=== PATIENT | female | born 1935 | race Caucasian/White ===

== ENCOUNTER 2021-06-14 18:16 | Inpatient (IN) ==
[2021-06-14 19:24] LABS: Basophils # (auto) 0.05 K/uL (0-0.2); Basophils % (auto) 0.4 %; Eosinophils # (auto) 0.25 K/uL (0-0.5); Eosinophils % (auto) 2.1 %; Hematocrit (blood only) 48.5 % (37-47); Hemoglobin 16.5 g/dL (12.0-16.0); Immature Granulocytes # (auto) 0.02 K/uL (0.00-0.02); Immature Granulocytes % (auto) 0.2 %; Lymphocytes # (auto) 2.38 K/uL (1.2-3.4); Mean Corpuscular Hemoglobin 33.4 pg (25-34); Mean Corpuscular Volume 98.2 fL (80-100); Mean Platelet Volume 9.7 fL (7.4-10.4); Monocytes # (auto) 1.45 K/uL (0.11-0.59); Monocytes % (auto) 12.2 %; Neutrophils # (auto) 7.73 K/uL (1.4-6.5); Neutrophils % (auto) 65.1 %; Platelet Count 367 K/uL (130-400); RDW Coefficient of Variation 12.5 % (11.5-14.5); RDW Standard Deviation 44.9 fL (36.4-46.3); Red Blood Count 4.94 M/uL (4.2-5.4); White Blood Count 11.88 K/uL (4.8-10.8)
[2021-06-14 19:39] LABS: Partial Thromboplastin Ratio 1.1; Prothrombin Time 10.3 Seconds (9.0-12.0)
[2021-06-14 19:56] LABS: Alanine Aminotransferase 26 U/L (7-52); Albumin Globulin Ratio 1.3 (0.9-2); Albumin Level 4.4 gm/dl (3.4-5.0); Alkaline Phosphatase 51 U/L (34-104); Anion Gap 8 (3-11); Aspartate Aminotransferase 25 U/L (13-39); BUN Creatinine Ratio 18.8 (10-20); Bilirubin,Total 0.4 mg/dl (0.2-1.0); Blood Urea Nitrogen 21 mg/dl (6-23); Calcium 10.4 mg/dl (8.5-10.1); Carbon Dioxide 30 mmol/L (21-32); Chloride 98 mmol/L (98-107); Est GFR (African American) 51.5 ml/min; Est GFR (Non-African American) 44.4 ml/min; Globulin 3.4 gm/dl (2.5-4.0); Glucose 151 mg/dl (70-99(Fasting)); Magnesium 1.7 mg/dl (1.7-2.4); Potassium 3.9 mmol/L (3.5-5.1); Sodium 136 mmol/L (136-145); Total Protein 7.8 gm/dl (6.0-8.3)
[2021-06-14 20:13] LABS: Troponin I 0.04 ng/ml (0-0.04)
[2021-06-14] MEDS ORDERED: cefTRIAXone SODIUM 2,000 MG/70 ML BAG IV STA (20:36)
[2021-06-14] MEDS ORDERED: ALBUT/IPRATROP 3MG/0.5MG NEB 3 ML VIAL NEB STA (20:36)
[2021-06-14] MEDS ORDERED: dexAMETHasone**PF** 10 MG/ML VIAL IV ONE (20:36)
--- NOTE | 2021-06-14 20:36 | XRay Report ---
XR chest 1V portable CLINICAL HISTORY: SOB TECHNIQUE: Single frontal radiograph of the chest was obtained. Comparison: Comparison is made to chest one view 05/29/2014 FINDINGS: No lines and tubes are seen. Cardiomegaly is noted. Bilateral lower lung predominant airspace opaciti es are seen. No evidence of pleural effusion or pneumothorax. IMPRESSION: Bilateral lower lung predominant airspace opacities which may represent atelectasis, pneumonia, and/o r aspiration. Stable cardiomegaly. ACT 112: Negative or not required by law. Electronically signed by: Leonard Ferreira M.D. 06/14/2021 8:34 PM
--- NOTE | 2021-06-14 20:44 | Emergency Department Note ---
Impression & Plan Hypoxia, Pneumonia, SOB (shortness of breath), Wheezing ED Provider Note NAME: ARABELLA MIKE AGE: 86 SEX: F : 1935 ARRIVES VIA: Walk-In INFORMANT: [Patient] ED PROVIDER(S): [Kobi Marlow MD] CHIEF COMPLAINT: Short of breath HISTORY OF PRESENT ILLNESS: The patient is an 86-year-old female presents to the ER with 3 days of shortness of breath and cough. There has been a slight sore throat as well. No fever, no chills, no vomiting or diarrhea. The patient saw her doctor today and her oxygen level was low, she was referred to the hospital. The patient is vaccinated x3 for COVID-19, she has had her influenza vaccination. Patient has had pneumonia before, she is concerned that she might have pneumonia again. She is a smoker. REVIEW OF SYSTEMS: See HPI for pertinent positives and negatives. A total of ten systems were reviewed and were otherwise negative. PMHx/PSHx: See Below SOCIAL HISTORY: See Below. PHYSICAL EXAM: GENERAL: Patient is in no acute distress. HEENT: No acute trauma, normocephalic atraumatic, mucous membranes moist, no nasal congestion, no scleral icterus. NECK: No stridor, no adenopathy, no meningismus, trachea is midline. LUNGS: Wheezes heard bilaterally, no respiratory distress, no crackles. Breath sounds are equal. HEART: Without murmurs gallops or rubs, regular rate and rhythm. ABDOMEN: Soft, nontender, bowel sounds positive, no hernias, no peritonitis. EXTREMITIES: No cyanosis or edema, full range of motion of all the joints without pain or difficulty, no signs for acute trauma. NEUROLOGIC: Oriented x 3, no acute motor or sensory deficits, no focal weakness. SKIN: No rash, no jaundice, no diaphoresis. DIFFERENTIAL DIAGNOSIS: Reactive airway disease, pneumonia, COVID-19, influenza, pneumothorax, COPD, CHF, infection, cardiac ischemia, pulmonary embolism, bronchitis, musculoskeletal, gastrointestinal, as well as other pathologies. EMERGENCY DEPARTMENT COURSE/PROCEDURES: ECG: Indication was shortness of breath. The ECG shows a sinus rhythm with PACs. The rate is 100. There is no ST elevation, no PVCs. The QTc is 451. Continuous Cardiac Monitoring: An order was placed for continuous cardiac duran toring. The monitor shows a rate of 95 with normal sinus rhythm. Critical Care Note: I have personally spent 45 minutes of critical care time in the direct management of this patient. This includes bedside care, interpretation of diagnostic studies, and testing, discussion with consultants, patient, and family members, and other required patient management activities. This 45 minutes is in excess of all separately billable procedures. MEDICAL DECISION MAKING: There is a mild leukocytosis, this could be consistent with infection. No anemia. There was a normal platelet count. No coagulopathy. No significant electrolyte abnormality or kidney failure. No concerning liver enzyme elevation. ECG shows a sinus rhythm with some PACs, no obvious ischemia. Cardiac enzyme testing x1 is not consistent with acute cardiac injury. Influenza and Covid testing is pending. Chest x-ray shows some consolidation to both lower lungs consistent with potential pneumonia versus atelectasis. On exam, the patient was wheezing. She was noted to be hypoxic and required 2 L of nasal cannula O2 supplementation. The patient was given a DuoNeb, IV Decadron and IV ceftriaxone. The patient is in need of a hospital stay. She has pneumonia. Certainly, COVID-19 or influenza are possibilities--we await these results. I spoke to the patient, I talked to case management. A hospital stay is clearly warranted. Patient is currently resting comfortably. She understands the need for a hospital stay. The on-call hospitalist was consulted. Past Med/Surg History Medical History Pneumonia Social History Smoking Status: Current every day smoker Feels Safe at Home: Yes Allergies Allergies Allergy/AdvReac Type Severity Reaction Status Date / Time Penicillins Allergy Unknown HIVES Verified 06/14/21 21:40 Home Meds Home Medications Medication Instructions Recorded Confirmed clopidogrel 75 mg tablet 75 mg PO DAILY 06/14/21 06/14/21 levothyroxine 150 mcg tablet 150 mcg PO DAILY 06/14/21 06/14/21 lisinopril 40 mg tablet 40 mg PO DAILY 06/14/21 06/14/21 metoprolol tartrate 25 mg tablet 25 mg PO DAILY 06/14/21 06/14/21 multivitamin 1 tab PO DAILY 06/14/21 06/14/21 rosuvastatin 10 mg tablet 10 mg PO DAILY 06/14/21 06/14/21 Results & Data (ED) Vital Signs Vital Signs - 24 hr 06/14/21 18:26 06/14/21 20:18 06/14/21 20:20 Temperature 37.0 C Temperature Source Temporal Artery Scan Pulse Rate 97 H Pulse Rate [Left Apical] 95 H Respiratory Rate 25 H 18 Respiratory Effort / Characteristics Non-Labored Spontaneous Respiratory Depth Normal Respiratory Pattern Regular Blood Pressure 159/68 H Blood Pressure [Right Arm] 123/64 Blood Pressure Mean 98 Blood Pressure Mean [Right Arm] 83 Blood Pressure Position [Right Arm] Lying Pulse Oximetry 92 96 83 L Oxygen Delivery Method Room Air Nasal Cannula Room Air Oxygen Flow Rate 2 Sepsis Recent Fever Within 48 Hours No Sepsis New/Unexplained Change in Mental Status N/A Sepsis Action Taken by Nursing No Action Required Oxygen Flow Rate - Titration 2 Pulse Oximetry Post Tiitration 95 06/14/21 20:21 Temperature Temperature Source Pulse Rate Pulse Rate [Left Apical] Respiratory Rate 22 Respiratory Effort / Characteristics Non-Labored Respiratory Depth Respiratory Pattern Blood Pressure Blood Pressure [Right Arm] Blood Pressure Mean Blood Pressure Mean [Right Arm] Blood Pressure Position [Right Arm] Pulse Oximetry 95 Oxygen Delivery Method Nasal Cannula Oxygen Flow Rate 2 Sepsis Recent Fever Within 48 Hours Sepsis New/Unexplained Change in Mental Status Sepsis Action Taken by Nursing Oxygen Flow Rate - Titration Pulse Oximetry Post Tiitration Home Medications Current Medication List: was personally reviewed by me Laboratory Data Attestation: I reviewed the patient's lab results. Result diagrams: 06/14/21 19:07 06/14/21 19:07 Lab Results 06/14/21 06/14/21 06/14/21 Range/Units 19:07 19:07 19:07 WBC 11.88 H (4.8-10.8) K/uL RBC 4.94 (4.2-5.4) M/uL Hgb 16.5 H (12.0-16.0) g/dL Hct 48.5 H (37-47) % MCV 98.2 (80-100) fL MCH 33.4 (25-34) pg MCHC 34.0 (32-36) g/dL RDW Std Deviation 44.9 (36.4-46.3) fL RDW Coeff of Terri 12.5 (11.5-14.5) % Plt Count 367 (130-400) K/uL MPV 9.7 (7.4-10.4) fL Immature Gran % (Auto) 0.2 % Neut % (Auto) 65.1 % Lymph % (Auto) 20.0 % Wells % (Auto) 12.2 % Eos % (Auto) 2.1 % Baso % (Auto) 0.4 % Neut # (Auto) 7.73 H (1.4-6.5) K/uL Lymph # (Auto) 2.38 (1.2-3.4) K/uL Wells # (Auto) 1.45 H (0.11-0.59) K/uL Eos # (Auto) 0.25 (0-0.5) K/uL Baso # (Auto) 0.05 (0-0.2) K/uL Immature Gran # (Auto) 0.02 (0.00-0.02) K/uL PT 10.3 (9.0-12.0) Seconds INR 1.0 (0.9-1.1) APTT 29.0 (21.0-31.0) Seconds PTT Ratio 1.1 Sodium 136 (136-145) mmol/L Potassium 3.9 (3.5-5.1) mmol/L Chloride 98 (98-107) mmol/L Carbon Dioxide 30 (21-32) mmol/L Anion Gap 8 (3-11) BUN 21 (6-23) mg/dl Creatinine 1.12 (0.6-1.2) mg/dl Est Cr Clr Drug Dosing Not Reportable Est GFR ( Amer) 51.5 ml/min Est GFR (Non-Af Amer) 44.4 ml/min BUN/Creatinine Ratio 18.8 (10-20) Glucose 151 H (70-99(Fasting)) mg/dl Calcium 10.4 H (8.5-10.1) mg/dl Magnesium 1.7 (1.7-2.4) mg/dl Total Bilirubin 0.4 (0.2-1.0) mg/dl AST 25 (13-39) U/L ALT 26 (7-52) U/L Alkaline Phosphatase 51 (34-104) U/L Troponin I 0.04 (0-0.04) ng/ml Total Protein 7.8 (6.0-8.3) gm/dl Albumin 4.4 (3.4-5.0) gm/dl Globulin 3.4 (2.5-4.0) gm/dl Albumin/Globulin Ratio 1.3 (0.9-2) Administered Medications Discontinued Medications Albuterol (Albut/Ipratrop 3mg/0.5mg Neb 3 Ml Vial) 3 ml NEB NOW STA; Protocol Stop: 06/14/21 20:37 Last Admin: 06/14/21 20:45 Dose: 3 ml Documented by: [id number] Dexamethasone Sodium Phosphate (DexamethasonePf 10 Mg/Ml Vial) 6 mg IV NOW ONE Stop: 06/14/21 20:37 Last Admin: 06/14/21 20:47 Dose: 6 mg Documented by: [id number] Ceftriaxone Sodium (Rocephin) 2,000 mg in 70 mls @ 140 mls/hr IV NOW STA Stop: 06/14/21 21:05 Last Infusion: 06/14/21 22:25 Dose: 0 mls/hr Documented by: [id number] Admin: 06/14/21 21:54 Dose: 140 mls/hr Documented by: [id number] Imaging Data Radiologist's Impression: Chest X-Ray 06/14/21 19:05 XR chest 1V portable CLINICAL HISTORY: SOB TECHNIQUE: Single frontal radiograph of the chest was obtained. Comparison: Comparison is made to chest one view 05/29/2014 FINDINGS: No lines and tubes are seen. Cardiomegaly is noted. Bilateral lower lung predominant airspace opacities are seen. No evidence of pleural effusion or pneumothorax. IMPRESSION: Bilateral lower lung predominant airspace opacities which may represent atelectasis, pneumonia, and/or aspiration. Stable cardiomegaly. ACT 112: Negative or not required by law. Electronically signed by: Leonard Ferreira M.D. 06/14/2021 8:34 PM Discharge Plan Visit Data Chief Complaint: Shortness of Breath/Dyspnea Stated Complaint: SORE THROAT, SOB, COUGH, SENT FROM [facility] ED Provider: Kobi Marlow Discharge Problem: Hypoxia, Pneumonia, SOB (shortness of breath), Wheezing Patient Disposition: Admitted As Inpatient Condition: Fair Forms Stand Alone Forms: [facility] Prescriptions Prescriptions: No Action multivitamin Tablet 1 tab PO DAILY RF: 0 clopidogrel 75 mg tablet 75 mg PO DAILY RF: 0 levothyroxine 150 mcg tablet 150 mcg PO DAILY RF: 0 lisinopril 40 mg tablet 40 mg PO DAILY RF: 0 rosuvastatin 10 mg tablet 10 mg PO DAILY RF: 0 metoprolol tartrate 25 mg tablet 25 mg PO DAILY RF: 0 Referrals Referrals: Hodan Ventura MD [Physician] -
[2021-06-14 23:04] LABS: Influenza A virus by PCR Negative (Negative); Influenza B virus by PCR Negative (Negative)
[2021-06-14] MEDS ORDERED: LEVALBUTEROL 1.25MG/0.5ML NEB INH SCH (23:56)
[2021-06-14] MEDS ORDERED: MoRPHine SULFATE 2 MG/ML CARP IV STA (23:56)
[2021-06-14] MEDS ORDERED: XOPENEX/ATROVENT 1.25mg/0.5MG NEB COMBO NEB PRN (23:56)
[2021-06-14] MEDS ORDERED: IPRATROPIUM BROMIDE NEB SOLN 0.02% 2.5 ML VIAL INH SCH (23:56)
[2021-06-15] MEDS ORDERED: dilTIAZem HCl 5 MG/ML 5 ML VIAL IV STA (00:07)
[2021-06-15] MEDS ORDERED: OPTIRAY 320 125ml IV ONE (01:17)
[2021-06-15] MEDS ORDERED: MoRPHine SULFATE 2 MG/ML CARP IV PRN (01:38)
[2021-06-15] MEDS ORDERED: ONDANSETRON INJ 2 MG/ML 2 ML VIAL IV PRN (02:49)
[2021-06-15] MEDS ORDERED: ACETAMINOPHEN 325 MG TAB PO PRN (02:49)
[2021-06-15] MEDS ORDERED: NITROGLYCERIN SL 0.4 MG/TAB TAB SL PRN (02:49)
[2021-06-15] MEDS ORDERED: XOPENEX/ATROVENT 1.25mg/0.5MG NEB COMBO NEB SCH (02:49)
[2021-06-15] MEDS ORDERED: SODIUM CHLORIDE 0.9% 1000ML 1,000 ML IV SCH (02:49)
[2021-06-15] MEDS ORDERED: POLYETHYLENE (MIRALAX) 17 GM PACK PO PRN (02:49)
[2021-06-15] MEDS ORDERED: IPRATROPIUM BROMIDE NEB SOLN 0.02% 2.5 ML VIAL INH PRN (03:04)
[2021-06-15] MEDS ORDERED: LEVALBUTEROL 1.25MG/0.5ML NEB INH PRN (03:05)
[2021-06-15] MEDS: DOXYCYCLINE HYCLATE 100 MG in DEXTROSE 5% 100 ML IV SCH ×2 (04:05→16:40)
[2021-06-15] MEDS: LEVOTHYROXINE SODIUM 150 MCG TABLET PO SCH (05:59)
[2021-06-15 06:13] LABS: Basophils # (auto) 0.03 K/uL (0-0.2); Basophils % (auto) 0.2 %; Hematocrit (blood only) 47.1 % (37-47); Hemoglobin 15.7 g/dL (12.0-16.0); Immature Granulocytes # (auto) 0.04 K/uL (0.00-0.02); Immature Granulocytes % (auto) 0.2 %; Lymphocytes # (auto) 0.72 K/uL (1.2-3.4); Lymphocytes % (auto) 3.6 %; Mean Corpuscular Hemoglobin 33.3 pg (25-34); Mean Corpuscular Hgb Conc 33.3 g/dL (32-36); Mean Platelet Volume 10.2 fL (7.4-10.4); Monocytes # (auto) 0.49 K/uL (0.11-0.59); Monocytes % (auto) 2.5 %; Neutrophils # (auto) 18.64 K/uL (1.4-6.5); Neutrophils % (auto) 93.5 %; Platelet Count 388 K/uL (130-400); RDW Coefficient of Variation 12.6 % (11.5-14.5); RDW Standard Deviation 46.4 fL (36.4-46.3); Red Blood Count 4.71 M/uL (4.2-5.4); White Blood Count 19.92 K/uL (4.8-10.8)
[2021-06-15 06:23] LABS: BUN Creatinine Ratio 19.7 (10-20); Calcium 8.9 mg/dl (8.5-10.1); Creatinine Clr Calc Pharmacy 31.5 ml/min; Est GFR (African American) 46.5 ml/min; Est GFR (Non-African American) 40.1 ml/min; Magnesium 1.6 mg/dl (1.7-2.4); Potassium 5.1 mmol/L (3.5-5.1); Troponin I 0.05 ng/ml (0-0.04)
[2021-06-15] MEDS ORDERED: FUROSEMIDE INJ 20 MG/2 ML VIAL IV ONE ×2 (06:45→09:52)
[2021-06-15] MEDS: LEVALBUTEROL 1.25MG/0.5ML NEB INH SCH ×3 (06:52→19:26)
[2021-06-15] MEDS: IPRATROPIUM BROMIDE NEB SOLN 0.02% 2.5 ML VIAL INH SCH ×3 (06:52→19:26)
--- NOTE | 2021-06-15 06:59 | History and Physical Report ---
DATE OF ADMISSION: 06/14/2021. CHIEF COMPLAINT: Shortness of breath. HISTORY OF PRESENT ILLNESS: This is an 86-year-old female with past medical history significant for type 2 diabetes, currently on metformin; hypothyroidism; hyperlipidemia; history of hypoxemia; hypertension; QUISPE; polymyalgia rheumatica; compression fracture; senile osteoporosis; osteoarthritis, low back pain; sensorineural hearing loss; ongoing tobacco abuse. Lives alone, ambulates with a cane. Comes because of shortness of breath and cough, it is going on for last one week, got worse today. Denies any fevers or chills. The patient in the ER initially was was doing okay. Chest x-ray, possible questionable pneumonia. Mild leukocytosis. Later, the patient vomited and got more tachypneic. Complains of shortness of breath. Daughter is in the room. Currently is requiring 8 liters OxyMask, tachycardic. Denies any chest pain, no abdominal pain. No recent fever or chills. No diarrhea or constipation. All the history got from the daughter, the patient is very hard of hearing. Currently somewhat in mild respiratory distress. ALLERGIES: PENICILLINS. PAST MEDICAL HISTORY: As mentioned above. PAST SURGICAL HISTORY: Colonoscopy, EGDs, lumbosacral injection, laparoscopic cholecystectomy, stent in right femoral artery, bilateral stents in iliac arteries. MEDICATIONS: The patient is on Plavix 75 mg p.o. daily, levothyroxine 150 mcg p.o. daily, lisinopril 40 mg p.o. daily, metoprolol tartrate 25 mg p.o. b.i.d., multivitamin p.o. daily, lovastatin 10 mg p.o. daily. FAMILY HISTORY: Significant for father had cancer; mother has endocrine disorder, hypertension; brother has esophageal stricture. SOCIAL HISTORY: , lives alone. Currently smoking a few cigarettes every day. Prior to that smoked half pack a day for 40 years. No alcohol, no drug use. REVIEW OF SYSTEMS: Could not get complete review of systems as the patient is very hard of hearing. PHYSICAL EXAMINATION: GENERAL: The patient has some mild respiratory distress. VITAL SIGNS: Temperature 37, pulse 131, respiratory rate 34, blood pressure 220/90, oxygen 98% on 8 L OxyMask. HEENT: Pupils equal, round and reactive to light. Oral mucosa moist. Head is atraumatic. NECK: No JVD, no neck masses. CARDIOVASCULAR: S1 and S2 heard. Tachycardia. No murmurs. RESPIRATORY SYSTEM: Normal AP diameter. Tachypnea present. Mild bilateral wheezing. No crackles. ABDOMEN: Soft, bowel sounds present, nontender, nondistended. CENTRAL NERVOUS SYSTEM: Alert, awake and somewhat mild respiratory distress. Obeys simple commands. Moves extremities. EXTREMITIES: No edema, no erythema. LABORATORY DATA: WBC 11.8, hemoglobin 16.5, hematocrit 48.5, platelets 367. PT 10.3, INR 1, APTT 29. Sodium 136, potassium 3.9, chloride 98, bicarbonate 30, BUN 21, creatinine 1.1, serum glucose 151, calcium 10.4, magnesium 1.7, total bilirubin 0.4, AST 25, ALT 26, alkaline phosphatase 51. Troponin I of 0.04. Influenza A and B negative. SARS-CoV-2 RNA negative. IMAGING DATA: Chest x-ray, bilateral lower lung predominant airspace opacity which may represent atelectasis, pneumonia and/or aspiration. Stable cardiomegaly. EKG: Normal sinus rhythm at a rate of 100, left axis deviation. ASSESSMENT AND PLAN: This is an 86-year-old female who presents with shortness of breath, found to be from chronic obstructive pulmonary disease exacerbation and possible pneumonia. 1. Shortness of breath, mild respiratory distress, chronic obstructive disease exacerbation, possible pneumonia: Will get a CTA chest to rule out pulmonary embolism and look for any infiltrates. Will place on BiPAP for now. Will start IV steroids, nebs around the clock and p.r.n. Rocephin and doxycycline and closely monitor in the tele floor. The patient is COVID vaccinated and also received a booster as per daughter. 2. Tobacco abuse: Needs counseling. 3. History of peripheral vascular disease: Status post femoral stent. Continue Plavix and statin. 4. Hypertension: Continue lisinopril and metoprolol. Will monitor the blood pressure. 5. Hypothyroidism On Synthroid. 6. Diabetes: Not on any medications. Placed on insulin sliding scale. Follow HbA1c levels. 7. Deep venous thrombosis prophylaxis: On Lovenox. DISPOSITION: Closely monitor in the tele floor. Level 1 full code. Expect to discharge home and follow up with family doctor. Job ID: [id number] [facility]
--- NOTE | 2021-06-15 07:01 | CT Scan Report ---
CT ANGIOGRAPHY OF THE CHEST, PULMONARY EMBOLUS PROTOCOL CLINICAL HISTORY: Shortness of breath. Chest pain. COMPARISON STUDY: Chest radiograph June 14, 2021. TECHNIQUE: Following IV administration of 114 mL of Optiray, helical axial images of the chest were o btained utilizing the pulmonary embolus protocol. Maximal intensity projections and sagittal and cor onal reformats were viewed on an independent 3D workstation. IV contrast was administered without co mplication. Automated exposure control was utilized for the study. A dose lowering technique was ut ilized adhering to the principles of ALARA. CT DOSE: 1408.58 mGy.cm FINDINGS: No pulmonary emboli are identified although the segmental and subsegmental pulmonary arter ies are suboptimally assessed due to respiratory motion. There is no pericardial effusion. A few mild ly enlarged right hilar lymph nodes measure up to 1.1 cm short axis diameter. Prominent prevascular l ymph node is present. No pneumothorax or pleural effusion is noted. There is lung hyperexpansion with emphysema. Right lower lobe airspace opacity is present. Lingular opacity favors atelectasis. Lungs are suboptimally assessed due to respiratory motion. There is a probable 6 mm left upper lobe nodule on image 176 of 301. 4 mm subpleural right lower lobe nodule on image 98 is present. Interlobular sep cachorro thickening is noted. There is no pneumothorax. Trace right pleural effusion. Abdomen and pelvis C T will be reported separately. No acute fracture or suspicious lesion is identified within visualized portions of the bony thorax. There is no thoracic aortic dissection. Mild cardiomegaly is noted. IMPRESSION: 1. No pulmonary emboli identified although segmental and subsegmental pulmonary arteries suboptimally assessed due to respiratory motion. 2. Right lower lobe airspace opacity which favors an infectious process. 3. Emphysema. 4. Interlobular septal thickening suggestive of interstitial pulmonary edema. 5. A few pulmonary nodules which measure up to [address] in 6 months is recommended to ensure stability. 6. Mildly enlarged right hilar lymph nodes which are likely reactive. ACT 112: Negative or not required by law. Electronically signed by: Dwight Dubose M.D. 06/15/2021 7:00 AM
--- NOTE | 2021-06-15 07:36 | CT Scan Report ---
CT OF THE ABDOMEN AND PELVIS WITH CONTRAST CLINICAL HISTORY: Nausea and vomiting. COMPARISON STUDY: None. TECHNIQUE: Following IV administration of 114 mL of Optiray, axial images of the abdomen and pelvis w ere obtained from the lung bases to the proximal femurs. Images were reviewed in the axial, sagittal, and coronal planes. IV contrast was administered without complication. Automated exposure control w as utilized for the study. A dose lowering technique was utilized adhering to the principles of EFREM Reddy. FINDINGS: Please note that the chest CT will be reported separately. No pneumatosis, free air or port al venous gas is present. Biliary ductal dilatation is noted status post cholecystectomy. Common bile duct measures 9 mm in caliber. This exam is mildly compromised by motion artifact. No hepatic lesion s are present. There may be early cirrhosis. Unenhanced images of the spleen spleen, adrenal glands, kidneys and pancreas are unremarkable with exception of several subcentimeter renal lesions which are too small to characterize. There is no hydronephrosis. The appendix is normal. There is no evidence for a bowel obstruction. There is no ascites. No lymphadenopathy is present. Caliber and wall thickne ss of small and large bowel are normal. The bilateral superficial femoral artery stents are noted. Th nori are suboptimally assessed on this non-CTA exam. There is extensive plaque of the abdominal aorta. IMPRESSION: 1. No acute process within the abdomen or pelvis. 2. Biliary ductal dilatation. This is likely related to cholecystectomy however correlation with live r function tests is recommended. 3. No bowel obstruction. No bowel wall thickening. Normal appendix. 4. Right lower lobe airspace opacity which favors an infectious process. ACT 112: Negative or not required by law. Electronically signed by: Dwight Dubose M.D. 06/15/2021 7:35 AM
[2021-06-15] MEDS ORDERED: ENOXAPARIN INJ 40 MG/0.4 ML SYR SQ SCH (09:00)
[2021-06-15] MEDS: INSULIN ASPART PER UNIT SC SCH ×4 (09:00→20:46)
[2021-06-15] MEDS: CLOPIDOGREL BISULFATE 75 MG TAB PO SCH (09:54)
[2021-06-15] MEDS: MAGNESIUM SULFATE / D5W 1 GM/100 ML BAG IV SCH ×2 (09:54→12:40)
[2021-06-15] MEDS: METOPROLOL TARTRATE 25 MG TAB PO SCH ×2 (09:55→20:46)
[2021-06-15] MEDS: lisinopril 40 MG TAB PO SCH (09:55)
[2021-06-15] MEDS: MULTIVITAMIN TAB PO SCH (09:55)
[2021-06-15] MEDS: ROSUVASTATIN CALCIUM 10 MG TAB PO SCH (09:55)
[2021-06-15] MEDS: methylPREDNISolone 40 MG in SYRINGE 0 ML IV SCH ×3 (09:55→21:50)
--- NOTE | 2021-06-15 11:26 | Hospitalist Progress Note ---
Date of Service June 15, 2021 Assessment & Plan (1) Pneumonia: (2) Hypoxia: (3) SOB (shortness of breath): (4) Wheezing: Plan: Leukocytosismonitor daily labs Hyperglycemiainsulin sliding scale Patient is Covid negative, currently on BiPAP, she has been placed on Rocephin and doxycycline, DVT prophylaxis with Lovenox nebulizers, continue lisinopril for hypertension and levothyroxine for hypothyroidism she is on IV methylprednisolone, continue metoprolol at 25 mg twice daily continue Crestor for hyperlipidemia, monitor daily labs. Nurse and I discussed smoking cessation with her, but she is 86. She has been intubated in the past. ROS-No Headache, No Visual Changes, No Nausea, No Vomiting, No Fever, No Chills, No Neck Pain or Stiffness, No Chest Pain, No Palpitations, positive SOB, positive VEGA, positive cough, positive sputum, positive wheezing, No Abdominal Pain, No Diarrhea, No Hematemesis, No Hemoptysis, No Unexpected Weight Loss, No Flank pain, No Melena, No Hematochezia, No Frequency, No Urgency, No Burning, No Hematuria, No Rashes, No Diaphoresis. Appetite is Normal Physical Exam Gen-AAO x 3, no respiratory distress, Afebrile, on nasal cannula, hard of hearing, very pleasant and laughing Head-NCAT, EOMI, PERRLA, Anicteric Sclera, No Posterior Pharyngeal Erythema Neck-Supple, No JVD, No Thyromegaly, No Masses, No LAD, No Bruits Lungs-bilateral wheezing, No Crepitus Chest-No S4, +S1, +S2, No S3, No Murmurs, No Rubs, No Gallops, No Ectopy Abdomen-Soft, Bowel Sounds Present, Non Tender, Non Distended, No Hepatomegaly, No Splenomegaly, No Palpable Masses, No Rebound, No Rigidity, No Guarding Musculoskeletal-Full Range of Motion Bilaterally, No CVAT Extremities-No Cyanosis, No Clubbing, No Edema Nuero-Cranial Nerves II-XII grossly intact, Motor WNL, DTRs WNL, Strength WNL, Non Focal Psych-anxious Admission and Anticipated Discharge Date Admission Date: June 14, 2021 Subjective Patient seen, feels great and wants to go home but she is on 6 L. Results & Data Results & Data ([facility]) Vital Signs (Past 12 Hours) Vital Signs Temp Pulse Pulse Pulse Resp BP BP 06/15/21 11:00 36.5 C 80 20 125/73 06/15/21 08:00 36.6 C 89 16 111/75 06/15/21 06:55 80 24 06/15/21 06:54 80 24 06/15/21 04:00 94 H 20 133/61 06/15/21 03:46 95 H 41 H 06/15/21 03:00 98 H 24 127/42 L 06/15/21 02:01 115 H 22 144/88 H 06/15/21 01:33 101 H 24 129/72 06/15/21 00:31 105 H 34 H 151/86 H 06/15/21 00:16 122 H 24 158/84 H 06/14/21 23:51 131 H 38 H 06/14/21 23:34 128 H 30 H 220/90 H Pulse Ox 06/15/21 11:00 93 06/15/21 08:00 97 06/15/21 06:55 95 06/15/21 06:54 95 06/15/21 04:00 94 06/15/21 03:46 94 06/15/21 03:00 93 06/15/21 02:01 93 06/15/21 01:33 94 06/15/21 00:31 92 06/15/21 00:16 93 06/14/21 23:51 98 06/14/21 23:34 92 Laboratory Results Reviewed (1) Pneumonia Laterality: bilateral Lung location: lower lobe of lung Pneumonia type: due to unspecified organism Qualified Code(s): J18.9 - Pneumonia, unspecified organism
--- NOTE | 2021-06-15 12:12 | Electrocardiogram Report ---
Test Reason : Blood Pressure : / mmHG Vent. Rate : 100 BPM Atrial Rate : 100 BPM P-R Int : 166 ms QRS Dur : 082 ms QT Int : 350 ms P-R-T Axes : 076 -32 071 degrees QTc Int : 451 ms Normal sinus rhythm with PACs Left axis deviation Abnormal ECG Confirmed by Israel Flores ([id number]) on 06/15/2021 12:11:57 PM Referred By: REFERRED SELF Confirmed By:Lake Flores
[2021-06-15] MEDS ORDERED: MAGNESIUM SULFATE 1GM / D5W BAG IV ONE (12:34)
[2021-06-15 21:17] LABS: Adenovirus PCR Not Detected (NotDetected); Bordetella parapertussis PCR Not Detected (NotDetected); Bordetella pertussis PCR Not Detected (NotDetected); Chlamydia pneumoniae PCR Not Detected (NotDetected); Coronavirus 229E PCR Not Detected (NotDetected); Coronavirus CoV-2 (COVID19)PCR Not Detected (NotDetected); Coronavirus HKU1 PCR Not Detected (NotDetected); Coronavirus NL63 PCR Not Detected (NotDetected); Coronavirus OC43PCR Not Detected (NotDetected); Human Metapneumovirus PCR Not Detected (NotDetected); Influenza A PCR Not Detected (NotDetected); Influenza B PCR Not Detected (NotDetected); Mycoplasma pneumoniae PCR Not Detected (NotDetected); Parainfluenza Virus 1 PCR Not Detected (NotDetected); Parainfluenza Virus 2 PCR Not Detected (NotDetected); Parainfluenza Virus 4 PCR Not Detected (NotDetected); Respiratory Syncytial VirusPCR Not Detected (NotDetected); Rhinovirus/Enterovirus PCR Not Detected (NotDetected)
[2021-06-15 21:24] LABS: Parainfluenza Virus 3 PCR DETECTED (NotDetected)
[2021-06-15] MEDS: cefTRIAXone SODIUM 2,000 MG in DEXTROSE 5% 50 ML IV SCH (23:14)
[2021-06-16] MEDS: IPRATROPIUM BROMIDE NEB SOLN 0.02% 2.5 ML VIAL INH SCH ×4 (00:26→22:39)
[2021-06-16] MEDS: LEVALBUTEROL 1.25MG/0.5ML NEB INH SCH ×4 (00:26→22:39)
[2021-06-16] MEDS: DOXYCYCLINE HYCLATE 100 MG in DEXTROSE 5% 100 ML IV SCH ×2 (03:55→16:57)
[2021-06-16] MEDS: LEVOTHYROXINE SODIUM 150 MCG TABLET PO SCH (05:29)
[2021-06-16 06:57] LABS: Hematocrit (blood only) 41.4 % (37-47); Hemoglobin 14.4 g/dL (12.0-16.0); Mean Corpuscular Hemoglobin 34.3 pg (25-34); Mean Corpuscular Hgb Conc 34.8 g/dL (32-36); Mean Corpuscular Volume 98.6 fL (80-100); Platelet Count 363 K/uL (130-400); RDW Coefficient of Variation 12.5 % (11.5-14.5); RDW Standard Deviation 45.4 fL (36.4-46.3); White Blood Count 22.97 K/uL (4.8-10.8)
[2021-06-16 07:24] LABS: Albumin Globulin Ratio 1.3 (0.9-2); Albumin Level 3.7 gm/dl (3.4-5.0); BUN Creatinine Ratio 25.7 (10-20); Bilirubin,Total 0.2 mg/dl (0.2-1.0); Calcium 8.5 mg/dl (8.5-10.1); Creatinine Clr Calc Pharmacy 19.7 ml/min; Est GFR (Non-African American) 23.3 ml/min; Globulin 2.8 gm/dl (2.5-4.0); Potassium 4.3 mmol/L (3.5-5.1); Total Protein 6.5 gm/dl (6.0-8.3)
[2021-06-16] MEDS: methylPREDNISolone 40 MG in SYRINGE 0 ML IV SCH ×3 (09:39→21:33)
[2021-06-16] MEDS: MULTIVITAMIN TAB PO SCH (09:39)
[2021-06-16] MEDS: lisinopril 40 MG TAB PO SCH (09:39)
[2021-06-16] MEDS: CLOPIDOGREL BISULFATE 75 MG TAB PO SCH (09:39)
[2021-06-16] MEDS: METOPROLOL TARTRATE 25 MG TAB PO SCH ×2 (09:40→21:33)
[2021-06-16] MEDS: ROSUVASTATIN CALCIUM 10 MG TAB PO SCH (09:40)
[2021-06-16] MEDS: SODIUM CHLORIDE 0.9% 1000ML 1,000 ML IV SCH (09:48)
[2021-06-16] MEDS: INSULIN ASPART PER UNIT SC SCH ×3 (09:50→16:42)
[2021-06-16] MEDS: HEPARIN SOD 5,000 UNIT/0.5 ML VIAL SQ SCH ×2 (10:53→21:34)
--- NOTE | 2021-06-16 12:07 | Ultrasound Report ---
US renal/blad retro comp CLINICAL HISTORY: ashley ckd TECHNIQUE: Multiple sonographic real-time images of the kidneys and bladder were obtained. COMPARISON: None available at the time of this dictation. FINDINGS: The right kidney measures 11.2 cm in length, and the left kidney measures 10.5 cm in length. The right kidney is normal in size, contour, cortical thickness, and echogenicity. No hydronephrosis is identified. A cyst is seen in the right kidney measuring 1.0 x 0.8 x 1.0 cm. No perinephric flui d collection is seen. The left kidney is normal in size, contour, cortical thickness and echogenicity. No hydronephrosis i s identified. No renal lesion is identified. No perinephric fluid collection is seen. The bladder is almost collapsed limiting visualization. No large intraluminal mass is seen. IMPRESSION: Unremarkable renal ultrasound in particular no evidence of hydronephrosis. ACT 112: Negative or not required by law. Electronically signed by: Leonard Ferreira M.D. 06/16/2021 12:06 PM
[2021-06-16 14:13] LABS: Appearance Urine Clear (Clear); Bilirubin Urine Negative (Negative); Blood Urine Negative (Negative); Color Urine Yellow; Glucose Urine UA Negative (Negative); Ketones Urine Negative (Negative); Leukocyte Esterase Urine Negative (Negative); Nitrite Urine Negative (Negative); Protein Urine Negative (Negative); Urobilinogen Urine Negative (Negative)
--- NOTE | 2021-06-16 19:05 | Hospitalist Progress Note ---
Date of Service June 16, 2021 Assessment & Plan (1) Pneumonia: (2) Hypoxia: Plan: #. Acute hypoxic respiratory failure 2/2 Pneumonia #. Pneumonia No home oxygen use, Covid negative. Parainfluenza positive at admission. She has been intubated in the past. Admitting CXR positive for bilateral lower lung opacities. Admitting CTA chest negative for PE and positive for RLL airspace opacity likely infectious process. Also revealed few pulmonary nodules up to [address] scan in 6-month is recommended. Continue with Rocephin and doxycycline 06/15 Patient clinically doing better, afebrile and on 4 L nasal cannula oxygen. Elevation in WBC is likely secondary to Solu-Medrol. Continue with nebulizers, recommended smoking cessation. #. RU over CKD Baseline creatinine around 1.1 Creatinine elevated to 1.91 06/16 Renal ultrasound: Unremarkable with no evidence of hydronephrosis. Patient started on IV fluid, continue with IV fluid, monitor BMP daily 2. Tobacco abuse:Counseled 3. History of peripheral vascular disease: Status post femoral stent. Continue Plavix and statin. 4. Hypertension: Continue lisinopril and metoprolol. Will monitor the blood pressure. 5. Hypothyroidism On Synthroid. 6. Diabetes: Not on any medications. Placed on insulin sliding scale. Follow HbA1c levels. 7. Deep venous thrombosis prophylaxis: On Lovenox. Full code Disposition: Expect discharge in the next few days. Two-step needed prior to discharge. Admission and Anticipated Discharge Date Admission Date: June 14, 2021 Subjective Patient seen and examined at bedside for pneumonia and acute hypoxic respiratory failure. Patient was lying in bed, on 4 L oxygen, NAD, no new acute events overnight. Patient reports coughing with likely yellow mucus, did not have cough all the time but gets continuous cough occasionally, reports eating and moving bowels okay. Patient denies any fever/chills/chest pain/palpitations/belly pain/other review of symptoms. Physical Exam Physical Exam: GENERAL: Alert and oriented x3. NAD, on 4L NC O2 HEENT: No pallor, no icterus. Pupils equal, round and reactive to light. Oral mucosa moist. NECK: No JVD, no neck masses. HEART: S1 and S2 heard. Regular rate and rhythm. No murmur, no gallop. RESPIRATORY SYSTEM: Normal AP diameter. No accessory muscle use. Occasional wheeze over right lungs, decreased breath sounds. ABDOMEN: Soft, bowel sounds present, nontender, no distention. CENTRAL NERVOUS SYSTEM: No facial droop. Speech is clear. Obeys simple commands. Moves extremities. EXTREMITIES: No edema, no erythema seen. Results & Data Results & Data ([facility]) Vital Signs (Past 12 Hours) Vital Signs Temp Pulse Resp BP BP Pulse Ox 06/16/21 16:04 36.5 C 73 19 131/72 93 06/16/21 15:01 96 06/16/21 11:24 36.9 C 74 20 131/60 92 06/16/21 07:41 36.9 C 91 H 20 138/47 L 92 06/16/21 07:12 78 20 97 (1) Pneumonia Laterality: bilateral Lung location: lower lobe of lung Pneumonia type: due to unspecified organism Qualified Code(s): J18.9 - Pneumonia, unspecified organism
[2021-06-16] MEDS: cefTRIAXone SODIUM 2,000 MG in DEXTROSE 5% 50 ML IV SCH (22:24)
[2021-06-17] MEDS: LEVALBUTEROL 1.25MG/0.5ML NEB INH SCH ×5 (00:11→23:52)
[2021-06-17] MEDS: INSULIN ASPART PER UNIT SC SCH ×5 (00:12→21:21)
[2021-06-17] MEDS: SODIUM CHLORIDE 0.9% 1000ML 1,000 ML IV SCH ×2 (00:13→15:35)
[2021-06-17] MEDS: DOXYCYCLINE HYCLATE 100 MG in DEXTROSE 5% 100 ML IV SCH ×2 (03:35→16:07)
[2021-06-17] MEDS: LEVOTHYROXINE SODIUM 150 MCG TABLET PO SCH (06:17)
[2021-06-17] MEDS: IPRATROPIUM BROMIDE NEB SOLN 0.02% 2.5 ML VIAL INH SCH ×5 (06:17→23:51)
[2021-06-17 07:49] LABS: Hematocrit (blood only) 44.4 % (37-47); Hemoglobin 14.7 g/dL (12.0-16.0); Mean Corpuscular Hgb Conc 33.1 g/dL (32-36); Mean Corpuscular Volume 99.8 fL (80-100); Mean Platelet Volume 9.8 fL (7.4-10.4); Platelet Count 374 K/uL (130-400); RDW Coefficient of Variation 12.6 % (11.5-14.5); Red Blood Count 4.45 M/uL (4.2-5.4)
[2021-06-17] MEDS: CLOPIDOGREL BISULFATE 75 MG TAB PO SCH (08:03)
[2021-06-17] MEDS: HEPARIN SOD 5,000 UNIT/0.5 ML VIAL SQ SCH ×2 (08:04→21:24)
[2021-06-17] MEDS: ROSUVASTATIN CALCIUM 10 MG TAB PO SCH (08:06)
[2021-06-17] MEDS: lisinopril 40 MG TAB PO SCH (08:06)
[2021-06-17] MEDS: METOPROLOL TARTRATE 25 MG TAB PO SCH ×2 (08:06→21:10)
[2021-06-17] MEDS: MULTIVITAMIN TAB PO SCH (08:07)
[2021-06-17 08:29] LABS: BUN Creatinine Ratio 33.1 (10-20); Calcium 8.1 mg/dl (8.5-10.1); Creatinine Clr Calc Pharmacy 23.6 ml/min; Est GFR (African American) 33.5 ml/min; Est GFR (Non-African American) 28.9 ml/min; Magnesium 2.2 mg/dl (1.7-2.4); Phosphorus 3.3 mg/dl (2.5-4.9); Potassium 4.8 mmol/L (3.5-5.1)
[2021-06-17] MEDS: methylPREDNISolone 40 MG in SYRINGE 0 ML IV SCH (10:06)
[2021-06-17] MEDS ORDERED: PHARMACY GLYCEMIC MGMT CONSULT PRN (11:31)
[2021-06-17] MEDS ORDERED: INSULIN HUMAN REGULAR PER UNIT 8 UNITS in SYRINGE 7.92 ML IV ONE (12:00)
[2021-06-17] MEDS ORDERED: INSULIN GLARGINE SOLOSTAR 100 UNITS/ML 3 ML PEN SC ONE (12:00)
[2021-06-17] MEDS ORDERED: LABETALOL HCL IV 5 MG/ML 20ML IV STA (14:06)
[2021-06-17] MEDS ORDERED: LABETALOL HCL IV 5 MG/ML 20ML IV PRN (14:06)
[2021-06-17] MEDS ORDERED: INSULIN ASPART PER UNIT SC ONE (14:30)
--- NOTE | 2021-06-17 15:04 | Pharmacy Report ---
Pharmacy Glycemic Short Note 2 - Date of Service June 17, 2021 - Glycemic Short BSG Results (Last 24 hours): 06/16/21 06/16/21 06/16/21 16:27 16:30 20:38 Glucose POC Glucose 310 H* 289 H 430 H* 06/16/21 06/17/21 06/17/21 20:40 07:17 07:27 Glucose 293 H POC Glucose 371 H* 303 H* 06/17/21 06/17/21 11:29 11:30 Glucose POC Glucose 519 H* 454 H* OUTPATIENT ANTIDIABETIC REGIMEN: * None ASSESSMENT: * Patient admitted 06/14 with pneumonia and parainfluenza. Receiving doxycycline and rocephin. Reported to be clinically improving. * Ordered Solu-medrol 40mg q8h on 06/15, changed to q12h late 06/16 (received 3 doses on 06/16) and now down to daily ongoing. * On admission, ordered SSI with a CF of 30 and no carb coverage. Blood glucose has trended up steadily over the last few days with the addition of steroids. * After receiving 30 units of lantus, 8 units IV bolus insulin, and 16 units SC novolog, patient has come down to 290 2 hrs after a BG reading of 519. PLAN FOR INPATIENT GLYCEMIC CONTROL: * Basal insulin * Received Lantus 30 units at 1233 * Bolus insulin * NovoLog per scale ACHS * Goal Range: Low 110 mg/dL - High 140 mg/dL * Correction Factor: 20 mg/dL/unit * Nutritional / Prandial insulin per carb ratio of 1 unit per 7 grams CHO consumed * May need tighter carb ratio tomorrow, will trend BG throughout the evening and overnight checks * Will evaluate BG this evening and possibly add more lantus, will add ongoing lantus in AM. PLAN FOR DISCHARGE: * TBD
--- NOTE | 2021-06-17 15:32 | Hospitalist Progress Note ---
Date of Service June 17, 2021 Assessment & Plan (1) Pneumonia: (2) Hypoxia: Plan: #. Acute hypoxic respiratory failure 2/2 Pneumonia #. Pneumonia No home oxygen use, Covid negative. Parainfluenza positive at admission. She has been intubated in the past. Admitting CXR positive for bilateral lower lung opacities. Admitting CTA chest negative for PE and positive for RLL airspace opacity likely infectious process. Also revealed few pulmonary nodules up to [address] scan in 6-month is recommended. Continue with Rocephin and doxycycline 06/15 Patient clinically doing better, afebrile and on 4 L nasal cannula oxygen. Elevation in WBC is likely secondary to Solu-Medrol --> already improving with decreasing dose of Solu-Medrol Continue to wean down Solu-Medrol Continue with nebulizers, recommended smoking cessation. #. RU over CKD Baseline creatinine around 1.1 Creatinine elevated to 1.91 --> trending down 06/16 Renal ultrasound: Unremarkable with no evidence of hydronephrosis. Continue with IV fluid, monitor BMP daily Hold nephrotoxics #. Hypertension Likely secondary to steroid use and IV fluid for RU component on the background of hospital setting. Continue home meds, hold lisinopril until RU resolves Continue to monitor blood pressure, added as needed medication 2. Tobacco abuse:Counseled 3. History of peripheral vascular disease: Status post femoral stent. Continue Plavix and statin. 5. Hypothyroidism On Synthroid. 6. Diabetes: Not on any medications. Placed on insulin sliding scale. Follow HbA1c levels. Glycemic pharamacy on board. 7. Deep venous thrombosis prophylaxis: On Lovenox. Full code DVT Px: Hep SQ Disposition: Expect discharge in the next few days if Cr continues to trend down. Two-step needed prior to discharge. Improving O2. PT recommending discharge to home. Admission and Anticipated Discharge Date Admission Date: June 14, 2021 Subjective Patient seen and examined at bedside for pneumonia and acute hypoxic respiratory failure. Patient was sitting up in chair, on 4 L oxygen, NAD, no new acute events overnight. Patient reports improvement in cough with no mucus,, reports eating and moving bowels okay. Patient denies any fever/chills/chest pain/pal pitations/belly pain/other review of symptoms. Physical Exam Physical Exam: GENERAL: Alert and oriented x3. NAD, on 4L NC O2 HEENT: No pallor, no icterus. Pupils equal, round and reactive to light. Oral mucosa moist. NECK: No JVD, no neck masses. HEART: S1 and S2 heard. Regular rate and rhythm. No murmur, no gallop. RESPIRATORY SYSTEM: Normal AP diameter. No accessory muscle use. Wheeze over right lungs has improved, crackles bibasal, decreased breath sounds. ABDOMEN: Soft, bowel sounds present, nontender, no distention. CENTRAL NERVOUS SYSTEM: No facial droop. Speech is clear. Obeys simple commands. Moves extremities. EXTREMITIES: No edema, no erythema seen. Results & Data Results & Data ([facility]) Vital Signs (Past 12 Hours) Vital Signs Temp Pulse Resp BP BP Pulse Ox 06/17/21 14:40 91 H 177/58 H 06/17/21 12:13 37.1 C 87 22 193/75 H 95 06/17/21 12:05 82 18 96 06/17/21 07:46 36.9 C 99 H 20 182/64 H 94 06/17/21 07:00 89 19 94 06/17/21 04:15 37 C 96 H 19 148/65 H 90 (1) Pneumonia Laterality: bilateral Lung location: lower lobe of lung Pneumonia type: due to unspecified organism Qualified Code(s): J18.9 - Pneumonia, unspecified organism
[2021-06-17] MEDS: cefTRIAXone SODIUM 2,000 MG in DEXTROSE 5% 50 ML IV SCH (22:07)
[2021-06-18] MEDS: INSULIN ASPART PER UNIT SC SCH ×6 (00:09→21:48)
[2021-06-18] MEDS: DOXYCYCLINE HYCLATE 100 MG in DEXTROSE 5% 100 ML IV SCH ×2 (04:07→16:15)
[2021-06-18] MEDS: SODIUM CHLORIDE 0.9% 1000ML 1,000 ML IV SCH (04:08)
[2021-06-18] MEDS: hydrALAZINE HCL 20 MG/ML VIAL IV PRN (04:24)
[2021-06-18] MEDS: LEVOTHYROXINE SODIUM 150 MCG TABLET PO SCH (06:15)
[2021-06-18] MEDS: IPRATROPIUM BROMIDE NEB SOLN 0.02% 2.5 ML VIAL INH SCH ×3 (07:07→19:38)
[2021-06-18] MEDS: LEVALBUTEROL 1.25MG/0.5ML NEB INH SCH ×3 (07:07→19:38)
[2021-06-18 07:33] LABS: Hematocrit (blood only) 42.3 % (37-47); Hemoglobin 14.1 g/dL (12.0-16.0); Mean Corpuscular Hemoglobin 33.2 pg (25-34); Mean Corpuscular Hgb Conc 33.3 g/dL (32-36); Mean Corpuscular Volume 99.5 fL (80-100); Mean Platelet Volume 9.7 fL (7.4-10.4); Platelet Count 366 K/uL (130-400); RDW Standard Deviation 47.2 fL (36.4-46.3); Red Blood Count 4.25 M/uL (4.2-5.4); White Blood Count 13.85 K/uL (4.8-10.8)
[2021-06-18 07:54] LABS: BUN Creatinine Ratio 30.7 (10-20); Calcium 7.9 mg/dl (8.5-10.1); Creatinine Clr Calc Pharmacy 34.4 ml/min; Est GFR (African American) 50.4 ml/min; Est GFR (Non-African American) 43.5 ml/min; Potassium 4.3 mmol/L (3.5-5.1)
[2021-06-18] MEDS: methylPREDNISolone 40 MG in SYRINGE 0 ML IV SCH (07:54)
[2021-06-18] MEDS: HEPARIN SOD 5,000 UNIT/0.5 ML VIAL SQ SCH ×2 (07:56→21:03)
[2021-06-18] MEDS: METOPROLOL TARTRATE 25 MG TAB PO SCH ×2 (07:57→20:56)
[2021-06-18] MEDS: CLOPIDOGREL BISULFATE 75 MG TAB PO SCH (07:57)
[2021-06-18] MEDS: ROSUVASTATIN CALCIUM 10 MG TAB PO SCH (07:57)
[2021-06-18] MEDS: MULTIVITAMIN TAB PO SCH (07:57)
[2021-06-18 08:47] LABS: Estimated Average Glucose 183 mg/dl
[2021-06-18] MEDS ORDERED: INSULIN GLARGINE SOLOSTAR 100 UNITS/ML 3 ML PEN SC SCH ×2 (09:00→21:00)
[2021-06-18] MEDS ORDERED: SODIUM CHLORIDE 0.65% NA SOLN 45 ML (OCEAN) PRN (11:17)
--- NOTE | 2021-06-18 14:36 | Hospitalist Progress Note ---
Date of Service June 18, 2021 Assessment & Plan (1) Pneumonia: (2) Hypoxia: Plan: #. Acute hypoxic respiratory failure 2/2 Pneumonia #. Pneumonia No home oxygen use, Covid negative. Parainfluenza positive at admission. She has been intubated in the past. Admitting CXR positive for bilateral lower lung opacities. Admitting CTA chest negative for PE and positive for RLL airspace opacity likely infectious process. Also revealed few pulmonary nodules up to [address] scan in 6-month is recommended. Continue with Rocephin and doxycycline 06/15 Patient clinically doing better, afebrile and on 2 L nasal cannula oxygen at bedside. Elevation in WBC is likely secondary to Solu-Medrol --> already improving with decreasing dose of Solu-Medrol Continue to wean down Solu-Medrol, will give an extra dose of Solu-Medrol in the evening as wheezing has reappeared today morning. We will try to wean down tomorrow after assessment. Continue with nebulizers, recommended smoking cessation. #. RU over CKD Baseline creatinine around 1.1 Creatinine elevated to 1.91 --> trending down, resolved. 06/16 Renal ultrasound: Unremarkable with no evidence of hydronephrosis. Continue with IV fluid, monitor BMP daily We will resume lisinopril. #. Hypertension Likely secondary to steroid use and IV fluid for RU component on the background of hospital setting. Continue home meds, resume lisinopril. Continue to monitor blood pressure, added as needed medication 2. Tobacco abuse:Counseled 3. History of peripheral vascular disease: Status post femoral stent. Continue Plavix and statin. 5. Hypothyroidism On Synthroid. 6. Diabetes: Not on any medications. Placed on insulin sliding scale. Follow HbA1c levels. Glycemic pharamacy on board. 7. Deep venous thrombosis prophylaxis: On Lovenox. Full code DVT Px: Hep SQ Disposition: Expect discharge likely tomorrow. Two-step might be needed prior to discharge. Improving O2. PT recommending discharge to home. Admission and Anticipated Discharge Date Admission Date: June 14, 2021 Subjective Patient seen and examined at bedside for pneumonia and acute hypoxic respiratory failure. Patient was sitting up in bed, eating her breakfast, on 2 L oxygen, NAD, no new acute events overnight. Patient reports improvement in cough with no mucus, but had an episode of coughing in the morning, reports eating and moving bowels okay. Patient denies any fever/chills/chest pain/palpitations/belly pain/other review of symptoms. Per RN, patient is doing better, is being able to tolerate weaning of oxygen. Patient had an episode of coughing in the morning. Physical Exam Physical Exam: GENERAL: Alert and oriented x3. NAD, on 2L NC O2 HEENT: No pallor, no icterus. Pupils equal, round and reactive to light. Oral mucosa moist. NECK: No JVD, no neck masses. HEART: S1 and S2 heard. Regular rate and rhythm. No murmur, no gallop. RESPIRATORY SYSTEM: Normal AP diameter. No accessory muscle use. Occasional wheeze over right lungs has re-appeared today, crackles bibasal, decreased breath sounds. ABDOMEN: Soft, bowel sounds present, nontender, no distention. CENTRAL NERVOUS SYSTEM: No facial droop. Speech is clear. Obeys simple commands. Moves extremities. EXTREMITIES: No edema, no erythema seen. Results & Data Results & Data ([facility]) Vital Signs (Past 12 Hours) Vital Signs Temp Pulse Pulse Resp BP Pulse Ox 06/18/21 12:40 111 H 20 91 06/18/21 11:00 36.8 C 88 20 160/67 H 92 06/18/21 07:42 92 H 06/18/21 07:09 82 18 95 06/18/21 07:00 36.9 C 82 18 147/71 H 96 06/18/21 04:53 80 22 95 06/18/21 03:15 36.8 C 82 20 176/80 H 93 (1) Pneumonia Laterality: bilateral Lung location: lower lobe of lung Pneumonia type: due to unspecified organism Qualified Code(s): J18.9 - Pneumonia, unspecified organism
--- NOTE | 2021-06-18 15:03 | Pharmacy Report ---
Pharmacy Glycemic Short Note 2 - Date of Service June 18, 2021 - Glycemic Short BSG Results (Last 24 hours): 06/17/21 06/17/21 06/17/21 16:15 17:21 20:12 Glucose POC Glucose 253 H 217 H 112 H 06/18/21 06/18/21 06/18/21 00:00 04:03 07:01 Glucose 98 POC Glucose 244 H 181 H 06/18/21 06/18/21 07:32 11:20 Glucose POC Glucose 100 H 165 H OUTPATIENT ANTIDIABETIC REGIMEN: * None ASSESSMENT: * Patient's BSGs yesterday were 303- 519/454 (pharmacy consulted)- 290/253-112 and overnight were 244-181 mg/dL. * Fasting today is 100 mg/dL. * Patient received a total of 78 units of insulin yesterday (30 units of basal and 40 units of bolus); patient received 11 units overnight. * Patient received only one dose of Solu-Medrol 40 mg IV yesterday but is scheduled for 2 doses today. * Will split Lantus into 15 units BID to allow for easier titration. * Tighten Novolog as BSGs trended upwards at lunch. Background * Patient admitted 06/14 with pneumonia and parainfluenza. Receiving doxycycline and rocephin. Reported to be clinically improving. * Ordered Solu-medrol 40mg q8h on 06/15, changed to q12h late 06/16 (received 3 d oses on 06/16) and now down to daily ongoing. * On admission, ordered SSI with a CF of 30 and no carb coverage. Blood glucose has trended up steadily over the last few days with the addition of steroids. * After receiving 30 units of lantus, 8 units IV bolus insulin, and 16 units SC novolog, patient has come down to 290 2 hrs after a BG reading of 519. PLAN FOR INPATIENT GLYCEMIC CONTROL: * Basal insulin * Lantus 15 units BID * Bolus insulin * NovoLog per scale ACHS * Goal Range: Low 110 mg/dL - High 140 mg/dL * Correction Factor: 20 mg/dL/unit * Nutritional / Prandial insulin per carb ratio of 1 unit per 6 grams CHO consumed PLAN FOR DISCHARGE: * Patient's HbA1C is at goal for her age and comorbidities. This is without any diabetic medication. * Patient does not qualify for metformin as eGFR is < 45 mL/min and at that point initiation of metformin is not recommended. * Could consider once daily Lantus if BSGs continue to rise. Recommend patient follow-up with outpatient provider to monitor diabetes.
[2021-06-18] MEDS ORDERED: methylPREDNISolone 40 MG in SYRINGE 0 ML IV ONE (21:00)
[2021-06-18] MEDS: guaiFENesin 600 MG TABCR PO SCH (21:04)
[2021-06-18] MEDS: INSULIN GLARGINE SOLOSTAR 100 UNITS/ML 3 ML PEN SC SCH (21:50)
[2021-06-18] MEDS: cefTRIAXone SODIUM 2,000 MG in DEXTROSE 5% 50 ML IV SCH (21:55)
[2021-06-19] MEDS: hydrALAZINE HCL 20 MG/ML VIAL IV PRN ×2 (00:05→06:25)
[2021-06-19] MEDS: guaiFENesin SUGAR FREE 200 MG/10 ML UDC PO PRN ×2 (00:07→09:01)
[2021-06-19] MEDS: IPRATROPIUM BROMIDE NEB SOLN 0.02% 2.5 ML VIAL INH SCH ×4 (00:55→20:36)
[2021-06-19] MEDS: LEVALBUTEROL 1.25MG/0.5ML NEB INH SCH ×4 (00:56→20:36)
[2021-06-19] MEDS: DOXYCYCLINE HYCLATE 100 MG in DEXTROSE 5% 100 ML IV SCH ×2 (04:31→17:26)
[2021-06-19] MEDS: LEVOTHYROXINE SODIUM 150 MCG TABLET PO SCH (06:22)
[2021-06-19] MEDS ORDERED: COUGH DROP (SUGAR FREE) LOZ 24 LOZ/1 BOX BUCCAL STA (07:06)
[2021-06-19 07:27] LABS: Hematocrit (blood only) 47.2 % (37-47); Hemoglobin 15.4 g/dL (12.0-16.0); Mean Corpuscular Hemoglobin 32.6 pg (25-34); Mean Corpuscular Hgb Conc 32.6 g/dL (32-36); Mean Corpuscular Volume 99.8 fL (80-100); Mean Platelet Volume 9.5 fL (7.4-10.4); Platelet Count 399 K/uL (130-400); RDW Standard Deviation 47.5 fL (36.4-46.3); Red Blood Count 4.73 M/uL (4.2-5.4); White Blood Count 13.86 K/uL (4.8-10.8)
[2021-06-19 07:55] LABS: BUN Creatinine Ratio 27.4 (10-20); Calcium 8.2 mg/dl (8.5-10.1); Creatinine Clr Calc Pharmacy 46.7 ml/min; Est GFR (African American) 72.9 ml/min; Est GFR (Non-African American) 62.9 ml/min; Potassium 4.9 mmol/L (3.5-5.1)
[2021-06-19] MEDS: INSULIN ASPART PER UNIT SC SCH ×4 (09:05→21:16)
[2021-06-19] MEDS: INSULIN GLARGINE SOLOSTAR 100 UNITS/ML 3 ML PEN SC SCH (09:06)
[2021-06-19] MEDS: METOPROLOL TARTRATE 25 MG TAB PO SCH ×2 (09:06→21:17)
[2021-06-19] MEDS: HEPARIN SOD 5,000 UNIT/0.5 ML VIAL SQ SCH ×2 (09:07→21:15)
[2021-06-19] MEDS: guaiFENesin 600 MG TABCR PO SCH (09:07)
[2021-06-19] MEDS: methylPREDNISolone 40 MG in SYRINGE 0 ML IV SCH ×2 (09:07→21:15)
[2021-06-19] MEDS: lisinopril 40 MG TAB PO SCH (09:07)
[2021-06-19] MEDS: CLOPIDOGREL BISULFATE 75 MG TAB PO SCH (09:08)
[2021-06-19] MEDS: ROSUVASTATIN CALCIUM 10 MG TAB PO SCH (09:08)
[2021-06-19] MEDS: MULTIVITAMIN TAB PO SCH (09:09)
--- NOTE | 2021-06-19 10:35 | XRay Report ---
XR chest 1V portable HISTORY: 86 years-old Female increasing o2 req, inc cough acute hypoxia with cough COMPARISON: Chest radiograph 06/14/2021 CTA chest 06/15/2021 TECHNIQUE: Portable AP view of the chest FINDINGS: Cardiac silhouette is enlarged. No pneumothorax or large pleural effusion. There is unchanged bluntin g of the costophrenic angles. Emphysema with chronic interstitial coarsening. Mild right greater than left bibasilar opacities again noted. Degenerative changes of the shoulders and spine. IMPRESSION: 1. Cardiomegaly without overt pulmonary edema. 2. Emphysema with chronic interstitial coarsening. 3. Mild right lung base predominant airspace opacities are again noted suggestive of pneumonia versus aspiration pneumonitis. ACT 112: Negative or not required by law. The above report was generated using voice recognition software. It may contain grammatical, syntax o r spelling errors. Electronically signed by: Chavez Muñiz M.D. 06/19/2021 10:34 AM
[2021-06-19] MEDS: guaiFENesin/DEXTROM SYRUP 200MG/20MG 10ML UDC PO SCH ×3 (11:43→21:20)
[2021-06-19] MEDS: amLODIPine BESYLATE 5 MG TAB PO SCH (13:50)
--- NOTE | 2021-06-19 15:18 | Hospitalist Progress Note ---
Date of Service June 19, 2021 Assessment & Plan (1) Pneumonia: (2) Hypoxia: Plan: #. Acute hypoxic respiratory failure 2/2 Pneumonia #. Pneumonia #. Cough No home oxygen use, Covid negative. Parainfluenza positive at admission. She has been intubated in the past. Admitting CXR positive for bilateral lower lung opacities. Admitting CTA chest negative for PE and positive for RLL airspace opacity likely infectious process. Also revealed few pulmonary nodules up to [address] scan in 6-month is recommended. Continue with Rocephin and doxycycline 06/15 Patient has been having repeated bouts of dry cough again, not relieved with ongoing antibacterial treatment and Tessalon Perles/Mucinex. Her improvement in cough and oxygen requirement coincided with holding of lisinopril for RU over CKD, will again hold her lisinopril 06/19 [she already got today's dose] and start her on amlodipine 06/19, patient made aware. Today: Lisinopril held, amlodipine added, Robitussin added, steroid frequency increased, chest x-ray ordered and reviewed which is fairly stable compared to prior, patient made aware about her changes in BP meds. Because of occasional wheezing on and off during examination, will continue with Solu-Medrol twice daily, wean down as appropriate with daily clinical assessment. Continue with nebulizers, recommended smoking cessation. Because of concerns of wheezing, will benefit from outpatient pulmonary function test. #. RU over CKD -- resolved Baseline creatinine around 1.1 06/16 Renal ultrasound: Unremarkable with no evidence of hydronephrosis. Creatinine elevated to 1.91 --> trending down, resolved. #. Hypertension Elevated, requiring as needed meds Continue home meds, lisinopril was stopped 06/19 and amlodipine started, patient made aware. Continue to monitor blood pressure, added as needed medication Continue to titrate her blood pressure medication. Patient will benefit from maintaining her blood pressure log as an outpatient as she will need ongoing BP meds adjustment. 2. Tobacco abuse:Counseled 3. History of peripheral vascular disease: Status post femoral stent. Continue Plavix and statin. 5. Hypothyroidism On Synthroid. 6. Diabetes: Not on any medications. Placed on insulin sliding scale. Follow HbA1c levels. Glycemic pharamacy on board. 7. Deep venous thrombosis prophylaxis: On Lovenox. Full code DVT Px: Hep SQ Disposition: Patient did not improve today, will continue to monitor over next 1 to 2 days. Two-step might be needed prior to discharge. Improving O2. PT recommending discharge to home. Admission and Anticipated Discharge Date Admission Date: June 14, 2021 Subjective Patient seen and examined at bedside for pneumonia/cough and acute hypoxic respiratory failure. Patient was sitting up in bed, on 6 L oxygen, NAD, has bouts of repeated dry cough overnight and in the morning. Reports eating and moving bowels okay. Patient denies any fever/chills/chest pain/palpitations/belly pain/other review of symptoms. Physical Exam Physical Exam: GENERAL: Alert and oriented x3. NAD, on 6L NC O2 HEENT: No pallor, no icterus. Pupils equal, round and reactive to light. Oral mucosa moist. NECK: No JVD, no neck masses. HEART: S1 and S2 heard. Regular rate and rhythm. No murmur, no gallop. RESPIRATORY SYSTEM: Normal AP diameter. No accessory muscle use. Occasional wheeze over right lungs --> not appreciated today, crackles bibasal, decreased breath sounds. ABDOMEN: Soft, bowel sounds present, nontender, no distention. CENTRAL NERVOUS SYSTEM: No facial droop. Speech is clear. Obeys simple commands. Moves extremities. EXTREMITIES: No edema, no erythema seen. Results & Data Results & Data ([facility]) Vital Signs (Past 12 Hours) Vital Signs Temp Pulse Pulse Resp BP BP Pulse Ox 06/19/21 13:23 87 18 98 06/19/21 10:59 36.8 C 90 18 168/68 H 95 06/19/21 08:00 36.8 C 91 H 92 H 20 177/67 H 96 06/19/21 07:59 90 20 96 06/19/21 06:25 90 185/76 H 06/19/21 04:32 174/70 H 06/19/21 03:42 36.6 C 89 20 176/79 H 96 (1) Pneumonia Laterality: bilateral Lung location: lower lobe of lung Pneumonia type: due to unspecified organism Qualified Code(s): J18.9 - Pneumonia, unspecified organism
[2021-06-19] MEDS ORDERED: INSULIN GLARGINE SOLOSTAR 100 UNITS/ML 3 ML PEN SC SCH (21:00)
[2021-06-19] MEDS: cefTRIAXone SODIUM 2,000 MG in DEXTROSE 5% 50 ML IV SCH (21:23)
[2021-06-20] MEDS: LEVALBUTEROL 1.25MG/0.5ML NEB INH SCH ×5 (00:05→23:59)
[2021-06-20] MEDS: IPRATROPIUM BROMIDE NEB SOLN 0.02% 2.5 ML VIAL INH SCH ×5 (00:05→23:59)
[2021-06-20] MEDS: INSULIN ASPART PER UNIT SC SCH ×6 (03:55→21:22)
[2021-06-20] MEDS: guaiFENesin/DEXTROM SYRUP 200MG/20MG 10ML UDC PO SCH ×4 (03:56→21:28)
[2021-06-20] MEDS: DOXYCYCLINE HYCLATE 100 MG in DEXTROSE 5% 100 ML IV SCH (03:56)
[2021-06-20] MEDS: LEVOTHYROXINE SODIUM 150 MCG TABLET PO SCH (06:00)
[2021-06-20 06:25] LABS: Hematocrit (blood only) 43.8 % (37-47); Hemoglobin 14.6 g/dL (12.0-16.0); Mean Corpuscular Hemoglobin 33.2 pg (25-34); Mean Corpuscular Hgb Conc 33.3 g/dL (32-36); Mean Corpuscular Volume 99.5 fL (80-100); Mean Platelet Volume 9.6 fL (7.4-10.4); Platelet Count 376 K/uL (130-400); RDW Standard Deviation 47.6 fL (36.4-46.3); White Blood Count 12.92 K/uL (4.8-10.8)
[2021-06-20 06:49] LABS: BUN Creatinine Ratio 33.3 (10-20); Calcium 8.2 mg/dl (8.5-10.1); Creatinine Clr Calc Pharmacy 50.2 ml/min; Est GFR (African American) 79.8 ml/min; Est GFR (Non-African American) 68.8 ml/min; Potassium 5.1 mmol/L (3.5-5.1)
[2021-06-20] MEDS: ROSUVASTATIN CALCIUM 10 MG TAB PO SCH (08:07)
[2021-06-20] MEDS: HEPARIN SOD 5,000 UNIT/0.5 ML VIAL SQ SCH ×2 (08:07→21:28)
[2021-06-20] MEDS: CLOPIDOGREL BISULFATE 75 MG TAB PO SCH (08:07)
[2021-06-20] MEDS: METOPROLOL TARTRATE 25 MG TAB PO SCH ×2 (08:07→21:27)
[2021-06-20] MEDS: MULTIVITAMIN TAB PO SCH (08:07)
[2021-06-20] MEDS: amLODIPine BESYLATE 5 MG TAB PO SCH (08:07)
[2021-06-20] MEDS: methylPREDNISolone 40 MG in SYRINGE 0 ML IV SCH ×2 (08:13→21:27)
[2021-06-20] MEDS: INSULIN GLARGINE SOLOSTAR 100 UNITS/ML 3 ML PEN SC SCH ×2 (10:08→21:23)
[2021-06-20] MEDS: FUROSEMIDE INJ 20 MG/2 ML VIAL IV ONE ×2 (10:09→10:22)
[2021-06-20] MEDS ORDERED: FUROSEMIDE 40 MG TAB PO ONE (10:30)
--- NOTE | 2021-06-20 14:55 | Hospitalist Progress Note ---
Date of Service June 20, 2021 Assessment & Plan (1) Pneumonia: (2) Hypoxia: Plan: #. Acute hypoxic respiratory failure 2/2 Pneumonia #. Pneumonia #. Cough #. ? Bacillus Bacteremia No home oxygen use, Covid negative. Parainfluenza positive at admission. She has been intubated in the past. Admitting CXR positive for bilateral lower lung opacities. Admitting CTA chest negative for PE and positive for RLL airspace opacity likely infectious process. Also revealed few pulmonary nodules up to [address] scan in 6-month is recommended. Continue with Rocephin and doxycycline 06/15. 06/14 blood culture preliminary positive for backslash species not), ID consulted, await recommendation. 06/19--> Patient has been having repeated bouts of dry cough again, not relieved with ongoing antibacterial treatment and Tessalon Perles/Mucinex. Her improvement in cough and oxygen requirement coincided with holding of lisinopril for RU over CKD, will again hold her lisinopril 06/19 [she already got 06/19's dose] and start her on amlodipine 06/19, patient made aware. Patient reports improvement in her cough, continue to hold lisinopril. Because of occasional wheezing on and off during examination, will continue with Solu-Medrol twice daily--> wean down tomorrow. Continue with nebulizers, recommended smoking cessation. Because of concerns of wheezing, will benefit from outpatient pulmonary function test. #. RU over CKD -- resolved Baseline creatinine around 1.1 06/16 Renal ultrasound: Unremarkable with no evidence of hydronephrosis. Creatinine elevated to 1.91 --> trending down, resolved. #. Hypertension Elevated, requiring as needed meds Continue home meds, lisinopril was stopped 06/19 and amlodipine started, patient made aware. Continue to monitor blood pressure, added as needed medication Continue to titrate her blood pressure medication. Patient will benefit from maintaining her blood pressure log as an outpatient as she will need ongoing BP meds adjustment. 2. Tobacco abuse:Counseled 3. History of peripheral vascular disease: Status post femoral stent. Continue Plavix and statin. 5. Hypothyroidism On Synthroid. 6. Diabetes: Not on any medications. Placed on insulin sliding scale. Follow HbA1c levels. Glycemic pharamacy on board. 7. Deep venous thrombosis prophylaxis: On Lovenox. Full code DVT Px: Hep SQ Disposition: Patient improving slowly, will continue to monitor over next 1 to 2 days. Two-step might be needed prior to discharge. Improving O2. PT recommending discharge to home. Admission and Anticipated Discharge Date Admission Date: June 14, 2021 Subjective Patient seen and examined at bedside for pneumonia/cough and acute hypoxic respiratory failure. Patient was sitting up in bed, on 5 L oxygen, NAD, reports improving cough and was able to sleep overnight.. Reports eating and moving bowels okay. Patient denies any fever/chills/chest pain/palpitations/belly pain/other review of symptoms. Per RN, patient is doing better with regard to cough and no new complaints or acute events overnight. Physical Exam Physical Exam: GENERAL: Alert and oriented x3. NAD, on 5L NC O2 HEENT: No pallor, no icterus. Pupils equal, round and reactive to light. Oral mucosa moist. NECK: No JVD, no neck masses. HEART: S1 and S2 heard. Regular rate and rhythm. No murmur, no gallop. RESPIRATORY SYSTEM: Normal AP diameter. No accessory muscle use. Occasional wheeze over right lungs --> not appreciated today, lung sounds improving. ABDOMEN: Soft, bowel sounds present, nontender, no distention. CENTRAL NERVOUS SYSTEM: No facial droop. Speech is clear. Obeys simple commands. Moves extremities. EXTREMITIES: No edema, no erythema seen. Results & Data Results & Data ([facility]) Vital Signs (Past 12 Hours) Vital Signs Temp Pulse Pulse Resp BP BP Pulse Ox 06/20/21 14:45 98 H 06/20/21 12:35 93 H 20 95 06/20/21 11:21 37.1 C 75 18 152/73 H 93 06/20/21 08:02 82 16 95 06/20/21 08:00 36.9 C 88 18 161/84 H 92 06/20/21 07:00 78 06/20/21 04:00 36.9 C 76 20 176/79 H 93 (1) Pneumonia Laterality: bilateral Lung location: lower lobe of lung Pneumonia type: due to unspecified organism Qualified Code(s): J18.9 - Pneumonia, unspecified organism
[2021-06-20] MEDS: DOXYCYCLINE HYCLATE 100 MG CAP PO SCH (21:22)
[2021-06-20] MEDS: cefTRIAXone SODIUM 2,000 MG in DEXTROSE 5% 50 ML IV SCH (21:25)
[2021-06-20] MEDS: BENZONATATE 100 MG CAPSULE PO PRN (21:31)
[2021-06-21] MEDS: guaiFENesin/DEXTROM SYRUP 200MG/20MG 10ML UDC PO SCH ×4 (03:35→21:01)
[2021-06-21] MEDS: hydrALAZINE HCL 20 MG/ML VIAL IV PRN ×2 (04:10→04:13)
[2021-06-21] MEDS: BENZONATATE 100 MG CAPSULE PO PRN (04:14)
[2021-06-21] MEDS: LEVOTHYROXINE SODIUM 150 MCG TABLET PO SCH (06:11)
[2021-06-21 07:24] LABS: Hematocrit (blood only) 45.4 % (37-47); Mean Corpuscular Hemoglobin 32.9 pg (25-34); Mean Corpuscular Volume 99.6 fL (80-100); Mean Platelet Volume 9.6 fL (7.4-10.4); Platelet Count 444 K/uL (130-400); RDW Standard Deviation 47.4 fL (36.4-46.3); Red Blood Count 4.56 M/uL (4.2-5.4); White Blood Count 15.84 K/uL (4.8-10.8)
[2021-06-21] MEDS: IPRATROPIUM BROMIDE NEB SOLN 0.02% 2.5 ML VIAL INH SCH ×2 (07:33→12:47)
[2021-06-21] MEDS: LEVALBUTEROL 1.25MG/0.5ML NEB INH SCH ×2 (07:33→12:47)
[2021-06-21 07:57] LABS: BUN Creatinine Ratio 30.2 (10-20); Calcium 8.1 mg/dl (8.5-10.1); Est GFR (African American) 70.9 ml/min; Est GFR (Non-African American) 61.2 ml/min; Magnesium 1.9 mg/dl (1.7-2.4); Potassium 4.6 mmol/L (3.5-5.1)
[2021-06-21] MEDS ORDERED: GLUCAGON FOR INJ 1 MG VIAL IM PRN (08:00)
[2021-06-21] MEDS ORDERED: GLUCOSE 40% GEL 15 GM TUBE PO PRN (08:00)
[2021-06-21] MEDS ORDERED: DEXTROSE 50% 50 ML SYRINGE IV PRN (08:00)
[2021-06-21] MEDS ORDERED: GLUCOSE 10 TABS/TUBE PO PRN (08:00)
[2021-06-21] MEDS ORDERED: CARBOHYDRATES FOR HYPOGLYCEMIA PO PRN (08:00)
--- NOTE | 2021-06-21 08:16 | XRay Report ---
SINGLE VIEW CHEST CLINICAL HISTORY: Hypoxia. Cough FINDINGS: An AP, portable, upright chest radiograph is compared to study dated 06/19/2021. Correlation is made with chest CT dated 06/15/2021. The heart is top normal for projection noting atherosclerotic calcification of the thoracic aorta. Emphysema and chronic interstitial thickening is similar to pre vious. Bibasilar opacities are unchanged. No large pleural effusion or pneumothorax is identified. Th e skeletal structures are osteopenic. The bony thorax is grossly intact. IMPRESSION: 1. Emphysema. 2. Bibasilar opacities are unchanged and could represent an infectious/inflammatory pneumonitis. Clin ical correlation will be required and radiographic follow-up to resolution is recommended. ACT 112: Negative or not required by law. Electronically signed by: Kobi Dior M.D. 06/21/2021 8:15 AM
[2021-06-21] MEDS: METOPROLOL TARTRATE 25 MG TAB PO SCH ×2 (08:43→20:54)
[2021-06-21] MEDS: CLOPIDOGREL BISULFATE 75 MG TAB PO SCH (08:44)
[2021-06-21] MEDS: ROSUVASTATIN CALCIUM 10 MG TAB PO SCH (08:44)
[2021-06-21] MEDS: amLODIPine BESYLATE 5 MG TAB PO SCH (08:44)
[2021-06-21] MEDS: DOXYCYCLINE HYCLATE 100 MG CAP PO SCH ×2 (08:44→20:54)
[2021-06-21] MEDS: HEPARIN SOD 5,000 UNIT/0.5 ML VIAL SQ SCH ×2 (08:44→20:55)
[2021-06-21] MEDS: MULTIVITAMIN TAB PO SCH (08:44)
[2021-06-21] MEDS: INSULIN ASPART PER UNIT SC SCH ×4 (08:48→21:00)
[2021-06-21] MEDS ORDERED: INSULIN GLARGINE SOLOSTAR 100 UNITS/ML 3 ML PEN SC SCH ×2 (09:00)
[2021-06-21] MEDS ORDERED: methylPREDNISolone 40 MG in SYRINGE 0 ML IV SCH (09:00)
--- NOTE | 2021-06-21 12:28 | Hospitalist Progress Note ---
Date of Service June 21, 2021 Assessment & Plan (1) Pneumonia: (2) Hypoxia: Plan: #. Acute hypoxic respiratory failure 2/2 Pneumonia #. Pneumonia #. Cough #. ? Bacillus Bacteremia No home oxygen use, Covid negative. Parainfluenza positive at admission. She has been intubated in the past. Admitting CXR positive for bilateral lower lung opacities. Admitting CTA chest negative for PE and positive for RLL airspace opacity likely infectious process. Also revealed few pulmonary nodules up to [address] scan in 6-month is recommended. Continue with Rocephin and doxycycline 06/15. 06/14 blood culture preliminary positive for bacillus species not anthracis), ID consulted, await recommendation. 06/19--> Patient has been having repeated bouts of dry cough again, not relieved with ongoing antibacterial treatment and Tessalon Perles/Mucinex. Her improvement in cough and oxygen requirement coincided with holding of lisinopril for RU over CKD, will again hold her lisinopril 06/19 [she already go t 06/19's dose] and start her on amlodipine 06/19, patient made aware. Patient reports improvement in her cough since last 2 nights, continue to hold lisinopril. Because of occasional wheezing on and off during examination this admission--->c/w steroid PO from tomorrow. Continue with nebulizers, recommended smoking cessation. Because of concerns of wheezing, will benefit from outpatient pulmonary function test. #. RU over CKD -- resolved Baseline creatinine around 1.1 06/16 Renal ultrasound: Unremarkable with no evidence of hydronephrosis. Creatinine elevated to 1.91 --> trending down, resolved. #. Hypertension Elevated, requiring as needed meds Continue home meds, lisinopril was stopped 06/19 and amlodipine started, patient made aware. Continue to monitor blood pressure, added as needed medication Continue to titrate her blood pressure medication. Patient will benefit from maintaining her blood pressure log as an outpatient as she will need ongoing BP meds adjustment. 2. Tobacco abuse:Counseled 3. History of peripheral vascular disease: Status post femoral stent. Continue Plavix and statin. 5. Hypothyroidism On Synthroid. 6. Diabetes: Not on any medications. Placed on insulin sliding scale. Follow HbA1c levels. Glycemic pharamacy on board. 7. Deep venous thrombosis prophylaxis: On Lovenox. Full code DVT Px: Hep SQ Disposition: Patient improving slowly, will continue to monitor over next day.. Two-step might be needed prior to discharge. Improving O2. PT recommending discharge to home. Admission and Anticipated Discharge Date Admission Date: June 14, 2021 Subjective Patient seen and examined at bedside for pneumonia/cough and acute hypoxic respiratory failure. Patient was sitting up in bed, on 4L oxygen, NAD, reports improving cough since last 2 days and is sleeping okay. Reports eating and moving bowels okay. Patient denies any fever/chills/chest pain/palpitations/belly pain/other review of symptoms. Physical Exam Physical Exam: GENERAL: Alert and oriented x3. NAD, on 4L NC O2 HEENT: No pallor, no icterus. Pupils equal, round and reactive to light. Oral mucosa moist. NECK: No JVD, no neck masses. HEART: S1 and S2 heard. Regular rate and rhythm. No murmur, no gallop. RESPIRATORY SYSTEM: Normal AP diameter. No accessory muscle use. no wheezes, lung sounds improving. ABDOMEN: Soft, bowel sounds present, nontender, no distention. CENTRAL NERVOUS SYSTEM: No facial droop. Speech is clear. Obeys simple commands. Moves extremities. EXTREMITIES: No edema, no erythema seen. Results & Data Results & Data ([facility]) Vital Signs (Past 12 Hours) Vital Signs Temp Pulse Pulse Resp BP BP Pulse Ox 06/21/21 07:42 74 06/21/21 07:34 80 20 94 06/21/21 06:24 36.9 C 75 20 146/60 H 96 06/21/21 05:29 79 20 148/71 H 93 06/21/21 03:28 85 20 186/79 H 97 (1) Pneumonia Laterality: bilateral Lung location: lower lobe of lung Pneumonia type: due to unspecified organism Qualified Code(s): J18.9 - Pneumonia, unspecified organism
[2021-06-21] MEDS ORDERED: FUROSEMIDE 40 MG TAB PO ONE (12:45)
--- NOTE | 2021-06-21 13:38 | Pharmacy Report ---
Pharmacy Glycemic Short Note 2 - Date of Service June 21, 2021 - Glycemic Short BSG Results (Last 24 hours): 06/20/21 06/20/21 06/21/21 16:51 20:05 06:46 Glucose 193 H POC Glucose 217 H 254 H 06/21/21 06/21/21 07:29 11:34 Glucose POC Glucose 190 H 210 H OUTPATIENT ANTIDIABETIC REGIMEN: * None * HbA1c = 8% (06/18/21) ASSESSMENT: 06/21: * Received 85 units of insulin yesterday (40 units Lantus + 45 units Novolog). BSGs were elevated: [phone] mg/dL. * Fasting BSG continued to increase to 190 mg/dL this AM. Originally was going to increase Lantus by ~20% but then IV Methylprednisolone was decreased from 40 mg BID to once daily. Will reduce PM Lantus dose so increase isn't as large given steroid reduction. * Novolog was also tightened this AM given persistent trend upwards in postprandial hyperglycemia throughout the day. 06/18: * Patient's BSGs yesterday were 303- 519/454 (pharmacy consulted)- 290/253-112 and overnight were 244-181 mg/dL. * Fasting today is 100 mg/dL. * Patient received a total of 78 units of insulin yesterday (30 units of basal and 40 units of bolus); patient received 11 units overnight. * Patient received only one dose of Solu-Medrol 40 mg IV yesterday but is scheduled for 2 doses today. * Will split Lantus into 15 units BID to allow for easier titration. * Tighten Novolog as BSGs trended upwards at lunch. Background * Patient admitted 06/14 with pneumonia and parainfluenza. Receiving doxycycline and rocephin. Reported to be clinically improving. * Ordered Solu-medrol 40mg q8h on 06/15, changed to q12h late 06/16 (received 3 doses on 06/16) and now down to daily ongoing. * On admission, ordered SSI with a CF of 30 and no carb coverage. Blood glucose has trended up steadily over the last few days with the addition of steroids. * After receiving 30 units of lantus, 8 units IV bolus insulin, and 16 units SC novolog, patient has come down to 290 2 hrs after a BG reading of 519. PLAN FOR INPATIENT GLYCEMIC CONTROL: * Basal insulin - increased 12.5% * Lantus 25 units SC AM * Lantus 20 units SC PM * Bolus insulin - tightened * NovoLog per scale ACHS * Goal Range: Low 110 mg/dL - High 140 mg/dL * Correction Factor: 10 mg/dL/unit * Nutritional / Prandial insulin per carb ratio of 1 unit per 3 grams CHO consumed PLAN FOR DISCHARGE: * Patient's HbA1C is at goal for her age and comorbidities. This is without any diabetic medication. * Patient does not qualify for metformin as eGFR is < 45 mL/min and at that point initiation of metformin is not recommended. * Could consider once daily Lantus if BSGs continue to rise. Recommend patient follow-up with outpatient provider to monitor diabetes.
[2021-06-21] MEDS: INSULIN GLARGINE SOLOSTAR 100 UNITS/ML 3 ML PEN SC SCH (20:56)
[2021-06-21] MEDS: cefTRIAXone SODIUM 2,000 MG in DEXTROSE 5% 50 ML IV SCH (21:05)
[2021-06-22] MEDS: LEVOTHYROXINE SODIUM 150 MCG TABLET PO SCH (05:36)
[2021-06-22] MEDS: guaiFENesin/DEXTROM SYRUP 200MG/20MG 10ML UDC PO SCH ×4 (05:36→21:38)
[2021-06-22 07:41] LABS: BUN Creatinine Ratio 35.4 (10-20); Calcium 7.9 mg/dl (8.5-10.1); Creatinine Clr Calc Pharmacy 38.7 ml/min; Est GFR (African American) 59.8 ml/min; Est GFR (Non-African American) 51.6 ml/min; Potassium 4.1 mmol/L (3.5-5.1)
[2021-06-22] MEDS: DOXYCYCLINE HYCLATE 100 MG CAP PO SCH ×2 (08:40→20:45)
[2021-06-22] MEDS: MULTIVITAMIN TAB PO SCH (08:41)
[2021-06-22] MEDS: amLODIPine BESYLATE 5 MG TAB PO SCH (08:41)
[2021-06-22] MEDS: ROSUVASTATIN CALCIUM 10 MG TAB PO SCH (08:41)
[2021-06-22] MEDS: INSULIN GLARGINE SOLOSTAR 100 UNITS/ML 3 ML PEN SC SCH ×2 (08:41→20:28)
[2021-06-22] MEDS: HEPARIN SOD 5,000 UNIT/0.5 ML VIAL SQ SCH ×2 (08:41→20:45)
[2021-06-22] MEDS: CLOPIDOGREL BISULFATE 75 MG TAB PO SCH (08:41)
[2021-06-22] MEDS: METOPROLOL TARTRATE 25 MG TAB PO SCH ×2 (08:41→20:45)
[2021-06-22] MEDS: INSULIN ASPART PER UNIT SC SCH ×4 (08:42→20:44)
[2021-06-22] MEDS: predniSONE 50 MG TAB PO SCH (10:05)
--- NOTE | 2021-06-22 11:35 | Pulmonary Consultation ---
Date of Consultation June 22, 2021 Assessment & Plan (1) Parainfluenza: (2) Hypoxia: (3) SOB (shortness of breath): (4) COPD exacerbation: (5) Respiratory failure, acute: CT chest 06/15/2021 personally reviewed: Centrilobular emphysema appreciated bilaterally Right lower lobe infiltrate likely representing pneumonia versus mucous plugging No significant mediastinal lymphadenopathy --Acute hypoxic respiratory failure Multifactorial Likely secondary to COPD exacerbation from right lower lobe pneumonia as well as parainfluenza COVID-19 PCR negative Parainfluenza positive Procalcitonin 0.05 Patient is currently on steroids Continue with nebulizers On antibiotics --COPD with emphysema Not on any inhalers currently Start Anoro on a daily basis along with nebulized treatment --Current smoker Advised to quit --Plan: Continue with guaifenesin DM [id number] Add flutter valve as well as CoughAssist to help bring up the phlegm Anoro on a daily basis DuoNebs every 6 hours Please note the above document was generated using voice recognition software. It may contain grammatical, syntax or spelling errors.Any formal questions or concerns about the content, text or information contained within the body of this dictation should be directly addressed to the provider for clarification. History of Present Illness Attending Physician: Cheri Mancera MD History of Present Illness 86-year-old female presents to the hospital with complaints of shortness of breath progressively getting worse Past medical history: Polymyalgia rheumatica complex osteoarthritis, hypothyroidism, dyslipidemia, diabetes Pulmonary consulted as patient was not improving even though she was on antibiotics At the time of examination patient was sitting at the edge of the bed. She stated that she did not have any significant issues with her breathing when she came to the hospital Her main issue was cough which she is not able to bring up She does complain of chest congestion. She was trying to cough even in front of me with hoarse cough. She is bringing up phlegm which is yellow in color. Denies any hemoptysis. Patient is not on any oxygen at home. Fair appetite. No dysuria, no diarrhea. Social history: Greater than [id number] active smoker, currently smoking 4 to 5 cigarettes a day. Denies any history of asthma Allergies Allergy/AdvReac Type Severity Reaction Status Date / Time Penicillins Allergy Unknown HIVES Verified 06/14/21 21:40 Home Medications Medication Instructions Recorded Confirmed Type clopidogrel 75 mg tablet 75 mg PO DAILY 06/14/21 06/14/21 History levothyroxine 150 mcg tablet 150 mcg PO DAILY 06/14/21 06/14/21 History lisinopril 40 mg tablet 40 mg PO DAILY 06/14/21 06/14/21 History metoprolol tartrate 25 mg tablet 25 mg PO BID 06/14/21 06/15/21 History multivitamin 1 tab PO DAILY 06/14/21 06/14/21 History rosuvastatin 10 mg tablet 10 mg PO DAILY 06/14/21 06/14/21 History Patient History Medical History Pneumonia Social History Smoking Status: Current every day smoker Cigarettes Per Day: 2-3; Tobacco Cessation Education Requested by Patient: No Hx Alcohol Use: Yes Alcohol type: wine Hx Substance Use: No Preferred Language: [place] Communication Ability: Effective Swimming Pool Installer Required: No Beliefs That Will Affect Care: None marital status: Unknown Current Living Situation: Alone Feels Safe at Home: Yes Safety Concerns: Feels Safe At This Time Assistive Devices: Oxygen - Continuous Assistive Devices Comment: uses a walking stick Review of Systems Review of Systems: All systems reviewed & are unremarkable except as noted in HPI & below Physical Exam Physical Exam: Constitutional: No acute distress HEENT: EOMI, PERRLA Respiratory system: Decreased air entry bilaterally, positive rhonchi, positive wheeze, mild crackles bilaterally CVS: S1-S2 positive, no murmurs or gallops Abdomen: Soft, nontender, nondistended, positive bowel sounds x4 Extremities: +2 pulses bilaterally radialis/ dorsalis pedis, no cyanosis, no edema Neuro: Awake alert oriented x3 Psych: Normal mood and affect G/U: No [place] Skin: no rashes, warm and dry Lymphatic: no cervical or axillary lymphadenopathy Results & Data Results & Data ([facility]) Vital Signs (Past 12 Hours) Vital Signs Temp Pulse Pulse Pulse Pulse Pulse Pulse 06/22/21 10:10 98 H 102 H 120 H 107 H 06/22/21 08:06 36.8 C 81 06/22/21 08:04 36.5 C 65 06/22/21 05:43 06/22/21 02:46 36.5 C 79 06/22/21 01:21 74 06/21/21 23:43 76 Resp Resp Resp Resp Resp BP BP 06/22/21 10:10 18 24 22 18 06/22/21 08:06 22 166/67 H 06/22/21 08:04 20 138/84 06/22/21 05:43 06/22/21 02:46 18 147/68 H 06/22/21 01:21 06/21/21 23:43 153/78 H Pulse Ox Pulse Ox Pulse Ox Pulse Ox Pulse Ox 06/22/21 10:10 91 92 93 87 L 06/22/21 08:06 90 06/22/21 08:04 97 06/22/21 05:43 92 06/22/21 02:46 94 06/22/21 01:21 06/21/21 23:43 Laboratory Results 06/21/21 06:46 06/22/21 06:38 PG Care Time/CCT Total # of Minutes Spent Total Time Spent with Patient: Total time spent is greater than 50% in coordination of care (as documented) at patient's floor/unit and/or counseling patient: Coding Level of Care Code 92042 Initial Inpt Care Lvl 3 Diagnoses Parainfluenza B34.8 Hypoxia R09.02 SOB (shortness of breath) R06.02 COPD exacerbation J44.1 Respiratory failure, acute J96.00
--- NOTE | 2021-06-22 11:47 | Hospitalist Progress Note ---
Date of Service June 22, 2021 Assessment & Plan (1) Pneumonia: (2) Hypoxia: Plan: #. Acute hypoxic respiratory failure 2/2 Pneumonia Vs Parainfluenza LRTI #. Pneumonia #. Cough/VEGA No home oxygen use, Covid negative. Parainfluenza positive at admission. She has been intubated in the past. Admitting CXR positive for bilateral lower lung opacities. Admitting CTA chest negative for PE and positive for RLL airspace opacity likely infectious process. Also revealed few pulmonary nodules up to [address] scan in 6-month is recommended. Continue with Rocephin and doxycycline 06/15 ----> should be able to stop after today's dose to complete the courser. 06/14 Bl Cx -- 1 of 4 bottle Bacillus sp not anthracis positive ---> contaminant (ID evaluated) on 06/19--> Patient had repeated bouts of dry cough again, not relieved with ongoing antibacterial treatment and Tessalon Perles/Mucinex. Her improvement in cough and oxygen requirement coincided with holding of lisinopril for RU over CKD, will again hold her lisinopril 06/19 [she already got 06/19's dose] and start her on amlodipine 06/19, patient made aware. Patient reports improvement in her cough since last 3 nights, continue to hold lisinopril. Because of occasional wheezing on and off during examination this admission--->c/w steroid PO from tomorrow. Given emphysematous changes in the lungs and not improving with steroids/ATB treatment and infact worsening inbetween, Pulmonology reached out today. Appreciate recs. Pt showing very slow improvement, still very Dyspneic on exertion, ECHO reviewed, Imaging +ve for emphysematous changes, tachy cardic and dyspneic during 2 step test today. Continue with nebulizers, recommended smoking cessation. Because of concerns of wheezing, will benefit from outpatient pulmonary function test. #. RU over CKD -- resolved Baseline creatinine around 1.1 06/16 Renal ultrasound: Unremarkable with no evidence of hydronephrosis. Creatinine elevated to 1.91 --> trending down, resolved. #. Hypertension Elevated, requiring as needed meds Continue home meds, lisinopril was stopped 06/19 and amlodipine started, patient made aware. Continue to monitor blood pressure, added as needed medication Continue to titrate her blood pressure medication. Patient will benefit from maintaining her blood pressure log as an outpatient as she will need ongoing BP meds adjustment. 2. Tobacco abuse:Counseled 3. History of peripheral vascular disease: Status post femoral stent. Continue Plavix and statin. 5. Hypothyroidism On Synthroid. 6. Diabetes: Not on any medications. Placed on insulin sliding scale. Follow HbA1c levels. Glycemic pharamacy on board. 7. Deep venous thrombosis prophylaxis: On Lovenox. Full code DVT Px: Hep SQ Disposition: Patient improving slowly, will continue to monitor over next day.. Two-step might be needed prior to discharge. Improving O2. PT recommending discharge to home. 06/22: Patient's daughter Suzanne was given a phone call and updated about patient's current status and answered all her questions. She voiced understanding and was agreeable to the plan of care. Admission and Anticipated Discharge Date Admission Date: June 14, 2021 Subjective Patient seen and examined at bedside for pneumonia/cough and acute hypoxic respiratory failure. Patient was sitting up in bed eating her breakfast, on 3L oxygen, NAD, reports improving cough since last 3 days during rest but has cough/SOB with minimal exertion and is sleeping okay. Reports eating and moving bowels okay. Patient denies any fever/chills/chest pain/palpitations/belly pain/other review of symptoms. Physical Exam Physical Exam: GENERAL: Alert and oriented x3. NAD, on 3L NC O2 HEENT: No pallor, no icterus. Pupils equal, round and reactive to light. Oral mucosa moist. NECK: No JVD, no neck masses. HEART: S1 and S2 heard. Regular rate and rhythm. No murmur, no gallop. RESPIRATORY SYSTEM: Normal AP diameter. No accessory muscle use. no wheezes, decreased breath sounds. ABDOMEN: Soft, bowel sounds present, nontender, no distention. CENTRAL NERVOUS SYSTEM: No facial droop. Speech is clear. Obeys simple commands. Moves extremities. EXTREMITIES: No edema, no erythema seen. Results & Data Results & Data ([facility]) Vital Signs (Past 12 Hours) Vital Signs Temp Pulse Pulse Pulse Pulse Pulse Pulse 06/22/21 10:10 98 H 102 H 120 H 107 H 06/22/21 08:06 36.8 C 81 06/22/21 08:04 36.5 C 65 06/22/21 05:43 06/22/21 02:46 36.5 C 79 06/22/21 01:21 74 06/21/21 23:43 76 Resp Resp Resp Resp Resp BP BP 06/22/21 10:10 18 24 22 18 06/22/21 08:06 22 166/67 H 06/22/21 08:04 20 138/84 06/22/21 05:43 06/22/21 02:46 18 147/68 H 06/22/21 01:21 06/21/21 23:43 153/78 H Pulse Ox Pulse Ox Pulse Ox Pulse Ox Pulse Ox 06/22/21 10:10 91 92 93 87 L 06/22/21 08:06 90 06/22/21 08:04 97 06/22/21 05:43 92 06/22/21 02:46 94 06/22/21 01:21 06/21/21 23:43 (1) Pneumonia Laterality: bilateral Lung location: lower lobe of lung Pneumonia type: due to unspecified organism Qualified Code(s): J18.9 - Pneumonia, unspecified organism
[2021-06-22] MEDS: UMECLIDINIUM/VILANTEROL 62.5/25MCG 7 PUFFS/INHALER INH SCH (14:04)
[2021-06-22] MEDS: ALBUT/IPRATROP 3MG/0.5MG NEB 3 ML VIAL NEB SCH ×2 (19:25→23:50)
[2021-06-23] MEDS: guaiFENesin/DEXTROM SYRUP 200MG/20MG 10ML UDC PO SCH ×4 (04:11→19:46)
[2021-06-23] MEDS: LEVOTHYROXINE SODIUM 150 MCG TABLET PO SCH (05:47)
[2021-06-23 07:17] LABS: Calcium 8.1 mg/dl (8.5-10.1); Creatinine Clr Calc Pharmacy 51.8 ml/min; Est GFR (African American) 83.7 ml/min; Est GFR (Non-African American) 72.2 ml/min; Magnesium 1.9 mg/dl (1.7-2.4); Potassium 4.4 mmol/L (3.5-5.1)
[2021-06-23] MEDS: ALBUT/IPRATROP 3MG/0.5MG NEB 3 ML VIAL NEB SCH ×3 (07:24→19:22)
[2021-06-23] MEDS: DOXYCYCLINE HYCLATE 100 MG CAP PO SCH ×2 (09:02→19:47)
[2021-06-23] MEDS: predniSONE 50 MG TAB PO SCH (09:02)
[2021-06-23] MEDS: METOPROLOL TARTRATE 25 MG TAB PO SCH ×2 (09:02→19:46)
[2021-06-23] MEDS: amLODIPine BESYLATE 5 MG TAB PO SCH (09:03)
[2021-06-23] MEDS: CLOPIDOGREL BISULFATE 75 MG TAB PO SCH (09:03)
[2021-06-23] MEDS: ROSUVASTATIN CALCIUM 10 MG TAB PO SCH (09:03)
[2021-06-23] MEDS: MULTIVITAMIN TAB PO SCH (09:03)
[2021-06-23] MEDS: UMECLIDINIUM/VILANTEROL 62.5/25MCG 7 PUFFS/INHALER INH SCH (09:04)
[2021-06-23] MEDS: HEPARIN SOD 5,000 UNIT/0.5 ML VIAL SQ SCH ×2 (09:05→19:48)
[2021-06-23] MEDS: INSULIN GLARGINE SOLOSTAR 100 UNITS/ML 3 ML PEN SC SCH ×2 (09:05→20:48)
[2021-06-23] MEDS: INSULIN ASPART PER UNIT SC SCH ×4 (09:12→20:48)
--- NOTE | 2021-06-23 10:10 | Pulmonology Progress Note ---
Date of Service June 23, 2021 Assessment & Plan (1) Parainfluenza: (2) Hypoxia: (3) SOB (shortness of breath): (4) COPD exacerbation: (5) Respiratory failure, acute: Plan: CT chest 06/15/2021 personally reviewed: Centrilobular emphysema appreciated bilaterally Right lower lobe infiltrate likely representing pneumonia versus mucous plugging No significant mediastinal lymphadenopathy --Acute hypoxic respiratory failure Multifactorial Likely secondary to COPD exacerbation from right lower lobe pneumonia as well as parainfluenza COVID-19 PCR negative Parainfluenza positive Procalcitonin 0.05 Patient is currently on steroids Continue with nebulizers On antibiotics --COPD with emphysema Not on any inhalers currently Start Anoro on a daily basis along with nebulized treatment --Current smoker Advised to quit Plan: Patient's wheezing as well as rhonchi which are appreciated yesterday have resolved Would recommend continuing with flutter valve as well as chest vest therapy while in the hospital Flutter valve and Mucinex-DM prolonged at 4:00 for at least 4-5 days even after discharge. Can start titrating of prednisone. Complete total 7 days of doxycycline. Patient might need oxygen prior to discharge. Outpatient follow-up with pulmonary No further recommendation from pulmonary perspective. Will sign off. Please call directly with any questions Please note the above document was generated using voice recognition software. It may contain grammatical, syntax or spelling errors.Any formal questions or concerns about the content, text or information contained within the body of this dictation should be directly addressed to the provider for clarification. Admission and Anticipated Discharge Date Admission Date: June 14, 2021 Subjective Patient seen and examined at bedside. No acute distress, no adverse events overnight Patient said that she is feeling better compared to yesterday. She is using the flutter valve as well as the chest vest therapy She is getting the nebulizers along with Anoro. Denies any chest pain, no chest tightness Breathing is overall improved. Has been afebrile. Review of Systems Review of Systems: All systems reviewed & are unremarkable except as noted in Subjective Physical Exam Physical Exam: Constitutional: No acute distress HEENT: EOMI, PERRLA Respiratory system: Decreased air entry bilaterally, no rhonchi, mild crackles, minimal wheeze, significantly improved CVS: S1-S2 positive, no murmurs or gallops Abdomen: Soft, nontender, nondistended, positive bowel sounds x4 Extremities: +2 pulses bilaterally radialis/ dorsalis pedis, no cyanosis, no edema Neuro: Awake alert oriented x3 Psych: Normal mood and affect G/U: No Preston Skin: no rashes, warm and dry Lymphatic: no cervical or axillary lymphadenopathy Results & Data Results & Data ([facility]) Vital Signs (Past 12 Hours) Vital Signs Temp Pulse Pulse Resp BP Pulse Ox 06/23/21 09:34 66 06/23/21 07:24 86 20 96 06/23/21 07:00 36.7 C 76 20 132/55 L 92 06/23/21 04:20 36.8 C 88 18 147/68 H 90 06/22/21 23:50 89 20 96 06/22/21 22:18 92 H Laboratory Results 06/21/21 06:46 06/23/21 05:45 PG Care Time/CCT Total # of Minutes Spent Total Time Spent with Patient: Total time spent is greater than 50% in coordination of care (as documented) at patient's floor/unit and/or counseling patient: C[place] [address] Subseq Hosp Care Lvl 2 Patient Type Established Diagnoses Parainfluenza B34.8 Hypoxia R09.02 SOB (shortness of breath) R06.02 COPD exacerbation J44.1 Respiratory failure, acute J96.00
--- NOTE | 2021-06-23 10:15 | Hospitalist Progress Note ---
Date of Service June 23, 2021 Assessment & Plan (1) Pneumonia: (2) Hypoxia: Plan: #. Acute hypoxic respiratory failure 2/2 Pneumonia Vs Parainfluenza LRTI #. COPD exacerbation #. Pneumonia #. Smoker No home oxygen use prior to admission Covid negative. Parainfluenza positive at admission. She has been intubated in the past. Admitting CXR positive for bilateral lower lung opacities. Admitting CTA chest negative for PE and positive for RLL airspace opacity likely infectious process. Also revealed few pulmonary nodules up to 6 mm [address] a repeat CT scan in 6-month is recommended. 06/14 Bl Cx -- 1 of 4 bottle Bacillus sp not anthracis positive ---> contaminant (ID evaluated) Per previous Provider, Cough improved with holding lisinopril initially on admission due to RU and seem to also increase with resumption. Hence, will plan to discontinue lisinopril on DC. Echo reviewed showed normal EF. Hence can hold ACEI/ARB for now. Patient does have emphysematous changes in CT scan Undiagnosed COPD Pulm evaluation noted Patient has had 7 days of steroid therapy. Will taper down Continue with nebulizers q6h for now Will need inhalers on dc Counselled extensively on smoking cessation. Will need outpatient PFT May need oxygen on dischage #. RU Baseline creatinine around 1.1 06/16 Renal ultrasound: Unremarkable with no evidence of hydronephrosis. Creatinine elevated to 1.91 --> trended down RU now resolved #. Hypertension Has not required prn hydralazine in the over 24h. Will discontinue Hold lisinopril on dc as above Continue amlodipine started this admission Monitor BP # History of peripheral vascular disease: Status post femoral stent. Continue Plavix and statin. # Hypothyroidism On Synthroid. # Diabetes: Not on any medications. Placed on insulin sliding scale while inpatient A1c is 8 Counselled on lifestyle modification Plan to dc on metformin # Deep venous thrombosis prophylaxis: On Lovenox. Full code DVT Px: Hep SQ Disposition: Plan to dc home once stable. May need nasal oxygen on dc Admission and Anticipated Discharge Date Admission Date: June 14, 2021 Subjective Patient seen and examined. Patient has hearing impairment. Reports that some problem with the gotten hearing aids. Some of the communication done by writing as well as talking Reports occasional cough. Still reports some dyspnea with exertion Denies any chest pain, palpitations Denies any nausea, vomiting, abdominal pain, diarrhea Denies any leg swelling Denies dysuria, frequency, urgency Patient reports history of smoking, still smokes occasionally Reports she had not been diagnosed of COPD in the past Physical Exam Constitutional: + well hydrated and + obese; no acute distress Eyes: PERRL, conjunctivae normal, anicteric sclerae ENMT: Ears: + hearing impairment Respiratory: normal respiratory effort; no respiratory distress Diminished breath sounds Expiratory rhonchi On 2l/min nasal cannula Cardiovascular: Rate/Rhythm: regular rate and regular rhythm S1 S2 Gastrointestinal (Abdomen): normal bowel sounds, soft, nontender, no hepatosplenomegaly Musculoskeletal: no cyanosis or clubbing, extremities motor strength 5/5 Neurologic: PERRL, EOMI, accommodation nl, no face palsy, no dysarthria Psychiatric: A+Ox3, euthymic affect Results & Data Results & Data ([facility]) Vital Signs (Past 12 Hours) Vital Signs Temp Pulse Pulse Resp BP Pulse Ox 06/23/21 09:34 66 06/23/21 07:24 86 20 96 06/23/21 07:00 36.7 C 76 20 132/55 L 92 06/23/21 04:20 36.8 C 88 18 147/68 H 90 06/22/21 23:50 89 20 96 06/22/21 22:18 92 H 06/22/21 22:00 36.8 C 84 18 136/52 L 96 Laboratory Results Abnormal lab results 06/22/21 06/22/21 06/22/21 Range/Units 17:17 20:17 20:20 BUN (6-23) mg/dl BUN/Creatinine Ratio (10-20) Glucose (70-99(Fasting)) mg/dl POC Glucose 230 H 275 H 268 H (70-99) mg/dl Calcium (8.5-10.1) mg/dl 06/23/21 06/23/21 Range/Units 05:45 07:26 BUN 30 H (6-23) mg/dl BUN/Creatinine Ratio 40.0 H (10-20) Glucose 133 H (70-99(Fasting)) mg/dl POC Glucose 136 H (70-99) mg/dl Calcium 8.1 L (8.5-10.1) mg/dl (1) Pneumonia Laterality: bilateral Lung location: lower lobe of lung Pneumonia type: due to unspecified organism Qualified Code(s): J18.9 - Pneumonia, unspecified organism
--- NOTE | 2021-06-23 14:37 | Pharmacy Report ---
Pharmacy Glycemic Short Note 2 - Date of Service June 23, 2021 - Glycemic Short BSG Results (Last 24 hours): 06/22/21 06/22/21 06/22/21 17:17 20:17 20:20 Glucose POC Glucose 230 H 275 H 268 H 06/23/21 06/23/21 06/23/21 05:45 07:26 11:32 Glucose 133 H POC Glucose 136 H 111 H OUTPATIENT ANTIDIABETIC REGIMEN: * None * HbA1c = 8% (06/18/21) ASSESSMENT: 06/23: * Received 113 units of insulin yesterday (40 units Lantus + 73 units Novolog). BSGs were labile: [phone] mg/dL. * Prednisone 50 mg given today. Will start Prednisone 30 mg daily x 3 days tomorrow morning. Novolog may need loosened tomorrow. * Fasting BSG was 136 mg/dL this AM - at goal. No change in basal. 06/21: * Received 85 units of insulin yesterday (40 units Lantus + 45 units Novolog). BSGs were elevated: [phone] mg/dL. * Fasting BSG continued to increase to 190 mg/dL this AM. Originally was going to increase Lantus by ~20% but then IV Methylprednisolone was decreased from 40 mg BID to once daily. Will reduce PM Lantus dose so increase isn't as large given steroid reduction. * Novolog was also tightened this AM given persistent trend upwards in postprandial hyperglycemia throughout the day. PLAN FOR INPATIENT GLYCEMIC CONTROL: * Basal insulin - no change * Lantus 20 units SC BID * Bolus insulin - no change * NovoLog per scale ACHS * Goal Range: Low 110 mg/dL - High 140 mg/dL * Correction Factor: 10 mg/dL/unit * Nutritional / Prandial insulin per carb ratio of 1 unit per 3 grams CHO consumed PLAN FOR DISCHARGE: * Patient's HbA1C is at goal for her age and comorbidities. This is without any diabetic medication. * Recommend patient follow-up with outpatient provider to monitor diabetes.
[2021-06-24] MEDS: ALBUT/IPRATROP 3MG/0.5MG NEB 3 ML VIAL NEB SCH ×3 (00:47→12:34)
[2021-06-24] MEDS: guaiFENesin/DEXTROM SYRUP 200MG/20MG 10ML UDC PO SCH ×3 (05:03→17:51)
[2021-06-24] MEDS: LEVOTHYROXINE SODIUM 150 MCG TABLET PO SCH (05:03)
[2021-06-24 07:28] LABS: BUN Creatinine Ratio 35.2 (10-20); Calcium 8.2 mg/dl (8.5-10.1); Creatinine Clr Calc Pharmacy 44.7 ml/min; Est GFR (Non-African American) 59.5 ml/min; Potassium 4.4 mmol/L (3.5-5.1)
[2021-06-24] MEDS ORDERED: amLODIPine BESYLATE 5 MG TAB PO SCH (09:00)
[2021-06-24] MEDS ORDERED: predniSONE 10 MG TABLET PO SCH (09:00)
[2021-06-24] MEDS: HEPARIN SOD 5,000 UNIT/0.5 ML VIAL SQ SCH (09:21)
[2021-06-24] MEDS: DOXYCYCLINE HYCLATE 100 MG CAP PO SCH (09:21)
[2021-06-24] MEDS: METOPROLOL TARTRATE 25 MG TAB PO SCH (09:21)
[2021-06-24] MEDS: UMECLIDINIUM/VILANTEROL 62.5/25MCG 7 PUFFS/INHALER INH SCH (09:22)
[2021-06-24] MEDS: INSULIN GLARGINE SOLOSTAR 100 UNITS/ML 3 ML PEN SC SCH (09:23)
[2021-06-24] MEDS: MULTIVITAMIN TAB PO SCH (09:23)
[2021-06-24] MEDS: CLOPIDOGREL BISULFATE 75 MG TAB PO SCH (09:27)
[2021-06-24] MEDS: INSULIN ASPART PER UNIT SC SCH ×3 (09:27→17:51)
[2021-06-24] MEDS: ROSUVASTATIN CALCIUM 10 MG TAB PO SCH (09:27)
--- NOTE | 2021-06-24 11:43 | Discharge Summary ---
Date of Service June 24, 2021 Admission HPI Per Admitting Provider This is an 86-year-old female with past medical history significant for type 2 diabetes, currently on metformin; hypothyroidism; hyperlipidemia; history of hypoxemia; hypertension; QUISPE; polymyalgia rheumatica; compression fracture; senile osteoporosis; osteoarthritis, low back pain; sensorineural hearing loss; ongoing tobacco abuse. Lives alone, ambulates with a cane. Comes because of shortness of breath and cough, it is going on for last one week, got worse today. Denies any fevers or chills. The patient in the ER initially was was doing okay. Chest x-ray, possible questionable pneumonia. Mild leukocytosis. Later, the patient vomited and got more tachypneic. Complains of shortness of breath. Daughter is in the room. Currently is requiring 8 liters OxyMask, tachycardic. Denies any chest pain, no abdominal pain. No recent fever or chills. No diarrhea or constipation. All the history got from the daughter, the patient is very hard of hearing. Currently somewhat in mild respiratory distress. Admission Exam Per Admitting Provider GENERAL: The patient has some mild respiratory distress. VITAL SIGNS: Temperature 37, pulse 131, respiratory rate 34, blood pressure 220/90, oxygen 98% on 8 L OxyMask. HEENT: Pupils equal, round and reactive to light. Oral mucosa moist. Head is atraumatic. NECK: No JVD, no neck masses. CARDIOVASCULAR: S1 and S2 heard. Tachycardia. No murmurs. RESPIRATORY SYSTEM: Normal AP diameter. Tachypnea present. Mild bilateral wheezing. No crackles. ABDOMEN: Soft, bowel sounds present, nontender, nondistended. CENTRAL NERVOUS SYSTEM: Alert, awake and somewhat mild respiratory distress. Obeys simple commands. Moves extremities. EXTREMITIES: No edema, no erythema. Principal Diagnosis Parainfluenza infection COPD exacerbation Right lung pneumonia Acute respiratory failure with hypoxia Acute kidney injury - resolved Diabetes mellitus Discharge Exam Constitutional + well hydrated and + obese; no acute distress Eyes PERRL, conjunctivae normal, anicteric sclerae ENMT Ears: + hearing impairment Respiratory normal respiratory effort; no respiratory distress Diminished breath sounds On nasal cannula at 2l/min Cardiovascular Rate/Rhythm: regular rate and regular rhythm S1 S2 Gastrointestinal (Abdomen) normal bowel sounds, soft, nontender, no hepatosplenomegaly Musculoskeletal no cyanosis or clubbing, extremities motor strength 5/5 Neurologic PERRL, EOMI, accommodation nl, no face palsy, no dysarthria Psychiatric A+Ox3, euthymic affect Discharge Data Allergies Allergy/AdvReac Type Severity Reaction Status Date / Time Penicillins Allergy Unknown HIVES Verified 06/14/21 21:40 Consultations 06/14/21 20:53 ED Decision to Admit Stat 06/20/21 08:57 Consult Infectious Diseases Routine 06/22/21 11:29 Consult Pulmonology Routine Ordered Studies 06/14/21 23:57 CT abd pelvis IV con only Urgent Please note that the chest CT will be reported separately. No pneumatosis, free air or portal venous gas is present. Biliary ductal dilatation is noted status post cholecystectomy. Common bile duct measures 9 mm in caliber. This exam is mildly compromised by motion artifact. No hepatic lesions are present. There may be early cirrhosis. Unenhanced images of the spleen spleen, adrenal glands, kidneys and pancreas are unremarkable with exception of several subcentimeter renal lesions which are too small to characterize. There is no hydronephrosis. The appendix is normal. There is no evidence for a bowel obstruction. There is no ascites. No lymphadenopathy is present. Caliber and wall thickness of small and large bowel are normal. The bilateral superficial femoral artery stents are noted. These are suboptimally assessed on this non-CTA exam. There is extensive plaque of the abdominal aorta. IMPRESSION: 1. No acute process within the abdomen or pelvis. 2. Biliary ductal dilatation. This is likely related to cholecystectomy however correlation with liver function tests is recommended. 3. No bowel obstruction. No bowel wall thickening. Normal appendix. 4. Right lower lobe airspace opacity which favors an infectious process. CT angio chest PE protocol Urgent No pulmonary emboli are identified although the segmental and subsegmental pulmonary arteries are suboptimally assessed due to respiratory motion. There is no pericardial effusion. A few mildly enlarged right hilar lymph nodes measure up to 1.1 cm short axis diameter. Prominent prevascular lymph node is present. No pneumothorax or pleural effusion is noted. There is lung hyperexpansion with emphysema. Right lower lobe airspace opacity is present. Lingular opacity favors atelectasis. Lungs are suboptimally assessed due to respiratory motion. There is a probable 6 mm left upper lobe nodule on image 176 of 301. 4 mm subpleural right lower lobe nodule on image 98 is present. Interlobular septal thickening is noted. There is no pneumothorax. Trace right pleural effusion. Abdomen and pelvis CT will be reported separately. No acute fracture or suspicious lesion is identified within visualized portions of the bony thorax. There is no thoracic aortic dissection. Mild cardiomegaly is noted. IMPRESSION: 1. No pulmonary emboli identified although segmental and subsegmental pulmonary arteries suboptimally assessed due to respiratory motion. 2. Right lower lobe airspace opacity which favors an infectious process. 3. Emphysema. 4. Interlobular septal thickening suggestive of interstitial pulmonary edema. 5. A few pulmonary nodules which measure up to [address] in 6 months is recommended to ensure stability. 6. Mildly enlarged right hilar lymph nodes which are likely reactive. 06/16/21 08:55 US renal/blad retro comp Routine The right kidney measures 11.2 cm in length, and the left kidney measures 10.5 cm in length. The right kidney is normal in size, contour, cortical thickness, and echoge nicity. No hydronephrosis is identified. A cyst is seen in the right kidney measuring 1.0 x 0.8 x 1.0 cm. No perinephric fluid collection is seen. The left kidney is normal in size, contour, cortical thickness and echogenicity. No hydronephrosis is identified. No renal lesion is identified. No perinephric fluid collection is seen. The bladder is almost collapsed limiting visualization. No large intraluminal mass is seen. IMPRESSION: Unremarkable renal ultrasound in particular no evidence of hydronephrosis. Hospital Course (1) Pneumonia: (2) Hypoxia: #. Acute hypoxic respiratory failure 2/2 Pneumonia Vs Parainfluenza LRTI #. COPD exacerbation #. Pneumonia #. Smoker No home oxygen use prior to admission Covid negative. Parainfluenza positive at admission. She has been intubated in the past. Admitting CXR positive for bilateral lower lung opacities. Admitting CTA chest negative for PE and positive for RLL airspace opacity likely infectious process. Also revealed few pulmonary nodules up to [address] scan in 6-month is recommended. 06/14 Bl Cx -- 1 of 4 bottle Bacillus sp not anthracis positive deemed to be contaminant Per previous Provider, Cough improved with holding lisinopril initially on admission due to RU and seem to also increase with resumption. Hence, lisinopril was discontinued on discharge. Echo reviewed showed normal EF. Hence can hold ACEI/ARB for now. Patient does have emphysematous changes in CT scan Undiagnosed COPD Was evaluated by associate marketing manager Patient has had 7 days of steroid therapy. Discharged on 3 more days of prednisone 20mg Discharged on 3 more days of doxycycline to complete treatment Discharged on anoro ellipta inhaler daily and albuterol inh prn 2 step showed oxygen requirement at 2l/min at rest and with activity Counselled extensively on smoking cessation. Will need outpatient PFT Needs pulm follow up #. RU Baseline creatinine around 1.1 06/16 Renal ultrasound: Unremarkable with no evidence of hydronephrosis. Creatinine elevated to 1.91 --> trended down RU now resolved #. Hypertension Lisinopril discontinued as above Started on amlodipine PCP to follow up and continue management # Diabetes mellitus: Not on any medications. Placed on insulin sliding scale while inpatient A1c is 8 Counselled on lifestyle modification Discharged on metformin ER 500mg daily # History of peripheral vascular disease: Status post femoral stent. Continue Plavix and statin. # Hypothyroidism On Synthroid. Total Time Total Time Spent Total Time Spent (In Minutes): 50 Total Time Includes: Examination of the Patient, Discharge Planning and Medication Reconciliation Discharge Plan Discharge Items Patient Disposition: Home - Home Health Services Reason For Visit: Shortness of breath Discharge Diagnosis: Parainfluenza infection COPD exacerbation Right lung pneumonia Acute respiratory failure with hypoxia Acute kidney injury - resolved Diabetes mellitus Condition on Discharge: Fair Activity: Resume your previous activity Non-emergency contact: Primary Care Provider and [employer] Call non-emergency contact if: you have any medication questions and your symptoms worsen Follow-up/Referrals: Tim Salcido MD [Physician] - 07/29/21 3:15 pm ([facility] [place] [address] ) Jeovany Wan MD [Primary Care Provider] - (Date & Time 06/28/2021 1:00 PM Provider Jeovany Wan MD Department Family Medicine [facility] ) Diet: Carb Consistent or DM2 and Heart Healthy Addtl Attending Provider Instructions: Mrs Huertas. You came to the hospital with cough and shortness of breath. You were evaluated and found to have pneumonia, parainfluenza virus infection. You were also diagnosed and treated for COPD exacerbation. You are being discharged on inhalers. Please ensure you use them as prescribed. Please use the anoro inhaler daily. Please use the albuterol inhaler as needed for shortness of breath or wheezing. You are also discharged on 3 more days of doxycycline and prednisone. It is extremely important that you stop smoking. You are being discharged on nasal oxygen. Please ensure follow up with Pulmonology. You will need a pulmonary function test in the future. Your diabetes is poorly controlled. Please monitor your blood glucose at home. Please start taking the metformin. Your blood pressure medication lisinopril was changed to amlodipine for now. Please ensure follow up with your Primary Doctor who will monitor and continue management. You will likely need medication adjustment in the future. It was a pleasure taking care of you. Pending Studies at Discharge: No Stand-Alone Forms: My [facility], Smoking Cessation Medications and DC Order Prescriptions: New doxycycline hyclate 100 mg Capsule 100 mg PO BID@0800,1999 3 Days Qty: 6 RF: 0 Anoro Ellipta 62.5-25 mcg/actuation Blister With Device 1 ea inhalation DAILY Qty: 14 RF: 0 albuterol sulfate 90 mcg/actuation HFA aerosol inhaler 1 inh inhalation Q6H PRN (Reason: shortness of breath or wheezing) Qty: 8.5 RF: 0 prednisone 10 mg Tablet 20 mg PO QAM 3 Days Qty: 6 RF: 0 Robitussin Cough-Chest Ramesh DM 5-100 mg/5 mL Liquid 10 ml PO Q6H 4 Days Qty: 355 RF: 0 benzonatate 100 mg Capsule 100 mg PO TID PRN (Reason: cough) Qty: 14 RF: 0 metformin 500 mg tablet extended release 24 hr 500 mg PO DAILY Qty: 30 RF: 0 amlodipine 10 mg tablet 10 mg PO DAILY Qty: 30 RF: 0 (DME) lancets-blood glucose strips 30 gauge combo pack See Rx Instructions .Route Qty: 200 RF: 0 Continued multivitamin Tablet 1 tab PO DAILY RF: 0 clopidogrel 75 mg tablet 75 mg PO DAILY RF: 0 levothyroxine 150 mcg tablet 150 mcg PO DAILY RF: 0 rosuvastatin 10 mg tablet 10 mg PO DAILY RF: 0 metoprolol tartrate 25 mg tablet 25 mg PO BID RF: 0 Discontinued lisinopril 40 mg tablet 40 mg PO DAILY RF: 0 Discharge Orders: Discharge Order (Routine); Ordered 06/24/21 Ordered By: Sharyn Stuart Admission Data Admit Date/Time: 06/14/21 23:55 Attending Provider: Sharyn Stuart I. Admit Provider: Cani Ramos Primary Care Provider: Jeovany Wan Other Providers: Cain Ramos ; Vinny Casas ; Antoinette Farrell ; Jordi Garcia I. ; Yrn Fang II ; Saundra Beal ; Bismark Ronquillo ; Esvin Ricks ; Tim Salcido ; Cheri Mancera ; [facility] ; [facility] Other Interventions: Discharge Summary Assessment (RN) Last Done: 06/24/21 19:13
[2021-06-24] MEDS ORDERED: INSULIN GLARGINE SOLOSTAR 100 UNITS/ML 3 ML PEN SC SCH (21:00)
== END 2021-06-24 19:15 | disposition home health service (06) | DRG 193 ==
LOC: ED 18:16 → EDINP 23:55 → SUATTDRO 23:55 → EDINP 06-15 02:48 → 2S 06-15 22:05 → 2N 06-17 23:46

== ENCOUNTER 2022-12-18 22:53 | Inpatient (IN) ==
--- NOTE | 2022-12-18 23:12 | Emergency Department Note ---
Impression & Plan Acute hypercapnic respiratory failure, Acute UTI Admit to the ICU ED Provider Note NAME: ARABELLA MIKE AGE: 87 SEX: F ARRIVES VIA: Ambulance INFORMANT: Patient EMS ED PROVIDER(S): Fernanda Bueno DO CHIEF COMPLAINT: Weakness PLAN: Disposition: Admit to the ICU Condition: Critical MEDICAL DECISION MAKING: This is an 87-year-old female patient who presents to the emergency department by EMS after becoming extremely weak and sitting at her kitchen table for more than 2 days unable to move. The patient seems to have an altered mental status. Originally the patient went to her PCP on Monday with complaints of a sore throat. They started her on Zithromax. She complained of diffuse joint pain but mostly bilateral knee pain which is a common complaint for her. She arrived home after that appointment and sat down at her kitchen table and has been unable to get up since that time. Upon initial presentation to the emergency department, the patient was awake and alert and easily able to communicate but slightly confused. On physical exam, she appeared moderately dehydrated and was in no acute respiratory distress. Chest x-ray showed mild evidence of fluid overload and questionable early opacity in the right lower lobe. Urinalysis revealed evidence of a UTI and the patient was treated with IV Rocephin. Patient had a mildly elevated total CPK but no significant evidence of RU. I had discussed the case with the [facility] Hospitalist and they have agreed to admit the patient to the hospital for additional inpatient care and social service evaluation. While the patient was waiting for admission, she developed sudden increasing episode of shortness of breath and desaturation with O2 saturations in the mid to low 70s. She was switched from a nasal cannula to an oxy mask and could only maintain oxygen saturations in the high 70s on 10 L of oxygen. She had a portable chest x-ray repeated and was placed on BiPAP. Chest x-ray showed evidence of significant pulmonary edema. Patient was given 40 mg of IV Lasix. The patient's daughter was updated of the situation. I discussed the case with the admitting doctor. An ABG was performed which showed significant evidence of respiratory acidosis with pH of 6.9 and PCO2 of 122. At this point the decision was made to intubate the patient. Once the patient was intubated, she remained moderately hypoxic. There was some improvement with suctioning and pulling the tube back but O2 saturations remained in the mid 80s. I discussed the case with staff from critical care medicine and the patient will be transferred over to the ICU. We discussed the possibility of a pulmonary embolism as a cause of her hypoxia, tachycardia and hypotension as the patient had sat in 1 position for 48 hours. He will order CTA of the chest. A repeat ABG was performed which showed some improvement in the pH to 7.1 and PCO2 came down into the 70s. Patient's daughter had arrived here in the emergency department and I briefly discussed the case with her. Triage Nursing notes reviewed and agree with them. Additional history obtained from EMS External medical records reviewed: I reviewed the patient's previous admission to the hospital from 2021 and I reviewed outpatient [facility] records from her visit to the primary care physician on Monday for her sore throat Vital Signs: reviewed and remarkable for no significant abnormalities Differential diagnosis: CVA, electrolyte abnormality, COVID, dehydration, UTI ER treatment provided: Cardiac monitoring Supplemental oxygen BiPAP EKG IV normal saline bolus IV Rocephin IV Lasix IV etomidate IV Versed IV fentanyl Diagnostics interpreted by me: ECG: Sinus tachycardia at a rate of 104. There is an anterior infarct now p resent in comparison to previous EKGs. Cardiac Monitoring: Sinus tachycardia at 112 Laboratory studies: See below Imaging studies: As per stat rad CT scan of the brain: See report Plain films all independently interpreted by myself. Portable chest x-ray: Mild pulmonary edema with an early opacity in the right lower lobe Repeat portable chest x-ray: Significant worsening of pulmonary edema Postintubation chest x-ray: Some improvement to the pulm edema. Endotracheal tube in place but advancing towards the right mainstem and requires being pulled back HPI: 87/F arrives for evaluation of weakness. Patient went to her PCP on Monday with complaints of a sore throat. She was treated with Zithromax. Upon arriving home after that appointment, she sat down at her kitchen table and has been unable to move since that time. Family and friends found her sitting at that table tonight incontinent of urine and confused and called EMS. PAST MEDICAL HISTORY:COPD, diabetes, renal insufficiency, hypertension, Rizzo, hyperlipidemia, hypothyroidism PAST SURGICAL HISTORY:Vascular surgery in 2015-stent placement-femoral artery FAMILY HISTORY:Cancer-father; hypertension and diabetes-mother SOCIAL HISTORY:The patient lives alone, she is a smoker HOME MEDICATIONS:See list ALLERGIES:Penicillin VITALS:See Below PHYSICAL EXAMINATION: HEENT: Head - normocephalic and atraumatic. Pupils are equal, round, and reactive to light. Extraocular eye muscles are intact and sclera are anicteric. Nose - moist nasal mucosa without discharge. Mouth - moist buccal mucosa. Oropharynx is nonerythematous and there is no tonsillar exudate or edema noted. Neck: Supple; no JVD Heart: Tachycardic rate and regular rhythm. There is a normal S1 and S2 with no murmurs, clicks, or gallops appreciated. Lungs: Clear to auscultation bilaterally with no wheezes, rales, or rhonchi. Abdomen: Soft, completely nontender, nondistended, with good bowel sounds. There are no palpable pulsatile masses or hepatosplenomegaly. There is no guarding, rigidity, or rebound noted. Extremities: 2+ edema both lower extremities with some mild erythema noted about the legs. Neuro:The patient is awake and alert; oriented to place but slightly confused about the date. She thought that it was December already. Patient is confused about the events of the past 24-48 hours. ED COURSE: Times/Reassessments: 2255: Patient was evaluated in room C11. A complete history and physical was performed. An order was placed for continuous cardiac monitoring. Patient was in a sinus tachycardia at a rate of 112. Laboratory studies were drawn as above. A portable chest x-ray was performed. Patient was receiving an IV bolus of normal saline solution at a fairly slow rate. Patient was catheterized for a urine specimen. She was given a dose of IV Rocephin. I discussed the case with the [facility] Hospitalist. Nursing staff alerted me that the patient had a change in her condition and was having respiratory difficulty. She was switched from nasal cannula to BiPAP. A repeat portable chest x-ray was performed. An ABG was performed. Dr. Zarco discussed the case with the patient's daughter to see what her wishes might be with regards to CODE STATUS and resuscitation wishes. Patient was given 40 mg of IV Lasix. She was moved to room A1. The decision was made to perform endotracheal intubation. Patient was given 100 mg of IV Solu-Medrol to complement the 20 mg of IV Solu- Medrol she had already received. Postintubation x-ray was obtained and the tube was pulled back by approximately 2 cm. Patient's O2 saturations remained in the mid 80s. We made some adjustments to her ventilator to allow for a more prolonged expiratory time. And her O2 saturations had increased to 86-87%. I discussed the case with the critical care nurse practitioner at the bedside. They will transfer her over to the ICU. Endotracheal Intubation Indication respiratory failure. The patient was on BiPAP prior to the procedure. Suction, airway equipment, RSI drugs, respiratory equipment, and appropriate personnel were prepared prior to the initiation of the procedure. A time out was taken. Induction was performed with 30 mg of etomidate. After observing the clinical benefit of the medications, the airway was easily visualized utilizing a glide scope. A 7.5 size ETT tube was placed atraumatically to 25 cm using standard technique. The cuff inflated without signs of malfunction. There were bilateral breath sounds, positive colormetric change, no gastric sounds noted and post procedure pulse oximetry was 81%. Post intubation sedation was administered using Versed and fentanyl. There were no complications. I have personally spent greater than 95 minutes of critical care time in the direct management of this patient. This includes bedside care, interpretation of diagnostic studies, and testing, discussion with consultants, patient, and family members, and other required patient management activities. This 95 minutes is in excess of all separately billable procedures. Fernanda Bueno, Past Med/Surg History Medical History Pneumonia Social History Smoking Status: Current every day smoker Tobacco Type: Cigarettes Cigarettes Per Day: 2-3; Second Hand Exposure: No; Do You Dip or Chew Tobacco: No; Tobacco Cessation Education Requested by Patient: No Hx Alcohol Use: Yes Alcohol type: wine Hx Substance Use: No Preferred Language: Turkmen Communication Ability: Effective Sidehand Required: No Beliefs That Will Affect Care: None marital status: Unknown Current Living Situation: Alone Current Living Situation Comment: patient lives in an apartment Other Information That Helps Us Care for You: No Feels Safe at Home: Yes Safety Concerns: Feels Safe At This Time Assistive Devices: Hearing Aid - Bilateral and Scooter/Electric Scooter Allergies Allergies Allergy/AdvReac Type Severity Reaction Status Date / Time Penicillins Allergy Intermediate HIVES Verified 12/19/22 00:08 Home Meds Home Medications Medication Instructions Recorded Confirmed clopidogrel 75 mg tablet 75 mg PO DAILY 06/14/21 12/19/22 levothyroxine 150 mcg tablet 150 mcg PO DAILY 06/14/21 12/19/22 metoprolol tartrate 25 mg tablet 25 mg PO BID 06/14/21 12/19/22 multivitamin 1 tab PO DAILY 06/14/21 12/19/22 rosuvastatin 10 mg tablet 10 mg PO DAILY 06/14/21 12/19/22 hydrochlorothiazide 12.5 mg tablet 12.5 mg PO DAILY 07/21/21 12/19/22 azithromycin 250 mg tablet 250 mg PO DAILY 12/19/22 12/19/22 calcium carbonate 200 mg-magnesium 1 tab PO BID 12/19/22 12/19/22 oxide,carbonate 100 mg chew tablet (Jez-Mag) diclofenac sodium 1 % topical gel 4 g topical TID PRN Pain 12/19/22 12/19/22 duloxetine 30 mg capsule,delayed 30 mg PO QAM 12/19/22 12/19/22 release gabapentin 300 mg capsule 300 mg PO BID 12/19/22 12/19/22 losartan 50 mg tablet 50 mg PO QAM 12/19/22 12/19/22 metformin 500 mg tablet,extended 2,000 mg PO DAILY 12/19/22 12/19/22 release 24 hr Previous Rx's Medication Instructions Recorded lancets 30 gauge and blood glucose #200 serena 06/24/21 strips combo pack Portable Oxygen #1 serena 07/21/21 Flutter Valve #1 serena 08/24/22 albuterol sulfate 90 mcg/actuation 2 inh inhalation Q6H PRN shortness 08/24/22 aerosol inhaler of breath or wheezing #8.5 grams umeclidinium 62.5 mcg-vilanterol 1 ea inhalation DAILY #60 ea 08/24/22 25 mcg/actuation powdr for inhalation (Anoro Ellipta) Results & Data (ED) Vital Signs Vital Signs - 24 hr 12/18/22 23:02 12/18/22 23:09 12/18/22 23:18 Temperature 37.2 C Temperature Source Oral Pulse Rate 101 H 103 H Pulse Rate from SpO2 Sensor Respiratory Rate 20 Respiratory Effort / Characteristics Non-Labored Respiratory Depth Normal Respiratory Pattern Regular Blood Pressure 143/62 H Blood Pressure Mean 89 Pulse Oximetry 89 L 89 L 100 Oxygen Delivery Method Room Air Room Air Nasal Cannula Oxygen Flow Rate 2 Fraction of Inspired Oxygen Sepsis New/Unexplained Change in Mental Status Yes Sepsis Action Taken by Nursing MD Previously Notified Oxygen Flow Rate - Titration 3 Pulse Oximetry Post Tiitration 91 12/18/22 23:29 12/18/22 23:30 12/18/22 23:57 Temperature Temperature Source Pulse Rate 100 H 102 H 101 H Pulse Rate from SpO2 Sensor Respiratory Rate 24 27 H Respiratory Effort / Characteristics Respiratory Depth Respiratory Pattern Blood Pressure 162/66 H Blood Pressure Mean 98 Pulse Oximetry 100 100 Oxygen Delivery Method Nasal Cannula Nasal Cannula Oxygen Flow Rate 2 2 Fraction of Inspired Oxygen Sepsis New/Unexplained Change in Mental Status Sepsis Action Taken by Nursing Oxygen Flow Rate - Titration Pulse Oximetry Post Tiitration 12/19/22 00:00 12/19/22 00:30 12/19/22 01:01 Temperature Temperature Source Pulse Rate 101 H 111 H 103 H Pulse Rate from SpO2 Sensor Respiratory Rate 20 17 20 Respiratory Effort / Characteristics Respiratory Depth Respiratory Pattern Blood Pressure 92/63 L 172/91 H 181/58 H Blood Pressure Mean 72 118 99 Pulse Oximetry 93 93 96 Oxygen Delivery Method Nasal Cannula Nasal Cannula Nasal Cannula Oxygen Flow Rate 2 2 2 Fraction of Inspired Oxygen Sepsis New/Unexplained Change in Mental Status Sepsis Action Taken by Nursing Oxygen Flow Rate - Titration Pulse Oximetry Post Tiitration 12/19/22 01:30 12/19/22 01:31 12/19/22 02:00 Temperature Temperature Source Pulse Rate 103 H 104 H 101 H Pulse Rate from SpO2 Sensor Respiratory Rate 26 H 24 17 Respiratory Effort / Characteristics Respiratory Depth Respiratory Pattern Blood Pressure 149/77 H Blood Pressure Mean 101 Pulse Oximetry 96 95 94 Oxygen Delivery Method Nasal Cannula Nasal Cannula Nasal Cannula Oxygen Flow Rate 2 2 2 Fraction of Inspired Oxygen Sepsis New/Unexplained Change in Mental Status Sepsis Action Taken by Nursing Oxygen Flow Rate - Titration Pulse Oximetry Post Tiitration 12/19/22 02:03 12/19/22 03:19 12/19/22 02:15 Temperature Temperature Source Pulse Rate 106 H 139 H 102 H Pulse Rate from SpO2 Sensor Respiratory Rate 24 25 H Respiratory Effort / Characteristics Respiratory Depth Respiratory Pattern Blood Pressure 165/65 H Blood Pressure Mean 98 Pulse Oximetry 94 95 Oxygen Delivery Method Nasal Cannula Nasal Cannula Oxygen Flow Rate 2 2 Fraction of Inspired Oxygen Sepsis New/Unexplained Change in Mental Status Sepsis Action Taken by Nursing Oxygen Flow Rate - Titration Pulse Oximetry Post Tiitration 12/19/22 02:25 12/19/22 02:30 12/19/22 02:45 Temperature Temperature Source Pulse Rate 126 H 119 H 112 H Pulse Rate from SpO2 Sensor Respiratory Rate 31 H 37 H 34 H Respiratory Effort / Characteristics Respiratory Depth Respiratory Pattern Blood Pressure 162/63 H Blood Pressure Mean 96 Pulse Oximetry 88 L 92 82 L Oxygen Delivery Method Nasal Cannula Nasal Cannula Oxygen Flow Rate 2 2 Fraction of Inspired Oxygen Sepsis New/Unexplained Change in Mental Status Sepsis Action Taken by Nursing Oxygen Flow Rate - Titration Pulse Oximetry Post Tiitration 12/19/22 02:50 12/19/22 02:55 12/19/22 02:57 Temperature Temperature Source Pulse Rate 120 H 120 H 118 H Pulse Rate from SpO2 Sensor Respiratory Rate 23 31 H 36 H Respiratory Effort / Characteristics Respiratory Depth Respiratory Pattern Blood Pressure Blood Pressure Mean Pulse Oximetry 80 L 78 L Oxygen Delivery Method Non-rebreather BiPAP Oxygen Flow Rate 15 Fraction of Inspired Oxygen Sepsis New/Unexplained Change in Mental Status Sepsis Action Taken by Nursing Oxygen Flow Rate - Titration Pulse Oximetry Post Tiitration 12/19/22 03:00 12/19/22 03:20 12/19/22 03:25 Temperature Temperature Source Pulse Rate 122 H 139 H 131 H Pulse Rate from SpO2 Sensor 140 H 132 H Respiratory Rate 33 H 30 H 20 Respiratory Effort / Characteristics Respiratory Depth Respiratory Pattern Blood Pressure 235/133 H Blood Pressure Mean 167 Pulse Oximetry 81 L 87 L 84 L Oxygen Delivery Method BiPAP Ambu-Bag Ambu-Bag Oxygen Flow Rate Fraction of Inspired Oxygen Sepsis New/Unexplained Change in Mental Status Sepsis Action Taken by Nursing Oxygen Flow Rate - Titration Pulse Oximetry Post Tiitration 12/19/22 03:26 12/19/22 03:30 12/19/22 03:35 Temperature Temperature Source Pulse Rate 149 H 141 H 124 H Pulse Rate from SpO2 Sensor 149 H 126 H 124 H Respiratory Rate 20 24 25 H Respiratory Effort / Characteristics Respiratory Depth Respiratory Pattern Blood Pressure 73/59 L 163/96 H 79/53 L Blood Pressure Mean 63 118 61 Pulse Oximetry 78 L 79 L 85 L Oxygen Delivery Method Ambu-Bag Mechanical Vent Mechanical Vent Oxygen Flow Rate Fraction of Inspired Oxygen Sepsis New/Unexplained Change in Mental Status Sepsis Action Taken by Nursing Oxygen Flow Rate - Titration Pulse Oximetry Post Tiitration 12/19/22 03:26 Temperature Temperature Source Pulse Rate Pulse Rate from SpO2 Sensor Respiratory Rate 25 H Respiratory Effort / Characteristics Respiratory Depth Respiratory Pattern Blood Pressure Blood Pressure Mean Pulse Oximetry Oxygen Delivery Method Oxygen Flow Rate Fraction of Inspired Oxygen 100 Sepsis New/Unexplained Change in Mental Status Sepsis Action Taken by Nursing Oxygen Flow Rate - Titration Pulse Oximetry Post Tiitration Laboratory Data 12/18/22 23:10 12/18/22 23:10 Lab Results 12/18/22 12/18/22 12/18/22 Range/Units 23:10 23:10 23:10 WBC 15.56 H (4.8-10.8) K/ul RBC 4.36 (4.20-5.40) M/uL Hgb 14.4 (12.0-16.0) g/dl POC Hgb (12.0-16.0) g/dl Hct 42.3 (37.0-47.0) % POC Hct (37-47) % MCV 97.0 (80.0-100.0) fL MCH 33.0 (25.0-34.0) pg MCHC 34.0 (32.0-36.0) g/dL RDW Std Deviation 43.8 (36.4-46.3) fL RDW Coeff of Terri 12.3 (11.5-14.5) % Plt Count 455 H (130-400) K/uL MPV 9.1 L (9.4-12.4) fL Immature Gran % (Auto) 0.4 % Neut % (Auto) 68.4 % Lymph % (Auto) 16.8 % [place] % (Auto) 13.7 % Eos % (Auto) 0.3 % Baso % (Auto) 0.4 % Neut # (Auto) 10.66 H (1.40-6.50) K/uL Lymph # (Auto) 2.61 (1.2-3.4) K/uL [place] # (Auto) 2.13 H (0.11-0.59) K/uL Eos # (Auto) 0.04 (0-0.50) K/uL Baso # (Auto) 0.06 (0-0.2) K/uL Immature Gran # (Auto) 0.06 (0.01-0.20) K/uL POC pH (7.35-7.45) POC pCO2 (35-46) mmHg POC pO2 (80-95) mmHg POC HCO3 (19-24) gunnar/L POC Total CO2 (24-31) mmol/L POC Base Excess (-9-1.8) gunnar/L POC ABG O2 Sat (90-95) % POC Sodium (135-144) mmol/L Sodium 133 L (136-145) mmol/L POC Potassium (3.3-5.0) mmol/L Potassium 4.7 (3.5-5.1) mmol/L Chloride 95 L (98-107) mmol/L Carbon Dioxide 27 (21-32) mmol/L Anion Gap 11 (3-11) BUN 29 H (6-23) mg/dl Creatinine 1.09 (0.6-1.2) mg/dl Est Cr Clr Drug Dosing 35.6 ml/min Est GFR ( Amer) 52.9 ml/min Est GFR (Non-Af Amer) 45.6 ml/min BUN/Creatinine Ratio 26.6 H (10-20) Glucose 155 H (70-99(Fasting)) mg/dl Lactate (0.4-2.0) mmol/L Calcium 9.4 (8.6-10.3) mg/dl Magnesium 2.1 (1.7-2.4) mg/dl Total Bilirubin 0.7 (0.2-1.0) mg/dl AST 22 (13-39) U/L ALT 16 (7-52) U/L Alkaline Phosphatase 52 (34-104) U/L Total Creatine Kinase 254 H (26-192) U/L Troponin I High Sens (0-14) pg/ml Total Protein 7.4 (6.0-8.3) gm/dl Albumin 3.9 (3.4-5.0) gm/dl Globulin 3.5 (2.5-4.0) gm/dl Albumin/Globulin Ratio 1.1 (0.9-2) Procalcitonin (0-0.5) ng/ml TSH 1.845 (0.300-4.500) uIu/ml Urine Color Urine Appearance (Clear) Urine pH (4.5-7.5) Ur Specific Anderson (1.000-1.030) Urine Protein (Negative) Urine Glucose (UA) (Negative) Urine Ketones (Negative) Urine Blood (Negative) Urine Nitrite (Negative) Urine Bilirubin (Negative) Urine Urobilinogen (Negative) Ur Leukocyte Esterase (Negative) Urine WBC (Auto) (0-5) /hpf Urine RBC (Auto) (0-4) /hpf U Hyaline Cast (Auto) (0-5) /lpf U Epithel Cells (Auto) (0-5) /lpf Urine Bacteria (Auto) (Negative) SARS-CoV-2, RNA, NAAT (NEGATIVE) 12/18/22 12/18/22 12/18/22 Range/Units 23:10 23:17 23:54 WBC (4.8-10.8) K/ul RBC (4.20-5.40) M/uL Hgb (12.0-16.0) g/dl POC Hgb (12.0-16.0) g/dl Hct (37.0-47.0) % POC Hct (37-47) % MCV (80.0-100.0) fL MCH (25.0-34.0) pg MCHC (32.0-36.0) g/dL RDW Std Deviation (36.4-46.3) fL RDW Coeff of Terri (11.5-14.5) % Plt Count (130-400) K/uL MPV (9.4-12.4) fL Immature Gran % (Auto) % Neut % (Auto) % Lymph % (Auto) % [place] % (Auto) % Eos % (Auto) % Baso % (Auto) % Neut # (Auto) (1.40-6.50) K/uL Lymph # (Auto) (1.2-3.4) K/uL [place] # (Auto) (0.11-0.59) K/uL Eos # (Auto) (0-0.50) K/uL Baso # (Auto) (0-0.2) K/uL Immature Gran # (Auto) (0.01-0.20) K/uL POC pH (7.35-7.45) POC pCO2 (35-46) mmHg POC pO2 (80-95) mmHg POC HCO3 (19-24) gunnar/L POC Total CO2 (24-31) mmol/L POC Base Excess (-9-1.8) gunnar/L POC ABG O2 Sat (90-95) % POC Sodium (135-144) mmol/L Sodium (136-145) mmol/L POC Potassium (3.3-5.0) mmol/L Potassium (3.5-5.1) mmol/L Chloride (98-107) mmol/L Carbon Dioxide (21-32) mmol/L Anion Gap (3-11) BUN (6-23) mg/dl Creatinine (0.6-1.2) mg/dl Est Cr Clr Drug Dosing ml/min Est GFR ( Amer) ml/min Est GFR (Non-Af Amer) ml/min BUN/Creatinine Ratio (10-20) Glucose (70-99(Fasting)) mg/dl Lactate (0.4-2.0) mmol/L Calcium (8.6-10.3) mg/dl Magnesium (1.7-2.4) mg/dl Total Bilirubin (0.2-1.0) mg/dl AST (13-39) U/L ALT (7-52) U/L Alkaline Phosphatase (34-104) U/L Total Creatine Kinase (26-192) U/L Troponin I High Sens (0-14) pg/ml Total Protein (6.0-8.3) gm/dl Albumin (3.4-5.0) gm/dl Globulin (2.5-4.0) gm/dl Albumin/Globulin Ratio (0.9-2) Procalcitonin 0.09 (0-0.5) ng/ml TSH (0.300-4.500) uIu/ml Urine Color Dark Yellow Urine Appearance Cloudy A (Clear) Urine pH 5.5 (4.5-7.5) Ur Specific Anderson 1.021 (1.000-1.030) Urine Protein Trace H (Negative) Urine Glucose (UA) Negative (Negative) Urine Ketones Trace H (Negative) Urine Blood Negative (Negative) Urine Nitrite Positive A (Negative) Urine Bilirubin Negative (Negative) Urine Urobilinogen Negative (Negative) Ur Leukocyte Esterase 2+ H (Negative) Urine WBC (Auto) 5-10 H (0-5) /hpf Urine RBC (Auto) 0-4 (0-4) /hpf U Hyaline Cast (Auto) 1-5 (0-5) /lpf U Epithel Cells (Auto) 20-30 H (0-5) /lpf Urine Bacteria (Auto) 4+ H (Negative) SARS-CoV-2, RNA, NAAT NEGATIVE (NEGATIVE) 12/19/22 12/19/22 12/19/22 Range/Units 00:48 03:11 03:11 WBC (4.8-10.8) K/ul RBC (4.20-5.40) M/uL Hgb (12.0-16.0) g/dl POC Hgb 19.0 H (12.0-16.0) g/dl Hct (37.0-47.0) % POC Hct 56 H (37-47) % MCV (80.0-100.0) fL MCH (25.0-34.0) pg MCHC (32.0-36.0) g/dL RDW Std Deviation (36.4-46.3) fL RDW Coeff of Terri (11.5-14.5) % Plt Count (130-400) K/uL MPV (9.4-12.4) fL Immature Gran % (Auto) % Neut % (Auto) % Lymph % (Auto) % [place] % (Auto) % Eos % (Auto) % Baso % (Auto) % Neut # (Auto) (1.40-6.50) K/uL Lymph # (Auto) (1.2-3.4) K/uL [place] # (Auto) (0.11-0.59) K/uL Eos # (Auto) (0-0.50) K/uL Baso # (Auto) (0-0.2) K/uL Immature Gran # (Auto) (0.01-0.20) K/uL POC pH 6.97 L* (7.35-7.45) POC pCO2 > 115 H (35-46) mmHg POC pO2 73 L (80-95) mmHg POC HCO3 28 H (19-24) gunnar/L POC Total CO2 32 H (24-31) mmol/L POC Base Excess -4.0 (-9-1.8) gunnar/L POC ABG O2 Sat 81.0 L (90-95) % POC Sodium 133 L (135-144) mmol/L Sodium (136-145) mmol/L POC Potassium 4.5 (3.3-5.0) mmol/L Potassium (3.5-5.1) mmol/L Chloride (98-107) mmol/L Carbon Dioxide (21-32) mmol/L Anion Gap (3-11) BUN (6-23) mg/dl Creatinine (0.6-1.2) mg/dl Est Cr Clr Drug Dosing ml/min Est GFR ( Amer) ml/min Est GFR (Non-Af Amer) ml/min BUN/Creatinine Ratio (10-20) Glucose (70-99(Fasting)) mg/dl Lactate 1.1 (0.4-2.0) mmol/L Calcium (8.6-10.3) mg/dl Magnesium (1.7-2.4) mg/dl Total Bilirubin (0.2-1.0) mg/dl AST (13-39) U/L ALT (7-52) U/L Alkaline Phosphatase (34-104) U/L Total Creatine Kinase (26-192) U/L Troponin I High Sens 17.4 H (0-14) pg/ml Total Protein (6.0-8.3) gm/dl Albumin (3.4-5.0) gm/dl Globulin (2.5-4.0) gm/dl Albumin/Globulin Ratio (0.9-2) Procalcitonin (0-0.5) ng/ml TSH (0.300-4.500) uIu/ml Urine Color Urine Appearance (Clear) Urine pH (4.5-7.5) Ur Specific [place] (1.000-1.030) Urine Protein (Negative) Urine Glucose (UA) (Negative) Urine Ketones (Negative) Urine Blood (Negative) Urine Nitrite (Negative) Urine Bilirubin (Negative) Urine Urobilinogen (Negative) Ur Leukocyte Esterase (Negative) Urine WBC (Auto) (0-5) /hpf Urine RBC (Auto) (0-4) /hpf U Hyaline Cast (Auto) (0-5) /lpf U Epithel Cells (Auto) (0-5) /lpf Urine Bacteria (Auto) (Negative) SARS-CoV-2, RNA, NAAT (NEGATIVE) Administered Medications Midazolam HCl (Versed) 125 mg in 250 mls @ 2 mls/hr IV .Q96H [facility]; Protocol Stop: 01/18/23 04:44 Last Admin: 07/31/23 04:45 Dose: 1 mg/hr, 2 mls/hr Documented By: EVERETT Co-signed By: ARTHUR Fentanyl Citrate (Fentanyl Citrate) 2,500 mcg in 250 mls @ 2.5 mls/hr IV .Q96H [facility]; Protocol Stop: 01/02/23 04:44 Last Admin: 12/19/22 04:45 Dose: 25 mcg/hr, 2.5 mls/hr Documented By: EVERETT Co-signed By: ARTHUR Norepinephrine Bitartrate (Levophed/D5w) 4 mg in 250 mls @ 16.294 mls/hr IV .[id number] [facility]; Protocol Stop: 01/18/23 05:14 Last Admin: 12/19/22 05:00 Dose: 0.05 mcg/kg/min, 16.3 mls/hr Documented By: EVERETT Co-signed By: ARTHUR Doxycycline Hyclate 100 mg/ (Dextrose) 110 mls @ 50 mls/hr IV Q12H [facility] Stop: 12/26/22 05:59 Last Admin: 12/19/22 06:04 Dose: 50 mls/hr Documented By: EVERETT Acetaminophen (Ofirmev) 1,000 mg in 100 mls @ 400 mls/hr IV Q8H PRN PRN Reason: Fever Stop: 12/22/22 05:20 Last Admin: 12/19/22 05:56 Dose: 400 mls/hr Documented By: EVERETT Vancomycin HCl 1,750 mg/ (Sodium Chloride) 535 mls @ 200 mls/hr IV ONE STA Stop: 12/19/22 08:15 Last Admin: 12/19/22 05:57 Dose: 200 mls/hr Documented By: EVERETT Insulin Aspart (Insulin Aspart Per Unit Charge) 0 units SC Q6 [facility] Stop: 01/18/23 05:59 Last Admin: 12/19/22 05:53 Dose: 4 units Documented By: EVERETT Co-signed By: ARTHUR Insulin Glargine (Lantus Per Unit Charge) 10 units SQ DAILY [facility] Stop: 01/18/23 05:00 Last Admin: 12/19/22 05:53 Dose: 10 units Documented By: EVERETT Co-signed By: ARTHUR Levothyroxine Sodium (Levothyroxine Sodium 150 Mcg Tablet) [facility] Stop[facility] 01/18/23 06:29 Last Admin: 12/19/22 06:05 Dose: 150 mcg Documented By: EVERETT Discontinued Medications Albuterol (Albut/Ipratrop 3mg/0.5mg Neb 3 Ml Vial) Confirm Administered Dose 3 ml .ROUTE .STK-MED ONE Stop: 12/19/22 02:53 Last Admin: 12/19/22 02:52 Dose: 3 ml Documented By: DAGOBERTO Albuterol (Albut/Ipratrop 3mg/0.5mg Neb 3 Ml Vial) Confirm Administered Dose 3 ml .ROUTE .STK-MED ONE Stop: 12/19/22 03:51 Last Admin: 12/19/22 05:05 Dose: 3 ml Documented By: DAGOBERTO Fentanyl Citrate (Fentanyl Citrate Pf 100 Mcg/2 Ml Vial) Confirm Administered Dose 100 mcg .ROUTE .STK-MED ONE Stop: 12/19/22 04:40 Last Admin: 12/19/22 05:16 Dose: Not Given Documented By: EVERETT Fentanyl Citrate (Fentanyl Citrate Pf 100 Mcg/2 Ml Vial) 100 mcg IV NOW STA Stop: 12/19/22 04:44 Last Admin: 12/19/22 05:15 Dose: 100 mcg Documented By: EVERETT Fentanyl Citrate (Fentanyl Citrate 2,500 Mcg/250 Ml Bag) Confirm Administered Dose 2,500 mcg IV .STK-MED ONE Stop: 12/19/22 04:46 Last Admin: 12/19/22 05:16 Dose: Not Given Documented By: EVERETT Furosemide (Furosemide Inj 20 Mg/2 Ml Vial) 20 mg IV ONE STA Stop: 12/19/22 02:42 Last Admin: 12/19/22 03:37 Dose: Not Given Documented By: AQUILINO Furosemide (Furosemide 40 Mg/4 Ml Vial) Confirm Administered Dose 40 mg IV .STK- MED ONE Stop: 12/19/22 02:56 Last Admin: 12/19/22 03:39 Dose: Not Given Documented By: AQUILINO Furosemide (Furosemide 40 Mg/4 Ml Vial) 40 mg IV ONE ONE Stop: 12/19/22 03:39 Last Admin: 12/19/22 03:39 Dose: 40 mg Documented By: AQUILINO Sodium Chloride (Nss) 500 mls @ 999 mls/hr IV .Q31M ONE Stop: 12/19/22 00:39 Last Infusion: 12/19/22 01:42 Dose: 0 mls/hr Documented By: Admin: 12/19/22 00:32 Dose: 999 mls/hr Documented By: AQUILINO Ceftriaxone Sodium (Rocephin) 2,000 mg in 70 mls @ 140 mls/hr IV NOW STA Stop: 12/19/22 02:02 Last Infusion: 12/19/22 02:30 Dose: 0 mls/hr Documented By: Admin: 12/19/22 02:00 Dose: 140 mls/hr Documented By: AQUILINO Cefepime HCl (Maxipime) 2,000 mg in 20 mls @ 5 mls/min IV NOW STA; Protocol Stop: 12/19/22 02:09 Last Admin: 12/19/22 02:37 Dose: 5 mls/min Documented By: AQUILINO Ioversol (Ioversol 350 Mg 125ml Prefilled Syringe) 125 ml IV ONCE ONE Stop: 12/19/22 05:42 Last Admin: 12/19/22 05:42 Dose: 108 ml Documented By: FRANCISCO Ipratropium [place] (Ipratropium [place] Neb Soln 0.02% 2.5 Ml Vial) 0.5 mg INH NOW STA Stop: 12/19/22 02:42 Last Admin: 12/19/22 05:06 Dose: Not Given Documented By: DAGOBERTO Levalbuterol HCl (Levalbuterol 1.25 Mg/3 Ml Neb) 1.25 mg NEB NOW STA Stop: 12/19/22 02:42 Last Admin: 12/19/22 05:06 Dose: Not Given Documented By: DAGOBERTO Methylprednisolone (Methylprednisolone 40 Mg/Ml Vial) 20 mg IV ONE STA Stop: 12/19/22 03:06 Last Admin: 12/19/22 03:37 Dose: 20 mg Documented By: AQUILINO Methylprednisolone (Methylprednisolone 125 Mg/2 Ml Vial) Confirm Administered Dose 125 mg .ROUTE .STK-MED ONE Stop: 12/19/22 03:51 Last Admin: 12/19/22 05:16 Dose: Not Given Documented By: EVERETT Methylprednisolone (Methylprednisolone 125 Mg/2 Ml Vial) 100 mg IV NOW STA Stop: 12/19/22 03:52 Last Admin: 12/19/22 03:52 Dose: 100 mg Documented By: LUCILLE Metoprolol Tartrate (Metoprolol Tartrate 1 Mg/Ml Vial) 2.5 mg IV NOW STA Stop: 12/19/22 02:04 Last Admin: 12/19/22 02:37 Dose: 2.5 mg Documented By: AQUILINO Midazolam HCl (Midazolam Hcl 125mg/250ml D5w) Confirm Administered Dose 125 mg IV .STK-MED ONE Stop: 12/19/22 04:45 Last Admin: 12/19/22 05:16 Dose: Not Given Documented By: EVERETT Miscellaneous (Rapid Sequence Induction Bag) Confirm Administered Dose 1 each N/A .STK-MED ONE Stop: 12/19/22 03:15 Last Admin: 12/19/22 05:16 Dose: Not Given Documented By: EVERETT Propofol (Propofol Iv Emulsion 10 Mg/Ml 100 Ml Vial) Confirm Administered Dose 1,000 mg IV .STK-MED ONE Stop: 12/19/22 03:27 Last Admin: 12/19/22 05:16 Dose: Not Given Documented By: EVERETT Vecuronium [place] (Vecuronium [place] 10 Mg Vial) Confirm Administered Dose 10 mg IV .STK-MED ONE Stop: 12/19/22 04:41 Last Admin: 12/19/22 05:16 Dose: Not Given Documented By: EVERETT Vecuronium [place] (Vecuronium [place] 10 Mg Vial) 10 mg IV NOW STA Stop: 12/19/22 04:44 Last Admin: 12/19/22 05:15 Dose: 10 mg Documented By: EVERETT Co-signed By: ARTHUR Imaging Data Radiologist's Impression: Head CT 12/18/22 23:18 Exam(s): CT HEAD Without Contrast EXAM: CT Head Without Intravenous Contrast CLINICAL HISTORY: Reason for exam: altered ms. TECHNIQUE: Axial computed tomography images of the head/brain without intravenous contrast. CTDI is 37.32 mGy and DLP is 624.41 mGy-cm. Automated exposure control was utilized for the study. A dose lowering technique was utilized adhering to the principles of ALARA. COMPARISON: No relevant prior studies available. FINDINGS: No acute intracranial hemorrhage. No midline shift or mass effect. The territorial simpson-white matter differentiation is maintained throughout. Age-related cerebral volume loss. Periventricular and subcortical white matter hypoattenuation, consistent with chronic microangiopathy. The visualized orbits appear grossly unremarkable. The calvarium is intact. The visualized paranasal sinuses and mastoid air cells are grossly clear. IMPRESSION: No acute intracranial hemorrhage, midline shift, or mass effect. Electronically signed by: Joshua Lea MD 12/19/22 00:10 AM Discharge Plan Visit Data Chief Complaint: Weakness Stated Complaint: Weakness, Unable to stand, Dehydrated ED Provider: Fernanda Bueno Discharge Problem: Acute hypercapnic respiratory failure, Acute UTI Patient Disposition: Admitted As Inpatient Discharge Instructions Interventions: ED Discharge Assessment Last Done: 12/19/22 04:35
[2022-12-18 23:32] LABS: Basophils # (auto) 0.06 K/uL (0-0.2); Basophils % (auto) 0.4 %; Eosinophils # (auto) 0.04 K/uL (0-0.50); Eosinophils % (auto) 0.3 %; Hematocrit (blood only) 42.3 % (37.0-47.0); Hemoglobin 14.4 g/dl (12.0-16.0); Immature Granulocytes # (auto) 0.06 K/uL (0.01-0.20); Immature Granulocytes % (auto) 0.4 %; Lymphocytes # (auto) 2.61 K/uL (1.2-3.4); Lymphocytes % (auto) 16.8 %; Mean Platelet Volume 9.1 fL (9.4-12.4); Monocytes # (auto) 2.13 K/uL (0.11-0.59); Monocytes % (auto) 13.7 %; Neutrophils # (auto) 10.66 K/uL (1.40-6.50); Neutrophils % (auto) 68.4 %; Platelet Count 455 K/uL (130-400); RDW Coefficient of Variation 12.3 % (11.5-14.5); RDW Standard Deviation 43.8 fL (36.4-46.3); Red Blood Count 4.36 M/uL (4.20-5.40); White Blood Count 15.56 K/ul (4.8-10.8)
[2022-12-18 23:40] LABS: Appearance Urine Cloudy (Clear); Bacteria Urine Automated 4+ (Negative); Bilirubin Urine Negative (Negative); Blood Urine Negative (Negative); Color Urine Dark Yellow; Epithelial Cell Urine Auto 20-30 /lpf (0-5); Glucose Urine UA Negative (Negative); Ketones Urine Trace (Negative); Leukocyte Esterase Urine 2+ (Negative); Nitrite Urine Positive (Negative); Protein Urine Trace (Negative); RBC Urine Automated 0-4 /hpf (0-4); Specific Gravity Urine 1.021 (1.000-1.030); Urobilinogen Urine Negative (Negative); pH Urine 5.5 (4.5-7.5)
[2022-12-18 23:48] LABS: Albumin Globulin Ratio 1.1 (0.9-2); Albumin Level 3.9 gm/dl (3.4-5.0); BUN Creatinine Ratio 26.6 (10-20); Bilirubin,Total 0.7 mg/dl (0.2-1.0); Calcium 9.4 mg/dl (8.6-10.3); Creatinine Clr Calc Pharmacy 35.6 ml/min; Est GFR (African American) 52.9 ml/min; Est GFR (Non-African American) 45.6 ml/min; Globulin 3.5 gm/dl (2.5-4.0); Potassium 4.7 mmol/L (3.5-5.1); Total Protein 7.4 gm/dl (6.0-8.3)
[2022-12-19] MEDS ORDERED: SODIUM CHLORIDE 0.9% 500 ML IV ONE (00:09)
--- NOTE | 2022-12-19 00:11 | CT Scan Report ---
Exam(s): CT HEAD Without Contrast EXAM: CT Head Without Intravenous Contrast CLINICAL HISTORY: Reason for exam: altered ms. TECHNIQUE: Axial computed tomography images of the head/brain without intravenous contrast. CTDI is 37.32 mGy and DLP is 624.41 mGy-cm. Automated exposure control was utilized for the study. A dose lowering technique was utilized adhering to the principles of ALARA. COMPARISON: No relevant prior studies available. FINDINGS: No acute intracranial hemorrhage. No midline shift or mass effect. The territorial simpson-white matter differentiation is maintained throughout. Age-related cerebral volume loss. Periventricular and subcortical white matter hypoattenuation, consistent with chronic microangiopathy. The visualized orbits appear grossly unremarkable. The calvarium is intact. The visualized paranasal sinuses and mastoid air cells are grossly clear. IMPRESSION: No acute intracranial hemorrhage, midline shift, or mass effect. Electronically signed by: Joshua Lea MD 12/19/22 00:10 AM
[2022-12-19] MEDS ORDERED: cefTRIAXone SODIUM 2,000 MG/70 ML BAG IV STA (01:33)
[2022-12-19] MEDS ORDERED: METOPROLOL TARTRATE 1 MG/ML VIAL IV STA ×2 (02:03→03:44)
[2022-12-19] MEDS ORDERED: CEFEPIME 2,000 MG/20 ML VIAL IV STA (02:06)
[2022-12-19 02:25] LABS: Magnesium 2.1 mg/dl (1.7-2.4)
[2022-12-19] MEDS ORDERED: IPRATROPIUM BROMIDE NEB SOLN 0.02% 2.5 ML VIAL INH STA (02:41)
[2022-12-19] MEDS ORDERED: FUROSEMIDE INJ 20 MG/2 ML VIAL IV STA (02:41)
[2022-12-19] MEDS ORDERED: LEVALBUTEROL 1.25 MG/3 ML NEB NEB STA (02:41)
[2022-12-19] MEDS ORDERED: XOPENEX/ATROVENT 1.25mg/0.5MG NEB COMBO NEB STA (02:41)
[2022-12-19] MEDS ORDERED: ALBUT/IPRATROP 3MG/0.5MG NEB 3 ML VIAL ONE ×2 (02:52→03:50)
[2022-12-19] MEDS ORDERED: FUROSEMIDE 40 MG/4 ML VIAL IV ONE ×2 (02:55→03:38)
[2022-12-19] MEDS ORDERED: methylPREDNISolone 20 MG in SYRINGE 0 ML IV STA (03:04)
[2022-12-19] MEDS ORDERED: RAPID SEQUENCE INDUCTION BAG ONE (03:14)
[2022-12-19] MEDS ORDERED: PROPOFOL IV EMULSION 10 MG/ML 100 ML VIAL IV ONE (03:26)
[2022-12-19] MEDS ORDERED: PROPOFOL BOLUS FROM BAG IV PRN (03:33)
[2022-12-19] MEDS ORDERED: STAT IV Infusion **Titration per Protocol STA ×3 (03:33→05:01)
--- NOTE | 2022-12-19 03:37 | History & Physical Report ---
Date of Service December 19, 2022 Assessment & Plan (1) Acute on chronic respiratory failure with hypoxia and hypercapnia: Plan: hx chronic respiratory failure secondary to COPD supposedly, home O2 noncompliance as per records status post intubation at the ER Multifactorial COPD exacerbation secondary to atypical pneumonia, recent outpatient Z-Santana course for pharyngitis ? possible CHF (EF 70%, TTE 2021) Complicated UTI, possible sepsis Hypertensive urgency secondary to illness hyperlipidemia on statin Rx DM2 on oral medications, suboptimal control as of recent hemoglobin A1c of 8.20 Sep 2022 hypothyroidism, euthyroid as of today's TSH Possible functional disability, concerns about patient ability to reside alone with multiple comorbidities. ongoing tobacco abuse ICU Vent management Doxycycline for atypical coverage, steroids, nebs RTC for COPD exacerbation Follow response to IV Lasix administered at the ER for possible CHF Follow urine CS, Cefepime for complicated UTI Basal bolus insulin adjusted for n.p.o. status, ISS BG goal 1 40-1 80 appropriat e goal for ICU Nicotine patch as needed PT OT eval once medically stable DVT prophylaxis per Lovenox subcu Full code as per discussion with patient daughter, Ms. Jenni Link. She requests updates from providers through [phone]. Total critical care time was 50 minutes. Text document was generated using [employer] voice recognition software. It may contain grammatical or spelling errors. Kindly contact undersigned for clarification of any documentation item in question. History of Present Illness Chief Complaint: Weakness as per patient Primary Care Provider: Jeovany Wan MD History obtained from patient, family, and records. Limited history from patient secondary to respiratory distress and subsequent intubation. Medical history significant for chronic respiratory failure secondary to COPD supposedly, home O2 noncompliance as per records on home O2, hypertension, hyperlipidemia, DM2 on oral medications, hypothyroidism, PMR, NAFLD, ongoing tobacco abuse. Last confinement June 2021 for COPD exacerbation. Patient with sore throat symptoms since last week, no chest pain, no SOB. Outpatient strep test negative. PCP prescribed Z-Santana course for sore throat. Worsening weakness over the last few days. Cough productive of clear sputum. Patient not sure about weight gain. Patient denies abdominal/flank pain. Patient denies headache. Patient unable to move as much at home where she resides by herself. Patient found by family to be covered in excrement and urine. O2 sats upon EMS arrival 80s on room air. NSS and ceftriaxone administered at the ER for possible sepsis. Patient later noted SOB symptoms. Denies aspiration. Denies chest pain. Progressive respiratory distress despite BiPAP initiation. Patient subsequently intubated at the ER. 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 Allergies Allergy/AdvReac Type Severity Reaction Status Date / Time Penicillins Allergy Intermediate HIVES Verified 12/19/22 00:08 Home Medications Medication Instructions Recorded Confirmed Type clopidogrel 75 mg tablet 75 mg PO DAILY 06/14/21 12/19/22 History levothyroxine 150 mcg tablet 150 mcg PO DAILY 06/14/21 12/19/22 History metoprolol tartrate 25 mg tablet 25 mg PO BID 06/14/21 12/19/22 History multivitamin 1 tab PO DAILY 06/14/21 12/19/22 History rosuvastatin 10 mg tablet 10 mg PO DAILY 06/14/21 12/19/22 History lancets 30 gauge and blood glucose #200 ea 06/24/21 08/17/22 Rx strips combo pack Portable Oxygen #1 ea 07/21/21 08/17/22 Rx hydrochlorothiazide 12.5 mg tablet 12.5 mg PO DAILY 07/21/21 12/19/22 History Flutter Valve #1 ea 08/24/22 08/24/22 Rx albuterol sulfate 90 mcg/actuation 2 inh inhalation Q6H PRN shortness 08/24/22 12/19/22 Rx aerosol inhaler of breath or wheezing #8.5 grams umeclidinium 62.5 mcg-vilanterol 1 ea inhalation DAILY #60 ea 08/24/22 12/19/22 Rx 25 mcg/actuation powdr for inhalation (Anoro Ellipta) azithromycin 250 mg tablet 250 mg PO DAILY 12/19/22 12/19/22 History calcium carbonate 200 mg-magnesium 1 tab PO BID 12/19/22 12/19/22 History oxide,carbonate 100 mg chew tablet (Jez-Mag) diclofenac sodium 1 % topical gel 4 g topical TID PRN Pain 12/19/22 12/19/22 History duloxetine 30 mg capsule,delayed 30 mg PO QAM 12/19/22 12/19/22 History release gabapentin 300 mg capsule 300 mg PO BID 12/19/22 12/19/22 History losartan 50 mg tablet 50 mg PO QAM 12/19/22 12/19/22 History metformin 500 mg tablet,extended 2,000 mg PO DAILY 12/19/22 12/19/22 History release 24 hr Past Med/Surg History Medical History Pneumonia Social History Smoking Status: Current every day smoker Tobacco Type: Cigarettes Cigarettes Per Day: 2-3; Second Hand Exposure: No; Do You Dip or Chew Tobacco: No; Tobacco Cessation Education Requested by Patient: No Hx Alcohol Use: Yes Alcohol type: wine Hx Substance Use: No Preferred Language: Palauan Communication Ability: Unable Portable Track Line Marker Required: No Beliefs That Will Affect Care: None marital status: Unknown Current Living Situation: Alone Current Living Situation Comment: patient lives in an apartment Other Information That Helps Us Care for You: No Feels Safe at Home: Yes Safety Concerns: Feels Safe At This Time Assistive Devices: Scooter/Electric Scooter Review of Systems Review of Systems: Could not be reliably obtained secondary to respiratory distress Physical Exam Physical Exam: GENERAL: comfortable, obese, sedated SKIN: Normal color, warm HEENT: [place] palpebral conjunctivae, no ptosis, dry buccal mucosa, ET in place NECK : Supple, short neck, no tenderness CHEST : Decreased breath sounds, diffuse expiratory wheezes, no tenderness HEART : Tachycardic, no obvious murmurs ABDOMEN: Some distention, nontender EXTREMITIES : No LE swelling, no LE tenderness, no other conspicuous deformities noted NEUROLOGIC : Sedated, no facial asymmetry, gait and stance not assessed Results & Data Results & Data Vital Signs (Past 12 Hours) Vital Signs Temp Pulse Resp BP Pulse Ox O2 Del Method O2 Flow Rate 12/19/22 03:19 139 H 12/19/22 02:03 106 H 24 165/65 H 94 Nasal Cannula 2 12/19/22 02:00 101 H 17 94 Nasal Cannula 2 12/19/22 01:31 104 H 24 149/77 H 95 Nasal Cannula 2 12/19/22 01:30 103 H 26 H 96 Nasal Cannula 2 12/19/22 01:01 103 H 20 181/58 H 96 Nasal Cannula 2 12/19/22 00:30 111 H 17 172/91 H 93 Nasal Cannula 2 12/19/22 00:00 101 H 20 92/63 L 93 Nasal Cannula 2 12/18/22 23:57 101 H 12/18/22 23:30 102 H 27 H 100 Nasal Cannula 2 12/18/22 23:29 100 H 24 162/66 H 100 Nasal Cannula 2 12/18/22 23:18 103 H 100 Nasal Cannula 2 12/18/22 23:09 89 L Room Air 12/18/22 23:02 37.2 C 101 H 20 143/62 H 89 L Room Air Laboratory Results Laboratory Results WBC 15.56 K/ul (4.8-10.8) H 12/18/22 23:10 RBC 4.36 M/uL (4.20-5.40) 12/18/22 23:10 Hgb 14.4 g/dl (12.0-16.0) 12/18/22 23:10 Hct 42.3 % (37.0-47.0) 12/18/22 23:10 MCV 97.0 fL (80.0-100.0) 12/18/22 23:10 MCH 33.0 pg (25.0-34.0) 12/18/22 23:10 MCHC 34.0 g/dL (32.0-36.0) 12/18/22 23:10 RDW Std Deviation 43.8 fL (36.4-46.3) 12/18/22 23:10 RDW Coeff of Terri 12.3 % (11.5-14.5) 12/18/22 23:10 Plt Count 455 K/uL (130-400) H 12/18/22 23:10 MPV 9.1 fL (9.4-12.4) L 12/18/22 23:10 Immature Gran % (Auto) 0.4 % 12/18/22 23:10 Neut % (Auto) 68.4 % 12/18/22 23:10 Lymph % (Auto) 16.8 % 12/18/22 23:10 [place] % (Auto) 13.7 % 12/18/22 23:10 Eos % (Auto) 0.3 % 12/18/22 23:10 Baso % (Auto) 0.4 % 12/18/22 23:10 Neut # (Auto) 10.66 K/uL (1.40-6.50) H 12/18/22 23:10 Lymph # (Auto) 2.61 K/uL (1.2-3.4) 12/18/22 23:10 [place] # (Auto) 2.13 K/uL (0.11-0.59) H 12/18/22 23:10 Eos # (Auto) 0.04 K/uL (0-0.50) 12/18/22 23:10 Baso # (Auto) 0.06 K/uL (0-0.2) 12/18/22 23:10 Immature Gran # (Auto) 0.06 K/uL (0.01-0.20) 12/18/22 23:10 Sodium 133 mmol/L (136-145) L 12/18/22 23:10 Potassium 4.7 mmol/L (3.5-5.1) 12/18/22 23:10 Chloride 95 mmol/L (98-107) L 12/18/22 23:10 Carbon Dioxide 27 mmol/L (21-32) 12/18/22 23:10 Anion Gap 11 (3-11) 12/18/22 23:10 BUN 29 mg/dl (6-23) H 12/18/22 23:10 Creatinine 1.09 mg/dl (0.6-1.2) 12/18/22 23:10 Est Cr Clr Drug Dosing 35.6 ml/min 12/18/22 23:10 Est GFR ( Amer) 52.9 ml/min 12/18/22 23:10 Est GFR (Non-Af Amer) 45.6 ml/min 12/18/22 23:10 BUN/Creatinine Ratio 26.6 (10-20) H 12/18/22 23:10 Glucose 155 mg/dl (70-99(Fasting)) H 12/18/22 23:10 Lactate 1.1 mmol/L (0.4-2.0) 12/19/22 00:48 Calcium 9.4 mg/dl (8.6-10.3) 12/18/22 23:10 Magnesium 2.1 mg/dl (1.7-2.4) 12/18/22 23:10 Total Bilirubin 0.7 mg/dl (0.2-1.0) 12/18/22 23:10 AST 22 U/L (13-39) 12/18/22 23:10 ALT 16 U/L (7-52) 12/18/22 23:10 Alkaline Phosphatase 52 U/L (34-104) 12/18/22 23:10 Total Creatine Kinase 254 U/L (26-192) H 12/18/22 23:10 Total Protein 7.4 gm/dl (6.0-8.3) 12/18/22 23:10 Albumin 3.9 gm/dl (3.4-5.0) 12/18/22 23:10 Globulin 3.5 gm/dl (2.5-4.0) 12/18/22 23:10 Albumin/Globulin Ratio 1.1 (0.9-2) 12/18/22 23:10 Procalcitonin 0.09 ng/ml (0-0.5) 12/18/22 23:10 TSH 1.845 uIu/ml (0.300-4.500) 12/18/22 23:10 Urine Color Dark Yellow 12/18/22 23:17 Urine Appearance Cloudy (Clear) A 12/18/22 23:17 Urine pH 5.5 (4.5-7.5) 12/18/22 23:17 Ur Specific [place] 1.021 (1.000-1.030) 12/18/22 23:17 Urine Protein Trace (Negative) H 12/18/22 23:17 Urine Glucose (UA) Negative (Negative) 12/18/22 23:17 Urine Ketones Trace (Negative) H 12/18/22 23:17 Urine Blood Negative (Negative) 12/18/22 23:17 Urine Nitrite Positive (Negative) A 12/18/22 23:17 Urine Bilirubin Negative (Negative) 12/18/22 23:17 Urine Urobilinogen Negative (Negative) 12/18/22 23:17 Ur Leukocyte Esterase 2+ (Negative) H 12/18/22 23:17 Urine WBC (Auto) 5-10 /hpf (0-5) H 12/18/22 23:17 Urine RBC (Auto) 0-4 /hpf (0-4) 12/18/22 23:17 U Hyaline Cast (Auto) 1-5 /lpf (0-5) 12/18/22 23:17 U Epithel Cells (Auto) 20-30 /lpf (0-5) H 12/18/22 23:17 Urine Bacteria (Auto) 4+ (Negative) H 12/18/22 23:17 SARS-CoV-2, RNA, NAAT NEGATIVE (NEGATIVE) 12/18/22 23:[address] 12/18/22 23:18 Exam(s): CT HEAD Without Contrast EXAM: CT Head Without Intravenous Contrast CLINICAL HISTORY: Reason for exam: altered ms. TECHNIQUE: Axial computed tomography images of the head/brain without intravenous contrast. CTDI is 37.32 mGy and DLP is 624.41 mGy-cm. Automated exposure control was utilized for the study. A dose lowering technique was utilized adhering to the principles of ALARA. COMPARISON: No relevant prior studies available. FINDINGS: No acute intracranial hemorrhage. No midline shift or mass effect. The territorial simpson-white matter differentiation is maintained throughout. Age-related cerebral volume loss. Periventricular and subcortical white matter hypoattenuation, consistent with chronic microangiopathy. The visualized orbits appear grossly unremarkable. The calvarium is intact. The visualized paranasal sinuses and mastoid air cells are grossly clear. IMPRESSION: No acute intracranial hemorrhage, midline shift, or mass effect. Electronically signed by: Joshua Lea MD 12/19/22 00:10 AM Diagnostic Findings Chest x-ray as per my interpretation cardiomegaly, congestion, atelectasis EKG as per my interpretation : Rate 105, sinus tachycardia, LAD, LAFB, inferior infarct, anterior infarct, new abnormalities lateral leads
[2022-12-19] MEDS ORDERED: propofoL 1,000 MG/100 ML VIAL IV SCH (03:45)
[2022-12-19] MEDS ORDERED: methylPREDNISolone 125 MG/2 ML VIAL ONE (03:50)
[2022-12-19] MEDS ORDERED: methylPREDNISolone 125 MG/2 ML VIAL IV STA (03:51)
[2022-12-19] MEDS ORDERED: ALBUMIN 25% 12.5 GM/50 ML VIAL IV STA (04:26)
[2022-12-19 04:33] LABS: iSTAT Arterial Blood Gas HCO3 28 meg/L (19-24); iSTAT Arterial Blood Gas pCO2 > 115 mmHg (35-46); iSTAT Arterial Blood Gas pH 6.97 (7.35-7.45); iSTAT Arterial Blood Gas pO2 73 mmHg (80-95); iSTAT Carbon Dioxide 32 mmol/L (24-31); iSTAT Hematocrit 56 % (37-47); iSTAT Potassium 4.5 mmol/L (3.3-5.0); iSTAT Sodium 133 mmol/L (135-144)
[2022-12-19 04:33] LABS: iSTAT Arterial Blood Gas HCO3 24 meg/L (19-24); iSTAT Arterial Blood Gas pCO2 71 mmHg (35-46); iSTAT Arterial Blood Gas pH 7.14 (7.35-7.45); iSTAT Arterial Blood Gas pO2 64 mmHg (80-95); iSTAT Carbon Dioxide 26 mmol/L (24-31); iSTAT Hematocrit 55 % (37-47); iSTAT Hemoglobin 18.7 g/dl (12.0-16.0); iSTAT Potassium 4.7 mmol/L (3.3-5.0); iSTAT Sodium 131 mmol/L (135-144)
[2022-12-19] MEDS ORDERED: fentaNYL citrate PF 100 MCG/2 ML VIAL ONE (04:39)
[2022-12-19] MEDS ORDERED: VECURONIUM BROMIDE 10 MG VIAL IV ONE (04:40)
[2022-12-19] MEDS ORDERED: VECURONIUM BROMIDE 10 MG VIAL IV STA (04:43)
[2022-12-19] MEDS ORDERED: fentaNYL citrate PF 100 MCG/2 ML VIAL IV STA (04:43)
[2022-12-19] MEDS ORDERED: MIDAZOLAM HCL 125MG/250ML D5W IV ONE (04:44)
[2022-12-19] MEDS ORDERED: fentaNYL citrate 2,500 MCG/250 ML BAG IV ONE (04:45)
[2022-12-19] MEDS ORDERED: MIDAZOLAM HCL 125 MG/250 ML BAG IV SCH (04:45)
[2022-12-19] MEDS: fentaNYL citrate 2,500 MCG/250 ML BAG IV SCH (04:45)
[2022-12-19] MEDS: NOREPINEPHRINE/D5W 4 MG/250 ML PLCT IV SCH ×3 (05:00→21:41)
[2022-12-19] MEDS ORDERED: GLUCAGON FOR INJ 1 MG VIAL SQ PRN (05:01)
[2022-12-19] MEDS ORDERED: GLUCOSE 10 TAB/TUBE PO PRN (05:01)
[2022-12-19] MEDS ORDERED: DEXTROSE 50% 50 ML SYRINGE IV PRN (05:01)
[2022-12-19] MEDS ORDERED: LANTUS PER UNIT CHARGE SQ SCH (05:01)
[2022-12-19] MEDS ORDERED: CARBOHYDRATES FOR HYPOGLYCEMIA PO PRN (05:01)
[2022-12-19] MEDS ORDERED: GLUCOSE 40% GEL 15 GM TUBE PO PRN (05:01)
[2022-12-19] MEDS ORDERED: ACETAMINOPHEN 1,000 MG/100 ML VIAL IV PRN (05:21)
[2022-12-19] MEDS ORDERED: VANCOMYCIN CONSULT ACTIVE PRN (05:22)
--- NOTE | 2022-12-19 05:26 | Critical Care Consultation ---
Patient seen and examined. Agree with above assessment and plan. 87 year old female with advanced COPD, non compliant with home oxygen and active smoking and DM presenting with acute on chronic hypoxemic / hypercapnic respiratory failure requiring mechanical ventilation. CTA with dense basilar infiltates R>L with fibrotic changes, concerns for chornic / silent aspiration. Diagnosed with UTI as well. Currently in severe ARDS, acute renal failure, and in severe combined respiratory / metabolic acidosis, and distribute shock consistent with multiple organ failure. Family updated at bedside and wishes to maintain full code status despite her critical illness. Art Line inserted this am. On exam: Gen: intubated / seated, RASS -3 CV: RRR Resp: Diminished b/l Abd: Distended, soft, no massess palpated Ext: Cold, dry Skin: no rashes Plan: NEURO 1. -- Intubated, sedated -- RASS goal -3 -- Plan to prone today CV 1. Distributive shock in setting of severe sepsis -- levophed for MAP goal > 65 -- bicarb gtt at 100 /hr RESP 1. Severe ARDS 2. COPD with exacerbation -- TV < 6cc/kg, Driving prssure < 14, serial ABG, start prone 16 hrs per day, avoid fluid overload -- Solumedrol, scheduled nebs q4 hrs RENAL 1. Acute renal failure / RU. Likely septic ATN 2. Hyperkalemia 3. Hyperphospahtemia -- Bicarb gtt at 100/hr -- Serial BMP, ABG ID 1. B/l basilar PNA, concern for chronic / silent aspiration 2. UTI -- Vanco / Cefepime / docxy / flagyl. Will de-escalalte GI -- GI ppx ENDO 1. DM -- Blood glucose goal 140-180 GI ppx: pepcid DVT ppx: heparin subQ Critical Care Time: 60 min Date of Consultation December 19, 2022 Assessment & Plan (1) Acute on chronic respiratory failure with hypoxia and hypercapnia: Reason Critically Ill: 87-year-old female with past medical history of COPD presents to the ICU following development of acute hypoxic and hypercapnic respiratory failure requiring mechanical ventilation. Neuro - Sedation: Fentanyl and Versed drips Cardiac - Tachycardiaunsure if this is compensatory given significant hypoxia and CTA chest for PE protocol is currently pending. Patient has also received albuterol and is currently febrile which may be contributing. Patient did become temporarily hypotensive following administration of beta-jeana and propofol, and required low-dose Levophed. Troponin mildly elevated at 17.4, trend for now. We will hold on further beta-blockers/antihypertensives. We will continue to monitor on telemetry for now. Hypotensionpatient's blood pressure is labile with sedation. Unsure if this is due to underlying sepsis and currently awaiting results for CTA. Was started on low-dose Levophed drip which did improve hemodynamics. We will continue to administer peripherally for now, Consider central line if requirements increase HTNhold antihypertensives for now Respiratory - Acute on chronic hypercapnic respiratory failure with hypoxia Patient with worsening hypercapnia and respiratory distress requiring mechanical ventilation. Postintubation patient exhibited worsening hypoxia with repeat ABG showing PO2 of 64 on 100% FiO2. CO2 improving. - History of COPD, continues to smoke. Underwent pulmonary rehab last year and follows with pulmonology here at [facility]. - Cannot rule out underlying pneumonia. See ID below - CTA pending read to rule out PE - Received 40 Lasix in the ED. BNP within normal limits. No prior history CHF, And previous TTE with EF greater than 70% - IV Solu-Medrol, scheduled DuoNeb - Continuous pulse ox and end-tidal CO2 monitoring. Repeat ABG and wean vent as tolerated GI - N.p.o. IV famotidine RENAL/LYTES - Creatinine within normal limits monitor routine BMPs and replete electrolytes as indicated. Careful with fluid resuscitation given hypoxia and pulmonary congestion on chest x-ray. - Foleystrict I's and O's ENDO - DM type IIhold metformin in favor of sliding scale. ICU hyperglycemic protocol Hypothyroidismcontinue Synthroid when appropriate HEME - H&H stable, monitor routine CBC ID - Pneumonia?Patient with recent upper respiratory infection Undergoing treatment with azithromycin. Leukocytosis with WBC 15, now febrile 38.8 Celsius on arrival to the ICU. - Chest x-ray with diffuse bilateral opacifications, cannot rule out un derlying pneumonia at this time. - Procalcitonin unremarkable. Lactate negative - Bio fire pending. Nasal MRSA pending - Sputum culture and blood cultures pending - Continue cefepime, doxycycline, vancomycin for now UTIurinalysis concerning for UTI with bacteria +4. Continue cefepime for now. Urine culture pending LINES/IV ACCESS - Peripheral IVs DVT PROPHYLAXIS - SCDs I have personally spent 70 minutes of critical care time in the direct management of this patient. This is a life/limb threatening event. This includes time spent evaluating patient, direct bedside care, chart review, placing orders, interpretation of diagnostic studies, discussion with consultants, patient, and family members, as well as other required patient management activities. This time is exclusive of all separately billable procedures, and teaching time and separate from and in addition to any other critical care service time. Thank you for allowing us to participate in the care of this patient. Please refer to my attending physician's documentation for any further recommendations. (2) UTI (urinary tract infection): (3) COPD with emphysema: (4) Diabetes mellitus: (5) Current smoker: (6) Pneumonia: (7) Hypothyroidism: History of Present Illness Attending Physician: Radha Pratt MD History of Present Illness Patient is a 87-year-old female with past medical history significant for COPD (active smoker), HTN, hypothyroidism, diabetes, CHF, who presented to the emergency department earlier this evening. Patient arrived to the ED via EMS after being immobile at her kitchen table for the past 2 days. Patient reported going to her primary care physician earlier this week with upper respiratory infection symptoms and was prescribed azithromycin. On arriving home Monday evening, she sat down at her kitchen table and was unable to move for 2 days before she was found. Per conversation with ED physician, patient was alert this in the emergency department but developed respiratory distress. ABG showed severe hypercapnia and respiratory acidosis, and she was subsequently intubated. Patient became increasingly hypoxic following intubation and is now transferred to the ICU for further management. On arrival to the ICU the patient is intubated and sedated. She was observed to be asynchronous with the vent and was paralyzed with vecuronium. She remains significantly hypoxic and tachycardic. CTA chest is currently pending. Patient was started on broad-spectrum antibiotics and cultures are pending. I did speak with the patient's daughter, and as of now she remains full code. Patient's prognosis remains guarded. Allergies Allergy/AdvReac Type Severity Reaction Status Date / Time Penicillins Allergy Intermediate HIVES Verified 12/19/22 00:08 Home Medications Medication Instructions Recorded Confirmed Type clopidogrel 75 mg tablet 75 mg PO DAILY 06/14/21 12/19/22 History levothyroxine 150 mcg tablet 150 mcg PO DAILY 06/14/21 12/19/22 History metoprolol tartrate 25 mg tablet 25 mg PO BID 06/14/21 12/19/22 History multivitamin 1 tab PO DAILY 06/14/21 12/19/22 History rosuvastatin 10 mg tablet 10 mg PO DAILY 06/14/21 12/19/22 History lancets 30 gauge and blood glucose #200 ea 06/24/21 08/17/22 Rx strips combo pack Portable Oxygen #1 ea 07/21/21 08/17/22 Rx hydrochlorothiazide 12.5 mg tablet 12.5 mg PO DAILY 07/21/21 12/19/22 History Flutter Valve #1 ea 08/24/22 08/24/22 Rx albuterol sulfate 90 mcg/actuation 2 inh inhalation Q6H PRN shortness 08/24/22 12/19/22 Rx aerosol inhaler of breath or wheezing #8.5 grams umeclidinium 62.5 mcg-vilanterol 1 ea inhalation DAILY #60 ea 08/24/22 12/19/22 Rx 25 mcg/actuation powdr for inhalation (Anoro Ellipta) azithromycin 250 mg tablet 250 mg PO DAILY 12/19/22 12/19/22 History calcium carbonate 200 mg-magnesium 1 tab PO BID 12/19/22 12/19/22 History oxide,carbonate 100 mg chew tablet (Jez-Mag) diclofenac sodium 1 % topical gel 4 g topical TID PRN Pain 12/19/22 12/19/22 History duloxetine 30 mg capsule,delayed 30 mg PO QAM 12/19/22 12/19/22 History release gabapentin 300 mg capsule 300 mg PO BID 12/19/22 12/19/22 History losartan 50 mg tablet 50 mg PO QAM 12/19/22 12/19/22 History metformin 500 mg tablet,extended 2,000 mg PO DAILY 12/19/22 12/19/22 History release 24 hr Patient History Medical History Pneumonia Social History Smoking Status: Current every day smoker Tobacco Type: Cigarettes Cigarettes Per Day: 2-3; Second Hand Exposure: No; Do You Dip or Chew Tobacco: No; Tobacco Cessation Education Requested by Patient: No Hx Alcohol Use: Yes Alcohol type: wine Hx Substance Use: No Preferred Language: Estonian Communication Ability: Effective Transport Operations Inspector Required: No Beliefs That Will Affect Care: None marital status: Unknown Current Living Situation: Alone Current Living Situation Comment: patient lives in an apartment Other Information That Helps Us Care for You: No Feels Safe at Home: Yes Safety Concerns: Feels Safe At This Time Assistive Devices: Hearing Aid - Bilateral and Scooter/Electric Scooter Review of Systems Review of Systems: All systems reviewed & are unremarkable except as noted in HPI & below Physical Exam Constitutional: + mechanically ventilated and + overweight Eyes: PERRL, conjunctivae normal, anicteric sclerae ENMT: external ear and nose normal, oropharynx normal Neck: trachea midline, no thyromegaly Respiratory: Mechanically ventilated, symmetrical chest wall movement. Lungs with coarse crackles auscultated bilaterally, diminished In bases bilaterally. Cardiovascular: Rate/Rhythm: regular rate and + tachycardic Heart Sounds: normal S1 and normal S2 Vessels: no JVD Extremities: no edema Gastrointestinal (Abdomen): Abdomen round, obese, distended. Bowel sounds auscultated all 4 quadrants Musculoskeletal: No observed muscular deformities or traumas. Unable to assess range of motion due to paralytics/sedation Skin: No rashes, warm and dry. Neurologic: PERRLA. Exam limited due to sedation/paralytics Psychiatric: Unable to assess due to sedation/paralytics Genitourinary: Indwelling Preston catheter present. Urine yellow, concentrated Results & Data Results & Data Vital Signs (Past 12 Hours) Vital Signs Temp Pulse Resp BP Pulse Ox O2 Del Method O2 Flow Rate 12/19/22 04:40 135 H 18 88 L 12/19/22 04:15 132 H 26 H 95/64 L 86 L Mechanical Vent 12/19/22 04:14 131 H 24 99/74 L 86 L Mechanical Vent 12/19/22 04:10 130 H 23 86 L Mechanical Vent 12/19/22 04:05 129 H 21 110/61 86 L Mechanical Vent 12/19/22 04:00 128 H 21 99/55 L 86 L Mechanical Vent 12/19/22 03:55 126 H 19 103/64 85 L Mechanical Vent 12/19/22 03:50 124 H 26 H 91/60 L 82 L Mechanical Vent 12/19/22 03:45 124 H 25 H 102/50 L 81 L Mechanical Vent 12/19/22 03:44 124 H 20 96/51 L 80 L Mechanical Vent 12/19/22 03:40 122 H 25 H 82/52 L 81 L Mechanical Vent 12/19/22 03:39 121 H 25 H 85/54 L 81 L Mechanical Vent 12/19/22 03:35 124 H 25 H 79/53 L 85 L Mechanical Vent 12/19/22 03:30 141 H 24 163/96 H 79 L Mechanical Vent 12/19/22 03:26 149 H 20 73/59 L 78 L Ambu-Bag 12/19/22 03:25 131 H 20 84 L Ambu-Bag 12/19/22 03:20 139 H 30 H 87 L Ambu-Bag 12/19/22 03:00 122 H 33 H 235/133 H 81 L BiPAP 12/19/22 02:57 118 H 36 H 78 L BiPAP 12/19/22 02:55 120 H 31 H 80 L Non-rebreather 15 12/19/22 02:50 120 H 23 12/19/22 02:45 112 H 34 H 82 L Nasal Cannula 2 12/19/22 02:30 119 H 37 H 162/63 H 92 Nasal Cannula 2 12/19/22 02:25 126 H 31 H 88 L 12/19/22 02:15 102 H 25 H 95 Nasal Cannula 2 12/19/22 03:19 139 H 12/19/22 02:03 106 H 24 165/65 H 94 Nasal Cannula 2 12/19/22 02:00 101 H 17 94 Nasal Cannula 2 12/19/22 01:31 104 H 24 149/77 H 95 Nasal Cannula 2 12/19/22 01:30 103 H 26 H 96 Nasal Cannula 2 12/19/22 01:01 103 H 20 181/58 H 96 Nasal Cannula 2 12/19/22 00:30 111 H 17 172/91 H 93 Nasal Cannula 2 12/19/22 00:00 101 H 20 92/63 L 93 Nasal Cannula 2 12/18/22 23:57 101 H 12/18/22 23:30 102 H 27 H 100 Nasal Cannula 2 12/18/22 23:29 100 H 24 162/66 H 100 Nasal Cannula 2 12/18/22 23:18 103 H 100 Nasal Cannula 2 12/18/22 23:09 89 L Room Air 12/18/22 23:02 37.2 C 101 H 20 143/62 H 89 L Room Air FiO2 12/19/22 04:40 100 12/19/22 04:15 12/19/22 04:14 12/19/22 04:10 12/19/22 04:05 12/19/22 04:00 12/19/22 03:55 12/19/22 03:50 12/19/22 03:45 12/19/22 03:44 12/19/22 03:40 12/19/22 03:39 12/19/22 03:35 12/19/22 03:30 12/19/22 03:26 12/19/22 03:25 12/19/22 03:20 12/19/22 03:00 12/19/22 02:57 12/19/22 02:55 12/19/22 02:50 12/19/22 02:45 12/19/22 02:30 12/19/22 02:25 12/19/22 02:15 12/19/22 03:19 12/19/22 02:03 12/19/22 02:00 12/19/22 01:31 12/19/22 01:30 12/19/22 01:01 12/19/22 00:30 12/19/22 00:00 12/18/22 23:57 12/18/22 23:30 12/18/22 23:29 12/18/22 23:18 12/18/22 23:09 12/18/22 23:02 Coding Level of Care Code 97290 CRITICAL CARE 1ST 30-74M Diagnoses Acute on chronic respiratory failure with hypoxia and hypercapnia J96.21; J96.22 UTI (urinary tract infection) N39.0 COPD with emphysema J43.9 Diabetes mellitus E11.9 Current smoker F17.200 Pneumonia J18.9 Laterality: bilateral Lung location: lower lobe of lung Pneumonia type: due to unspecified organism Hypothyroidism E03.9 Time Spent (min) 60 (6) Pneumonia Laterality: bilateral Lung location: lower lobe of lung Pneumonia type: due to unspecified organism Qualified Code(s): J18.9 - Pneumonia, unspecified organism
[2022-12-19 05:35] LABS: Blood Urea Nitrogen 30 mg/dl (6-23); Calcium 9.2 mg/dl (8.6-10.3); Carbon Dioxide 24 mmol/L (21-32); Chloride 96 mmol/L (98-107); Creatinine Clr Calc Pharmacy 24.6 ml/min; Est GFR (African American) 33.7 ml/min; Est GFR (Non-African American) 29.1 ml/min; Glucose 274 mg/dl (70-99(Fasting)); Phosphorus 9.2 mg/dl (2.5-4.9)
[2022-12-19] MEDS ORDERED: VANCOMYCIN HCL 1,750 MG in SODIUM CHLORIDE 0.9% 500 ML IV STA (05:35)
[2022-12-19] MEDS ORDERED: IOVERSOL 350 MG 125mL Prefilled Syringe IV ONE (05:41)
[2022-12-19 05:42] LABS: INR 1.2 (0.9-1.1); Partial Thromboplastin Ratio 1.2; Partial Thromboplastin Time 32.5 Seconds (21.0-31.0)
[2022-12-19] MEDS ORDERED: DOXYCYCLINE HYCLATE 100 MG in DEXTROSE 5% 100 ML IV SCH (06:00)
[2022-12-19] MEDS ORDERED: INSULIN ASPART PER UNIT CHARGE SC SCH ×2 (06:00→12:00)
[2022-12-19] MEDS: LEVOTHYROXINE SODIUM 150 MCG TABLET PO SCH (06:05)
[2022-12-19 06:30] LABS: Adenovirus PCR Not Detected (NotDetected); Bordetella parapertussis PCR Not Detected (NotDetected); Bordetella pertussis PCR Not Detected (NotDetected); Chlamydia pneumoniae PCR Not Detected (NotDetected); Coronavirus 229E PCR Not Detected (NotDetected); Coronavirus CoV-2 (COVID19)PCR Not Detected (NotDetected); Coronavirus HKU1 PCR Not Detected (NotDetected); Coronavirus NL63 PCR Not Detected (NotDetected); Coronavirus OC43PCR Not Detected (NotDetected); Human Metapneumovirus PCR Not Detected (NotDetected); Influenza A PCR Not Detected (NotDetected); Influenza B PCR Not Detected (NotDetected); Mycoplasma pneumoniae PCR Not Detected (NotDetected); Parainfluenza Virus 1 PCR Not Detected (NotDetected); Parainfluenza Virus 2 PCR Not Detected (NotDetected); Parainfluenza Virus 3 PCR Not Detected (NotDetected); Parainfluenza Virus 4 PCR Not Detected (NotDetected); Respiratory Syncytial VirusPCR Not Detected (NotDetected); Rhinovirus/Enterovirus PCR Not Detected (NotDetected)
[2022-12-19 06:46] LABS: iSTAT Allen Test Pass; iSTAT Art Bld Gas pCO2 Correct 91 mmHg (35-46); iSTAT Art Bld Gas pH Corrected 7.056 (7.35-7.45); iSTAT Arterial Blood Gas HCO3 25 meg/L (19-24); iSTAT Arterial Blood Gas pCO2 83 mmHg (35-46); iSTAT Arterial Blood Gas pH 7.08 (7.35-7.45); iSTAT Arterial Blood Gas pO2 75 mmHg (80-95); iSTAT Arterial Blood Gas pO2 C 85; iSTAT Carbon Dioxide 27 mmol/L (24-31); iSTAT FiO2 100 %; iSTAT Hematocrit 55 % (37-47); iSTAT Hemoglobin 18.7 g/dl (12.0-16.0); iSTAT Potassium 5.3 mmol/L (3.3-5.0); iSTAT Site L Radial; iSTAT Sodium 129 mmol/L (135-144)
[2022-12-19] MEDS: MULTIVITAMIN TAB PO SCH (07:19)
--- NOTE | 2022-12-19 07:25 | XRay Report ---
XR chest 1V portable CLINICAL HISTORY: Hypoxia. COMPARISON STUDY: Chest CT June 12 and chest radiograph December 19, 2022 at 3:31 AM. FINDINGS: Tip of endotracheal tube is 4 cm above the eileen. Tip of nasogastric tube is below the low er aspect of this image but at least within the body of the stomach. There is no pneumothorax. No ple ural effusion is identified. Asymmetric interstitial thickening and airspace opacities, greater withi n the right lung, persist. The airspace opacities have slightly increased. IMPRESSION: 1. Satisfactory positioning of the endotracheal tube. 2. Persistent interstitial thickening consistent with pulmonary edema. Slight increase in asymmetric right lung airspace opacities which likely reflect alveolar edema however superimposed infectious pr ocess could appear similar. ACT 112: Negative or not required by law. Electronically signed by: Dwight Dubose M.D. 12/19/2022 7:23 AM
--- NOTE | 2022-12-19 07:26 | XRay Report ---
XR chest 1V portable CLINICAL HISTORY: hypoxia and cough COMPARISON STUDY: Chest CT June 15, 2021. Chest radiograph June 21, 2021. FINDINGS: There is no pneumothorax or pleural effusion. Hazy opacity along the left heart border favo rs epicardial fat pad. There is stable mild cardiomegaly. Mild interstitial thickening persists. Ther e is minimal right basilar opacity. IMPRESSION: Subtle interstitial thickening. This may reflect developing pulmonary edema. ACT 112: Negative or not required by law. Electronically signed by: Dwight Dubose M.D. 12/19/2022 7:25 AM
--- NOTE | 2022-12-19 07:33 | CT Scan Report ---
Exam(s): CTA CHEST IV Amt: 108 ML OPTIRAY 350 EXAM: CT Angiography Chest With Intravenous Contrast CLINICAL HISTORY: Reason for exam: PE. TECHNIQUE: Axial computed tomographic angiography images of the chest with intravenous contrast. CTDI is 68.41 mGy and DLP is 1241.21 mGy-cm. Automated exposure control was utilized for the study. A dose lowering technique was utilized adhering to the principles of ALARA. MIP reconstructed images were created and reviewed. COMPARISON: No relevant prior studies available. FINDINGS: Pulmonary arteries: No pulmonary embolism detected. Aorta: Atherosclerotic disease. No evidence of aortic aneurysm or dissection. Lungs: Dependent consolidation within the right greater than left lungs, most prominently the right lower lobe. Findings may be due to infection/aspiration changes. Intralobular septal thickening which can be seen with sequela of interstitial pulmonary edema. Pleural space: Small right and tiny left pleural effusions. Findings can be seen with reactive changes. Volume overload also possible given findings suspicious for pulmonary edema. No pneumothorax. Heart: Unremarkable. No cardiomegaly. No significant pericardial effusion. No evidence of RV dysfunction. Mediastinum: Prominent enlarged mediastinal and hilar lymph nodes, the largest a 1.2 cm right hilar lymph node. Findings are likely reactive in nature. Bones/joints: Degenerative changes in the spine. No acute fracture. No dislocation. Soft tissues: Unremarkable. Lymph nodes: Unremarkable. No enlarged lymph nodes. Tubes, lines and devices: The endotracheal tube (ETT) is in satisfactory position with tip 3.5 cm above the eileen. IMPRESSION: 1. No pulmonary embolism detected. 2. Dependent consolidation within the right greater than left lungs, most prominently the right lower lobe. Findings may be due to infection/aspiration changes. 3. Intralobular septal thickening which can be seen with sequela of interstitial pulmonary edema. 4. Prominent enlarged mediastinal and hilar lymph nodes, the largest a 1. 2 cm right hilar lymph node. Findings are likely reactive in nature. 5. No other acute findings. 6. Incidental findings as described. Electronically signed by: Dat Fernandez MD 12/19/22 07:32 AM
--- NOTE | 2022-12-19 07:34 | XRay Report ---
XR chest 1V portable CLINICAL HISTORY: Intubation. COMPARISON STUDY: Chest radiograph December 19, 2022 at 2:53 AM. FINDINGS: Tip of endotracheal tube is 1.4 cm above the eileen. Tip of nasogastric tube is at least wi thin the proximal stomach. The tip is below the lower aspect of this image. There is no pneumothorax. Interstitial thickening persists. Asymmetric right lung airspace opacities have progressed. Cardiome diastinal silhouette is stable. IMPRESSION: 1. Tip of endotracheal tube 1.4 cm above the eileen. 2. Persistent interstitial thickening consistent with pulmonary edema. 3. Increase in asymmetric right lung airspace opacities. This could reflect alveolar edema. However, pneumonia or aspiration pneumonitis could appear similar. ACT 112: Negative or not required by law. Electronically signed by: Dwight Dubose M.D. 12/19/2022 7:32 AM
--- NOTE | 2022-12-19 07:42 | XRay Report ---
XR chest 1V portable CLINICAL HISTORY: HYPOXIA COMPARISON STUDY: Chest radiograph December 18, 2022 at 11:59 PM. FINDINGS: Interstitial thickening has significantly progressed. Cardiomediastinal silhouette is stabl e. No pneumothorax. No definite pleural effusion. Asymmetric right lung airspace opacities are noted. IMPRESSION: 1. Significant progression of interstitial thickening consistent with pulmonary edema. 2. Asymmetric right lung airspace opacities which could reflect alveolar pulmonary edema or pneumonia /aspiration pneumonitis. ACT 112: Negative or not required by law. Electronically signed by: Dwight Dubose M.D. 12/19/2022 7:40 AM
[2022-12-19] MEDS: ALBUT/IPRATROP 3MG/0.5MG NEB 3 ML VIAL NEB SCH ×3 (07:52→20:05)
[2022-12-19] MEDS: methylPREDNISolone 80 MG in SYRINGE 0 ML IV SCH ×2 (08:10→17:15)
[2022-12-19 08:21] LABS: iSTAT Art Bld Gas pCO2 Correct 73 mmHg (35-46); iSTAT Art Bld Gas pH Corrected 7.053 (7.35-7.45); iSTAT Arterial Blood Gas HCO3 20 meg/L (19-24); iSTAT Arterial Blood Gas pCO2 66 mmHg (35-46); iSTAT Arterial Blood Gas pH 7.08 (7.35-7.45); iSTAT Arterial Blood Gas pO2 76 mmHg (80-95); iSTAT Arterial Blood Gas pO2 C 88; iSTAT Carbon Dioxide 22 mmol/L (24-31); iSTAT FiO2 100 %; iSTAT Hematocrit 56 % (37-47); iSTAT Potassium 6.5 mmol/L (3.3-5.0); iSTAT Site Art Line; iSTAT Sodium 128 mmol/L (135-144)
--- NOTE | 2022-12-19 08:21 | Procedure Note ---
Procedure Note Date of Service December 19, 2022 Note Procedure: Arterial Line Placement Attending: Dr. Whatley APC: Nelson Foss PA-C Indication: Hemodynamic monitoring Anesthesia: Lidocaine 1% Consent was signed and placed on the chart prior to procedure. Indication, risks, and benefits were explained at length to the daughter who is at bedside. A time-out was completed verifying correct patient, procedure, site, positioning, and implant(s) or special equipment if applicable. Allens test was performed to ensure adequate perfusion. Patients RIGHT wrist was prepped and draped in the usual sterile fashion. Ultrasound guidance was used to aid needle placement. A 20g Arrow arterial line was introduced into the RIGHT Radial artery. Catheter was threaded, and the needle was removed with appropriate blood return. Good waveform was observed. The patient tolerated the procedure well. Confirmation of placement with ultrasound. Blood Loss: Minimal Complications: None Procedural Ultrasound Guidance: Procedure Date: 12/19/2022 Indication: Hemodynamic Monitoring, Frequent ABGs/Lab draws. Attending: Dr. Whatley APC: Nelson Foss PA-C Artery Identified: YES Line confirmed in Artery with ultrasound: YES Complications: NONE Patient tolerated procedure: WELL Coding CPT Codes Tubes, Drains, and Vasc Access - Tubes, Drains, and Vasc Access: [id number] Arterial Cath/Cannulation Sampling/Monitoring/Transfusion ([id number]) [facility] [place] Procedure Codes (Charges) Tubes, Drains, and Vasc Access Procedure 1: Tubes, Drains, and Vasc Access: [id number] Arterial Cath/Cannulation Sampling/Monitoring/Transfusion
[2022-12-19] MEDS ORDERED: SODIUM BICARB 8.4% INJ 50 MEQ/50 ML SYR IV STA (08:31)
[2022-12-19 08:45] LABS: Magnesium 2.4 mg/dl (1.7-2.4); Potassium 6.4 mmol/L (3.5-5.1)
[2022-12-19] MEDS: metroNIDAZOLE 500 MG/100 ML BAG IV SCH ×2 (08:52→17:07)
[2022-12-19 08:56] LABS: Hematocrit (blood only) 55.4 % (37.0-47.0); Hemoglobin 18.2 g/dl (12.0-16.0); Mean Corpuscular Hemoglobin 33.2 pg (25.0-34.0); Mean Corpuscular Hgb Conc 32.9 g/dL (32.0-36.0); Mean Corpuscular Volume 101.1 fL (80.0-100.0); Mean Platelet Volume 9.4 fL (9.4-12.4); Platelet Count 578 K/uL (130-400); RDW Coefficient of Variation 12.4 % (11.5-14.5); RDW Standard Deviation 46.9 fL (36.4-46.3); Red Blood Count 5.48 M/uL (4.20-5.40); White Blood Count 26.47 K/ul (4.8-10.8)
[2022-12-19] MEDS ORDERED: STAT IV STA ×3 (08:59→13:35)
[2022-12-19] MEDS ORDERED: LOSARTAN POTASSIUM 50 MG TAB PO SCH (09:00)
[2022-12-19] MEDS ORDERED: FAMOTIDINE 20 MG in SYRINGE 3 ML IV SCH (09:00)
[2022-12-19] MEDS ORDERED: DULoxetine HCL 30 MG CAP PO SCH (09:00)
[2022-12-19] MEDS ORDERED: ENOXAPARIN INJ 40 MG/0.4 ML SYR SQ SCH (09:00)
[2022-12-19] MEDS ORDERED: ROSUVASTATIN CALCIUM 10 MG TAB PO SCH (09:00)
[2022-12-19] MEDS ORDERED: INSULIN HUMAN REGULAR PER UNIT 10 UNITS in SYRINGE 9.9 ML IV ONE (09:15)
[2022-12-19 09:18] LABS: Basophils # (auto) 0.16 K/uL (0-0.2); Basophils % (auto) 0.6 %; Eosinophils # (auto) 0.01 K/uL (0-0.50); Immature Granulocytes # (auto) 0.36 K/uL (0.01-0.20); Immature Granulocytes % (auto) 1.4 %; Lymphocytes % (auto) 3.8 %; Monocytes # (auto) 0.83 K/uL (0.11-0.59); Monocytes % (auto) 3.1 %; Neutrophils # (auto) 24.11 K/uL (1.40-6.50); Neutrophils % (auto) 91.1 %
[2022-12-19] MEDS ORDERED: DEXTROSE 50% 50 ML SYRINGE IV STA (09:28)
[2022-12-19] MEDS: SODIUM BICARBONATE 8.4% 150 MEQ in DEXTROSE 5% 1,000 ML IV SCH ×2 (09:28→19:32)
[2022-12-19] MEDS ORDERED: CEFEPIME 2,000 MG in SYRINGE 0 ML IV SCH ×2 (10:00→14:00)
--- NOTE | 2022-12-19 10:47 | Pharmacy Report ---
Pharmacy PK ABX Note - Date of Service December 19, 2022 - Assessment and Plan Assessment 87 year old F receiving vancomycin, azithromycin, cefepime and metronidazole empirically in the setting of septic shock. MRSA nasal (-), blood cultures and urine culture pending. RU (SCr 1.09-->1.58mg/dL). Day # 1 of antimicrobial therapy. Plan Vancomycin * Loading dose: 1750 mg IV x 1 * Maintenance dose: Due to RU/worsening renal function, plan to dose by levels for now. * Given loading dose given early this AM, will obtain a random level this evening (~12h level) to assess clearance. If random level is less than 20mcg/mL, will re-dose. Repeat random level Monday AM. Pharmacy will continue to follow and will adjust dose/frequency as necessary. Thank you.
[2022-12-19] MEDS ORDERED: SODIUM CHLORIDE 0.9% 1000ML 500 ML IV ONE (11:41)
[2022-12-19] MEDS ORDERED: METOPROLOL TARTRATE 1 MG/ML VIAL IV SCH (12:00)
[2022-12-19 12:30] LABS: Hematocrit (blood only) 49.7 % (37.0-47.0); Hemoglobin 16.9 g/dl (12.0-16.0); Mean Corpuscular Hemoglobin 33.9 pg (25.0-34.0); Mean Corpuscular Volume 99.8 fL (80.0-100.0); Mean Platelet Volume 9.6 fL (9.4-12.4); Nucleated RBC # (auto) 0.02 K/uL (0-0.12); Nucleated RBC % (auto) 0.1 %; Platelet Count 478 K/uL (130-400); RDW Coefficient of Variation 12.5 % (11.5-14.5); RDW Standard Deviation 46.7 fL (36.4-46.3); Red Blood Count 4.98 M/uL (4.20-5.40); White Blood Count 30.76 K/ul (4.8-10.8)
[2022-12-19] MEDS: AZITHROMYCIN 500 MG in DEXTROSE 5% 250 ML IV SCH (12:30)
[2022-12-19 12:32] LABS: BUN Creatinine Ratio 17.1 (10-20); Calcium 7.3 mg/dl (8.6-10.3); Creatinine Clr Calc Pharmacy 20.2 ml/min; Est GFR (African American) 26.5 ml/min; Est GFR (Non-African American) 22.9 ml/min; Potassium 4.9 mmol/L (3.5-5.1)
[2022-12-19] MEDS: CLOPIDOGREL BISULFATE 75 MG TAB PO SCH (12:34)
[2022-12-19] MEDS ORDERED: SEVERE STRESS LEVEL ONE (12:44)
[2022-12-19] MEDS ORDERED: INSULIN PROTOCOL GOAL RANGE ONE (12:44)
[2022-12-19] MEDS ORDERED: PHARMACY GLYCEMIC MGMT CONSULT PRN (12:48)
[2022-12-19] MEDS ORDERED: INSULIN ASPART PER UNIT CHARGE ONE (12:49)
--- NOTE | 2022-12-19 13:04 | Pharmacy Report ---
Pharmacy Glycemic Short Note 2 - Date of Service December 19, 2022 - Glycemic Short BSG Results (Last 24 hours): 12/18/22 12/19/22 12/19/22 23:10 05:03 11:49 Glucose 155 H 274 H 336 H* OUTPATIENT ANTIDIABETIC REGIMEN: * metformin 2gm PO daily HbA1C: ___ ASSESSMENT: * Patient is a critically ill 87 year old female- presented with acute on chronic respiratory failure and septic shock requiring intubation, sedation, and vasopressor support. Pharmacy consulted to assist with glycemic management in this setting. * Currently intubated and requiring low dose norepinephrine, NPO, methylprednisolone 80mg IV q8h, and receiving IV antibiotics as well as a bicarb drip (in D5W) at 100mL/hr. * BSGs 155-->274 -->336mg/dL today. Given numerous stressors and current clinical status, will transition from SQ to IV insulin infusion per hyperglycemia protocol (severe stress). Goal BSG 110-180mg/dL. PLAN FOR INPATIENT GLYCEMIC CONTROL: * Hold outpatient oral diabetes medications * Basal insulin * Regular insulin infusion per hyperglycemia protocol (goal BSG 110-180mg/dL) * Bolus insulin * NovoLog per scale ACHS per calculator if PO resumes for now
[2022-12-19] MEDS: INSULIN REGULAR 250 UNITS in SODIUM CHLORIDE 0.9% 247.5 ML IV SCH (13:26)
[2022-12-19 13:34] LABS: iSTAT Art Bld Gas pCO2 Correct 60 mmHg (35-46); iSTAT Arterial Blood Gas HCO3 22 meg/L (19-24); iSTAT Arterial Blood Gas pCO2 58 mmHg (35-46); iSTAT Arterial Blood Gas pH 7.18 (7.35-7.45); iSTAT Arterial Blood Gas pO2 77 mmHg (80-95); iSTAT Arterial Blood Gas pO2 C 83; iSTAT Carbon Dioxide 23 mmol/L (24-31); iSTAT FiO2 100 %; iSTAT Hematocrit 51 % (37-47); iSTAT Hemoglobin 17.3 g/dl (12.0-16.0); iSTAT Potassium 5.4 mmol/L (3.3-5.0); iSTAT Site Art Line; iSTAT Sodium 130 mmol/L (135-144)
[2022-12-19] MEDS ORDERED: CALCIUM GLUCONATE 10% 1,000 MG in DEXTROSE 5% 50 ML IV ONE (14:00)
[2022-12-19] MEDS: CEFEPIME 1,000 MG in SYRINGE 0 ML IV SCH (14:13)
[2022-12-19] MEDS ORDERED: ETOMIDATE 2 MG/ML 20 ML VIAL IV ONE (14:33)
[2022-12-19] MEDS ORDERED: MIDAZOLAM HCL 5 MG/ML 2ML VIAL IV ONE (14:33)
[2022-12-19] MEDS ORDERED: fentaNYL citrate 100 MCG/2 ML CARP IV ONE (14:33)
[2022-12-19 14:40] LABS: Fibrinogen 587 mg/dl (184-400); INR 1.3 (0.9-1.1); Prothrombin Time 14.5 Seconds (9.0-12.0)
[2022-12-19] MEDS ORDERED: SODIUM CHLORIDE 0.9% 1000ML 1,000 ML IV SCH (14:42)
--- NOTE | 2022-12-19 14:50 | Communication Note ---
Date of Service: December 19, 2022 Discussed with Ms. Huertas's daughter (at bedside) and son (by phone). I updated them on severity of her illness and her code status. We agreed that CPR would be too much of a stress for her and that progression to dialysis would add to her morbidity without improving the quality of her life. With permission from her family. Her code status was changed to no CPR. We will plan to maximize her existing therapies but family does not want to progress to dialysis. All questions and concerns addressed. Coding Level of Care Code None
--- NOTE | 2022-12-19 17:00 | Communication Note ---
Date of Service: December 19, 2022 Patient admitted early this morning for acute metabolic encephalopathy, acute on chronic hypoxic and hypercapnic respiratory failure, aspiration pneumonia and now with progression to ARDS. She remains intubated, sedated in ICU and as I was entering to examine her, she was in the process of being placed in prone position. Will defer management to physician support coordinator.
[2022-12-19] MEDS: INSULIN ASPART PER UNIT CHARGE SC SCH ×2 (17:07→19:33)
[2022-12-19 17:57] LABS: iSTAT Art Bld Gas pCO2 Correct 56 mmHg (35-46); iSTAT Art Bld Gas pH Corrected 7.238 (7.35-7.45); iSTAT Arterial Blood Gas HCO3 24 meg/L (19-24); iSTAT Arterial Blood Gas pCO2 57 mmHg (35-46); iSTAT Arterial Blood Gas pH 7.23 (7.35-7.45); iSTAT Arterial Blood Gas pO2 225 mmHg (80-95); iSTAT Arterial Blood Gas pO2 C 224; iSTAT Carbon Dioxide 26 mmol/L (24-31); iSTAT FiO2 85 %; iSTAT Hematocrit 51 % (37-47); iSTAT Hemoglobin 17.3 g/dl (12.0-16.0); iSTAT Potassium 5.2 mmol/L (3.3-5.0); iSTAT Site Art Line; iSTAT Sodium 128 mmol/L (135-144)
[2022-12-19 18:41] LABS: Calcium 7.8 mg/dl (8.6-10.3); Potassium 5.2 mmol/L (3.5-5.1)
[2022-12-19 18:51] LABS: BUN Creatinine Ratio 18.2 (10-20); Creatinine Clr Calc Pharmacy 18.6 ml/min; Est GFR (African American) 24.1 ml/min; Est GFR (Non-African American) 20.8 ml/min
[2022-12-19] MEDS ORDERED: VANCOMYCIN HCL 750 MG in SODIUM CHLORIDE 0.9% 250 ML IV ONE (19:00)
[2022-12-19] MEDS: HEPARIN SOD 5,000 UNIT/0.5 ML VIAL SQ SCH (19:33)
[2022-12-19] MEDS: fentaNYL BOLUS from BAG IV PRN (20:00)
[2022-12-19] MEDS ORDERED: SODIUM BICARBONATE 8.4% 150 MEQ in WATER, STERILE 1,000 ML IV SCH (20:45)
[2022-12-20] MEDS: fentaNYL BOLUS from BAG IV PRN
[2022-12-20] MEDS: MIDAZOLAM BOLUS FROM BAG IV PRN
[2022-12-20] MEDS: ALBUT/IPRATROP 3MG/0.5MG NEB 3 ML VIAL NEB SCH ×4 (00:20→20:18)
[2022-12-20 00:25] LABS: iSTAT Art Bld Gas pCO2 Correct 49 mmHg (35-46); iSTAT Art Bld Gas pH Corrected 7.326 (7.35-7.45); iSTAT Arterial Blood Gas HCO3 26 meg/L (19-24); iSTAT Arterial Blood Gas pCO2 49 mmHg (35-46); iSTAT Arterial Blood Gas pH 7.33 (7.35-7.45); iSTAT Arterial Blood Gas pO2 63 mmHg (80-95); iSTAT Arterial Blood Gas pO2 C 63; iSTAT Carbon Dioxide 27 mmol/L (24-31); iSTAT FiO2 40 %; iSTAT Hematocrit 48 % (37-47); iSTAT Hemoglobin 16.3 g/dl (12.0-16.0); iSTAT Potassium 4.5 mmol/L (3.3-5.0); iSTAT Site Art Line; iSTAT Sodium 131 mmol/L (135-144)
[2022-12-20] MEDS: metroNIDAZOLE 500 MG/100 ML BAG IV SCH ×3 (00:47→15:13)
[2022-12-20] MEDS: methylPREDNISolone 80 MG in SYRINGE 0 ML IV SCH ×4 (00:47→23:27)
[2022-12-20 01:07] LABS: Anion Gap 11 (3-11); BUN Creatinine Ratio 18.8 (10-20); Blood Urea Nitrogen 41 mg/dl (6-23); Calcium 7.1 mg/dl (8.6-10.3); Carbon Dioxide 24 mmol/L (21-32); Chloride 95 mmol/L (98-107); Creatinine Clr Calc Pharmacy 17.9 ml/min; Est GFR (African American) 22.9 ml/min; Est GFR (Non-African American) 19.7 ml/min; Glucose 275 mg/dl (70-99(Fasting)); Sodium 130 mmol/L (136-145)
[2022-12-20] MEDS: CEFEPIME 1,000 MG in SYRINGE 0 ML IV SCH ×2 (02:36→13:07)
[2022-12-20 05:33] LABS: Basophils # (auto) 0.11 K/uL (0-0.2); Basophils % (auto) 0.4 %; Eosinophils % (auto) 0.7 %; Hematocrit (blood only) 45.9 % (37.0-47.0); Hemoglobin 16.4 g/dl (12.0-16.0); Immature Granulocytes # (auto) 0.24 K/uL (0.01-0.20); Immature Granulocytes % (auto) 0.9 %; Lymphocytes # (auto) 0.68 K/uL (1.2-3.4); Lymphocytes % (auto) 2.4 %; Mean Corpuscular Hemoglobin 33.5 pg (25.0-34.0); Mean Corpuscular Hgb Conc 35.7 g/dL (32.0-36.0); Mean Corpuscular Volume 93.7 fL (80.0-100.0); Mean Platelet Volume 9.8 fL (9.4-12.4); Monocytes # (auto) 0.67 K/uL (0.11-0.59); Monocytes % (auto) 2.4 %; Neutrophils # (auto) 26.09 K/uL (1.40-6.50); Neutrophils % (auto) 93.2 %; Platelet Count 422 K/uL (130-400); RDW Coefficient of Variation 12.2 % (11.5-14.5); RDW Standard Deviation 42.4 fL (36.4-46.3); White Blood Count 27.99 K/ul (4.8-10.8)
[2022-12-20 05:34] LABS: BUN Creatinine Ratio 19.6 (10-20); Calcium 7.2 mg/dl (8.6-10.3); Creatinine Clr Calc Pharmacy 17.4 ml/min; Est GFR (African American) 22.1 ml/min; Est GFR (Non-African American) 19.1 ml/min
[2022-12-20] MEDS: NOREPINEPHRINE/D5W 4 MG/250 ML PLCT IV SCH ×7 (05:47→21:59)
[2022-12-20 05:58] LABS: Phosphorus 4.8 mg/dl (2.5-4.9)
[2022-12-20 06:02] LABS: iSTAT Art Bld Gas pCO2 Correct 48 mmHg (35-46); iSTAT Art Bld Gas pH Corrected 7.353 (7.35-7.45); iSTAT Arterial Blood Gas HCO3 27 meg/L (19-24); iSTAT Arterial Blood Gas pCO2 48 mmHg (35-46); iSTAT Arterial Blood Gas pH 7.35 (7.35-7.45); iSTAT Arterial Blood Gas pO2 64 mmHg (80-95); iSTAT Arterial Blood Gas pO2 C 64; iSTAT Carbon Dioxide 28 mmol/L (24-31); iSTAT FiO2 60 %; iSTAT Hematocrit 48 % (37-47); iSTAT Hemoglobin 16.3 g/dl (12.0-16.0); iSTAT Potassium 4.1 mmol/L (3.3-5.0); iSTAT Site Art Line; iSTAT Sodium 132 mmol/L (135-144)
[2022-12-20] MEDS: LEVOTHYROXINE SODIUM 150 MCG TABLET PO SCH (06:17)
[2022-12-20 07:33] LABS: Estimated Average Glucose 194 mg/dl; Hemoglobin A1C 8.4 % (4.5-5.6)
--- NOTE | 2022-12-20 07:53 | Critical Care Progress Note ---
Date of Service December 20, 2022 Assessment & Plan (1) Acute on chronic respiratory failure with hypoxia and hypercapnia: Plan: Pt is a 87 yo female with PMH of diabetes, COPD, and noncompliance with medications/supplemental oxygen presenting to the hospital due to weakness and inability to move (pt reportedly found sitting at a kitchen table for ~24 hrs). Pt became progressively SOB despite noninvasive ventilation techniques and was subsequently intubated. Neuro - Intubated, sedated - RASS goal -3 CV Distributive shock in setting of severe sepsis - continue levophed for MAP goal > 65 Respiratory Severe ARDS, COPD with exacerbation - continue pronation per standard protocol (16 hrs per day for at least 3 days)- avoid fluid overload - continue solumedrol 80 mg q8hr (plan for 3 day course) and scheduled nebs q6hr - continue serial ABGs - plan for repeat CXR once no longer proned Renal Acute renal failure/RU with subsequent hyperkalemia and hyperphosphatemia - d/c bicarb gtt and NS; acidosis improved - improvement noted in electrolytes - given IV lasix 40 mg x1- will plan for additional doses if tolerated well - continue serial BMP, ABG Infectious disease Bilateral basilar PNA in the setting of ?chronic aspiration, ?UTI - continue cefepime, metronidazole, and azithromycin - d/c vanco (received 1 dose) and doxy (received 1 dose) GI No acute concerns - GI ppx with famotidine 20 mg daily Endocrine DM - A1c this hospitalization 8.4% - per pt's family, non compliant with home metformin - blood glucose goal while hospitalized 140-180 IVF: none GI ppx: famotidine 20 mg daily DVT ppx: heparin subQ d/t ARF Code: conditional- no CPR/defibrillation (2) Acute UTI: (3) COPD with emphysema: (4) Diabetes mellitus: (5) Pneumonia: (6) Hypothyroidism: Admission and Anticipated Discharge Date Admission Date: December 19, 2022 Supervising Physician Co-Signing Physician Notes Patient seen and examined. Agree with below assessment and plan. 87 year old female with advanced COPD, non compliant with home oxygen and active smoking and DM presenting with acute on chronic hypoxemic / hypercapnic respiratory failure requiring mechanical ventilation on 12/19/2022. CTA with dense basilar infiltates R>L with fibrotic changes, concerns for chornic / silent aspiration. Diagnosed with UTI as well. Currently in severe ARDS, acute oliguric renal failure requiring proning starting on 12/19/2022. On exam: Gen: intubated / seated, RASS -3 CV: RRR Resp: Diminished b/l Abd: Distended, soft, no massess palpated Ext: Cold, dry Skin: no rashes Plan: NEURO 1. -- Intubated, sedated -- RASS goal -3 -- Proning started 12/19/2022 at 4 pm CV 1. Distributive shock in setting of severe sepsis -- levophed for MAP goal > 65 RESP 1. Severe ARDS 2. COPD with exacerbation -- TV < 6cc/kg, Driving prssure < 14, serial ABG, start prone 16 hrs per day, avoid fluid overload -- Solumedrol, scheduled nebs q4 hrs RENAL 1. Acute renal failure / RU. Likely septic ATN, also received IV contrast on admission 2. Hyperkalemia 3. Hyperphospahtemia 4. Metabolic acidosis 2/2 RTA from ATN -- D/C bicarb gtt, start forced diuresis with lasix 40 iv once, plan to augment. -- Serial BMP, ABG ID 1. B/l basilar PNA, concern for chronic / silent aspiration 2. UTI, urine culture with gram negative bacilli -- D/C Vanco, continue Cefepime / azithro / flagyl for now. Follow fever curve, wbc daily GI -- GI ppx ENDO 1. DM -- Blood glucose goal 140-180 GI ppx: pepcid DVT ppx: heparin subQ After discussion with family yesterday, patient's code status is changed to No CPR. After our discussion, family does not wish to progress to dialysis. Subjective Pt appears comfortable in bed this AM. Still intubated, sedated, and proned. Review of Systems Review of Systems: Unobtainable due to endotracheal tube Physical Exam Physical Exam: Constitutional: intubated, sedated, proned HEENT: normocephalic CV: regular rhythm, tachycardic, no murmur Respiratory: Clear to auscultation bilaterally. Course breath sounds throughout. No increased work of breathing MSK: no gross deformities noted Skin: ~0.5cm blister noted of right eyelid Neuro: sedated Results & Data Results & Data Vital Signs (Past 12 Hours) Vital Signs Temp Pulse Resp BP Pulse Ox O2 Del Method FiO2 12/20/22 06:00 37.2 C 106 H 26 H 12/20/22 05:55 37.2 C 107 H 23 91 12/20/22 05:50 37.1 C 108 H 23 91 12/20/22 05:45 37.1 C 107 H 28 H 91 12/20/22 05:40 37.1 C 108 H 26 H 91 12/20/22 05:35 37.1 C 109 H 26 H 91 12/20/22 05:30 37.1 C 109 H 26 H 91 12/20/22 05:25 37.1 C 110 H 26 H 92 12/20/22 05:20 37.1 C 110 H 26 H 92 12/20/22 05:15 37.0 C 112 H 26 H 92 12/20/22 05:10 37.0 C 113 H 26 H 92 12/20/22 05:05 37.0 C 114 H 26 H 92 12/20/22 05:00 37.0 C 114 H 26 H 92 12/20/22 05:00 129/77 12/20/22 04:55 37.0 C 115 H 26 H 92 12/20/22 04:50 37.0 C 113 H 26 H 93 12/20/22 04:45 37.0 C 111 H 26 H 92 12/20/22 04:40 37.0 C 113 H 26 H 92 12/20/22 04:35 36.9 C 112 H 26 H 92 12/20/22 04:30 36.9 C 112 H 26 H 92 12/20/22 04:25 36.9 C 113 H 26 H 92 12/20/22 04:20 36.9 C 113 H 26 H 92 12/20/22 04:15 36.9 C 113 H 26 H 92 12/20/22 04:10 36.9 C 113 H 26 H 91 12/20/22 04:05 36.9 C 113 H 26 H 91 12/20/22 04:00 36.8 C 113 H 26 H 12/20/22 03:55 36.8 C 115 H 26 H 92 12/20/22 03:50 36.8 C 116 H 26 H 94 12/20/22 03:45 36.7 C 111 H 24 87 L 12/20/22 03:40 36.7 C 117 H 26 H 96 12/20/22 03:35 36.7 C 116 H 26 H 96 12/20/22 03:30 36.7 C 116 H 21 96 12/20/22 03:25 36.7 C 116 H 26 H 96 12/20/22 03:20 36.7 C 116 H 26 H 96 12/20/22 03:15 36.7 C 117 H 23 96 12/20/22 03:10 36.7 C 116 H 26 H 96 12/20/22 03:05 36.7 C 119 H 26 H 97 12/20/22 03:00 36.7 C 117 H 23 96 12/20/22 03:00 136/80 12/20/22 02:55 36.7 C 117 H 26 H 97 12/20/22 02:50 36.7 C 118 H 26 H 97 12/20/22 02:45 36.6 C 118 H 23 97 12/20/22 02:40 36.6 C 117 H 26 H 97 12/20/22 02:35 36.6 C 118 H 26 H 97 12/20/22 02:30 36.6 C 117 H 23 97 12/20/22 02:25 36.6 C 117 H 26 H 97 12/20/22 02:20 36.6 C 118 H 26 H 97 12/20/22 02:15 36.6 C 118 H 23 97 12/20/22 02:10 36.6 C 118 H 26 H 97 12/20/22 02:05 36.7 C 118 H 26 H 96 12/20/22 04:00 115 H 26 H 94 50 12/20/22 00:00 104 H 12/20/22 03:52 60 12/20/22 01:15 36.8 C 109 H 23 96 12/20/22 01:10 36.8 C 112 H 26 H 98 12/20/22 01:05 36.8 C 115 H 26 H 97 12/20/22 01:00 36.8 C 113 H 23 12/20/22 00:55 36.9 C 114 H 26 H 89 L 12/20/22 00:50 36.9 C 112 H 26 H 89 L 12/20/22 00:45 36.9 C 111 H 23 88 L 12/20/22 00:40 36.9 C 110 H 26 H 88 L 12/20/22 00:35 36.9 C 106 H 26 H 89 L 12/20/22 00:30 36.9 C 106 H 28 H 93 12/20/22 00:25 36.9 C 104 H 26 H 90 12/20/22 00:20 36.9 C 104 H 26 H 81 L 12/20/22 00:15 36.9 C 101 H 28 H 12/20/22 00:10 36.9 C 100 H 27 H 12/20/22 00:05 36.9 C 110 H 26 H 100 12/20/22 00:00 36.9 C 104 H 26 H 92 12/19/22 23:55 36.9 C 103 H 26 H 92 12/19/22 23:50 36.9 C 103 H 26 H 92 12/19/22 23:45 36.9 C 103 H 26 H 92 12/19/22 23:40 36.9 C 103 H 26 H 93 12/19/22 23:35 36.9 C 104 H 26 H 92 12/19/22 23:30 36.8 C 104 H 26 H 92 12/19/22 23:25 36.8 C 104 H 26 H 91 12/19/22 23:20 36.8 C 104 H 26 H 92 12/19/22 23:15 36.8 C 105 H 26 H 92 12/19/22 23:10 36.8 C 105 H 26 H 92 12/19/22 23:05 36.8 C 104 H 26 H 92 12/19/22 23:00 36.8 C 105 H 26 H 92 12/19/22 23:00 108/65 12/19/22 22:55 36.8 C 105 H 26 H 91 12/19/22 22:50 36.8 C 105 H 26 H 91 12/19/22 22:45 36.8 C 105 H 26 H 91 12/19/22 22:40 36.8 C 106 H 26 H 92 12/19/22 22:35 105 H 26 H 93 12/19/22 22:30 36.8 C 106 H 26 H 93 12/19/22 22:25 36.8 C 105 H 26 H 93 12/19/22 22:20 36.8 C 105 H 26 H 93 12/19/22 22:15 36.8 C 106 H 26 H 92 12/19/22 22:10 36.8 C 106 H 26 H 92 12/19/22 22:05 36.8 C 105 H 26 H 92 12/19/22 20:00 Mechanical Vent 40 12/20/22 00:00 40 12/19/22 23:42 104 H 26 H 92 40 12/19/22 22:00 36.8 C 105 H 26 H 92 12/19/22 21:45 36.7 C 103 H 26 H 91 12/19/22 21:45 89/62 L 12/19/22 21:00 36.8 C 112 H 26 H 93 12/19/22 20:10 36.9 C 121 H 26 H 99 12/19/22 20:10 132/78 12/19/22 20:02 41/31 L 12/19/22 20:02 36.9 C 111 H 26 H 100 12/19/22 20:00 36.9 C 116 H 26 H 100 12/19/22 19:58 36.9 C 119 H 26 H 100 12/19/22 19:58 133/108 H 12/19/22 20:00 65 12/19/22 20:11 103 H 26 H 100 65 Critical Care Time 60 Resident Activity Tracking Resident Involvement: Resident Care Provided Care Provided: Adult Hospital Medicine (ICU) (5) Pneumonia Laterality: bilateral Lung location: lower lobe of lung Pneumonia type: due to unspecified organism Qualified Code(s): J18.9 - Pneumonia, unspecified organism
[2022-12-20] MEDS: CLOPIDOGREL BISULFATE 75 MG TAB PO SCH ×2 (08:04→13:05)
[2022-12-20] MEDS: HEPARIN SOD 5,000 UNIT/0.5 ML VIAL SQ SCH ×2 (08:05→21:39)
[2022-12-20] MEDS: FAMOTIDINE 20 MG in SYRINGE 3 ML IV SCH (08:24)
[2022-12-20] MEDS: INSULIN ASPART PER UNIT CHARGE SC SCH ×4 (08:25→21:31)
[2022-12-20 08:41] LABS: Magnesium 1.9 mg/dl (1.7-2.4)
[2022-12-20] MEDS ORDERED: methylPREDNISolone 20 MG in SYRINGE 0 ML IV SCH (09:00)
[2022-12-20] MEDS ORDERED: methylPREDNISolone 40 MG in SYRINGE 0 ML IV SCH (09:00)
[2022-12-20] MEDS ORDERED: Nursing to Pharmacy Communication SCH (09:30)
[2022-12-20] MEDS ORDERED: FUROSEMIDE 40 MG/4 ML VIAL IV ONE ×2 (09:33→11:00)
[2022-12-20] MEDS ORDERED: MULTI VIT W/MINERALS LIQUID 15 ML UDP PO SCH (10:00)
[2022-12-20] MEDS ORDERED: CALCIUM GLUCONATE 10% 2,000 MG in SODIUM CHLORIDE 0.9% 50 ML IV ONE (10:15)
[2022-12-20] MEDS: MULTIVITAMIN TAB PO SCH (10:35)
--- NOTE | 2022-12-20 11:05 | XRay Report ---
SINGLE VIEW CHEST CLINICAL HISTORY: Follow-up pneumonia. FINDINGS: 2 AP, portable, upright chest radiographs are compared to chest x-ray and chest CT dated . Endotracheal and enteric tubes are unchanged in position. Emphysema and chronic interstitial thickening is similar to previous. The heart is enlarged and there is pulmonary vascular congestion. There is asymmetric bilateral airspace consolidation, right greater than left. Trace pleural effusio ns are suspected. No pneumothorax is seen. The skeletal structures are osteopenic. The bony thorax is grossly intact. IMPRESSION: 1. Stable lines and tubes. 2. Cardiomegaly and emphysema with evidence of congestive failure. 3. Right greater than left airspace consolidation is similar to previous. Follow-up to resolution is recommended. 4. Suspect trace pleural effusions. ACT 112: Negative or not required by law. Electronically signed by: Kobi Dior M.D. 12/20/2022 11:03 AM
[2022-12-20 11:29] LABS: Albumin Level 2.6 gm/dl (3.4-5.0)
[2022-12-20] MEDS: INSULIN REGULAR 250 UNITS in SODIUM CHLORIDE 0.9% 247.5 ML IV SCH ×3 (11:40→14:50)
[2022-12-20 12:28] LABS: iSTAT Art Bld Gas pCO2 Correct 48 mmHg (35-46); iSTAT Art Bld Gas pH Corrected 7.375 (7.35-7.45); iSTAT Arterial Blood Gas HCO3 28 meg/L (19-24); iSTAT Arterial Blood Gas pCO2 48 mmHg (35-46); iSTAT Arterial Blood Gas pH 7.37 (7.35-7.45); iSTAT Arterial Blood Gas pO2 68 mmHg (80-95); iSTAT Arterial Blood Gas pO2 C 68; iSTAT Carbon Dioxide 29 mmol/L (24-31); iSTAT FiO2 75 %; iSTAT Hematocrit 45 % (37-47); iSTAT Hemoglobin 15.3 g/dl (12.0-16.0); iSTAT Potassium 4.2 mmol/L (3.3-5.0); iSTAT Site Art Line; iSTAT Sodium 132 mmol/L (135-144)
[2022-12-20] MEDS: AZITHROMYCIN 500 MG in DEXTROSE 5% 250 ML IV SCH (13:04)
[2022-12-20] MEDS: MULTI VIT W/MINERALS LIQUID 15 ML UDP GT SCH (13:05)
[2022-12-20] MEDS: SENNOSIDES 8.8 MG/5 ML UDC GT SCH (13:05)
[2022-12-20 13:24] LABS: Hematocrit (blood only) 44.8 % (37.0-47.0); Hemoglobin 15.8 g/dl (12.0-16.0); Mean Corpuscular Hemoglobin 32.8 pg (25.0-34.0); Mean Corpuscular Hgb Conc 35.3 g/dL (32.0-36.0); Mean Corpuscular Volume 92.9 fL (80.0-100.0); Mean Platelet Volume 9.9 fL (9.4-12.4); Nucleated RBC # (auto) 0.02 K/uL (0-0.12); Nucleated RBC % (auto) 0.1 %; Platelet Count 388 K/uL (130-400); RDW Coefficient of Variation 12.2 % (11.5-14.5); RDW Standard Deviation 41.9 fL (36.4-46.3); Red Blood Count 4.82 M/uL (4.20-5.40); White Blood Count 28.83 K/ul (4.8-10.8)
[2022-12-20 13:42] LABS: BUN Creatinine Ratio 18.4 (10-20); Calcium 7.6 mg/dl (8.6-10.3); Creatinine Clr Calc Pharmacy 15.1 ml/min; Est GFR (African American) 18.9 ml/min; Est GFR (Non-African American) 16.3 ml/min; Magnesium 1.9 mg/dl (1.7-2.4); Phosphorus 5.1 mg/dl (2.5-4.9); Potassium 4.2 mmol/L (3.5-5.1)
[2022-12-20 13:49] LABS: Acanthocytes 1+; Basophils # (auto) 0.12 K/uL (0-0.2); Basophils % (auto) 0.4 %; Lymphocytes # (auto) 0.68 K/uL (1.2-3.4); Lymphocytes % (auto) 2.4 %; Monocytes # (auto) 0.55 K/uL (0.11-0.59); Monocytes % (auto) 1.9 %; Neutrophils # (auto) 27.18 K/uL (1.40-6.50); Neutrophils % (auto) 94.3 %; Polychromasia 1+; Tear Drop Cells 1+
[2022-12-20] MEDS ORDERED: ALBUMIN 25% 25 GM/100 ML VIAL IV ONE ×2 (14:33→23:00)
[2022-12-20 15:19] LABS: Hemoglobin 15.2 g/dl (12.0-16.0); Mean Corpuscular Hemoglobin 33.2 pg (25.0-34.0); Mean Corpuscular Hgb Conc 35.3 g/dL (32.0-36.0); Mean Corpuscular Volume 93.9 fL (80.0-100.0); Mean Platelet Volume 9.8 fL (9.4-12.4); Nucleated RBC # (auto) 0.02 K/uL (0-0.12); Nucleated RBC % (auto) 0.1 %; Platelet Count 330 K/uL (130-400); RDW Coefficient of Variation 12.3 % (11.5-14.5); RDW Standard Deviation 42.5 fL (36.4-46.3); Red Blood Count 4.58 M/uL (4.20-5.40); White Blood Count 28.42 K/ul (4.8-10.8)
[2022-12-20 15:35] LABS: Calcium 7.4 mg/dl (8.6-10.3); Creatinine Clr Calc Pharmacy 14.4 ml/min; Est GFR (African American) 17.9 ml/min; Est GFR (Non-African American) 15.4 ml/min; Magnesium 1.9 mg/dl (1.7-2.4); Phosphorus 5.2 mg/dl (2.5-4.9); Potassium 4.2 mmol/L (3.5-5.1)
[2022-12-20] MEDS ORDERED: ALBUMIN 25% 25 GM/100 ML VIAL IV SCH (16:15)
--- NOTE | 2022-12-20 19:40 | Hospitalist Progress Note ---
Date of Service December 20, 2022 Assessment & Plan (1) Acute on chronic respiratory failure with hypoxia and hypercapnia: (2) ARDS (adult respiratory distress syndrome): (3) Septic shock: (4) Bilateral pneumonia: (5) RU (acute kidney injury): (6) COPD exacerbation: Plan Patient is critically ill, remains vented, sedated and on pressors. Will defer management to customer associate We will follow along on the periphery Admission and Anticipated Discharge Date Admission Date: December 19, 2022 Subjective Patient remains in ICU. Vented. Review of Systems Review of Systems: Unable to obtain Physical Exam Physical Exam: Appears acutely ill Respiratory: No wheezing/rhonchi, synchronous with vent Cardiovascular: Tachycardic but regular, no murmurs/rubs Gastrointestinal (Abdomen): Hypoactive, soft Musculoskeletal: No edema Neurologic: sedated Results & Data Results & Data Vital Signs (Past 12 Hours) Vital Signs Temp Pulse Pulse Resp BP Pulse Ox O2 Del Method 12/20/22 18:00 94 12/20/22 08:00 106 H 12/20/22 17:30 36.7 C 106 H 26 H 116/56 L 98 12/20/22 17:13 108 H 26 H 108/55 L 96 12/20/22 17:00 108 H 26 H 12/20/22 16:56 113/86 12/20/22 16:56 110 H 26 H 90 Mechanical Vent 12/20/22 16:00 36.8 C 107 H 26 H 92 12/20/22 16:00 100/61 12/20/22 16:00 12/20/22 15:28 110 H 26 H 93 12/20/22 15:30 93 Mechanical Vent 12/20/22 15:00 36.8 C 121 H 26 H 94 Mechanical Vent 12/20/22 15:00 104/58 L 12/20/22 14:00 36.9 C 119 H 22 95 Mechanical Vent 12/20/22 14:00 127/68 12/20/22 15:38 110 H 12/20/22 13:53 Mechanical Vent 12/20/22 13:23 115/58 L 12/20/22 13:23 36.9 C 113 H 26 H 92 12/20/22 13:00 36.9 C 107 H 23 92 Mechanical Vent 12/20/22 12:55 36.9 C 105 H 26 H 92 12/20/22 12:55 108/69 12/20/22 12:00 36.9 C 105 H 23 92 12/20/22 12:00 12/20/22 08:00 12/20/22 12:49 109 H 26 H 92 Mechanical Vent 12/20/22 11:00 37.1 C 110 H 23 94 Mechanical Vent 12/20/22 10:00 37.3 C 110 H 26 H 95 12/20/22 10:00 109/56 L 12/20/22 09:00 37.3 C 113 H 26 H 91 12/20/22 09:00 107/61 12/20/22 08:00 37.4 C 112 H 26 H 91 12/20/22 08:00 114/63 12/20/22 10:17 109 H 27 H 94 FiO2 12/20/22 18:00 55 12/20/22 08:00 12/20/22 17:30 12/20/22 17:13 12/20/22 17:00 12/20/22 16:56 12/20/22 16:56 60 12/20/22 16:00 12/20/22 16:00 12/20/22 16:00 60 12/20/22 15:28 60 12/20/22 15:30 65 12/20/22 15:00 70 12/20/22 15:00 12/20/22 14:00 75 12/20/22 14:00 12/20/22 15:38 12/20/22 13:53 75 12/20/22 13:23 12/20/22 13:23 12/20/22 13:00 75 12/20/22 12:55 12/20/22 12:55 12/20/22 12:00 12/20/22 12:00 75 12/20/22 08:00 75 12/20/22 12:49 75 12/20/22 11:00 45 12/20/22 10:00 12/20/22 10:00 12/20/22 09:00 12/20/22 09:00 12/20/22 08:00 12/20/22 08:00 12/20/22 10:17 75
[2022-12-20 21:50] LABS: Hematocrit (blood only) 43.8 % (37.0-47.0); Hemoglobin 15.8 g/dl (12.0-16.0); Mean Corpuscular Hemoglobin 33.4 pg (25.0-34.0); Mean Corpuscular Hgb Conc 36.1 g/dL (32.0-36.0); Mean Corpuscular Volume 92.6 fL (80.0-100.0); Nucleated RBC # (auto) 0.04 K/uL (0-0.12); Nucleated RBC % (auto) 0.1 %; Platelet Count 363 K/uL (130-400); RDW Coefficient of Variation 12.5 % (11.5-14.5); Red Blood Count 4.73 M/uL (4.20-5.40); White Blood Count 34.07 K/ul (4.8-10.8)
[2022-12-20 21:51] LABS: Calcium 7.5 mg/dl (8.6-10.3); Potassium 4.7 mmol/L (3.5-5.1)
[2022-12-20 21:57] LABS: BUN Creatinine Ratio 17.9 (10-20); Creatinine Clr Calc Pharmacy 13.3 ml/min; Est GFR (African American) 16.2 ml/min; Phosphorus 5.2 mg/dl (2.5-4.9)
[2022-12-20] MEDS: fentaNYL citrate 2,500 MCG/250 ML BAG IV SCH (21:59)
[2022-12-20 22:57] LABS: Basophils % (auto) 0.3 %; Immature Granulocytes # (auto) 0.42 K/uL (0.01-0.20); Immature Granulocytes % (auto) 1.2 %; Lymphocytes # (auto) 0.82 K/uL (1.2-3.4); Lymphocytes % (auto) 2.4 %; Monocytes # (auto) 1.33 K/uL (0.11-0.59); Monocytes % (auto) 3.9 %; Neutrophils % (auto) 92.2 %
[2022-12-21] MEDS: ALBUT/IPRATROP 3MG/0.5MG NEB 3 ML VIAL NEB SCH ×2 (00:33→07:32)
[2022-12-21] MEDS: metroNIDAZOLE 500 MG/100 ML BAG IV SCH (00:40)
[2022-12-21] MEDS: CEFEPIME 1,000 MG in SYRINGE 0 ML IV SCH ×2 (01:33→15:34)
--- NOTE | 2022-12-21 05:32 | Electrocardiogram Report ---
Test Reason : Blood Pressure : / mmHG Vent. Rate : 104 BPM Atrial Rate : 104 BPM P-R Int : 196 ms QRS Dur : 080 ms QT Int : 350 ms P-R-T Axes : 071 -38 070 degrees QTc Int : 460 ms Sinus tachycardia Premature atrial complexes Left axis deviation Inferior infarct , age undetermined Anterior infarct , age undetermined Abnormal ECG When compared with ECG of 14-JUN-2021 19:03, Anterior infarct is now Present Confirmed by Sedrick Howell ([id number]) on 12/21/2022 5:32:30 AM Referred By: REFERRED SELF Confirmed By:Sedrick Howell
[2022-12-21 06:00] LABS: BUN Creatinine Ratio 17.6 (10-20); Calcium 7.6 mg/dl (8.6-10.3); Creatinine Clr Calc Pharmacy 12.1 ml/min; Est GFR (African American) 14.5 ml/min; Est GFR (Non-African American) 12.5 ml/min; Phosphorus 5.4 mg/dl (2.5-4.9); Potassium 4.5 mmol/L (3.5-5.1)
[2022-12-21 06:01] LABS: Hematocrit (blood only) 41.1 % (37.0-47.0); Hemoglobin 14.5 g/dl (12.0-16.0); Mean Corpuscular Hemoglobin 33.1 pg (25.0-34.0); Mean Corpuscular Hgb Conc 35.3 g/dL (32.0-36.0); Mean Corpuscular Volume 93.8 fL (80.0-100.0); Mean Platelet Volume 9.6 fL (9.4-12.4); Nucleated RBC # (auto) 0.03 K/uL (0-0.12); Nucleated RBC % (auto) 0.1 %; Platelet Count 341 K/uL (130-400); RDW Coefficient of Variation 12.3 % (11.5-14.5); RDW Standard Deviation 42.9 fL (36.4-46.3); Red Blood Count 4.38 M/uL (4.20-5.40); White Blood Count 32.41 K/ul (4.8-10.8)
[2022-12-21 06:03] LABS: Basophils # (auto) 0.12 K/uL (0-0.2); Basophils % (auto) 0.4 %; Echinocytes 1+; Immature Granulocytes # (auto) 0.42 K/uL (0.01-0.20); Immature Granulocytes % (auto) 1.3 %; Lymphocytes # (auto) 0.63 K/uL (1.2-3.4); Lymphocytes % (auto) 1.9 %; Monocytes # (auto) 1.32 K/uL (0.11-0.59); Monocytes % (auto) 4.1 %; Neutrophils # (auto) 29.92 K/uL (1.40-6.50); Neutrophils % (auto) 92.3 %
[2022-12-21] MEDS: LEVOTHYROXINE SODIUM 150 MCG TABLET GT SCH (06:08)
[2022-12-21 06:14] LABS: iSTAT Allen Test Pass; iSTAT Art Bld Gas pCO2 Correct 39 mmHg (35-46); iSTAT Arterial Blood Gas HCO3 26 meg/L (19-24); iSTAT Arterial Blood Gas pCO2 41 mmHg (35-46); iSTAT Arterial Blood Gas pH 7.42 (7.35-7.45); iSTAT Arterial Blood Gas pO2 70 mmHg (80-95); iSTAT Arterial Blood Gas pO2 C 65; iSTAT Carbon Dioxide 27 mmol/L (24-31); iSTAT FiO2 50 %; iSTAT Hematocrit 39 % (37-47); iSTAT Hemoglobin 13.3 g/dl (12.0-16.0); iSTAT Potassium 4.1 mmol/L (3.3-5.0); iSTAT Site L Radial; iSTAT Sodium 130 mmol/L (135-144)
--- NOTE | 2022-12-21 07:32 | Critical Care Progress Note ---
Date of Service December 21, 2022 Assessment & Plan (1) Acute on chronic respiratory failure with hypoxia and hypercapnia: Plan: Pt is a 87 yo female with PMH of diabetes, COPD, and noncompliance with medications/supplemental oxygen presenting to the hospital due to weakness and inability to move (pt reportedly found sitting at a kitchen table for ~24 hrs). Pt became progressively SOB despite noninvasive ventilation techniques and was subsequently intubated. Neuro - Pt remains intubated and sedated - RASS goal -3 CV Distributive shock in setting of severe sepsis - continue levophed for MAP goal > 65 Respiratory Severe ARDS, COPD with exacerbation - continue pronation per standard protocol (16 hrs per day for at least 3 days)- avoid fluid overload - continue solumedrol 80 mg q8hr (plan for 3 day course, began 12/19) and scheduled nebs q6hr - repeat ABG after placing supine this AM - CXR yesterday stable. Continue to monitor for worsening effusions/congestion and PNA Renal Acute renal failure/RU with subsequent hyperkalemia and hyperphosphatemia - Cr continues to worsen; renal US ordered to evaluate for possible post obstructive cause- may need CTAP pending US results - continue serial BMP, ABG Infectious disease Bilateral basilar PNA in the setting of ?chronic aspiration, ?UTI - continue cefepime, metronidazole, and azithromycin - urine cx showed E. coli >100,000 CFU sensitive to current ABX regimen - blood cx neg; may consider repeat cultures as unsure of reason for such severe sepsis presentation GI No acute concerns - GI ppx with famotidine 20 mg daily Endocrine DM - A1c this hospitalization 8.4% - per pt's family, non compliant with home metformin - blood glucose goal while hospitalized 140-180 IVF: none GI ppx: famotidine 20 mg daily DVT ppx: heparin subQ d/t ARF Code: conditional- no CPR/defibrillation (2) Acute UTI: (3) COPD with emphysema: (4) Diabetes mellitus: (5) Pneumonia: (6) Hypothyroidism: Admission and Anticipated Discharge Date Admission Date: December 19, 2022 Supervising Physician Co-Signing Physician Notes Patient seen and examined. Agree with below assessment and plan. 87 year old female with advanced COPD, non compliant with home oxygen and active smoking and DM presenting with acute on chronic hypoxemic / hypercapnic respiratory failure requiring mechanical ventilation on 12/19/2022. CTA with dense basilar infiltates R>L with fibrotic changes, concerns for chornic / silent aspiration. Diagnosed with UTI as well. Currently in severe ARDS, acute oliguric renal failure requiring proning starting on 12/19/2022. On exam: Gen: intubated / seated, RASS -3 CV: RRR Resp: Diminished b/l Abd: Distended, soft, no massess palpated Ext: Cold, dry Skin: no rashes Plan: NEURO 1. -- Intubated, sedated -- RASS goal -3 -- Proning started 12/19/2022 at 4 pm CV 1. Distributive shock in setting of severe sepsis -- levophed for MAP goal > 65 RESP 1. Severe ARDS 2. COPD with exacerbation -- TV < 6cc/kg, Driving prssure < 14, serial ABG, start prone 16 hrs per day, avoid fluid overload -- Solumedrol, scheduled nebs q4 hrs prn RENAL 1. Acute renal failure / RU. Likely septic ATN, also received IV contrast on admission 2. Hyperkalemia 3. Hyperphospahtemia 4. Metabolic acidosis 2/2 RTA from ATN -- Serial metabolic panel, obtain Abd US today ID 1. B/l basilar PNA, concern for chronic / silent aspiration 2. UTI, urine culture with E. coli, rule out post renal obx and evaluate GB with Abd US. My need CT A/P --Continue Cefepime / azithro / flagyl for now. Follow fever curve, wbc daily GI 1. Transaminitis, hepatocellular pattern, likely shock liver vs hepatic congestion -- Obtain abd ultrasound, follow CMP and coags daily -- GI ppx ENDO 1. DM -- Blood glucose goal 140-180 GI ppx: pepcid DVT ppx: heparin subQ After discussion with family yesterday, patient's code status is changed to No CPR. After our discussion, family does not wish to progress to dialysis. Subjective Pt proned this AM. Remains sedated and intubated. Review of Systems Review of Systems: Unobtainable due to endotracheal tube Physical Exam Physical Exam: Constitutional: no acute distress HEENT: normocephalic CV: regular rhythm, regular rate, no murmur Respiratory: Clear to auscultation bilaterally. No rhonchi, wheezes, or crackles. MSK: no gross deformities noted Neuro: sedated Results & Data Results & Data Vital Signs (Past 12 Hours) Vital Signs Temp Pulse Resp BP Pulse Ox O2 Del Method FiO2 12/21/22 04:00 Mechanical Vent 50 12/21/22 04:00 50 12/21/22 02:41 108 H 26 H 95 55 12/21/22 01:03 109 H 12/21/22 00:00 Mechanical Vent 55 12/21/22 00:00 55 12/20/22 22:36 36.6 C 104 H 26 H 100 12/20/22 22:36 117/55 L 12/20/22 22:30 36.6 C 105 H 26 H 12/20/22 22:00 36.6 C 105 H 27 H 94 12/20/22 22:00 133/57 L 12/20/22 21:31 118/82 12/20/22 21:31 36.6 C 107 H 26 H 92 12/20/22 21:30 36.6 C 105 H 26 H 92 12/20/22 21:00 36.6 C 107 H 26 H 95 12/20/22 21:00 129/52 L 12/20/22 20:30 36.7 C 106 H 26 H 91 12/20/22 20:30 105/52 L 12/20/22 20:23 36.7 C 105 H 26 H 91 12/20/22 20:23 84/42 L 12/20/22 20:00 36.6 C 102 H 26 H 97 12/20/22 20:00 130/71 12/20/22 22:49 107 H 27 H 94 55 12/20/22 20:00 Mechanical Vent 12/20/22 20:00 55 12/20/22 20:00 103 H 26 H 98 55 Resident Activity Tracking Resident Involvement: Resident Care Provided Care Provided: Adult Hospital Medicine (ICU) (5) Pneumonia Laterality: bilateral Lung location: lower lobe of lung Pneumonia type: due to unspecified organism Qualified Code(s): J18.9 - Pneumonia, unspecified or ganism
[2022-12-21] MEDS: INSULIN ASPART PER UNIT CHARGE SC SCH ×2 (07:50→10:12)
[2022-12-21] MEDS: fentaNYL BOLUS from BAG IV PRN (08:19)
[2022-12-21] MEDS: HEPARIN SOD 5,000 UNIT/0.5 ML VIAL SQ SCH ×2 (08:20→20:45)
[2022-12-21] MEDS: FAMOTIDINE 20 MG in SYRINGE 3 ML IV SCH (08:21)
[2022-12-21] MEDS: methylPREDNISolone 80 MG in SYRINGE 0 ML IV SCH ×2 (08:21→15:33)
[2022-12-21] MEDS ORDERED: ALBUT/IPRATROP 3MG/0.5MG NEB 3 ML VIAL NEB PRN (09:07)
[2022-12-21 09:10] LABS: Albumin Level 3.3 gm/dl (3.4-5.0); Bilirubin Direct 0.3 mg/dl (0-0.2); Bilirubin,Total 0.8 mg/dl (0.2-1.0); Total Protein 5.8 gm/dl (6.0-8.3)
--- NOTE | 2022-12-21 09:20 | Billing Data ---
Date of Service December 21, 2022 Coding Level of Care Code 82456 CRITICAL CARE 1ST 30-74M Time Spent (min) 65
--- NOTE | 2022-12-21 09:23 | Billing Data ---
Date of Service December 20, 2022 Coding Level of Care Code 10338 CRITICAL CARE 1ST 30-74M Time Spent (min) 65
[2022-12-21] MEDS: MULTI VIT W/MINERALS LIQUID 15 ML UDP GT SCH (10:00)
[2022-12-21] MEDS: SENNOSIDES 8.8 MG/5 ML UDC GT SCH (10:00)
[2022-12-21] MEDS: CLOPIDOGREL BISULFATE 75 MG TAB PO SCH (10:00)
[2022-12-21] MEDS ORDERED: CALCIUM GLUCONATE 10% 2,000 MG in SODIUM CHLORIDE 0.9% 50 ML IV ONE (10:00)
[2022-12-21 10:33] LABS: Urine Potassium 47.9 mmol/L
[2022-12-21 10:34] LABS: Fibrinogen 488 mg/dl (184-400); INR 1.3 (0.9-1.1)
[2022-12-21] MEDS: POLYETHYLENE (MIRALAX) 17 GM PACK GT SCH (11:04)
[2022-12-21 11:08] LABS: iSTAT Allen Test Pass; iSTAT Art Bld Gas pCO2 Correct 44 mmHg (35-46); iSTAT Art Bld Gas pH Corrected 7.386 (7.35-7.45); iSTAT Arterial Blood Gas HCO3 27 meg/L (19-24); iSTAT Arterial Blood Gas pCO2 45 mmHg (35-46); iSTAT Arterial Blood Gas pH 7.38 (7.35-7.45); iSTAT Arterial Blood Gas pO2 72 mmHg (80-95); iSTAT Arterial Blood Gas pO2 C 70; iSTAT Carbon Dioxide 28 mmol/L (24-31); iSTAT FiO2 50 %; iSTAT Hematocrit 37 % (37-47); iSTAT Hemoglobin 12.6 g/dl (12.0-16.0); iSTAT Potassium 4.1 mmol/L (3.3-5.0); iSTAT Site L Radial; iSTAT Sodium 130 mmol/L (135-144)
[2022-12-21 11:17] LABS: Lipase 23 U/L (11-82)
[2022-12-21 11:37] LABS: Creatine Kinase 13938 U/L (26-192)
--- NOTE | 2022-12-21 11:44 | Pharmacy Report ---
Pharmacy Glycemic Short Note 2 - Date of Service December 21, 2022 - Glycemic Short BSG Results (Last 24 hours): 12/20/22 12/20/22 12/20/22 12:14 12:54 14:26 Glucose 109 H POC Glucose POC Glucose (other) 117 H 149 H 12/20/22 12/20/22 12/20/22 15:03 15:07 16:50 Glucose 159 H POC Glucose POC Glucose (other) 155 H 127 H 12/20/22 12/20/22 12/20/22 18:03 18:55 21:31 Glucose 93 POC Glucose 131 H 120 H POC Glucose (other) 12/20/22 12/20/22 12/20/22 21:50 22:31 23:35 Glucose POC Glucose 104 H 89 101 H POC Glucose (other) 12/21/22 12/21/22 12/21/22 00:33 01:37 02:32 Glucose POC Glucose 91 121 H 93 POC Glucose (other) 12/21/22 12/21/22 12/21/22 03:29 04:33 05:21 Glucose 99 POC Glucose 102 H 141 H POC Glucose (other) 12/21/22 12/21/22 12/21/22 05:26 05:32 06:30 Glucose POC Glucose 87 114 H 111 H POC Glucose (other) 12/21/22 12/21/22 12/21/22 07:41 08:37 09:46 Glucose POC Glucose 105 H 114 H 152 H POC Glucose (other) 12/21/22 11:07 Glucose POC Glucose 188 H POC Glucose (other) OUTPATIENT ANTIDIABETIC REGIMEN: * metformin 2gm PO daily HbA1C: 8.4% ASSESSMENT: 12/21: * Patient has remained intubated, sedated, and on low dose vasopressor support the last 48 hours. BSGs within goal range with insulin infusion. * Still with numerous stressors and critically ill - methylprednisolone 80mg IV q8h to transition to 40mg q8h starting tomorrow. Trickle feeds to begin today. * Continue insulin infusion per severe stress/hyperglycemia protocol. Consider adding Novolog for coverage of tube feeds if advanced beyond trickle tomorrow. 12/19: * Patient is a critically ill 87 year old female- presented with acute on chronic respiratory failure and septic shock requiring intubation, sedation, and vasopressor support. Pharmacy consulted to assist with glycemic management in this setting. * Currently intubated and requiring low dose norepinephrine, NPO, methylprednisolone 80mg IV q8h, and receiving IV antibiotics as well as a bicarb drip (in D5W) at 100mL/hr. * BSGs 155-->274 -->336mg/dL today. Given numerous stressors and current clinical status, will transition from SQ to IV insulin infusion per hyperglycemia protocol (severe stress). Goal BSG 110-180mg/dL. PLAN FOR INPATIENT GLYCEMIC CONTROL: * Hold outpatient oral diabetes medications * Basal insulin * Regular insulin infusion per hyperglycemia protocol (goal BSG 110-180mg/dL) * Bolus insulin * NovoLog-- held for now (insulin drip to cover trickle feeds; resume for carb coverage if tube feeds advanced)
[2022-12-21] MEDS ORDERED: SODIUM CHLORIDE 0.9% 1000ML 250 ML IV ONE (12:10)
[2022-12-21] MEDS: TUBE FEEDING WATER FLUSH OG SCH ×4 (12:48→23:15)
[2022-12-21] MEDS: SODIUM CHLORIDE 0.9% 500 ML IV SCH ×3 (12:59→22:03)
[2022-12-21 13:03] LABS: Hematocrit (blood only) 40.4 % (37.0-47.0); Hemoglobin 14.1 g/dl (12.0-16.0); Mean Corpuscular Hemoglobin 32.9 pg (25.0-34.0); Mean Corpuscular Hgb Conc 34.9 g/dL (32.0-36.0); Mean Corpuscular Volume 94.4 fL (80.0-100.0); Mean Platelet Volume 9.9 fL (9.4-12.4); Nucleated RBC # (auto) 0.08 K/uL (0-0.12); Nucleated RBC % (auto) 0.3 %; Platelet Count 280 K/uL (130-400); RDW Coefficient of Variation 12.4 % (11.5-14.5); RDW Standard Deviation 43.5 fL (36.4-46.3); Red Blood Count 4.28 M/uL (4.20-5.40); White Blood Count 30.52 K/ul (4.8-10.8)
[2022-12-21 13:08] LABS: Calcium 7.6 mg/dl (8.6-10.3); Magnesium 2.1 mg/dl (1.7-2.4); Potassium 4.4 mmol/L (3.5-5.1)
[2022-12-21 13:14] LABS: BUN Creatinine Ratio 18.3 (10-20); Phosphorus 6.1 mg/dl (2.5-4.9)
[2022-12-21 13:27] LABS: Basophils # (auto) 0.09 K/uL (0-0.2); Basophils % (auto) 0.3 %; Immature Granulocytes # (auto) 0.59 K/uL (0.01-0.20); Immature Granulocytes % (auto) 1.9 %; Lymphocytes % (auto) 3.6 %; Monocytes # (auto) 1.27 K/uL (0.11-0.59); Monocytes % (auto) 4.2 %; Neutrophils # (auto) 27.47 K/uL (1.40-6.50)
--- NOTE | 2022-12-21 13:56 | Ultrasound Report ---
ULTRASOUND RIGHT UPPER EXTREMITY VENOUS CLINICAL HISTORY: Acute pain and swelling of the right upper extremity. COMPARISON STUDY: None. TECHNIQUE: Real-time, grayscale, and color Doppler sonography of the deep veins of the right upper ex tremity is performed. Compression and augmentation were utilized. FINDINGS: Limited exam secondary to patient condition and body habitus. No DVT identified. Occlusive thrombus is noted within the cephalic vein within the distal upper arm extending into the antecubital fossa measuring 4 cm in length. Subcutaneous edema. IMPRESSION: 1. No DVT. 2. Superficial venous thrombosis of the cephalic vein. ACT 112: Negative or not required by law. Electronically signed by: Chavez Muñiz M.D. 12/21/2022 1:55 PM
[2022-12-21] MEDS: AZITHROMYCIN 500 MG in DEXTROSE 5% 250 ML IV SCH (14:01)
--- NOTE | 2022-12-21 14:21 | Ultrasound Report ---
US duplex portal hepatic veins CLINICAL HISTORY: Rule out portal venous thombosis COMPARISON STUDY: CT of the abdomen and pelvis June 15, 2021. FINDINGS: The main, right and left portal veins are patent with appropriately directed flow. The hepa tic veins are patent. The liver is echogenic. No hepatic lesions are identified. There is moderate bi liary ductal dilatation status post cholecystectomy. Common bile duct measures 1.3 cm in caliber. Thi s has minimally increased since CT of June 15, 2021. A small right pleural effusion is incidentall y noted. There may be trace perihepatic ascites. Pancreas is obscured. IMPRESSION: 1. Patent major hepatic vessels with appropriately directed flow. 2. Hepatic steatosis. 3. Slight increase in biliary ductal dilatation since CT of June 15, 2021. This is likely related to previous cholecystectomy however could be correlated with obstructive liver function tests. ACT 112: Negative or not required by law. Electronically signed by: Dwight Dubose M.D. 12/21/2022 2:20 PM
--- NOTE | 2022-12-21 14:40 | Procedure Note ---
Procedure Note Date of Service December 21, 2022 Note Right IJ Trialysis catheter Informed consent obtained with daughter at bedside. Patient prepped and draped in the standard sterile fashion. Time out called prior to starting procedure. Under US guidance, right IJ clearly identified. Using standard Seldinger technique 14 cm Trialysis catheter inserted without difficulty. Confirmed guide wire placement with US. All guidwire, needles accounted for. Sutured in place. Abx dressing applied. EBL 5 cc. Coding
--- NOTE | 2022-12-21 14:56 | Ultrasound Report ---
ULTRASOUND KIDNEYS AND BLADDER CLINICAL HISTORY: Renal insufficiency. Assess for hydronephrosis. COMPARISON STUDY: Abdominal CT dated 06/15/2021. TECHNIQUE: Portable real-time, grayscale, and color flow sonography of the kidneys and bladder is per formed. Images are reviewed in the transverse and longitudinal planes. FINDINGS: Kidneys: The kidneys are normal in size and echotexture. The right kidney measures 11.0 x 4.0 x 5.2 c m and the left kidney measures 10.4 x 4.6 x 5.2 cm. There is no hydronephrosis. No shadowing renal c alculi are identified. A 1.1 cm cyst is noted in the interpolar right kidney. There is no sonographic evidence of contour deforming renal mass lesion. No perinephric fluid is identified. Bladder: The bladder is decompressed around a Preston catheter and could not be assessed. Upper abdomen: Survey images of the liver show evidence of hepatomegaly and hepatic steatosis. IMPRESSION: 1. The kidneys are normal in size and without hydronephrosis. 2. The bladder was decompressed around a Preston catheter and could not be assessed. 3. Hepatomegaly and hepatic steatosis. ACT 112: Negative or not required by law. Electronically signed by: Kobi Dior M.D. 12/21/2022 2:54 PM
--- NOTE | 2022-12-21 15:11 | XRay Report ---
XR chest 1V portable HISTORY: 87 years-old Female s/p RIGHT IJ HD Cath status post placement of a right IJ central venous catheter COMPARISON: 12/20/2022 TECHNIQUE: AP view of the chest FINDINGS: Cardiac silhouette is enlarged. Right IJ central venous catheter distal tip is noted in the expected location of the upper SVC. Endotracheal tube overlies the midline approximately 3 cm superior to the eileen. Distal tip of enteric tube projects inferior to the diaphragm, outside the [id number]. No pneumothorax. Cardiomegaly with mildly improved pulmonary edema. Mildly increased size of layering pleural effusions with bibasilar consolidation. Bones appear grossly intact. IMPRESSION: 1. Lines and tubes as above. 2. No pneumothorax. 3. Cardiomegaly with mildly improved pulmonary edema. 4. Increased size of the layering pleural effusions with progressive bibasilar consolidation. ACT 112: Negative or not required by law. The above report was generated using voice recognition software. It may contain grammatical, syntax o r spelling errors. Electronically signed by: Chavez Muñiz M.D. 12/21/2022 3:09 PM
[2022-12-21] MEDS: INSULIN REGULAR 250 UNITS in SODIUM CHLORIDE 0.9% 247.5 ML IV SCH (15:50)
[2022-12-21] MEDS ORDERED: BUMETANIDE 4 MG in SYRINGE 0 ML IV ONE (16:07)
--- NOTE | 2022-12-21 16:11 | Nephrology Consultation ---
Date of Consultation December 21, 2022 Assessment & Plan (1) RU (acute kidney injury): Severe oliguric acute kidney injury in the setting of sepsis respiratory failure hypotension hypoxia and now also elevated CK level. She has only made about 50 mL of urine output since 7 AM which is very bad. Creatinine has been going up steadily for the last 3 days. Such severe oliguria is concerning and most likely she will need dialysis tomorrow. She has received enough fluid and she is about 6 L positive since so it is not a lack of fluid causing acute renal failure. Unfortunately even if it is rhabdomyolysis we cannot give massive amount of fluid unless we are receiving some diuresis. We will give 4 mg Bumex x1 as a challenge dose. If she does not have any meaningful increase in urine output within 4 hours of Bumex we do need to decrease the IV fluid rate to avoid making pulmonary edema worse. In that case we will plan for dialysis tomorrow morning. Discussed with daughter and son-in-law and they are in agreement to give dialysis a trial. I did explain to the patient that even though this is acute renal failure there is no guarantee an 87-year-old person with multiple comorbidities to have renal recovery. If the kidneys does not recover we will revisit the discussion about dialysis (2) Bilateral pneumonia: Very elevated white count. On empiric antibiotics as per ICU (3) Septic shock: Blood pressure seems somewhat better with use of Levophed (4) ARDS (adult respiratory distress syndrome): As per bulb tester ARDS is getting slightly better Plan Case complexity high. 65-minute was spent in chart review and delivery of clinical care and discussion with the family. Extensive history was reviewed through her daughter. Prognosis is poor History of Present Illness Reason for Consultation: RU and Rhabdomyloysis Requesting Physician: Dr Whatley Attending Physician: Mercedez Ramos MD History of Present Illness 87-year-old female with chronic respiratory failure secondary to COPD on home oxygen but with noncompliant , who is critically ill and is currently in ICU intubated and on pressors. She has very elevated white count and has a presumptive diagnosis of pneumonia and is on empiric antibiotic. She had ARDS which seem to have recovered slightly. Currently she is severely oliguric with about 50 mL of urine since 7 AM and her renal function is getting worse. Creatinine was 1.0 on the day of admission 3 days ago but now is 3+ without any urine. She has received fluid as well as intermittent diuretic but without significant urine out. Daughter and son-in-law was at the bedside who provided me with detailed record Review of system----unable to obtain as patient is intubated Allergies Allergy/AdvReac Type Severity Reaction Status Date / Time Penicillins Allergy Intermediate HIVES Verified 12/19/22 00:08 Home Medications Medication Instructions Recorded Confirmed Type clopidogrel 75 mg tablet 75 mg PO DAILY 06/14/21 12/19/22 History levothyroxine 150 mcg tablet 150 mcg PO DAILY 06/14/21 12/19/22 History metoprolol tartrate 25 mg tablet 25 mg PO BID 06/14/21 12/19/22 History multivitamin 1 tab PO DAILY 06/14/21 12/19/22 History rosuvastatin 10 mg tablet 10 mg PO DAILY 06/14/21 12/19/22 History lancets 30 gauge and blood glucose #200 ea 06/24/21 08/17/22 Rx strips combo pack Portable Oxygen #1 ea 07/21/21 08/17/22 Rx hydrochlorothiazide 12.5 mg tablet 12.5 mg PO DAILY 07/21/21 12/19/22 History Flutter Valve #1 ea 08/24/22 08/24/22 Rx albuterol sulfate 90 mcg/actuation 2 inh inhalation Q6H PRN shortness 08/24/22 12/19/22 Rx aerosol inhaler of breath or wheezing #8.5 grams umeclidinium 62.5 mcg-vilanterol 1 ea inhalation DAILY #60 ea 08/24/22 12/19/22 Rx 25 mcg/actuation powdr for inhalation (Anoro Ellipta) azithromycin 250 mg tablet 250 mg PO DAILY 12/19/22 12/19/22 History calcium carbonate 200 mg-magnesium 1 tab PO BID 12/19/22 12/19/22 History oxide,carbonate 100 mg chew tablet (Jez-Mag) diclofenac sodium 1 % topical gel 4 g topical TID PRN Pain 12/19/22 12/19/22 History duloxetine 30 mg capsule,delayed 30 mg PO QAM 12/19/22 12/19/22 History release gabapentin 300 mg capsule 300 mg PO BID 12/19/22 12/19/22 History losartan 50 mg tablet 50 mg PO QAM 12/19/22 12/19/22 History metformin 500 mg tablet,extended 2,000 mg PO DAILY 12/19/22 12/19/22 History release 24 hr Patient History Medical History Pneumonia Social History Smoking Status: Current every day smoker Tobacco Type: Cigarettes Cigarettes Per Day: 2-3; Second Hand Exposure: No; Do You Dip or Chew Tobacco: No; Tobacco Cessation Education Requested by Patient: No Hx Alcohol Use: Yes Alcohol type: wine Hx Substance Use: No Preferred Language: Polish Communication Ability: Unable Reproduction Technician Required: No Beliefs That Will Affect Care: None marital status: Unknown Current Living Situation: Alone Current Living Situation Comment: patient lives in an apartment Other Information That Helps Us Care for You: No Feels Safe at Home: Yes Safety Concerns: Feels Safe At This Time Assistive Devices: Scooter/Electric Scooter Physical Exam Physical Exam: Patient is intubated sedated on pressor critically ill Neck: Supple no jugular venous system Respiratory: Bilateral decreased breath sound intubated Cardiovascular: Regular rate and rhythm systolic murmur heard 1+ edema bilateral Gastrointestinal (Abdomen): Abdomen is soft nontender Skin: No rashes noted Results & Data Vital Signs (Past 12 Hours) Vital Signs Temp Pulse Resp BP Pulse Ox O2 Del Method FiO2 12/21/22 13:00 36.0 C L 89 20 92 12/21/22 13:00 116/51 L 12/21/22 12:00 35.8 C L 90 22 94 12/21/22 12:00 129/53 L 12/21/22 11:01 137/57 L 12/21/22 11:01 35.7 C L 90 21 94 12/21/22 11:00 35.7 C L 90 24 94 12/21/22 10:00 35.9 C L 92 H 22 93 12/21/22 10:00 108/47 L 12/21/22 12:00 45 12/21/22 11:15 90 24 94 45 12/21/22 08:00 Mechanical Vent 50 12/21/22 08:00 50 12/21/22 08:00 105 H 12/21/22 09:34 95 H 19 94 50 12/21/22 09:34 105/48 L 12/21/22 09:00 36.0 C L 103 H 22 95 12/21/22 09:00 150/67 H 12/21/22 08:29 36.0 C L 103 H 22 94 12/21/22 08:29 152/66 H 12/21/22 08:00 35.9 C L 104 H 22 95 12/21/22 08:00 155/74 H 12/21/22 07:00 36.1 C L 98 H 26 H 95 12/21/22 07:00 125/65 12/21/22 07:32 99 H 23 95 50 Laboratory Results Creatinine was 1.0 on admission and now it is 3 + Total CK was 200+ on admission and now it is almost 14,000 Diagnostic Findings Renal ultrasound did not show hydronephrosis
--- NOTE | 2022-12-21 16:24 | Nephrology Consultation ---
Date of Consultation December 21, 2022 History of Present Illness Attending Physician: Mercedez Ramos MD History of Present Illness error see other consult note Allergies Allergy/AdvReac Type Severity Reaction Status Date / Time Penicillins Allergy Intermediate HIVES Verified 12/19/22 00:08 Home Medications Medication Instructions Recorded Confirmed Type clopidogrel 75 mg tablet 75 mg PO DAILY 06/14/21 12/19/22 History levothyroxine 150 mcg tablet 150 mcg PO DAILY 06/14/21 12/19/22 History metoprolol tartrate 25 mg tablet 25 mg PO BID 06/14/21 12/19/22 History multivitamin 1 tab PO DAILY 06/14/21 12/19/22 History rosuvastatin 10 mg tablet 10 mg PO DAILY 06/14/21 12/19/22 History lancets 30 gauge and blood glucose #200 ea 06/24/21 08/17/22 Rx strips combo pack Portable Oxygen #1 ea 07/21/21 08/17/22 Rx hydrochlorothiazide 12.5 mg tablet 12.5 mg PO DAILY 07/21/21 12/19/22 History Flutter Valve #1 ea 08/24/22 08/24/22 Rx albuterol sulfate 90 mcg/actuation 2 inh inhalation Q6H PRN shortness 08/24/22 12/19/22 Rx aerosol inhaler of breath or wheezing #8.5 grams umeclidinium 62.5 mcg-vilanterol 1 ea inhalation DAILY #60 ea 08/24/22 12/19/22 Rx 25 mcg/actuation powdr for inhalation (Anoro Ellipta) azithromycin 250 mg tablet 250 mg PO DAILY 12/19/22 12/19/22 History calcium carbonate 200 mg-magnesium 1 tab PO BID 12/19/22 12/19/22 History oxide,carbonate 100 mg chew tablet (Jez-Mag) diclofenac sodium 1 % topical gel 4 g topical TID PRN Pain 12/19/22 12/19/22 History duloxetine 30 mg capsule,delayed 30 mg PO QAM 12/19/22 12/19/22 History release gabapentin 300 mg capsule 300 mg PO BID 12/19/22 12/19/22 History losartan 50 mg tablet 50 mg PO QAM 12/19/22 12/19/22 History metformin 500 mg tablet,extended 2,000 mg PO DAILY 12/19/22 12/19/22 History release 24 hr Patient History Medical History Pneumonia Social History Smoking Status: Current every day smoker Tobacco Type: Cigarettes Cigarettes Per Day: 2-3; Second Hand Exposure: No; Do You Dip or Chew Tobacco: No; Tobacco Cessation Education Requested by Patient: No Hx Alcohol Use: Yes Alcohol type: wine Hx Substance Use: No Preferred Language: Cook Islander Communication Ability: Unable Certified Ophthalmic Surgical Assistant Required: No Beliefs That Will Affect Care: None marital status: Unknown Current Living Situation: Alone Current Living Situation Comment: patient lives in an apartment Other Information That Helps Us Care for You: No Feels Safe at Home: Yes Safety Concerns: Feels Safe At This Time Assistive Devices: Scooter/Electric Scooter Results & Data Vital Signs (Past 12 Hours) Vital Signs Temp Pulse Resp BP Pulse Ox O2 Del Method FiO2 12/21/22 13:00 36.0 C L 89 20 92 12/21/22 13:00 116/51 L 12/21/22 12:00 35.8 C L 90 22 94 12/21/22 12:00 129/53 L 12/21/22 11:01 137/57 L 12/21/22 11:01 35.7 C L 90 21 94 12/21/22 11:00 35.7 C L 90 24 94 12/21/22 10:00 35.9 C L 92 H 22 93 12/21/22 10:00 108/47 L 12/21/22 12:00 45 12/21/22 11:15 90 24 94 45 12/21/22 08:00 Mechanical Vent 50 12/21/22 08:00 50 12/21/22 08:00 105 H 12/21/22 09:34 95 H 19 94 50 12/21/22 09:34 105/48 L 12/21/22 09:00 36.0 C L 103 H 22 95 12/21/22 09:00 150/67 H 12/21/22 08:29 36.0 C L 103 H 22 94 12/21/22 08:29 152/66 H 12/21/22 08:00 35.9 C L 104 H 22 95 12/21/22 08:00 155/74 H 12/21/22 07:00 36.1 C L 98 H 26 H 95 12/21/22 07:00 125/65 12/21/22 07:32 99 H 23 95 50
[2022-12-21] MEDS: fentaNYL citrate 2,500 MCG/250 ML BAG IV SCH ×2 (16:31→23:48)
[2022-12-21] MEDS ORDERED: BUMETANIDE 2 MG in SYRINGE 0 ML IV SCH (17:00)
[2022-12-21] MEDS: NOVASOURCE RENAL 2.0 CAL 1000ML BAG OG SCH (17:27)
--- NOTE | 2022-12-21 17:27 | Hospitalist Progress Note ---
Date of Service December 21, 2022 Assessment & Plan (1) Acute on chronic respiratory failure with hypoxia and hypercapnia: (2) ARDS (adult respiratory distress syndrome): Plan: (1) Acute on chronic respiratory failure with hypoxia and hypercapnia: Plan: Multifactorial hx chronic respiratory failure secondary to COPD supposedly, home O2 noncompliance as per records Status post intubation at the ER COPD exacerbation secondary to atypical pneumonia, recent outpatient Z-Santana course for pharyngitis Has been on intravenous doxycycline to cover atypicals Intravenous Solu-Medrol and nebs as prescribed Complicated UTI, possible sepsis-has been on intravenous cefepime Appreciate news assignment editor input and recommendation Possible functional disability, concerns about patient ability to reside alone with multiple comorbidities. (3) Septic shock: (4) Bilateral pneumonia: (5) RU (acute kidney injury): Plan: Severe oliguric acute kidney injury in the setting of sepsis and hypoxemia Received intravenous fluid with positive balance of 6 L so far Bumex has been added Appreciate nephrology input and recommendation Made in dialysis down the line (6) COPD exacerbation: Plan: As above with bilateral pneumonia Plan Other medical conditions as below: Hypertensive urgency secondary to illness Received intravenous fluid due to sepsis Blood pressure is running low at 102/43 hyperlipidemia on statin Rx DM2 on oral medications, suboptimal control as of recent hemoglobin A1c of 8.20 Sep 2022 Basal bolus insulin adjusted for n.p.o. status, ISS BG goal 1 40-1 80 appropriate goal for ICU Hypothyroidism, euthyroid as of today's TSH Ongoing tobacco abuse DVT prophylaxis Subcu Lovenox CODE STATUS Full Admission and Anticipated Discharge Date Admission Date: December 19, 2022 Subjective 12/21/2022 The patient was seen and examined in ICU Remains on the vent and sedated Review of Systems Review of Systems: Unobtainable due to endotracheal tube Physical Exam Physical Exam: Sedated on vent Constitutional: well developed, well nourished and + ill appearing Eyes: Closed ENMT: external ear and nose normal, oropharynx normal Neck: trachea midline, no thyromegaly Respiratory: no respiratory distress Auscultation: + diminished lung sounds and + crackles (Minimal crackles at the bases) Cardiovascular: Rate/Rhythm: regular rate and regular rhythm; not tachycardic Heart Sounds: normal S1 and normal S2; no murmur Extremities: + edema Gastrointestinal (Abdomen): Inspection/Auscultation: normal bowel sounds; abdomen not distended Percussion/Palpation: abdomen soft Musculoskeletal: No acutely inflamed joint Neurologic: Sedated on vent Results & Data Results & Data Vital Signs (Past 12 Hours) Vital Signs Temp Pulse Resp BP Pulse Ox O2 Del Method FiO2 12/21/22 16:00 36.4 C L 86 23 93 12/21/22 16:00 102/43 L 12/21/22 15:00 36.4 C L 85 22 93 12/21/22 15:00 106/41 L 12/21/22 14:12 36.2 C L 89 21 86 L 12/21/22 14:12 103/45 L 12/21/22 14:00 36.2 C L 86 22 90 12/21/22 14:00 115/47 L 12/21/22 16:00 50 12/21/22 13:00 36.0 C L 89 20 92 12/21/22 13:00 116/51 L 12/21/22 12:00 35.8 C L 90 22 94 12/21/22 12:00 129/53 L 12/21/22 11:01 137/57 L 12/21/22 11:01 35.7 C L 90 21 94 12/21/22 11:00 35.7 C L 90 24 94 12/21/22 10:00 35.9 C L 92 H 22 93 12/21/22 10:00 108/47 L 12/21/22 12:00 45 12/21/22 11:15 90 24 94 45 12/21/22 08:00 Mechanical Vent 50 12/21/22 08:00 50 12/21/22 08:00 105 H 12/21/22 09:34 95 H 19 94 50 12/21/22 09:34 105/48 L 12/21/22 09:00 36.0 C L 103 H 22 95 12/21/22 09:00 150/67 H 12/21/22 08:29 36.0 C L 103 H 22 94 12/21/22 08:29 152/66 H 12/21/22 08:00 35.9 C L 104 H 22 95 12/21/22 08:00 155/74 H 12/21/22 07:00 36.1 C L 98 H 26 H 95 12/21/22 07:00 125/65 12/21/22 07:32 99 H 23 95 50 Laboratory Results Short CBC 12/20/22 12/21/22 12/21/22 Range/Units 21:31 05:21 12:34 WBC 34.07 H* 32.41 H* 30.52 H* (4.8-10.8) K/ul Hgb 15.8 14.5 14.1 (12.0-16.0) g/dl Hct 43.8 41.1 40.4 (37.0-47.0) % Plt Count 363 341 280 (130-400) K/uL BMP 12/20/22 12/21/22 12/21/22 21:31 05:21 12:34 Sodium 132 L 132 L 131 L Potassium 4.7 4.5 4.4 Chloride 93 L 93 L 95 L Carbon Dioxide 26 25 23 BUN 52 H 56 H 60 H Creatinine 2.90 H 3.18 H 3.28 H Glucose 93 99 109 H Calcium 7.5 L 7.6 L 7.6 L Cardiac Enzymes 12/21/22 Range/Units 09:38 Total Creatine Kinase 50492 H (26-192) U/L Liver Function 12/21/22 Range/Units 08:05 Total Bilirubin 0.8 (0.2-1.0) mg/dl Direct Bilirubin 0.3 H (0-0.2) mg/dl AST 1875 H (13-39) U/L ALT 1702 H (7-52) U/L Alkaline Phosphatase 70 (34-104) U/L Albumin 3.3 L (3.4-5.0) gm/dl Medications Administered Current Inpatient Medications Albuterol (Albut/Ipratrop 3mg/0.5mg Neb 3 Ml Vial) 3 ml NEB Q6R PRN; Protocol PRN Reason: Shortness Of Breath Or Wheezing Stop: 01/18/23 06:59 Clopidogrel Bisulfate (Clopidogrel Bisulfate 75 Mg Tab) 75 mg PO DAILY COLT Stop: 01/18/23 08:59 Last Admin: 12/21/22 10:00 Dose: 75 mg Dextrose (Dextrose 50% 50 Ml Syringe) 25 - 50 ml IV UD PRN; Protocol PRN Reason: Hypoglycemia Protocol Stop: 01/18/23 05:00 Last Admin: 12/19/22 09:27 Dose: 50 ml Enteral Nutritional Formula (Novasource Renal 2.0 Jez 1000ml Bag) 1,000 ml OG .SeeProtocol PENDING SALE TO [facility]; Protocol Stop: 01/20/23 11:14 Fentanyl Citrate (Fentanyl Bolus From Bag) 50 mcg IV Q60M PRN PRN Reason: Pain or Agitation Stop: 01/02/23 04:42 Last Admin: 12/21/22 08:19 Dose: 50 mcg Formoterol Fumarate (Formoterol 20 Mcg/2 Ml Vial) 20 mcg NEB BIDR COLT Stop: 01/20/23 18:59 Glucagon (Glucagon For Inj 1 Mg Vial) 1 mg SQ UD PRN; Protocol PRN Reason: Hypoglycemia Protocol Stop: 01/18/23 05:00 Glucose (Glucose 10 Tab/Tube) 4 - 8 tab PO UD PRN; Protocol PRN Reason: Hypoglycemia Treatment Stop: 01/18/23 05:00 Glucose (Glucose 40% Gel 15 Gm Tube) 15 - 30 gm PO UD PRN; Protocol PRN Reason: Hypoglycemia Protocol Stop: 01/18/23 05:00 Heparin Sodium (Porcine) (Heparin Sod 5,000 Unit/0.5 Ml Vial) 5,000 units SQ Q12 COLT Stop: 01/18/23 20:59 Last Admin: 12/21/22 08:20 Dose: 5,000 units Midazolam HCl (Versed) 125 mg in 250 mls @ 2 mls/hr IV .Q96H PENDING SALE TO [facility]; Protocol Stop: 01/18/23 04:44 Last Titration: 12/21/22 07:09 Dose: 1 mg/hr, 2 mls/hr Fentanyl Citrate (Fentanyl Citrate) 2,500 mcg in 250 mls @ 10 mls/hr IV .Q25H PENDING SALE TO [facility]; Protocol Stop: 01/02/23 04:44 Last Admin: 12/21/22 16:31 Dose: Not Given Norepinephrine Bitartrate (Levophed/D5w) 4 mg in 250 mls @ 0 mls/hr IV .Q0M PENDING SALE TO [facility]; Protocol Stop: 01/18/23 05:14 Last Titration: 12/21/22 08:18 Dose: 0 mcg/kg/min, 0 mls/hr Acetaminophen (Ofirmev) 1,000 mg in 100 mls @ 400 mls/hr IV Q8H PRN PRN Reason: Fever Stop: 12/22/22 05:20 Last Infusion: 12/19/22 07:18 Dose: Infused Cefepime HCl 1,000 mg/ Syringe 10 mls @ 5 mls/min IV Q12H PENDING SALE TO [facility]; Protocol Stop: 12/29/22 13:59 Last Admin: 12/21/22 15:34 Dose: 5 mls/min Methylprednisolone 80 mg/ (Syringe) 1.28 mls @ 1.5 mls/min IV Q8H PENDING SALE TO [facility] Stop: 12/21/22 23:59 Last Admin: 12/21/22 15:33 Dose: 1.5 mls/min Famotidine 20 mg/ Syringe 5 mls @ 2.5 mls/min IV DAILY COLT Stop: 01/19/23 08:59 Last Admin: 12/21/22 08:21 Dose: 2.5 mls/min Insulin Human Regular 250 (units/ Sodium Chloride) 250 mls @ 3.4 mls/hr IV .Q24H PENDING SALE TO [facility]; Protocol Stop: 01/18/23 12:59 Last Admin: 12/21/22 15:50 Dose: 3.4 unit/hr, 3.4 mls/hr Methylprednisolone 40 mg/ (Syringe) 0.64 mls @ 1.5 mls/min IV Q8H PENDING SALE TO [facility] Stop: 12/23/22 16:01 Sodium Chloride (Nss) 500 mls @ 125 mls/hr IV .Q4H PENDING SALE TO [facility] Stop: 01/20/23 12:44 Last Infusion: 12/21/22 17:03 Dose: Infused Levothyroxine Sodium (Levothyroxine Sodium 150 Mcg Tablet) 150 mcg GT DAILYBB PENDING SALE TO [facility] Stop: 01/18/23 06:29 Last Admin: 12/21/22 06:08 Dose: Not Given Midazolam HCl (Midazolam Bolus From Bag) 2 mg IV Q60M PRN PRN Reason: Sedation Stop: 01/18/23 04:42 Last Admin: 12/20/22 00:00 Dose: 2 mg Miscellaneous (Carbohydrates For Hypoglycemia ) 15 - 30 gm PO UD PRN PRN Reason: Hypoglycemia Protocol Stop: 01/18/23 05:00 Miscellaneous Information (Pharmacy Glycemic Mgmt Consult) 1 each N/A UD PRN PRN Reason: Consult Stop: 01/18/23 12:47 Multivitamins/Minerals (Multi Vit W/Minerals Liquid 15 Ml Udp) 15 ml GT DAILY COLT Stop: 01/19/23 09:59 Last Admin: 12/21/22 10:00 Dose: 15 ml Polyethylene Glycol (Polyethylene (Miralax) 17 Gm Pack) 17 gm GT DAILY COLT Stop: 01/20/23 10:14 Last Admin: 12/21/22 11:04 Dose: 17 gm Sennosides (Sennosides 8.8 Mg/5 Ml Udc) 8.8 mg GT DAILY COLT Stop: 01/19/23 10:14 Last Admin: 12/21/22 10:00 Dose: 8.8 mg Sterile Water (Tube Feeding Water Flush) 30 ml OG Q4H COLT Stop: 01/20/23 11:14 Last Admin: 12/21/22 15:53 Dose: 30 ml
--- NOTE | 2022-12-21 17:29 | CT Scan Report ---
CT OF THE CHEST WITHOUT IV CONTRAST CLINICAL HISTORY: ARDS COMPARISON STUDY: Chest CT December 19, 2022. Chest radiograph performed earlier today. TECHNIQUE: Axial images of the chest were obtained without IV contrast. Images were reviewed in the axial, sagittal, and coronal planes. IV contrast was not administered for this examination. Automat ed exposure control was utilized for the study. A dose lowering technique was utilized adhering to t he principles of ALARA. FINDINGS: The tip of the endotracheal tube is 2.5 cm above the eileen. Tip of nasogastric tube is wi thin the body of the stomach. Chest wall edema has increased since prior exam. No enlarged axillary, mediastinal or hilar lymph nodes are present. A right internal jugular central line is in place. Tip is within the SVC. Emphysema is noted. Mild cardiomegaly is noted. There is no pericardial effusion. Small right and trace left pleural effusions have increased in size since chest CT of December 19, 2022. Interlobular septal thickening has mildly improved. Extensive right lung consolidation shown on prior exam has improved. Left lower lobe consolidation shown on prior exam has also improved. There is no pneumothorax. No acute fractures within the bony thorax are noted. Abdomen and pelvis CT will be repo rted separately. There is persistent enhancement of the kidneys. IMPRESSION: 1. Small right and trace left pleural effusions which have increased in size since chest CT of November [id number]. No pneumothorax. 2. Interval improvement in bilateral airspace opacities, greater within the right lung, since CT of J [id number]. These favor pneumonia or aspiration pneumonitis. 3. Interstitial pulmonary edema, improved since prior exam. 4. Increase in chest wall edema. 5. Emphysema. ACT 112: Negative or not required by law. Electronically signed by: Dwight Dubose M.D. 12/21/2022 5:27 PM
--- NOTE | 2022-12-21 17:55 | CT Scan Report ---
CT OF THE ABDOMEN AND PELVIS WITHOUT CONTRAST CLINICAL HISTORY: Source of infection. COMPARISON STUDY: CT of the abdomen and pelvis June 15, 2021 and renal ultrasound performed earli er today. TECHNIQUE: Axial images of the abdomen and pelvis were obtained without IV contrast. Images were revi ewed in the axial, sagittal, and coronal planes. Automated exposure control was utilized for the shalonda dy. A dose lowering technique was utilized adhering to the principles of ALARA. FINDINGS: Please note that the chest CT will be reported separately. Small right and trace left pleur al effusions with lower lobe airspace opacities are better depicted on that exam. Tip of nasogastric tube is within the body of the stomach. No pneumatosis, free air or portal venous gas is present. Hilda sarca is present. Biliary ductal dilatation is similar to CT of June 15, 2021. No hepatic lesions are identified on unenhanced exam. Unenhanced images of the spleen, adrenal glands and pancreas are u nremarkable. Bilateral renal enhancement is noted. The appendix is normal. There is no evidence for a bowel obstruction. There is hyperdense material within the lumen of the colon. No fluid collection i s present. No acute fractures are identified within the visualized skeletal structures. Preston balloon within the bladder is present. There are no ureteral calculi. There is no hydronephrosis. Extensive aortoiliac atherosclerotic plaque is present. IMPRESSION: 1. No bowel obstruction. No fluid collection within the abdomen or pelvis. Normal appendix. 2. Persistent renal enhancement suggestive of delayed nephrograms. Findings could be correlated with renal function. 3. Anasarca. 4. Small right and trace left pleural effusions with lower lung airspace opacities which favor pneumo kaitlyn or aspiration pneumonitis. 5. No change in biliary ductal dilatation, likely related to previous cholecystectomy. This could be correlated with obstructive liver function tests. ACT 112: Negative or not required by law. Electronically signed by: Dwight Dubose M.D. 12/21/2022 5:52 PM
[2022-12-21] MEDS: FORMOTEROL 20 MCG/2 ML VIAL NEB SCH (20:08)
[2022-12-21 21:46] LABS: Hematocrit (blood only) 35.4 % (37.0-47.0); Hemoglobin 12.5 g/dl (12.0-16.0); Mean Corpuscular Hemoglobin 33.5 pg (25.0-34.0); Mean Corpuscular Hgb Conc 35.3 g/dL (32.0-36.0); Mean Corpuscular Volume 94.9 fL (80.0-100.0); Mean Platelet Volume 9.9 fL (9.4-12.4); Nucleated RBC # (auto) 0.08 K/uL (0-0.12); Nucleated RBC % (auto) 0.3 %; Platelet Count 295 K/uL (130-400); RDW Coefficient of Variation 12.7 % (11.5-14.5); Red Blood Count 3.73 M/uL (4.20-5.40)
[2022-12-21 22:05] LABS: BUN Creatinine Ratio 17.3 (10-20); Calcium 7.1 mg/dl (8.6-10.3); Creatinine Clr Calc Pharmacy 10.3 ml/min; Est GFR (African American) 11.6 ml/min; Phosphorus 6.3 mg/dl (2.5-4.9); Potassium 4.8 mmol/L (3.5-5.1)
[2022-12-21 22:19] LABS: Basophils # (auto) 0.09 K/uL (0-0.2); Basophils % (auto) 0.3 %; Immature Granulocytes # (auto) 0.73 K/uL (0.01-0.20); Immature Granulocytes % (auto) 2.5 %; Lymphocytes % (auto) 2.1 %; Monocytes # (auto) 1.05 K/uL (0.11-0.59); Monocytes % (auto) 3.7 %; Neutrophils # (auto) 26.23 K/uL (1.40-6.50); Neutrophils % (auto) 91.4 %
[2022-12-22] MEDS: fentaNYL citrate 2,500 MCG/250 ML BAG IV SCH ×7 (02:09→16:25)
[2022-12-22] MEDS: CEFEPIME 1,000 MG in SYRINGE 0 ML IV SCH (02:11)
[2022-12-22] MEDS: methylPREDNISolone 40 MG in SYRINGE 0 ML IV SCH ×3 (02:11→16:11)
[2022-12-22] MEDS: TUBE FEEDING WATER FLUSH OG SCH ×6 (03:15→23:15)
[2022-12-22 05:00] LABS: Hematocrit (blood only) 36.6 % (37.0-47.0); Hemoglobin 12.6 g/dl (12.0-16.0); Mean Corpuscular Hemoglobin 32.8 pg (25.0-34.0); Mean Corpuscular Hgb Conc 34.4 g/dL (32.0-36.0); Mean Corpuscular Volume 95.3 fL (80.0-100.0); Nucleated RBC # (auto) 0.07 K/uL (0-0.12); Nucleated RBC % (auto) 0.2 %; Platelet Count 294 K/uL (130-400); RDW Coefficient of Variation 12.6 % (11.5-14.5); RDW Standard Deviation 44.3 fL (36.4-46.3); Red Blood Count 3.84 M/uL (4.20-5.40); White Blood Count 29.07 K/ul (4.8-10.8)
[2022-12-22 05:04] LABS: BUN Creatinine Ratio 18.1 (10-20); Calcium 7.2 mg/dl (8.6-10.3); Creatinine Clr Calc Pharmacy 9.5 ml/min; Est GFR (African American) 10.5 ml/min; Est GFR (Non-African American) 9.1 ml/min; Potassium 4.9 mmol/L (3.5-5.1)
[2022-12-22 05:27] LABS: Basophils # (auto) 0.07 K/uL (0-0.2); Basophils % (auto) 0.2 %; Immature Granulocytes # (auto) 0.76 K/uL (0.01-0.20); Immature Granulocytes % (auto) 2.6 %; Lymphocytes # (auto) 0.58 K/uL (1.2-3.4); Monocytes # (auto) 0.89 K/uL (0.11-0.59); Monocytes % (auto) 3.1 %; Neutrophils # (auto) 26.77 K/uL (1.40-6.50); Neutrophils % (auto) 92.1 %; RBC Morphology Unremarkable
[2022-12-22 05:29] LABS: Albumin Level 2.9 gm/dl (3.4-5.0); Bilirubin Direct 0.3 mg/dl (0-0.2); Bilirubin,Total 0.7 mg/dl (0.2-1.0); Magnesium 2.2 mg/dl (1.7-2.4); Phosphorus 6.7 mg/dl (2.5-4.9); Total Protein 5.2 gm/dl (6.0-8.3)
[2022-12-22 05:34] LABS: iSTAT Allen Test Pass; iSTAT Art Bld Gas pCO2 Correct 43 mmHg (35-46); iSTAT Art Bld Gas pH Corrected 7.372 (7.35-7.45); iSTAT Arterial Blood Gas HCO3 25 meg/L (19-24); iSTAT Arterial Blood Gas pCO2 43 mmHg (35-46); iSTAT Arterial Blood Gas pH 7.37 (7.35-7.45); iSTAT Arterial Blood Gas pO2 64 mmHg (80-95); iSTAT Arterial Blood Gas pO2 C 63; iSTAT Carbon Dioxide 26 mmol/L (24-31); iSTAT FiO2 40 %; iSTAT Hematocrit 37 % (37-47); iSTAT Hemoglobin 12.6 g/dl (12.0-16.0); iSTAT Potassium 4.9 mmol/L (3.3-5.0); iSTAT Site L Radial; iSTAT Sodium 132 mmol/L (135-144)
--- NOTE | 2022-12-22 06:15 | Electrocardiogram Report ---
Test Reason : Blood Pressure : / mmHG Vent. Rate : 104 BPM Atrial Rate : 104 BPM P-R Int : 150 ms QRS Dur : 068 ms QT Int : 366 ms P-R-T Axes : 076 -34 106 degrees QTc Int : 481 ms Sinus tachycardia Left axis deviation Septal infarct (cited on or before 18-DEC-2022) Possible Inferior infarct (cited on or before 18-DEC-2022) Nonspecific T wave abnormality Prolonged QT Abnormal ECG When compared with ECG of 18-DEC-2022 23:18, Questionable change in initial forces of Anteroseptal leads Nonspecific T wave abnormality now evident in Inferior leads Nonspecific T wave abnormality, worse in Anterolateral leads Confirmed by Sedrick Howell ([id number]) on 12/22/2022 6:15:16 AM Referred By: REFERRED SELF Confirmed By:Sedrick Howell
[2022-12-22] MEDS: LEVOTHYROXINE SODIUM 150 MCG TABLET GT SCH (06:29)
[2022-12-22] MEDS: FORMOTEROL 20 MCG/2 ML VIAL NEB SCH ×2 (07:10→19:55)
[2022-12-22] MEDS: MIDAZOLAM BOLUS FROM BAG IV PRN (07:45)
[2022-12-22] MEDS: fentaNYL BOLUS from BAG IV PRN (07:55)
--- NOTE | 2022-12-22 08:00 | Procedure Note ---
Procedure Note Date of Service December 22, 2022 Note Diagnostic Bronchoscopy Informed consent obtained with family at bedside. Time out called. Patient was prepped in the usual fashion. Noted Excessive dynamic airway collapse at the level of the eileen and b/l mainstem. Overall thin secretions but anatomically normal RUL, RLL segments, RML/Bronchus intermedius was antatomically feasable for exploration with current equipment. Lingula and lower lobes had thin secretions which was suctioned. The Bronchoscope was wedged into a RLL segment 120 cc of saline instilled. 40 cc of return on the trap and sent for RLL BAL. Lowest oxygen satruation during the procedure was 91%. Patient tolerated the procedure well. Coding
--- NOTE | 2022-12-22 08:37 | Critical Care Progress Note ---
Date of Service December 22, 2022 Assessment & Plan (1) Acute on chronic respiratory failure with hypoxia and hypercapnia: Plan: Pt is a 87 yo female with PMH of diabetes, COPD, and noncompliance with medications/supplemental oxygen presenting to the hospital due to weakness and inability to move (pt reportedly found sitting at a kitchen table for ~24 hrs). Pt became progressively SOB despite noninvasive ventilation techniques and was subsequently intubated. Neuro - Pt remains intubated and sedated - RASS goal -3 CV Distributive shock in setting of severe sepsis - Remains off levophed Respiratory Severe ARDS, COPD with exacerbation - continue pronation per standard protocol (16 hrs per day for at least 3 days)- avoid fluid overload - continue solumedrol 80 mg q8hr (plan for 3 day course, began 12/19) and scheduled nebs q6hr - repeat ABG after placing supine this AM - CXR yesterday stable. Continue to monitor for worsening effusions/congestion and PNA Renal Acute renal failure/RU with subsequent hyperkalemia and hyperphosphatemia - Cr continues to worsen; renal US ordered to evaluate for possible post obstructive cause- may need CTAP pending US results - continue serial BMP, ABG Infectious disease Bilateral basilar PNA in the setting of ?chronic aspiration, ?UTI - continue cefepime, metronidazole, and azithromycin - urine cx showed E. coli >100,000 CFU sensitive to current ABX regimen - blood cx neg; may consider repeat cultures as unsure of reason for such severe sepsis presentation GI No acute concerns - GI ppx with famotidine 20 mg daily Endocrine DM - A1c this hospitalization 8.4% - per pt's family, non compliant with home metformin - blood glucose goal while hospitalized 140-180 IVF: none GI ppx: famotidine 20 mg daily DVT ppx: heparin subQ d/t ARF Code: conditional- no CPR/defibrillation (2) Acute UTI: (3) COPD with emphysema: (4) Diabetes mellitus: (5) Pneumonia: (6) Hypothyroidism: Admission and Anticipated Discharge Date Admission Date: December 19, 2022 Supervising Physician Co-Signing Physician Notes Patient seen and examined. Agree with below assessment and plan. 87 year old female with advanced COPD, non compliant with home oxygen and active smoking and DM presenting with acute on chronic hypoxemic / hypercapnic respiratory failure requiring mechanical ventilation on 12/19/2022. CTA with dense basilar infiltates R>L with fibrotic changes, concerns for chornic / silent aspiration. Diagnosed with UTI as well. Currently in severe ARDS, acute oliguric renal failure requiring proning starting on 12/19/2022. On exam: Gen: intubated / seated, RASS -3 CV: RRR Resp: Diminished b/l Abd: Distended, soft, no massess palpated Ext: Cold, dry Skin: no rashes Plan: NEURO 1. Intubated, sedated 2. EEG this am with burst suppression pattern, on minimal sedation -- Given improvement in oxygenation, will start SAT today, taper off versed -- Proned from 12/19 to 12/21. -- Plan for MRI this afernoon CV 1. Distributive shock in setting of severe sepsis -- Off levophed RESP 1. Severe ARDS 2. COPD with exacerbation -- TV < 6cc/kg, Driving prssure < 14 -- Taper Solumedrol, nebs q4 hrs prn RENAL 1. Oliguric acute renal failure / RU. Likely septic ATN, also received IV contrast on admission 2. Hyperkalemia 3. Hyperphospahtemia 4. Metabolic acidosis 2/2 RTA from ATN 5. Rhabomyolysis w/ associated transaminitis -- Serial metabolic panel, abd US without hydronephrosis -- After discussion with family, will attempt dilaysis. Will plan for HD session today with right IJ pigtail catheter. ID 1. B/l basilar PNA, concern for chronic / silent aspiration 2. UTI, urine culture with E. coli, ruled out post renal obx --Continue Cefepime / flagyl for now. Follow fever curve, wbc daily GI 1. Transaminitis, hepatocellular pattern, likely due to rhbado / possibly shock liver vs hepatic congestion -- Follow transaminitis, has been stable / improving -- Start tube feeds to goal today -- GI ppx ENDO 1. DM -- Blood glucose goal 140-180 -- On insulin gtt, managed by pharmacy GI ppx: pepcid DVT ppx: heparin subQ Subjective No acute events overnight. Pt remains intubated and sedated with family at bedside. Review of Systems Review of Systems: Unobtainable due to endotracheal tube Physical Exam Physical Exam: Constitutional: no acute distress HEENT: normocephalic CV: regular rhythm, regular rate, no murmur Respiratory: Clear to auscultation bilaterally. Course breath sounds throughout. GI: soft, distended MSK: no gross deformities noted Skin: warm, dry, no obvious rashes Neuro: sedated Results & Data Results & Data Vital Signs (Past 12 Hours) Vital Signs Temp Pulse Resp BP Pulse Ox FiO2 12/22/22 08:00 36.9 C 93 H 21 95 12/22/22 08:00 119/43 L 12/22/22 07:55 36.8 C 99 H 22 96 12/22/22 07:55 147/52 H 12/22/22 07:51 174/95 H 12/22/22 07:51 36.6 C 102 H 8 L 91 12/22/22 07:50 36.8 C 96 H 12 90 12/22/22 07:45 36.7 C 88 18 91 12/22/22 07:45 119/48 L 12/22/22 07:00 88 24 92 12/22/22 07:00 125/51 L 12/22/22 06:00 90 20 92 12/22/22 06:00 129/47 L 12/22/22 05:00 88 23 93 12/22/22 05:00 125/50 L 12/22/22 04:00 90 22 92 12/22/22 04:00 121/48 L 12/22/22 03:00 89 22 92 12/22/22 03:00 118/44 L 12/22/22 02:00 89 22 92 12/22/22 02:00 115/47 L 12/22/22 01:00 93 H 22 93 12/22/22 01:00 121/42 L 12/22/22 00:00 94 H 22 92 12/22/22 00:00 122/50 L 12/21/22 23:00 94 H 22 91 12/21/22 23:00 123/52 L 12/21/22 22:00 94 H 22 90 12/21/22 22:00 119/51 L 12/21/22 21:00 36.6 C 94 H 22 89 L 12/21/22 21:00 125/49 L 12/22/22 05:25 22 40 12/21/22 23:11 95 H 12/22/22 04:00 40 12/22/22 00:00 40 12/22/22 02:27 92 H 22 89 L 40 12/21/22 22:57 91 H 22 94 40 Critical Care Time 65 Resident Activity Tracking Resident Involvement: Resident Care Provided Care Provided: Adult Hospital Medicine (ICU) (5) Pneumonia Laterality: bilateral Lung location: lower lobe of lung Pneumonia type: due to unspecified organism Qualified Code(s): J18.9 - Pneumonia, unspecified organism
[2022-12-22] MEDS: SENNOSIDES 8.8 MG/5 ML UDC GT SCH (08:56)
[2022-12-22] MEDS: POLYETHYLENE (MIRALAX) 17 GM PACK GT SCH (08:57)
[2022-12-22] MEDS: MULTI VIT W/MINERALS LIQUID 15 ML UDP GT SCH (08:57)
[2022-12-22] MEDS: HEPARIN SOD 5,000 UNIT/0.5 ML VIAL SQ SCH ×2 (08:57→22:19)
[2022-12-22] MEDS: CLOPIDOGREL BISULFATE 75 MG TAB PO SCH (08:57)
[2022-12-22] MEDS: FAMOTIDINE 20 MG in SYRINGE 3 ML IV SCH (08:59)
--- NOTE | 2022-12-22 09:09 | Electroencephalogram ---
EEG Procedure Note Date of Service December 22, 2022 Start / End Times Start Time: 824 End Time: 844 Referring Physician Jeff Whatley MD History 87-year-old unresponsive, question brain Home Medication List Medication Instructions Recorded Confirmed Type clopidogrel 75 mg tablet 75 mg PO DAILY 06/14/21 12/19/22 History levothyroxine 150 mcg tablet 150 mcg PO DAILY 06/14/21 12/19/22 History metoprolol tartrate 25 mg tablet 25 mg PO BID 06/14/21 12/19/22 History multivitamin 1 tab PO DAILY 06/14/21 12/19/22 History rosuvastatin 10 mg tablet 10 mg PO DAILY 06/14/21 12/19/22 History lancets 30 gauge and blood glucose #200 ea 06/24/21 08/17/22 Rx strips combo pack Portable Oxygen #1 ea 07/21/21 08/17/22 Rx hydrochlorothiazide 12.5 mg tablet 12.5 mg PO DAILY 07/21/21 12/19/22 History Flutter Valve #1 ea 08/24/22 08/24/22 Rx albuterol sulfate 90 mcg/actuation 2 inh inhalation Q6H PRN shortness 08/24/22 12/19/22 Rx aerosol inhaler of breath or wheezing #8.5 grams umeclidinium 62.5 mcg-vilanterol 1 ea inhalation DAILY #60 ea 08/24/22 12/19/22 Rx 25 mcg/actuation powdr for inhalation (Anoro Ellipta) azithromycin 250 mg tablet 250 mg PO DAILY 12/19/22 12/19/22 History calcium carbonate 200 mg-magnesium 1 tab PO BID 12/19/22 12/19/22 History oxide,carbonate 100 mg chew tablet (Jez-Mag) diclofenac sodium 1 % topical gel 4 g topical TID PRN Pain 12/19/22 12/19/22 History duloxetine 30 mg capsule,delayed 30 mg PO QAM 12/19/22 12/19/22 History release gabapentin 300 mg capsule 300 mg PO BID 12/19/22 12/19/22 History losartan 50 mg tablet 50 mg PO QAM 12/19/22 12/19/22 History metformin 500 mg tablet,extended 2,000 mg PO DAILY 12/19/22 12/19/22 History release 24 hr Inpatient Medication List Clopidogrel Bisulfate (Clopidogrel Bisulfate 75 Mg Tab) 75 mg PO DAILY COLT Stop: 01/18/23 08:59 Last Admin: 12/21/22 10:00 Dose: 75 mg Documented By: Admin: 12/20/22 13:05 Dose: 75 mg Documented By: Admin: 12/19/22 12:34 Dose: 75 mg Documented By: LUIZA Dextrose (Dextrose 50% 50 Ml Syringe) 25 - 50 ml IV UD PRN; Protocol PRN Reason: Hypoglycemia Protocol Stop: 01/18/23 05:00 Last Admin: 12/19/22 09:27 Dose: 50 ml Documented By: LUIZA Enteral Nutritional Formula (Novasource Renal 2.0 Jez 1000ml Bag) 1,000 ml OG .SeeProtocol COLT; Protocol Stop: 01/20/23 11:14 Last Admin: 12/21/22 17:27 Dose: 1,000 ml Documented By: RANJITH Fentanyl Citrate (Fentanyl Bolus From Bag) 50 mcg IV Q60M PRN PRN Reason: Pain or Agitation Stop: 01/02/23 04:42 Last Admin: 12/22/22 07:55 Dose: 50 mcg Documented By: TYRONE Co-signed By: RANJITH Admin: 12/21/22 08:19 Dose: 50 mcg Documented By: TYRONE Co-signed By: RANJITH Admin: 12/20/22 00:00 Dose: 50 mcg Documented By: EVERETT Co-signed By: WENDY Admin: 12/19/22 20:00 Dose: 50 mcg Documented By: EVERETT Co-signed By: WENDY Formoterol Fumarate (Formoterol 20 Mcg/2 Ml Vial) 20 mcg NEB BIDR COLT Stop: 01/20/23 18:59 Last Admin: 12/22/22 07:10 Dose: 20 mcg Documented By: Admin: 12/21/22 20:08 Dose: 20 mcg Documented By: XI Heparin Sodium (Porcine) (Heparin Sod 5,000 Unit/0.5 Ml Vial) 5,000 units SQ Q12 COLT Stop: 01/18/23 20:59 Last Admin: 12/21/22 20:45 Dose: 5,000 units Documented By: Admin: 12/21/22 08:20 Dose: 5,000 units Documented By: Admin: 12/20/22 21:39 Dose: 5,000 units Documented By: Admin: 12/20/22 08:05 Dose: 5,000 units Documented By: Admin: 12/19/22 19:33 Dose: 5,000 units Documented By: EVERETT Midazolam HCl (Versed) 125 mg in 250 mls @ 2 mls/hr IV .Q96H COLT; Protocol Stop: 01/18/23 04:44 Last Titration: 12/21/22 19:27 Dose: 1 mg/hr, 2 mls/hr Documented By: TYRONE Co-signed By: SWETHA Titration: 12/21/22 07:09 Dose: 1 mg/hr, 2 mls/hr Documented By: LINETTE Co-signed By: TYRONE Titration: 12/20/22 19:09 Dose: 1 mg/hr, 2 mls/hr Documented By: INÉS Co-signed By: ALEXA Titration: 12/20/22 07:16 Dose: 1 mg/hr, 2 mls/hr Documented By: EVERETT Co-signed By: INÉS Titration: 12/19/22 18:54 Dose: 1 mg/hr, 2 mls/hr Documented By: EVERETT Co-signed By: CAM Admin: 12/19/22 04:45 Dose: 1 mg/hr, 2 mls/hr Documented By: EVERETT Co-signed By: ARTHUR Fentanyl Citrate (Fentanyl Citrate) 2,500 mcg in 250 mls @ 12.5 mls/hr IV .Q20H [facility]; Protocol Stop: 01/02/23 04:44 Last Admin: 12/22/22 02:09 Dose: Not Given Documented By: Admin: 12/21/22 23:48 Dose: 125 mcg/hr, 12.5 mls/hr Documented By: BRA Co-signed By: HFS Titration: 12/21/22 23:48 Dose: 125 mcg/hr, 12.5 mls/hr Documented By: SWETHA Co-signed By: HFS Titration: 12/21/22 22:45 Dose: 125 mcg/hr, 12.5 mls/hr Documented By: SWETHA Co-signed By: SG Titration: 12/21/22 19:27 Dose: 100 mcg/hr, 10 mls/hr Documented By: TYRONE Co-signed By: SWETHA Admin: 12/21/22 16:31 Dose: Not Given Documented By: Titration: 12/21/22 14:00 Dose: 100 mcg/hr, 10 mls/hr Documented By: ES Co-signed By: TYRONE Titration: 12/21/22 10:12 Dose: 75 mcg/hr, 7.5 mls/hr Documented By: RANJITH Co-signed By: TYRONE Titration: 12/21/22 07:09 Dose: 50 mcg/hr, 5 mls/hr Documented By: LINETTE Co-signed By: TYRONE Admin: 12/20/22 21:59 Dose: 50 mcg/hr, 5 mls/hr Documented By: TP Co-signed By: LLP Titration: 12/20/22 21:59 Dose: 50 mcg/hr, 5 mls/hr Documented By: TP Co-signed By: LLP Titration: 12/20/22 19:09 Dose: 50 mcg/hr, 5 mls/hr Documented By: INÉS Co-signed By: ALEXA Titration: 12/20/22 07:16 Dose: 50 mcg/hr, 5 mls/hr Documented By: EVERETT Co-signed By: HLK Titration: 12/19/22 19:58 Dose: 50 mcg/hr, 5 mls/hr Documented By: EVERETT Co-signed By: LLP Titration: 12/19/22 18:54 Dose: 25 mcg/hr, 2.5 mls/hr Documented By: EVERETT Co-signed By: LUIZA Admin: 12/19/22 04:45 Dose: 25 mcg/hr, 2.5 mls/hr Documented By: EVERETT Co-signed By: AMW Norepinephrine Bitartrate (Levophed/D5w) 4 mg in 250 mls @ 0 mls/hr IV .Q0M [facility]; Protocol Stop: 01/18/23 05:14 Last Titration: 12/21/22 08:18 Dose: 0 mcg/kg/min, 0 mls/hr Documented By: Titration: 12/21/22 07:09 Dose: 0.02 mcg/kg/min, 6.5 mls/hr Documented By: LINETTE Co-signed By: TYRONE Titration: 12/21/22 01:12 Dose: 0.02 mcg/kg/min, 6.5 mls/hr Documented By: Admin: 12/20/22 21:59 Dose: 0.03 mcg/kg/min, 9.8 mls/hr Documented By: TP Co-signed By: LLP Titration: 12/20/22 21:59 Dose: 0.03 mcg/kg/min, 9.8 mls/hr Documented By: TP Co-signed By: LLP Admin: 12/20/22 21:42 Dose: 0.03 mcg/kg/min, 9.8 mls/hr Documented By: TP Co-signed By: LLP Titration: 12/20/22 21:42 Dose: 0.03 mcg/kg/min, 9.8 mls/hr Documented By: TP Co-signed By: LLP Titration: 12/20/22 20:36 Dose: 0.03 mcg/kg/min, 9.8 mls/hr Documented By: TP Co-signed By: MNM Admin: 12/20/22 17:16 Dose: Not Given Documented By: Admin: 12/20/22 15:46 Dose: Not Given Documented By: Titration: 12/20/22 15:44 Dose: 0.04 mcg/kg/min, 13 mls/hr Documented By: Titration: 12/20/22 15:26 Dose: 0.02 mcg/kg/min, 6.5 mls/hr Documented By: Titration: 12/20/22 14:30 Dose: 0 mcg/kg/min, 0 mls/hr Documented By: Titration: 12/20/22 13:15 Dose: 0.02 mcg/kg/min, 6.5 mls/hr Documented By: Admin: 12/20/22 13:06 Dose: Not Given Documented By: Admin: 12/20/22 12:22 Dose: Not Given Documented By: Titration: 12/20/22 11:45 Dose: 0.03 mcg/kg/min, 9.8 mls/hr Documented By: Titration: 12/20/22 11:16 Dose: 0.05 mcg/kg/min, 16.3 mls/hr Documented By: Titration: 12/20/22 10:34 Dose: 0.07 mcg/kg/min, 22.8 mls/hr Documented By: Titration: 12/20/22 10:15 Dose: 0.05 mcg/kg/min, 16.3 mls/hr Documented By: Titration: 12/20/22 07:16 Dose: 0.03 mcg/kg/min, 9.8 mls/hr Documented By: ELS Co-signed By: ALFK Admin: 12/20/22 05:47 Dose: 0.03 mcg/kg/min, 9.8 mls/hr Documented By: ELS Co-signed By: SG Titration: 12/20/22 05:17 Dose: 0.03 mcg/kg/min, 9.8 mls/hr Documented By: ELS Co-signed By: SG Titration: 12/20/22 05:07 Dose: 0.03 mcg/kg/min, 9.8 mls/hr Documented By: Titration: 12/20/22 04:20 Dose: 0.05 mcg/kg/min, 16.3 mls/hr Documented By: Titration: 12/20/22 04:06 Dose: 0.07 mcg/kg/min, 22.8 mls/hr Documented By: Titration: 12/20/22 02:42 Dose: 0.09 mcg/kg/min, 29.3 mls/hr Documented By: Titration: 12/20/22 01:41 Dose: 0.11 mcg/kg/min, 35.8 mls/hr Documented By: Titration: 12/20/22 01:15 Dose: 0.13 mcg/kg/min, 42.4 mls/hr Documented By: Titration: 12/20/22 01:05 Dose: 0.11 mcg/kg/min, 35.8 mls/hr Documented By: Titration: 12/20/22 01:00 Dose: 0.09 mcg/kg/min, 29.3 mls/hr Documented By: Titration: 12/20/22 00:45 Dose: 0.07 mcg/kg/min, 22.8 mls/hr Documented By: Titration: 12/20/22 00:30 Dose: 0.09 mcg/kg/min, 29.3 mls/hr Documented By: Titration: 12/20/22 00:15 Dose: 0.07 mcg/kg/min, 22.8 mls/hr Documented By: Admin: 12/19/22 21:41 Dose: Not Given Documented By: Titration: 12/19/22 20:45 Dose: 0.05 mcg/kg/min, 16.3 mls/hr Documented By: Titration: 12/19/22 20:30 Dose: 0.03 mcg/kg/min, 9.8 mls/hr Documented By: Titration: 12/19/22 19:58 Dose: 0 mcg/kg/min, 0 mls/hr Documented By: Titration: 12/19/22 18:54 Dose: 0.03 mcg/kg/min, 9.8 mls/hr Documented By: ELS Co-signed By: CAM Titration: 12/19/22 18:21 Dose: 0.03 mcg/kg/min, 9.8 mls/hr Documented By: Titration: 12/19/22 17:50 Dose: 0.07 mcg/kg/min, 22.8 mls/hr Documented By: Admin: 12/19/22 17:16 Dose: 0.11 mcg/kg/min, 35.8 mls/hr Documented By: CAM Co-signed By: JLM Titration: 12/19/22 17:16 Dose: 0.11 mcg/kg/min, 35.8 mls/hr Documented By: CAM Co-signed By: JLM Titration: 12/19/22 17:15 Dose: 0.11 mcg/kg/min, 35.8 mls/hr Documented By: Titration: 12/19/22 13:30 Dose: 0.07 mcg/kg/min, 22.8 mls/hr Documented By: Titration: 12/19/22 12:30 Dose: 0.06 mcg/kg/min, 19.6 mls/hr Documented By: Admin: 12/19/22 05:00 Dose: 0.05 mcg/kg/min, 16.3 mls/hr Documented By: ELS Co-signed By: ARTHUR Cefepime HCl 1,000 mg/ Syringe 10 mls @ 5 mls/min IV Q12H [facility]; Protocol Stop: 12/29/22 13:59 Last Admin: 12/22/22 02:11 Dose: 5 mls/min Documented By: Admin: 12/21/22 15:34 Dose: 5 mls/min Documented By: Admin: 12/21/22 01:33 Dose: 5 mls/min Documented By: MNEarl Admin: 12/20/22 13:07 Dose: 5 mls/min Documented By: Admin: 12/20/22 02:36 Dose: 5 mls/min Documented By: Admin: 12/19/22 14:13 Dose: 5 mls/min Documented By: LUIZA Famotidine 20 mg/ Syringe 5 mls @ 2.5 mls/min IV DAILY COLT Stop: 01/19/23 08:59 Last Admin: 12/21/22 08:21 Dose: 2.5 mls/min Documented By: Admin: 12/20/22 08:24 Dose: 2.5 mls/min Documented By: INÉS Insulin Human Regular 250 (units/ Sodium Chloride) 250 mls @ 1.8 mls/hr IV .Q24H COLT; Protocol Stop: 01/18/23 12:59 Last Titration: 12/22/22 07:00 Dose: 1.8 unit/hr, 1.8 mls/hr Documented By: SWETHA Co-signed By: TYRONE Titration: 12/22/22 05:00 Dose: 1.8 unit/hr, 1.8 mls/hr Documented By: SWETHA Co-signed By: RIVER Titration: 12/22/22 03:00 Dose: 1.8 unit/hr, 1.8 mls/hr Documented By: BRA Co-signed By: SG Titration: 12/22/22 01:00 Dose: 1.8 unit/hr, 1.8 mls/hr Documented By: BRA Co-signed By: SG Titration: 12/22/22 00:00 Dose: 1.8 unit/hr, 1.8 mls/hr Documented By: BRA Co-signed By: SG Titration: 12/21/22 23:00 Dose: 1.8 unit/hr, 1.8 mls/hr Documented By: BRA Co-signed By: SG Titration: 12/21/22 22:00 Dose: 1.8 unit/hr, 1.8 mls/hr Documented By: BRA Co-signed By: SG Titration: 12/21/22 21:00 Dose: 1.8 unit/hr, 1.8 mls/hr Documented By: BRA Co-signed By: SG Titration: 12/21/22 20:00 Dose: 1.8 unit/hr, 1.8 mls/hr Documented By: SWETHA Co-signed By: SG Titration: 12/21/22 19:27 Dose: 1.8 unit/hr, 1.8 mls/hr Documented By: TYRONE Co-signed By: BRA Titration: 12/21/22 19:18 Dose: 1.8 unit/hr, 1.8 mls/hr Documented By: TYRONE Co-signed By: BRA Titration: 12/21/22 18:20 Dose: 2.2 unit/hr, 2.2 mls/hr Documented By: TYRONE Co-signed By: ES Titration: 12/21/22 16:45 Dose: 2.7 unit/hr, 2.7 mls/hr Documented By: TYRONE Co-signed By: ES Admin: 12/21/22 15:50 Dose: 3.4 unit/hr, 3.4 mls/hr Documented By: TYRONE Co-signed By: ES Titration: 12/21/22 15:50 Dose: 3.4 unit/hr, 3.4 mls/hr Documented By: TYRONE Co-signed By: ES Titration: 12/21/22 15:00 Dose: 3.4 unit/hr, 3.4 mls/hr Documented By: RANJITH Co-signed By: TYRONE Titration: 12/21/22 14:00 Dose: 3.4 unit/hr, 3.4 mls/hr Documented By: RANJITH Co-signed By: TYRONE Titration: 12/21/22 12:54 Dose: 3.4 unit/hr, 3.4 mls/hr Documented By: TYRONE Co-signed By: NORM Titration: 12/21/22 11:00 Dose: 4.3 unit/hr, 4.3 mls/hr Documented By: TYRONE Co-signed By: JBKeith Titration: 12/21/22 09:57 Dose: 3.6 unit/hr, 3.6 mls/hr Documented By: TYRONE Co-signed By: ES Titration: 12/21/22 07:46 Dose: 3 unit/hr, 3 mls/hr Documented By: RANJITH Co-signed By: TYRONE Titration: 12/21/22 07:09 Dose: 3.7 unit/hr, 3.7 mls/hr Documented By: LINETTE Co-signed By: TYRONE Titration: 12/21/22 05:34 Dose: 3.7 unit/hr, 3.7 mls/hr Documented By: LINETTE Co-signed By: TP Titration: 12/21/22 04:38 Dose: 4.6 unit/hr, 4.6 mls/hr Documented By: MNM Co-signed By: TP Titration: 12/21/22 02:41 Dose: 3.8 unit/hr, 3.8 mls/hr Documented By: MNM Co-signed By: TP Titration: 12/21/22 01:46 Dose: 4.8 unit/hr, 4.8 mls/hr Documented By: MNM Co-signed By: TP Titration: 12/21/22 00:38 Dose: 4 unit/hr, 4 mls/hr Documented By: MNM Co-signed By: TP Titration: 12/20/22 23:43 Dose: 5 unit/hr, 5 mls/hr Documented By: MNM Co-signed By: TP Titration: 12/20/22 22:39 Dose: 5 unit/hr, 5 mls/hr Documented By: MNM Co-signed By: TP Titration: 12/20/22 21:31 Dose: 6.2 unit/hr, 6.2 mls/hr Documented By: TP Co-signed By: MNM Titration: 12/20/22 20:36 Dose: 6.2 unit/hr, 6.2 mls/hr Documented By: TP Co-signed By: MNM Titration: 12/20/22 19:09 Dose: 7.8 unit/hr, 7.8 mls/hr Documented By: HLK Co-signed By: TP Titration: 12/20/22 17:00 Dose: 7.8 unit/hr, 7.8 mls/hr Documented By: HLK Co-signed By: JLEarl Admin: 12/20/22 14:50 Dose: Not Given Documented By: Titration: 12/20/22 14:00 Dose: 9.7 unit/hr, 9.7 mls/hr Documented By: HLK Co-signed By: LAF Titration: 12/20/22 13:00 Dose: 8.1 unit/hr, 8.1 mls/hr Documented By: INÉS Co-signed By: LAF Admin: 12/20/22 12:20 Dose: Not Given Documented By: Admin: 12/20/22 11:40 Dose: 10.1 unit/hr, 10.1 mls/hr Documented By: INÉS Co-signed By: ARTHUR(2) Titration: 12/20/22 10:00 Dose: 0 unit/hr, 0 mls/hr Documented By: NIÉS Co-signed By: TYRONE(2) Titration: 12/20/22 09:00 Dose: 12.6 unit/hr, 12.6 mls/hr Documented By: HLK Co-signed By: ARTHUR(2) Titration: 12/20/22 08:00 Dose: 15.8 unit/hr, 15.8 mls/hr Documented By: HLK Co-signed By: TYRONE(2) Titration: 12/20/22 07:16 Dose: 19.7 unit/hr, 19.7 mls/hr Documented By: EVERETT Co-signed By: INÉS Titration: 12/20/22 06:41 Dose: 19.7 unit/hr, 19.7 mls/hr Documented By: ELS Co-signed By: LLP Titration: 12/20/22 05:30 Dose: 19.7 unit/hr, 19.7 mls/hr Documented By: ELS Co-signed By: SG Titration: 12/20/22 04:30 Dose: 19.7 unit/hr, 19.7 mls/hr Documented By: EVERETT Co-signed By: SG Titration: 12/20/22 03:40 Dose: 19.7 unit/hr, 19.7 mls/hr Documented By: EVERETT Co-signed By: SG Titration: 12/20/22 02:40 Dose: 19.7 unit/hr, 19.7 mls/hr Documented By: ELS Co-signed By: SG Titration: 12/20/22 01:40 Dose: 19.7 unit/hr, 19.7 mls/hr Documented By: ELS Co-signed By: SG Titration: 12/20/22 00:41 Dose: 19.7 unit/hr, 19.7 mls/hr Documented By: EVERETT Co-signed By: LLP Titration: 12/19/22 23:40 Dose: 16.4 unit/hr, 16.4 mls/hr Documented By: EVERETT Co-signed By: SG Titration: 12/19/22 22:30 Dose: 16.4 unit/hr, 16.4 mls/hr Documented By: ELS Co-signed By: NELLIE Titration: 12/19/22 21:30 Dose: 13.7 unit/hr, 13.7 mls/hr Documented By: VEERETT Co-signed By: RIVER Titration: 12/19/22 20:30 Dose: 11.4 unit/hr, 11.4 mls/hr Documented By: EVERETT Co-signed By: RIVER Titration: 12/19/22 19:30 Dose: 9.5 unit/hr, 9.5 mls/hr Documented By: EVERETT Co-signed By: SG Titration: 12/19/22 18:54 Dose: 7.9 unit/hr, 7.9 mls/hr Documented By: EVERETT Co-signed By: CAM Titration: 12/19/22 18:30 Dose: 7.9 unit/hr, 7.9 mls/hr Documented By: LUIZA Co-signed By: ROSAURA Titration: 12/19/22 17:10 Dose: 6.6 unit/hr, 6.6 mls/hr Documented By: LUIZA Co-signed By: ROSAURA Titration: 12/19/22 15:41 Dose: 5.5 unit/hr, 5.5 mls/hr Documented By: CAM Co-signed By: ROSAURA Titration: 12/19/22 14:29 Dose: 4.6 unit/hr, 4.6 mls/hr Documented By: LUIZA Co-signed By: ROSAURA Admin: 12/19/22 13:26 Dose: 3.3 unit/hr, 3.3 mls/hr Documented By: LUIZA Co-signed By: ROSAURA Methylprednisolone 40 mg/ (Syringe) 0.64 mls @ 1.5 mls/min IV Q8H COLT Stop: 12/23/22 16:01 Last Admin: 12/22/22 02:11 Dose: 1.5 mls/min Documented By: SWETHA Levothyroxine Sodium (Levothyroxine Sodium 150 Mcg Tablet) 150 mcg GT DAILYBB [facility] Stop: 01/18/23 06:29 Last Admin: 12/22/22 06:29 Dose: 150 mcg Documented By: Admin: 12/21/22 06:08 Dose: Not Given Documented By: MNM Midazolam HCl (Midazolam Bolus From Bag) 2 mg IV Q60M PRN PRN Reason: Sedation Stop: 01/18/23 04:42 Last Admin: 12/22/22 07:45 Dose: 2 mg Documented By: TYRONE Co-signed By: RANJITH Admin: 12/20/22 00:00 Dose: 2 mg Documented By: EVERETT Co-signed By: WENDY Multivitamins/Minerals (Multi Vit W/Minerals Liquid 15 Ml Udp) 15 ml GT DAILY COLT Stop: 01/19/23 09:59 Last Admin: 12/21/22 10:00 Dose: 15 ml Documented By: Admin: 12/20/22 13:05 Dose: 15 ml Documented By: INÉS Polyethylene Glycol (Polyethylene (Miralax) 17 Gm Pack) 17 gm GT DAILY COLT Stop: 01/20/23 10:14 Last Admin: 12/21/22 11:04 Dose: 17 gm Documented By: TYRONE Sennosides (Sennosides 8.8 Mg/5 Ml Udc) 8.8 mg GT DAILY COLT Stop: 01/19/23 10:14 Last Admin: 12/21/22 10:00 Dose: 8.8 mg Documented By: Admin: 12/20/22 13:05 Dose: 8.8 mg Documented By: INÉS Sterile Water (Tube Feeding Water Flush) 30 ml OG Q4H COLT Stop: 01/20/23 11:14 Last Admin: 12/22/22 03:15 Dose: 30 ml Documented By: Admin: 12/21/22 23:15 Dose: 30 ml Documented By: Admin: 12/21/22 19:15 Dose: 30 ml Documented By: Admin: 12/21/22 15:53 Dose: 30 ml Documented By: Admin: 12/21/22 12:48 Dose: 30 ml Documented By: RANJITH Discontinued Medications Albuterol (Albut/Ipratrop 3mg/0.5mg Neb 3 Ml Vial) Confirm Administered Dose 3 ml .ROUTE .STK-MED ONE Stop: 12/19/22 02:53 Last Admin: 12/19/22 02:52 Dose: 3 ml Documented By: DAGOBERTO Albuterol (Albut/Ipratrop 3mg/0.5mg Neb 3 Ml Vial) Confirm Administered Dose 3 ml .ROUTE .STK-MED ONE Stop: 12/19/22 03:51 Last Admin: 12/19/22 05:05 Dose: 3 ml Documented By: DAGOBERTO Albuterol (Albut/Ipratrop 3mg/0.5mg Neb 3 Ml Vial) 3 ml NEB Q6R COLT; Protocol Stop: 01/18/23 06:59 Last Admin: 12/21/22 07:32 Dose: 3 ml Documented By: Admin: 12/21/22 00:33 Dose: 3 ml Documented By: LUIZA(2) Admin: 12/20/22 20:18 Dose: 3 ml Documented By: LUIZA(2) Admin: 12/20/22 12:48 Dose: 3 ml Documented By: [id number] Admin: 12/20/22 07:36 Dose: 3 ml Documented By: [id number] Admin: 12/20/22 00:20 Dose: 3 ml Documented By: LUIZA(2) Admin: 12/19/22 20:05 Dose: 3 ml Documented By: LUIZA(2) Admin: 12/19/22 13:15 Dose: 3 ml Documented By: [id number] Admin: 12/19/22 07:52 Dose: 3 ml Documented By: [id number] Dextrose (Dextrose 50% 50 Ml Syringe) 50 ml IV NOW STA Stop: 12/19/22 09:29 Last Admin: 12/19/22 09:36 Dose: Not Given Documented By: LUIZA Duloxetine HCl (Duloxetine Hcl 30 Mg Cap) [facility] Stop: 01/18/23 08:59 Last Admin: 12/19/22 07:19 Dose: Not Given Documented By: LUIZA Enoxaparin Sodium (Enoxaparin Inj 40 Mg/0.4 Ml Syr) 40 mg [facility]Q [facility] [place] Stop: 01/18/23 08:59 Last Admin: 12/19/22 08:10 Dose: 40 mg Documented By: LUIZA Fentanyl Citrate (Fentanyl Citrate Pf 100 Mcg/2 Ml Vial) Confirm Administered Dose 100 mcg .ROUTE .STK-MED ONE Stop: 12/19/22 04:40 Last Admin: 12/19/22 05:16 Dose: Not Given Documented By: EVERETT Fentanyl Citrate (Fentanyl Citrate Pf 100 Mcg/2 Ml Vial) 100 mcg IV NOW STA Stop: 12/19/22 04:44 Last Admin: 12/19/22 05:15 Dose: 100 mcg Documented By: EVERETT Fentanyl Citrate (Fentanyl Citrate 2,500 Mcg/250 Ml Bag) Confirm Administered Dose 2,500 mcg IV .STK-MED ONE Stop: 12/19/22 04:46 Last Admin: 12/19/22 05:16 Dose: Not Given Documented By: EVERETT Furosemide (Furosemide Inj 20 Mg/2 Ml Vial) 20 mg IV ONE STA Stop: 12/19/22 02:42 Last Admin: 12/19/22 03:37 Dose: Not Given Documented By: AQUILINO Furosemide (Furosemide 40 Mg/4 Ml Vial) Confirm Administered Dose 40 mg IV .STK- MED ONE Stop: 12/19/22 02:56 Last Admin: 12/19/22 03:39 Dose: Not Given Documented By: AQUILINO Furosemide (Furosemide 40 Mg/4 Ml Vial) 40 mg IV ONE ONE Stop: 12/19/22 03:39 Last Admin: 12/19/22 03:39 Dose: 40 mg Documented By: AQUILINO Furosemide (Furosemide 40 Mg/4 Ml Vial) 40 mg IV ONE ONE Stop: 12/20/22 09:34 Last Admin: 12/20/22 10:52 Dose: 40 mg Documented By: INÉS Furosemide (Furosemide 40 Mg/4 Ml Vial) 40 mg IV ONE ONE Stop: 12/20/22 11:01 Last Admin: 12/20/22 10:53 Dose: Not Given Documented By: INÉS Sodium Chloride (Nss) 500 mls @ 999 mls/hr IV .Q31M ONE Stop: 12/19/22 00:39 Last Infusion: 12/19/22 01:42 Dose: 0 mls/hr Documented By: Admin: 12/19/22 00:32 Dose: 999 mls/hr Documented By: AQUILINO Ceftriaxone Sodium (Rocephin) 2,000 mg in 70 mls @ 140 mls/hr IV NOW STA Stop: 12/19/22 02:02 Last Infusion: 12/19/22 02:30 Dose: 0 mls/hr Documented By: Admin: 12/19/22 02:00 Dose: 140 mls/hr Documented By: AQUILINO Cefepime HCl (Maxipime) 2,000 mg in 20 mls @ 5 mls/min IV NOW STA; Protocol Stop: 12/19/22 02:09 Last Admin: 12/19/22 02:37 Dose: 5 mls/min Documented By: AQUILINO Propofol (Diprivan) 1,000 mg in 100 mls @ 2.607 mls/hr IV .Q24H COLT; Protocol Stop: 12/22/22 03:44 Last Admin: 12/19/22 19:00 Dose: Not Given Documented By: EVERETT Albumin Human (Albumin 25%) 12.5 gm in 50 mls @ 50 mls/hr IV ONE STA Stop: 12/19/22 05:25 Last Admin: 12/19/22 19:00 Dose: Not Given Documented By: EVERETT Doxycycline Hyclate 100 mg/ (Dextrose) 110 mls @ 50 mls/hr IV Q12H COLT Stop: 12/26/22 05:59 Last Infusion: 12/19/22 15:43 Dose: 0 mls/hr Documented By: Admin: 12/19/22 06:04 Dose: 50 mls/hr Documented By: EVERETT Acetaminophen (Ofirmev) 1,000 mg in 100 mls @ 400 mls/hr IV Q8H PRN PRN Reason: Fever Stop: 12/22/22 05:20 Last Infusion: 12/19/22 07:18 Dose: 0 mls/hr Documented By: Admin: 12/19/22 05:56 Dose: 400 mls/hr Documented By: EVERETT Vancomycin HCl 1,750 mg/ (Sodium Chloride) 535 mls @ 200 mls/hr IV ONE STA Stop: 12/19/22 08:15 Last Admin: 12/19/22 05:57 Dose: 200 mls/hr Documented By: EVERETT Famotidine 20 mg/ Syringe 5 mls @ 2.5 mls/min IV BID COLT Stop: 01/18/23 08:59 Last Admin: 12/19/22 08:11 Dose: 2.5 mls/min Documented By: LUIZA Methylprednisolone 80 mg/ (Syringe) 1.28 mls @ 1.5 mls/min IV Q8H COLT Stop: 12/21/22 23:59 Last Admin: 12/21/22 15:33 Dose: 1.5 mls/min Documented By: Admin: 12/21/22 08:21 Dose: 1.5 mls/min Documented By: Admin: 12/20/22 23:27 Dose: 1.5 mls/min Documented By: Admin: 12/20/22 15:10 Dose: 1.5 mls/min Documented By: Admin: 12/20/22 08:25 Dose: 1.5 mls/min Documented By: Admin: 12/20/22 00:47 Dose: 1.5 mls/min Documented By: Admin: 12/19/22 17:15 Dose: 1.5 mls/min Documented By: Admin: 12/19/22 08:10 Dose: 1.5 mls/min Documented By: LUIZA Metronidazole (Flagyl) 500 mg in 100 mls @ 100 mls/hr IV Q8H COLT; Protocol Stop: 12/21/22 08:29 Last Infusion: 12/21/22 01:32 Dose: 0 mls/hr Documented By: Admin: 12/21/22 00:40 Dose: 100 mls/hr Documented By: Infusion: 12/20/22 17:17 Dose: 0 mls/hr Documented By: Admin: 12/20/22 15:13 Dose: 100 mls/hr Documented By: Infusion: 12/20/22 09:26 Dose: 0 mls/hr Documented By: Admin: 12/20/22 08:24 Dose: 100 mls/hr Documented By: Infusion: 12/20/22 01:47 Dose: 0 mls/hr Documented By: Admin: 12/20/22 00:47 Dose: 100 mls/hr Documented By: Infusion: 12/19/22 18:54 Dose: 0 mls/hr Documented By: Admin: 12/19/22 17:07 Dose: 100 mls/hr Documented By: Infusion: 12/19/22 15:42 Dose: 0 mls/hr Documented By: Admin: 12/19/22 08:52 Dose: 100 mls/hr Documented By: LUIZA Insulin Human Regular 10 units (/ Syringe) 10 mls @ 30 mls/min IV TODAY@0915 ONE Stop: 12/19/22 09:16 Last Admin: 12/19/22 09:27 Dose: 30 mls/min Documented By: LUIZA Co-signed By: ITZ Sodium Bicarbonate 150 meq/ (Dextrose) 1,150 mls @ 100 mls/hr IV .[id number] COLT Stop: 01/18/23 08:59 Last Infusion: 12/19/22 22:02 Dose: 0 mls/hr Documented By: Admin: 12/19/22 19:32 Dose: 100 mls/hr Documented By: Infusion: 12/19/22 19:32 Dose: 100 mls/hr Documented By: Admin: 12/19/22 09:28 Dose: 100 mls/hr Documented By: LUIZA Azithromycin 500 mg/ Dextrose 255 mls @ 127.5 mls/hr IV Q24H [facility] Stop: 12/26/22 11:59 Last Admin: 12/21/22 14:01 Dose: Not Given Documented By: Infusion: 12/20/22 15:17 Dose: 0 mls/hr Documented By: Admin: 12/20/22 13:04 Dose: 127.5 mls/hr Documented By: Infusion: 12/19/22 15:42 Dose: 0 mls/hr Documented By: Admin: 12/19/22 12:30 Dose: 127.5 mls/hr Documented By: LUIZA Sodium Chloride (Nss 1000ml) 500 mls @ 999 mls/hr IV .Q31M ONE Stop: 12/19/22 12:11 Last Infusion: 12/19/22 15:43 Dose: 0 mls/hr Documented By: Admin: 12/19/22 12:30 Dose: 999 mls/hr Documented By: LUIZA Calcium Gluconate 1,000 mg/ (Dextrose) 60 mls @ 240 mls/hr IV TODAY@1400 ONE Stop: 12/19/22 14:14 Last Infusion: 12/19/22 15:43 Dose: 0 mls/hr Documented By: Admin: 12/19/22 14:09 Dose: 240 mls/hr Documented By: LUIZA Sodium Chloride (Nss 1000ml) 1,000 mls @ 50 mls/hr IV .Q20H [facility] Stop: 12/20/22 10:41 Last Infusion: 12/20/22 09:54 Dose: 0 mls/hr Documented By: Admin: 12/19/22 17:07 Dose: 50 mls/hr Documented By: LUIZA Vancomycin HCl 750 mg/ Sodium (Chloride) 265 mls @ 200 mls/hr IV TODAY@1900 ONE Stop: 12/19/22 20:19 Last Infusion: 12/19/22 22:11 Dose: 0 mls/hr Documented By: Admin: 12/19/22 19:33 Dose: 200 mls/hr Documented By: EVERETT Sodium Bicarbonate 150 meq/ (Sterile Water) 1,150 mls @ 50 mls/hr IV .Q23H COLT Stop: 01/18/23 20:44 Last Infusion: 12/20/22 09:27 Dose: 0 mls/hr Documented By: Infusion: 12/20/22 01:27 Dose: 50 mls/hr Documented By: Admin: 12/19/22 21:52 Dose: 100 mls/hr Documented By: EVERETT Calcium Gluconate 2,000 mg/ (Sodium Chloride) 70 mls @ 280 mls/hr IV NOW ONE Stop: 12/20/22 10:29 Last Infusion: 12/20/22 11:55 Dose: 0 mls/hr Documented By: Admin: 12/20/22 10:52 Dose: 280 mls/hr Documented By: INÉS Albumin Human (Albumin 25%) 25 gm in 100 mls @ 50 mls/hr IV ONE ONE Stop: 12/20/22 16:32 Last Infusion: 12/20/22 17:25 Dose: 0 mls/hr Documented By: Admin: 12/20/22 15:09 Dose: 50 mls/hr Documented By: INÉS Albumin Human (Albumin 25%) 25 gm in 100 mls @ 50 mls/hr IV Q8H [facility] Stop: 12/21/22 16:14 Last Admin: 12/20/22 17:26 Dose: Not Given Documented By: INÉS Albumin Human (Albumin 25%) 25 gm in 100 mls @ 50 mls/hr IV ONE ONE Stop: 12/21/22 00:59 Last Infusion: 12/21/22 01:31 Dose: 0 mls/hr Documented By: Admin: 12/20/22 23:27 Dose: 50 mls/hr Documented By: LINETTE Calcium Gluconate 2,000 mg/ (Sodium Chloride) 70 mls @ 280 mls/hr IV NOW ONE Stop: 12/21/22 10:14 Last Infusion: 12/21/22 11:48 Dose: 0 mls/hr Documented By: Admin: 12/21/22 11:04 Dose: 280 mls/hr Documented By: TYRONE Sodium Chloride (Nss 1000ml) 250 mls @ 999 mls/hr IV .Q16M ONE Stop: 12/21/22 12:25 Last Infusion: 12/21/22 13:03 Dose: 0 mls/hr Documented By: Admin: 12/21/22 12:48 Dose: 999 mls/hr Documented By: RANJITH Sodium Chloride (Nss) 500 mls @ 125 mls/hr IV .Q4H COLT Stop: 01/20/23 12:44 Last Admin: 12/21/22 22:03 Dose: Not Given Documented By: Infusion: 12/21/22 22:02 Dose: 0 mls/hr Documented By: Admin: 12/21/22 17:31 Dose: 125 mls/hr Documented By: Infusion: 12/21/22 17:03 Dose: 0 mls/hr Documented By: Admin: 12/21/22 12:59 Dose: 125 mls/hr Documented By: TYRONE Bumetanide 4 mg/ Syringe 16 mls @ 4 mls/min IV ONE ONE Stop: 12/21/22 16:10 Last Admin: 12/21/22 16:40 Dose: 4 mls/min Documented By: TYRONE Insulin Aspart (Insulin Aspart Per Unit Charge) 0 units SC Q6 COLT Stop: 01/18/23 05:59 Last Admin: 12/19/22 05:53 Dose: 4 units Documented By: EVERETT Co-signed By: ARTHUR Insulin Aspart (Insulin Aspart Per Unit Charge) 0 units SC Q4 COLT Stop: 01/18/23 05:59 Last Admin: 12/19/22 12:50 Dose: 11 units Documented By: LUIZA Co-signed By: ROSAURA Insulin Aspart (Insulin Aspart Per Unit Charge) 0 units SC ACHS COLT Stop: 01/18/23 16:29 Last Admin: 12/21/22 10:12 Dose: Not Given Documented By: Admin: 12/21/22 07:50 Dose: Not Given Documented By: Admin: 12/20/22 21:31 Dose: Not Given Documented By: TP Co-signed By: LINETTE Admin: 12/20/22 15:14 Dose: Not Given Documented By: Admin: 12/20/22 12:21 Dose: Not Given Documented By: Admin: 12/20/22 08:25 Dose: Not Given Documented By: INÉS Co-signed By: RENA Admin: 12/19/22 19:33 Dose: Not Given Documented By: Admin: 12/19/22 17:07 Dose: Not Given Documented By: LUIZA Insulin Aspart (Insulin Aspart Per Unit Charge) Confirm Administered Dose 11,000 units .ROUTE .STK-MED ONE Stop: 12/19/22 12:50 Last Admin: 12/19/22 13:27 Dose: Not Given Documented By: LUIZA Insulin Glargine (Lantus Per Unit Charge) 10 units SQ DAILY COLT Stop: 01/18/23 05:00 Last Admin: 12/19/22 05:53 Dose: 10 units Documented By: EVERETT Co-signed By: ARTHUR Ioversol (Ioversol 350 Mg 125ml Prefilled Syringe) 125 ml IV ONCE ONE Stop: 12/19/22 05:42 Last Admin: 12/19/22 05:42 Dose: 108 ml Documented By: FRANCISCO Ipratropium Manilla (Ipratropium Manilla Neb Soln 0.02% 2.5 Ml Vial) 0.5 mg INH NOW STA Stop: 12/19/22 02:42 Last Admin: 12/19/22 05:06 Dose: Not Given Documented By: DAGOBERTO Levalbuterol HCl (Levalbuterol 1.25 Mg/3 Ml Neb) 1.25 mg NEB NOW STA Stop: 12/19/22 02:42 Last Admin: 12/19/22 05:06 Dose: Not Given Documented By: DAGOBERTO Levothyroxine Sodium (Levothyroxine Sodium 150 Mcg Tablet) 150 mcg PO DAILYBB COLT Stop: 01/18/23 06:29 Last Admin: 12/20/22 06:17 Dose: 150 mcg Documented By: Admin: 12/19/22 06:05 Dose: 150 mcg Documented By: EVERETT Methylprednisolone (Methylprednisolone 40 Mg/Ml Vial) 20 mg IV ONE STA Stop: 12/19/22 03:06 Last Admin: 12/19/22 03:37 Dose: 20 mg Documented By: AQUILINO Methylprednisolone (Methylprednisolone 125 Mg/2 Ml Vial) Confirm Administered Dose 125 mg .ROUTE .STK-MED ONE Stop: 12/19/22 03:51 Last Admin: 12/19/22 05:16 Dose: Not Given Documented By: EVERETT Methylprednisolone (Methylprednisolone 125 Mg/2 Ml Vial) 100 mg IV NOW STA Stop: 12/19/22 03:52 Last Admin: 12/19/22 03:52 Dose: 100 mg Documented By: LUCILLE Metoprolol Tartrate (Metoprolol Tartrate 1 Mg/Ml Vial) 2.5 mg IV NOW STA Stop: 12/19/22 02:04 Last Admin: 12/19/22 02:37 Dose: 2.5 mg Documented By: AQUILINO Metoprolol Tartrate (Metoprolol Tartrate 1 Mg/Ml Vial) 2.5 mg IV NOW STA Stop: 12/19/22 03:45 Last Admin: 12/19/22 19:00 Dose: Not Given Documented By: EVERETT Midazolam HCl (Midazolam Hcl 125mg/250ml D5w) Confirm Administered Dose 125 mg IV .STK-MED ONE Stop: 12/19/22 04:45 Last Admin: 12/19/22 05:16 Dose: Not Given Documented By: EVERETT Miscellaneous (Rapid Sequence Induction Bag) Confirm Administered Dose 1 each N/A .STK-MED ONE Stop: 12/19/22 03:15 Last Admin: 12/19/22 05:16 Dose: Not Given Documented By: EVERETT Delucacellaneous (Severe Stress Level ) 1 each N/A ONE ONE Stop: 12/19/22 12:45 Last Admin: 12/19/22 13:24 Dose: 1 each Documented By: LUIZA Cho (Insulin Protocol Goal Range ) 1 each N/A ONE ONE Stop: 12/19/22 12:45 Last Admin: 12/19/22 13:23 Dose: 1 each Documented By: LUIZA Multivitamins (Multivitamin Tab) 1 tab PO DAILY COLT Stop: 01/18/23 08:59 Last Admin: 12/20/22 10:35 Dose: Not Given Documented By: Admin: 12/19/22 07:19 Dose: Not Given Documented By: LUIZA Multivitamins/Minerals (Multi Vit W/Minerals Liquid 15 Ml Udp) 15 ml PO DAILY COLT Stop: 01/19/23 09:59 Last Admin: 12/20/22 11:55 Dose: Not Given Documented By: INÉS Propofol (Propofol Iv Emulsion 10 Mg/Ml 100 Ml Vial) Confirm Administered Dose 1,000 mg IV .STK-MED ONE Stop: 12/19/22 03:27 Last Admin: 12/19/22 05:16 Dose: Not Given Documented By: EVERETT Rosuvastatin Calcium (Rosuvastatin Calcium 10 Mg Tab) 10 mg PO DAILY COLT Stop: 01/18/23 08:59 Last Admin: 12/19/22 07:19 Dose: Not Given Documented By: LUIZA Sodium Bicarbonate (Sodium Bicarb 8.4% Inj 50 Meq/50 Ml Syr) 50 meq IV NOW STA Stop: 12/19/22 08:32 Last Admin: 12/19/22 09:33 Dose: 50 meq Documented By: LUIZA Vecuronium Manilla (Vecuronium Manilla 10 Mg Vial) Confirm Administered Dose 10 mg IV .STK-MED ONE Stop: 12/19/22 04:41 Last Admin: 12/19/22 05:16 Dose: Not Given Documented By: EVERETT Vecuronium Manilla (Vecuronium Manilla 10 Mg Vial) 10 mg IV NOW STA Stop: 12/19/22 04:44 Last Admin: 12/19/22 05:15 Dose: 10 mg Documented By: EVERETT Co-signed By: ARTHUR Description This is a 21 electrode EEG with a single channel dedicated to limited EKG. The electrodes were placed in accordance with the International 10-20 system. Interpretation The predominant background activity consists of and irregular 4 hertz activity of up to 10-20 microvolts in amplitude seen in all head regions diffusely. This activity would come ago in a "burst -suppression" fashion with the burst of 4 hertz irregular low-amplitude activity lasting anywhere from 1-5 seconds in between episodes of complete suppression of background activity lasting anywhere from 1 to 5 seconds. These alternating "burst-suppression" rhythms persisted throughout the entire recording. Photic stimulation was performed and elicited no change in the background activity. There was no significant muscle or movement artifact activity contaminating the recording. There were no IV or electrical interference is, however, the patient's scalp was "sweaty" and the microwave radio technician had to clean and reapplied leads in order to ensure good electrical contractility. Overall, therefore, there was no issue with interference of interpretation of this study. The patient had activating procedures performed by the microwave radio technician which produced no change or reactivity of the background activity. In summary, this EEG was Highly abnormal. There was generalized very low amplitude, very slow activity, occurring in a "burst - suppression" pattern. Clinical Correlation The activity seen on this EEG is consistent with severe generalized neuronal dysfunction, but is not electrocerebral silence. This type of activity /rhythm is consistent with a very poor prognosis neurologically. However, there is no evidence of "brain ". [facility] Procedure Codes Indication for Procedure (1) Acute encephalopathy: Neurology Neurology: 25107 EEG Cerebral Eval only
[2022-12-22 09:37] LABS: HBSAG NON-REACTIVE (NON-REACTIVE)
[2022-12-22] MEDS ORDERED: CALCIUM GLUCONATE 10% 2,000 MG in DEXTROSE 5% 50 ML IV ONE (09:43)
[2022-12-22] MEDS ORDERED: STAT IV STA (09:45)
[2022-12-22] MEDS ORDERED: SODIUM CHLORIDE 0.9% 1000ML 1,000 ML IV PRN (10:23)
--- NOTE | 2022-12-22 10:26 | Nephrology Progress Note ---
Date of Service December 22, 2022 Assessment & Plan Admission and Anticipated Discharge Date Admission Date: December 19, 2022 Subjective Assessment & Plan (1) RU (acute kidney injury): Severe oliguric acute kidney injury in the setting of sepsis respiratory failure hypotension hypoxia and now also elevated CK level. She has only made about 50 mL of urine output since 7 AM which is very bad. Cr eatinine has been going up steadily for the last 3 days. Such severe oliguria is concerning and most likely she will need dialysis tomorrow. She has received enough fluid and she is about 6 L positive since so it is not a lack of fluid causing acute renal failure. Unfortunately even if it is rhabdomyolysis we cannot give massive amount of fluid unless we are receiving some diuresis. Will do dialysis today. 3hrs qb 300 qd 600 2k 2.5 ca and 1 kilo off. next HD most likely will be monday. Discussed with daughter and son-in-law yesterday and another daughter today and they are in agreement to give dialysis a trial. I did explain to them that even though this is pure acute renal failure there is no guarantee an 87-year-old person with multiple comorbidities will have renal recovery. If the kidneys does not recover we will revisit the discussion about continuing dialysis (2) Bilateral pneumonia: Very elevated white count. On empiric antibiotics as per ICU (3) Septic shock: Blood pressure seems somewhat better with use of Levophed (4) ARDS (adult respiratory distress syndrome): As per copper etcher ARDS is getting slightly better S--- no urine with bumex 4 also. renal labs getting worse. n vent and pressors. Physical Exam Physical Exam: Patient is intubated sedated on pressor critically ill E Neck: Supple no jugular venous system Respiratory: Bilateral decreased breath sound intubated Cardiovascular: Regular rate and rhythm systolic murmur heard 1+ edema bilateral Gastrointestinal (Abdomen): Abdomen is soft nontender Skin: No rashes noted Results & Data Vital Signs (Past 12 Hours) Vital Signs Temp Pulse Resp BP Pulse Ox O2 Del Method FiO2 12/22/22 07:35 88 24 91 40 12/22/22 08:00 Mechanical Vent 12/22/22 08:00 36.9 C 93 H 21 95 12/22/22 08:00 119/43 L 12/22/22 07:55 36.8 C 99 H 22 96 12/22/22 07:55 147/52 H 12/22/22 07:51 174/95 H 12/22/22 07:51 36.6 C 102 H 8 L 91 12/22/22 07:50 36.8 C 96 H 12 90 12/22/22 07:45 36.7 C 88 18 91 12/22/22 07:45 119/48 L 12/22/22 07:00 88 24 92 12/22/22 07:00 125/51 L 12/22/22 06:00 90 20 92 12/22/22 06:00 129/47 L 12/22/22 05:00 88 23 93 12/22/22 05:00 125/50 L 12/22/22 04:00 90 22 92 12/22/22 04:00 121/48 L 12/22/22 03:00 89 22 92 12/22/22 03:00 118/44 L 12/22/22 02:00 89 22 92 12/22/22 02:00 115/47 L 12/22/22 01:00 93 H 22 93 12/22/22 01:00 121/42 L 12/22/22 00:00 94 H 22 92 12/22/22 00:00 122/50 L 12/21/22 23:00 94 H 22 91 12/21/22 23:00 123/52 L 12/22/22 05:25 22 40 12/21/22 23:11 95 H 12/22/22 04:00 40 12/22/22 00:00 40 12/22/22 02:27 92 H 22 89 L 40 12/21/22 22:57 91 H 22 94 40
--- NOTE | 2022-12-22 10:29 | Billing Data ---
Date of Service December 22, 2022 Coding Level of Care Code 57895 CRITICAL CARE
[2022-12-22] MEDS: INSULIN ASPART PER UNIT CHARGE SC SCH ×3 (11:58→22:20)
[2022-12-22 13:24] LABS: Hematocrit (blood only) 34.8 % (37.0-47.0); Mean Corpuscular Hemoglobin 32.8 pg (25.0-34.0); Mean Corpuscular Hgb Conc 34.5 g/dL (32.0-36.0); Mean Corpuscular Volume 95.1 fL (80.0-100.0); Mean Platelet Volume 10.2 fL (9.4-12.4); Nucleated RBC # (auto) 0.07 K/uL (0-0.12); Nucleated RBC % (auto) 0.2 %; Platelet Count 289 K/uL (130-400); RDW Coefficient of Variation 12.5 % (11.5-14.5); RDW Standard Deviation 43.6 fL (36.4-46.3); Red Blood Count 3.66 M/uL (4.20-5.40); White Blood Count 28.39 K/ul (4.8-10.8)
[2022-12-22] MEDS: INSULIN REGULAR 250 UNITS in SODIUM CHLORIDE 0.9% 247.5 ML IV SCH (13:32)
[2022-12-22 13:40] LABS: BUN Creatinine Ratio 18.2 (10-20); Calcium 7.4 mg/dl (8.6-10.3); Creatinine Clr Calc Pharmacy 9.3 ml/min; Est GFR (African American) 10.3 ml/min; Est GFR (Non-African American) 8.9 ml/min; Magnesium 2.2 mg/dl (1.7-2.4); Phosphorus 6.7 mg/dl (2.5-4.9); Potassium 4.6 mmol/L (3.5-5.1)
[2022-12-22 13:54] LABS: Basophils # (auto) 0.06 K/uL (0-0.2); Basophils % (auto) 0.2 %; Echinocytes 1+; Immature Granulocytes # (auto) 0.47 K/uL (0.01-0.20); Immature Granulocytes % (auto) 1.7 %; Lymphocytes # (auto) 0.67 K/uL (1.2-3.4); Lymphocytes % (auto) 2.4 %; Monocytes # (auto) 1.34 K/uL (0.11-0.59); Monocytes % (auto) 4.7 %; Neutrophils # (auto) 25.85 K/uL (1.40-6.50); Toxic Vacuolation 1+
--- NOTE | 2022-12-22 14:01 | Hospitalist Progress Note ---
Date of Service December 22, 2022 Assessment & Plan (1) Acute on chronic respiratory failure with hypoxia and hypercapnia: (2) ARDS (adult respiratory distress syndrome): Plan: (1) Acute on chronic respiratory failure with hypoxia and hypercapnia: Plan: Multifactorial hx chronic respiratory failure secondary to COPD , bibasilar pneumonia, home O2 noncompliance as per records Status post intubation at the ER COPD exacerbation secondary to atypical pneumonia, recent outpatient Z-Santana course for pharyngitis Did not receive IV doxycycline and/or IV azithromycin in the hospital-was getting azithromycin as an outpatient Has been on intravenous cefepime and Flagyl added today 12/22/2022 Intravenous Solu-Medrol and nebs as prescribed Complicated UTI, possible sepsis-has been on intravenous cefepime Appreciate specimen processor input and recommendation Possible functional disability, concerns about patient ability to reside alone with multiple comorbidities. Remains critical but stable Rhabdomyolysis and transaminitis Likely secondary to sepsis, hypotension and hypoxia Supportive care Cannot provide enough IV fluid We will monitor LFTs and CPK (3) Septic shock: Plan: Transaminitis likely secondary to sepsis with hypotension and congestion to the liver We will monitor LFTs (4) Bilateral pneumonia: Plan: Continue with intravenous cefepime and Flagyl (5) RU (acute kidney injury): Plan: Severe oliguric acute kidney injury in the setting of sepsis and hypoxemia Received intravenous fluid with positive balance of 6 L so far Bumex has been added Appreciate nephrology input and recommendation Has been having dialysis from today (6) COPD exacerbation: Plan: As above with bilateral pneumonia Plan Other medical conditions as below: Hypertensive urgency secondary to illness Received intravenous fluid due to sepsis Blood pressure is running low at 102/43 hyperlipidemia on statin Rx DM2 on oral medications, suboptimal control as of recent hemoglobin A1c of 8.20 Sep 2022 Basal bolus insulin adjusted for n.p.o. status, ISS BG goal 1 40-1 80 appropriate goal for ICU Hypothyroidism, euthyroid as of today's TSH Ongoing tobacco abuse DVT prophylaxis Subcu Lovenox CODE STATUS Full Discussed with the daughter Admission and Anticipated Discharge Date Admission Date: December 19, 2022 Subjective 12/21/2022 The patient was seen and examined in ICU Remains on the vent and sedated 12/22/2022 The patient was seen and examined in ICU She remains sedated on vent Critical but stable Review of Systems Review of Systems: Unobtainable due to endotracheal tube Physical Exam Physical Exam: Sedated on vent without any apparent distress Constitutional: well developed, well nourished and + ill appearing ENMT: external ear and nose normal, oropharynx normal Neck: trachea midline, no thyromegaly Respiratory: no respiratory distress Auscultation: + diminished lung sounds and + crackles (Minimal crackles at the bases) Cardiovascular: Rate/Rhythm: regular rate and regular rhythm; not tachycardic Heart Sounds: normal S1 and normal S2; no murmur Extremities: + edema Gastrointestinal (Abdomen): Inspection/Auscultation: normal bowel sounds; abdomen not distended Percussion/Palpation: abdomen soft Musculoskeletal: No acutely inflamed joint Neurologic: Sedated on vent Results & Data Results & Data Vital Signs (Past 12 Hours) Vital Signs Temp Pulse Resp BP Pulse Ox O2 Del Method FiO2 12/22/22 13:00 36.5 C 76 22 93 12/22/22 12:00 36.7 C 85 22 95 12/22/22 12:00 121/44 L 12/22/22 11:00 36.7 C 85 22 92 12/22/22 11:00 118/50 L 12/22/22 10:55 86 22 90 50 12/22/22 12:00 50 12/22/22 10:00 36.8 C 87 22 91 12/22/22 10:00 129/55 L 12/22/22 09:00 36.9 C 84 22 88 L 12/22/22 09:00 115/43 L 12/22/22 08:10 106/38 L 12/22/22 08:10 36.9 C 90 24 89 L 12/22/22 08:05 112/39 L 12/22/22 08:05 36.9 C 92 H 24 92 12/22/22 08:00 Mechanical Vent 50 12/22/22 08:00 50 12/22/22 08:00 86 12/22/22 07:35 88 24 91 40 12/22/22 08:00 Mechanical Vent 12/22/22 08:00 36.9 C 93 H 21 95 12/22/22 08:00 119/43 L 12/22/22 07:55 36.8 C 99 H 22 96 12/22/22 07:55 147/52 H 12/22/22 07:51 174/95 H 12/22/22 07:51 36.6 C 102 H 8 L 91 12/22/22 07:50 36.8 C 96 H 12 90 12/22/22 07:45 36.7 C 88 18 91 12/22/22 07:45 119/48 L 12/22/22 07:00 88 24 92 12/22/22 07:00 125/51 L 12/22/22 06:00 90 20 92 12/22/22 06:00 129/47 L 12/22/22 05:00 88 23 93 12/22/22 05:00 125/50 L 12/22/22 04:00 90 22 92 12/22/22 04:00 121/48 L 12/22/22 03:00 89 22 92 12/22/22 03:00 118/44 L 12/22/22 02:00 89 22 92 12/22/22 02:00 115/47 L 12/22/22 05:25 22 40 12/22/22 04:00 40 12/22/22 02:27 92 H 22 89 L 40 Laboratory Results Short CBC 12/21/22 12/22/22 12/22/22 Range/Units 21:34 04:23 12:54 WBC 28.70 H 29.07 H 28.39 H (4.8-10.8) K/ul Hgb 12.5 12.6 12.0 (12.0-16.0) g/dl Hct 35.4 L 36.6 L 34.8 L (37.0-47.0) % Plt Count 295 294 289 (130-400) K/uL BMP 12/21/22 12/22/22 12/22/22 21:34 04:23 12:54 Sodium 132 L 132 L 134 L Potassium 4.8 4.9 4.6 Chloride 97 L 97 L 98 Carbon Dioxide 25 24 25 BUN 66 H 75 H 77 H Creatinine 3.82 H D 4.14 H D 4.23 H Glucose 95 116 H 121 H Calcium 7.1 L 7.2 L 7.4 L Cardiac Enzymes 12/21/22 12/22/22 Range/Units 12:34 04:23 Total Creatine Kinase 61174 H 08509 H (26-192) U/L Liver Function 12/22/22 Range/Units 04:23 Total Bilirubin 0.7 (0.2-1.0) mg/dl Direct Bilirubin 0.3 H (0-0.2) mg/dl AST 1207 H (13-39) U/L ALT 1301 H (7-52) U/L Alkaline Phosphatase 77 (34-104) U/L Albumin 2.9 L (3.4-5.0) gm/dl Medications Administered Current Inpatient Medications Albuterol (Albut/Ipratrop 3mg/0.5mg Neb 3 Ml Vial) 3 ml NEB Q6R PRN; Protocol PRN Reason: Shortness Of Breath Or Wheezing Stop: 01/18/23 06:59 Clopidogrel Bisulfate (Clopidogrel Bisulfate 75 Mg Tab) 75 mg PO DAILY COLT Stop: 01/18/23 08:59 Last Admin: 12/22/22 08:57 Dose: 75 mg Dextrose (Dextrose 50% 50 Ml Syringe) 25 - 50 ml IV UD PRN; Protocol PRN Reason: Hypoglycemia Protocol Stop: 01/18/23 05:00 Last Admin: 12/19/22 09:27 Dose: 50 ml Enteral Nutritional Formula (Novasource Renal 2.0 Jez 1000ml Bag) 1,000 ml OG .SeeProtocol COLT; Protocol Stop: 01/20/23 11:14 Last Admin: 12/21/22 17:27 Dose: 1,000 ml Fentanyl Citrate (Fentanyl Bolus From Bag) 50 mcg IV Q60M PRN PRN Reason: Pain or Agitation Stop: 01/02/23 04:42 Last Admin: 12/22/22 07:55 Dose: 50 mcg Formoterol Fumarate (Formoterol 20 Mcg/2 Ml Vial) 20 mcg NEB BIDR COLT Stop: 01/20/23 18:59 Last Admin: 12/22/22 07:10 Dose: 20 mcg Glucagon (Glucagon For Inj 1 Mg Vial) 1 mg SQ UD PRN; Protocol PRN Reason: Hypoglycemia Protocol Stop: 01/18/23 05:00 Glucose (Glucose 10 Tab/Tube) 4 - 8 tab PO UD PRN; Protocol PRN Reason: Hypoglycemia Treatment Stop: 01/18/23 05:00 Glucose (Glucose 40% Gel 15 Gm Tube) 15 - 30 gm PO UD PRN; Protocol PRN Reason: Hypoglycemia Protocol Stop: 01/18/23 05:00 Heparin Sodium (Porcine) (Heparin Sod 5,000 Unit/0.5 Ml Vial) 5,000 units SQ Q12 COLT Stop: 01/18/23 20:59 Last Admin: 12/22/22 08:57 Dose: 5,000 units Midazolam HCl (Versed) 125 mg in 250 mls @ 0 mls/hr IV .Q0M COLT; Protocol Stop: 01/18/23 04:44 Last Titration: 12/22/22 12:03 Dose: 0 mg/hr, 0 mls/hr Fentanyl Citrate (Fentanyl Citrate) 2,500 mcg in 250 mls @ 10 mls/hr IV .Q25H COLT; Protocol Stop: 01/02/23 04:44 Last Admin: 12/22/22 13:45 Dose: Not Given Norepinephrine Bitartrate (Levophed/D5w) 4 mg in 250 mls @ 0 mls/hr IV .Q0M COLT; Protocol Stop: 01/18/23 05:14 Last Titration: 12/21/22 08:18 Dose: 0 mcg/kg/min, 0 mls/hr Insulin Human Regular 250 (units/ Sodium Chloride) 250 mls @ 1.8 mls/hr IV .Q24H [facility]; Protocol Stop: 01/18/23 12:59 Last Admin: 12/22/22 13:32 Dose: Not Given Methylprednisolone 40 mg/ (Syringe) 0.64 mls @ 1.5 mls/min IV Q8H [facility] Stop: 12/23/22 16:01 Last Admin: 12/22/22 08:59 Dose: 1.5 mls/min Sodium Chloride (Nss 1000ml) 1,000 mls @ 0 mls/hr IV .Q0M PRN PRN Reason: For Hemodialysis Use ONLY Stop: 12/22/22 16:22 Cefepime HCl 1,000 mg/ Syringe 10 mls @ 5 mls/min IV Q24H [facility]; Protocol Stop: 12/29/22 13:59 Famotidine 20 mg/ Syringe 5 mls @ 2.5 mls/min IV DAILY@2100 [facility] Stop: 01/19/23 08:59 Insulin Aspart (Insulin Aspart Per Unit Charge) 0 units SC Q4 [facility] Stop: 01/21/23 11:59 Last Admin: 12/22/22 11:58 Dose: Not Given Levothyroxine Sodium (Levothyroxine Sodium 150 Mcg Tablet) 150 mcg GT DAILYBB [facility] Stop: 01/18/23 06:29 Last Admin: 12/22/22 06:29 Dose: 150 mcg Midazolam HCl (Midazolam Bolus From Bag) 2 mg IV Q60M PRN PRN Reason: Sedation Stop: 01/18/23 04:42 Last Admin: 12/22/22 07:45 Dose: 2 mg Miscellaneous (Carbohydrates For Hypoglycemia ) 15 - 30 gm PO UD PRN PRN Reason: Hypoglycemia Protocol Stop: 01/18/23 05:00 Miscellaneous Information (Pharmacy Glycemic Mgmt Consult) 1 each N/A UD PRN PRN Reason: Consult Stop: 01/18/23 12:47 Multivitamins/Minerals (Multi Vit W/Minerals Liquid 15 Ml Udp) 15 ml GT DAILY COLT Stop: 01/19/23 09:59 Last Admin: 12/22/22 08:57 Dose: 15 ml Polyethylene Glycol (Polyethylene (Miralax) 17 Gm Pack) 17 gm GT DAILY COLT Stop: 01/20/23 10:14 Last Admin: 12/22/22 08:57 Dose: 17 gm Sennosides (Sennosides 8.8 Mg/5 Ml Udc) 8.8 mg GT DAILY COLT Stop: 01/19/23 10:14 Last Admin: 12/22/22 08:56 Dose: 8.8 mg Sterile Water (Tube Feeding Water Flush) 30 ml OG Q4H COLT Stop: 01/20/23 11:14 Last Admin: 12/22/22 11:55 Dose: 30 ml
[2022-12-22] MEDS: metroNIDAZOLE 500 MG/100 ML BAG IV SCH ×2 (16:10→22:19)
[2022-12-22 21:25] LABS: Hematocrit (blood only) 37.2 % (37.0-47.0); Hemoglobin 12.9 g/dl (12.0-16.0); Mean Corpuscular Hemoglobin 33.2 pg (25.0-34.0); Mean Corpuscular Hgb Conc 34.7 g/dL (32.0-36.0); Mean Corpuscular Volume 95.9 fL (80.0-100.0); Mean Platelet Volume 10.1 fL (9.4-12.4); Nucleated RBC # (auto) 0.09 K/uL (0-0.12); Nucleated RBC % (auto) 0.3 %; Platelet Count 311 K/uL (130-400); RDW Coefficient of Variation 12.8 % (11.5-14.5); RDW Standard Deviation 45.1 fL (36.4-46.3); Red Blood Count 3.88 M/uL (4.20-5.40); White Blood Count 31.24 K/ul (4.8-10.8)
[2022-12-22 21:41] LABS: BUN Creatinine Ratio 16.3 (10-20); Calcium 7.2 mg/dl (8.6-10.3); Creatinine Clr Calc Pharmacy 10.3 ml/min; Est GFR (African American) 11.7 ml/min; Est GFR (Non-African American) 10.1 ml/min; Magnesium 2.2 mg/dl (1.7-2.4); Phosphorus 6.3 mg/dl (2.5-4.9); Potassium 4.5 mmol/L (3.5-5.1)
[2022-12-22 21:59] LABS: Basophils # (auto) 0.08 K/uL (0-0.2); Basophils % (auto) 0.3 %; Immature Granulocytes # (auto) 0.37 K/uL (0.01-0.20); Immature Granulocytes % (auto) 1.2 %; Lymphocytes # (auto) 0.57 K/uL (1.2-3.4); Lymphocytes % (auto) 1.8 %; Monocytes # (auto) 1.36 K/uL (0.11-0.59); Monocytes % (auto) 4.4 %; Neutrophils # (auto) 28.86 K/uL (1.40-6.50); Neutrophils % (auto) 92.3 %
[2022-12-23] MEDS: INSULIN ASPART PER UNIT CHARGE SC SCH ×6 (02:23→20:33)
[2022-12-23] MEDS: CEFEPIME 1,000 MG in SYRINGE 0 ML IV SCH (02:29)
[2022-12-23] MEDS: TUBE FEEDING WATER FLUSH OG SCH ×5 (03:15→20:33)
[2022-12-23 05:16] LABS: BUN Creatinine Ratio 17.8 (10-20); Calcium 7.2 mg/dl (8.6-10.3); Creatinine Clr Calc Pharmacy 9.4 ml/min; Est GFR (African American) 10.5 ml/min; Potassium 4.6 mmol/L (3.5-5.1)
[2022-12-23 05:17] LABS: iSTAT Allen Test Pass; iSTAT Art Bld Gas pCO2 Correct 39 mmHg (35-46); iSTAT Art Bld Gas pH Corrected 7.378 (7.35-7.45); iSTAT Arterial Blood Gas HCO3 23 meg/L (19-24); iSTAT Arterial Blood Gas pCO2 40 mmHg (35-46); iSTAT Arterial Blood Gas pH 7.37 (7.35-7.45); iSTAT Arterial Blood Gas pO2 70 mmHg (80-95); iSTAT Arterial Blood Gas pO2 C 68; iSTAT Carbon Dioxide 25 mmol/L (24-31); iSTAT FiO2 50 %; iSTAT Hematocrit 38 % (37-47); iSTAT Hemoglobin 12.9 g/dl (12.0-16.0); iSTAT Potassium 4.6 mmol/L (3.3-5.0); iSTAT Site L Radial; iSTAT Sodium 135 mmol/L (135-144)
[2022-12-23 05:18] LABS: Basophils # (auto) 0.03 K/uL (0-0.2); Basophils % (auto) 0.1 %; Hematocrit (blood only) 37.2 % (37.0-47.0); Hemoglobin 12.7 g/dl (12.0-16.0); Immature Granulocytes # (auto) 0.25 K/uL (0.01-0.20); Immature Granulocytes % (auto) 0.8 %; Lymphocytes % (auto) 1.9 %; Mean Corpuscular Hemoglobin 32.9 pg (25.0-34.0); Mean Corpuscular Hgb Conc 34.1 g/dL (32.0-36.0); Mean Corpuscular Volume 96.4 fL (80.0-100.0); Mean Platelet Volume 10.1 fL (9.4-12.4); Monocytes # (auto) 1.34 K/uL (0.11-0.59); Monocytes % (auto) 4.2 %; Neutrophils # (auto) 29.79 K/uL (1.40-6.50); Nucleated RBC # (auto) 0.06 K/uL (0-0.12); Nucleated RBC % (auto) 0.2 %; Platelet Count 309 K/uL (130-400); RDW Coefficient of Variation 12.8 % (11.5-14.5); RDW Standard Deviation 45.2 fL (36.4-46.3); Red Blood Count 3.86 M/uL (4.20-5.40); White Blood Count 32.01 K/ul (4.8-10.8)
[2022-12-23 05:57] LABS: Magnesium 2.3 mg/dl (1.7-2.4); Phosphorus 6.3 mg/dl (2.5-4.9)
[2022-12-23] MEDS: fentaNYL citrate 2,500 MCG/250 ML BAG IV SCH (06:32)
[2022-12-23] MEDS: metroNIDAZOLE 500 MG/100 ML BAG IV SCH ×3 (06:32→22:24)
[2022-12-23] MEDS: LEVOTHYROXINE SODIUM 150 MCG TABLET GT SCH (07:24)
[2022-12-23] MEDS: FORMOTEROL 20 MCG/2 ML VIAL NEB SCH ×2 (07:48→19:36)
--- NOTE | 2022-12-23 07:56 | Critical Care Progress Note ---
Date of Service December 23, 2022 Assessment & Plan (1) Acute on chronic respiratory failure with hypoxia and hypercapnia: Plan: Pt is a 87 yo female with PMH of diabetes, COPD, and noncompliance with medications/supplemental oxygen presenting to the hospital due to weakness and inability to move (pt reportedly found sitting at a kitchen table for ~24 hrs). Pt became progressively SOB despite noninvasive ventilation techniques and was subsequently intubated. Neuro - Pt remains intubated, decreasing sedation - RASS goal -3 - concern for anoxic brain injury; EEG showed "burst suppression" pattern of electrical activity associated with poor prognosis - pending brain MRI for further evaluation CV Distributive shock in setting of severe sepsis - BPs have remained stable w/o pressors Respiratory Severe ARDS, COPD with exacerbation - s/p 2 days of pronation - CT chest 12/21 showed increase in pleural effusions and pulmonary edema but improvement of opacities - bronchoscopy performed 12/22 with BAL; sample results pending - continue steroid taper; total course of solumedrol 80 mg q8hr x 2days, 40 mg q8hr x2 days - continue duonebs q6hr PRN, formoterol neb scheduled BID Renal Acute renal failure/RU with subsequent hyperkalemia and hyperphosphatemia, hypocalcemia - CTAP overall neg - dialysis catheter placed 12/21 d/t worsening Cr - nephro consulted- dialysis 12/22 - continue serial BMP, replace electrolytes PRN Infectious disease Bilateral basilar PNA in the setting of ?chronic aspiration, ?UTI - continue cefepime, metronidazole, and azithromycin - urine cx showed E. coli >100,000 CFU sensitive to current ABX regimen - blood cx 12/19 neg; repeat blood cx 12/21 neg - bronchoscopy as above GI No acute concerns - continue tube feeds - GI ppx with famotidine 20 mg daily Endocrine DM - A1c this hospitalization 8.4% - per pt's family, non compliant with home metformin - blood glucose goal while hospitalized 140-180 IVF: none, tube feeds GI ppx: famotidine 20 mg daily DVT ppx: heparin subQ d/t ARF Code: conditional- no CPR/defibrillation (2) Acute UTI: (3) COPD with emphysema: (4) Diabetes mellitus: (5) Pneumonia: (6) Hypothyroidism: Admission and Anticipated Discharge Date Admission Date: December 19, 2022 Supervising Physician Co-Signing Physician Notes Patient seen and examined. Agree with below assessment and plan. 87 year old female with advanced COPD, non compliant with home oxygen and active smoking and DM presenting with acute on chronic hypoxemic / hypercapnic respiratory failure requiring mechanical ventilation on 12/19/2022. CTA with dense basilar infiltates R>L with fibrotic changes, concerns for chornic / silent aspiration. Diagnosed with UTI as well. Currently in severe ARDS, acute oliguric renal failure requiring proning starting on 12/19/2022. On exam: Gen: intubated / seated, RASS -3 CV: RRR Resp: Diminished b/l Abd: Distended, soft, no massess palpated Ext: Cold, dry Skin: no rashes Plan: NEURO 1. Intubated, off sedation 2. Burst suppression on EEG 12/22 3. 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 Start ASA for secondary prevention. Due to transaminitis, will hold off on statin for now. No further imaging recommended at this time. CV 1. Distributive shock in setting of severe sepsis -- Off levophed RESP 1. Severe ARDS 2. COPD with exacerbation -- TV < 6cc/kg, Driving prssure < 14 -- Taper Solumedrol, nebs q4 hrs prn RENAL 1. Oliguric acute renal failure / RU. Likely septic ATN, also received IV contrast on admission 2. Hyperkalemia 3. Hyperphospahtemia 4. Metabolic acidosis 2/2 RTA from ATN 5. Rhabomyolysis w/ associated transaminitis -- Serial metabolic panel, abd US without hydronephrosis -- Plan for HD 12/24 ID 1. B/l basilar PNA, concern for chronic / silent aspiration 2. UTI, urine culture with E. coli, ruled out post renal obx --Continue Cefepime / flagyl for now. Follow fever curve, wbc daily GI 1. Transaminitis, hepatocellular pattern, likely due to rhbado / possibly shock liver vs hepatic congestion -- Follow transaminitis, has been stable / improving -- Tube feeds at [facility] -- GI ppx ENDO 1. DM -- Blood glucose goal 140-180 -- On insulin gtt, managed by pharmacy GI ppx: pepcid DVT ppx: heparin subQ Subjective Pt remains intubated and sedated. Plan for brain MRI this AM. Review of Systems Review of Systems: Unobtainable due to endotracheal tube Physical Exam Physical Exam: Constitutional: no acute distress HEENT: normocephalic CV: regular rhythm, regular rate, no murmur, no LE edema Respiratory: Course breath sounds throughout. No crackles or wheezing. MSK: no gross deformities noted Skin: warm, dry, no rashes Neuro: sedated Results & Data Results & Data Vital Signs (Past 12 Hours) Vital Signs Temp Pulse Resp BP Pulse Ox FiO2 12/23/22 07:00 36.9 C 89 17 94 12/23/22 07:00 144/54 H 12/23/22 06:28 36.9 C 90 20 95 12/23/22 06:28 141/57 H 12/23/22 06:00 36.9 C 86 24 94 12/23/22 05:00 36.7 C 87 24 94 12/23/22 04:00 36.9 C 86 22 93 12/23/22 04:00 134/53 L 12/23/22 03:00 36.9 C 87 22 93 12/23/22 03:00 138/49 L 12/23/22 02:00 36.9 C 86 22 93 12/23/22 02:00 127/52 L 12/23/22 01:00 36.9 C 83 22 91 12/23/22 01:00 125/47 L 12/23/22 00:00 37.0 C 85 22 91 12/23/22 00:00 119/45 L 12/22/22 23:00 37.0 C 84 22 91 12/22/22 23:00 126/51 L 12/22/22 22:00 36.9 C 82 22 91 12/22/22 22:00 114/51 L 12/22/22 21:00 36.9 C 81 22 88 L 12/22/22 21:00 118/48 L 12/22/22 20:00 36.8 C 85 22 99 12/22/22 20:00 134/53 L 12/23/22 04:00 50 12/23/22 00:00 50 12/22/22 20:00 50 12/23/22 02:32 87 24 93 50 12/22/22 23:14 84 22 91 50 12/22/22 20:07 82 22 93 60 Critical Care Time 60 Resident Activity Tracking Resident Involvement: Resident Care Provided Care Provided: Adult Hospital Medicine (ICU) (5) Pneumonia Laterality: bilateral Lung location: lower lobe of lung Pneumonia type: due to unspecified organism Qualified Code(s): J18.9 - Pneumonia, unspecified organism
[2022-12-23] MEDS: methylPREDNISolone 40 MG in SYRINGE 0 ML IV SCH ×3 (08:00→16:16)
[2022-12-23] MEDS ORDERED: fentaNYL citrate PF 100 MCG/2 ML VIAL IV STA (08:07)
[2022-12-23] MEDS ORDERED: MIDAZOLAM HCL 1 MG/ML 2ML VIAL ONE (08:11)
[2022-12-23] MEDS ORDERED: fentaNYL citrate PF 100 MCG/2 ML VIAL ONE (08:11)
[2022-12-23] MEDS ORDERED: MIDAZOLAM HCL 5 MG/ML 2ML VIAL IV STA (08:13)
--- NOTE | 2022-12-23 08:49 | Critical Care Progress Note ---
Date of Service December 23, 2022 Assessment & Plan (1) Acute on chronic respiratory failure with hypoxia and hypercapnia: Plan: Pt is a 87 yo female with PMH of diabetes, COPD, and noncompliance with medications/supplemental oxygen presenting to the hospital due to weakness and inability to move (pt reportedly found sitting at a kitchen table for ~24 hrs). Pt became progressively SOB despite noninvasive ventilation techniques and was subsequently intubated. Neuro - Pt remains intubated and sedated - RASS goal -3 CV Distributive shock in setting of severe sepsis - Remains off levophed Respiratory Severe ARDS, COPD with exacerbation - continue pronation per standard protocol (16 hrs per day for at least 3 days)- avoid fluid overload - continue solumedrol 80 mg q8hr (plan for 3 day course, began 12/19) and scheduled nebs q6hr - repeat ABG after placing supine this AM - CXR yesterday stable. Continue to monitor for worsening effusions/congestion and PNA Renal Acute renal failure/RU with subsequent hyperkalemia and hyperphosphatemia - Cr continues to worsen; renal US ordered to evaluate for possible post obstructive cause- may need CTAP pending US results - continue serial BMP, ABG Infectious disease Bilateral basilar PNA in the setting of ?chronic aspiration, ?UTI - continue cefepime, metronidazole, and azithromycin - urine cx showed E. coli >100,000 CFU sensitive to current ABX regimen - blood cx neg; may consider repeat cultures as unsure of reason for such severe sepsis presentation GI No acute concerns - GI ppx with famotidine 20 mg daily Endocrine DM - A1c this hospitalization 8.4% - per pt's family, non compliant with home metformin - blood glucose goal while hospitalized 140-180 IVF: none GI ppx: famotidine 20 mg daily DVT ppx: heparin subQ d/t ARF Code: conditional- no CPR/defibrillation (2) Acute UTI: (3) COPD with emphysema: (4) Diabetes mellitus: (5) Pneumonia: (6) Hypothyroidism: Admission and Anticipated Discharge Date Admission Date: December 19, 2022 Supervising Physician Co-Signing Physician Notes Patient seen and examined. Agree with below assessment and plan. 87 year old female with advanced COPD, non compliant with home oxygen and active smoking and DM presenting with acute on chronic hypoxemic / hypercapnic respiratory failure requiring mechanical ventilation on 12/19/2022. CTA with dense basilar infiltates R>L with fibrotic changes, concerns for chornic / silent aspiration. Diagnosed with UTI as well. Currently in severe ARDS, acute oliguric renal failure requiring proning starting on 12/19/2022. On exam: Gen: intubated / seated, RASS -3 CV: RRR Resp: Diminished b/l Abd: Distended, soft, no massess palpated Ext: Cold, dry Skin: no rashes Plan: NEURO 1. Intubated, sedated 2. EEG this am with burst suppression pattern, on minimal sedation -- Given improvement in oxygenation, will start SAT today, taper off versed -- Proned from 12/19 to 12/21. -- Plan for MRI this afernoon CV 1. Distributive shock in setting of severe sepsis -- Off levophed RESP 1. Severe ARDS 2. COPD with exacerbation -- TV < 6cc/kg, Driving prssure < 14 -- Taper Solumedrol, nebs q4 hrs prn RENAL 1. Oliguric acute renal failure / RU. Likely septic ATN, also received IV contrast on admission 2. Hyperkalemia 3. Hyperphospahtemia 4. Metabolic acidosis 2/2 RTA from ATN 5. Rhabomyolysis w/ associated transaminitis -- Serial metabolic panel, abd US without hydronephrosis -- After discussion with family, will attempt dilaysis. Will plan for HD session today with right IJ pigtail catheter. ID 1. B/l basilar PNA, concern for chronic / silent aspiration 2. UTI, urine culture with E. coli, ruled out post renal obx --Continue Cefepime / flagyl for now. Follow fever curve, wbc daily GI 1. Transaminitis, hepatocellular pattern, likely due to rhbado / possibly shock liver vs hepatic congestion -- Follow transaminitis, has been stable / improving -- Start tube feeds to goal today -- GI ppx ENDO 1. DM -- Blood glucose goal 140-180 -- On insulin gtt, managed by pharmacy GI ppx: pepcid DVT ppx: heparin subQ Results & Data Results & Data Vital Signs (Past 12 Hours) Vital Signs Temp Pulse Resp BP Pulse Ox FiO2 12/23/22 07:36 99 H 21 90 50 12/23/22 07:00 36.9 C 89 17 94 12/23/22 07:00 144/54 H 12/23/22 06:28 36.9 C 90 20 95 12/23/22 06:28 141/57 H 12/23/22 06:00 36.9 C 86 24 94 12/23/22 05:00 36.7 C 87 24 94 12/23/22 04:00 36.9 C 86 22 93 12/23/22 04:00 134/53 L 12/23/22 03:00 36.9 C 87 22 93 12/23/22 03:00 138/49 L 12/23/22 02:00 36.9 C 86 22 93 12/23/22 02:00 127/52 L 12/23/22 01:00 36.9 C 83 22 91 12/23/22 01:00 125/47 L 12/23/22 00:00 37.0 C 85 22 91 12/23/22 00:00 119/45 L 12/22/22 23:00 37.0 C 84 22 91 12/22/22 23:00 126/51 L 12/22/22 22:00 36.9 C 82 22 91 12/22/22 22:00 114/51 L 12/22/22 21:00 36.9 C 81 22 88 L 12/22/22 21:00 118/48 L 12/23/22 04:00 50 12/23/22 00:00 50 12/23/22 02:32 87 24 93 50 12/22/22 23:14 84 22 91 50 Coding Diagnoses Acute on chronic respiratory failure with hypoxia and hypercapnia J96.21; J96.22 Acute UTI N39.0 COPD with emphysema J43.9 Diabetes mellitus E11.9 Pneumonia J18.9 Laterality: bilateral Lung location: lower lobe of lung Pneumonia type: due to unspecified organism Hypothyroidism E03.9 (5) Pneumonia Laterality: bilateral Lung location: lower lobe of lung Pneumonia type: due to unspecified organism Qualified Code(s): J18.9 - Pneumonia, unspecified organism
[2022-12-23] MEDS: SENNOSIDES 8.8 MG/5 ML UDC GT SCH (09:20)
[2022-12-23] MEDS: MULTI VIT W/MINERALS LIQUID 15 ML UDP GT SCH (09:51)
[2022-12-23] MEDS: CLOPIDOGREL BISULFATE 75 MG TAB PO SCH (09:52)
[2022-12-23] MEDS: POLYETHYLENE (MIRALAX) 17 GM PACK GT SCH (09:52)
[2022-12-23] MEDS: HEPARIN SOD 5,000 UNIT/0.5 ML VIAL SQ SCH ×2 (09:52→20:33)
--- NOTE | 2022-12-23 09:54 | Nephrology Progress Note ---
Date of Service December 23, 2022 Assessment & Plan Admission and Anticipated Discharge Date Admission Date: December 19, 2022 Subjective Assessment & Plan (1) RU (acute kidney injury): Severe oliguric acute kidney injury in the setting of sepsis respiratory failure hypotension hypoxia and now also elevated CK level. She has only made about 50 mL of urine output since 7 AM which is very bad. Cr eatinine has been going up steadily for the last 3 days. Such severe oliguria is concerning and most likely she will need dialysis tomorrow. She has received enough fluid and she is about 6 L positive since so it is not a lack of fluid causing acute renal failure. Unfortunately even if it is rhabdomyolysis we cannot give massive amount of fluid unless we are receiving some diuresis. Will do dialysis tomorrow. 3hrs qb 300 qd 600 2k 2.5 ca and 1 kilo off. I have Discussed with daughter and son-in-law and another daughter and they are in agreement to give dialysis a trial. I did explain to them that even though this is pure acute renal failure there is no guarantee an 87-year-old person with multiple comorbidities will have renal recovery. If the kidneys does not recover we will revisit the discussion about continuing dialysis (2) Bilateral pneumonia: Very elevated white count. On empiric antibiotics as per ICU (3) Septic shock: Blood pressure better and off pressors now. 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 had dialysis yesterday. CVC did not work well. On vent Now getting tube feed also an tolerating. Physical Exam Physical Exam: Patient is intubated sedated on pressor critically ill Neck: Supple no jugular venous system Respiratory: Bilateral decreased breath sound intubated Cardiovascular: Regular rate and rhythm systolic murmur heard 1+ edema bilateral Gastrointestinal (Abdomen): Abdomen is soft nontender Skin: No rashes noted Results & Data Vital Signs (Past 12 Hours) Vital Signs Temp Pulse Resp BP Pulse Ox FiO2 12/23/22 08:00 50 12/23/22 08:00 89 12/23/22 07:36 99 H 21 90 50 12/23/22 07:00 36.9 C 89 17 94 12/23/22 07:00 144/54 H 12/23/22 06:28 36.9 C 90 20 95 12/23/22 06:28 141/57 H 12/23/22 06:00 36.9 C 86 24 94 12/23/22 05:00 36.7 C 87 24 94 12/23/22 04:00 36.9 C 86 22 93 12/23/22 04:00 134/53 L 12/23/22 03:00 36.9 C 87 22 93 12/23/22 03:00 138/49 L 12/23/22 02:00 36.9 C 86 22 93 12/23/22 02:00 127/52 L 12/23/22 01:00 36.9 C 83 22 91 12/23/22 01:00 125/47 L 12/23/22 00:00 37.0 C 85 22 91 12/23/22 00:00 119/45 L 12/22/22 23:00 37.0 C 84 22 91 12/22/22 23:00 126/51 L 12/22/22 22:00 36.9 C 82 22 91 12/22/22 22:00 114/51 L 12/23/22 04:00 50 12/23/22 00:00 50 12/23/22 02:32 87 24 93 50 12/22/22 23:14 84 22 91 50
--- NOTE | 2022-12-23 09:55 | Magnetic Resonance Report ---
MRI OF THE BRAIN WITHOUT CONTRAST CLINICAL HISTORY: encephalopathy/ischemia COMPARISON STUDY: Head CT December 18, 2022. TECHNIQUE: Utilizing a 1.5 Calista magnet and dedicated coil, multiplanar, multiecho imaging of the bra in was performed without IV contrast. FINDINGS: There is a 7 mm hyperintense focus within the body of the left caudate nucleus which is hyp ointense on the ADC map. There is a corresponding hyperintense focus on the T2-weighted sequence. Thi s represents a small acute infarct. There is also a 4 mm hyperintense focus within the medial right t emporal lobe on axial diffusion sequence image 10 which is hypointense on the ADC map. There is a cor responding T2 hyperintense focus. No additional foci of acute infarction are present. Basal cisterns are patent. There are no extra axial collections. Flow-voids for the major intracranial vessels are p resent. No acute intracranial hemorrhage, midline shift or mass effect is present. Extensive white ma tter T2 hyperintense foci suggest small vessel disease. There are secretions within the nasopharynx r elated to intubation. There is also fluid within the bilateral mastoid air cells, also likely related to intubation. No intracranial masses identified on this unenhanced exam. IMPRESSION: 1. 7 mm acute infarct within the body of the left caudate nucleus and a 4 mm acute infarct within the medial right temporal lobe, likely within the hippocampus. No mass effect. No hemorrhage. 2. Extensive white matter T2 hyperintense foci suggestive of small vessel disease. 3. Secretions within the nasopharynx and fluid within the bilateral mastoid air cells likely related to intubation. ACT 112: Negative or not required by law. Electronically signed by: Dwight Dubose M.D. 12/23/2022 9:53 AM
[2022-12-23] MEDS ORDERED: CALCIUM GLUCONATE 10% 2,000 MG in SODIUM CHLORIDE 0.9% 50 ML IV ONE (10:15)
[2022-12-23] MEDS ORDERED: LANTUS PER UNIT CHARGE SC ONE (10:45)
--- NOTE | 2022-12-23 11:24 | Pharmacy Report ---
Pharmacy Glycemic Short Note 2 - Date of Service December 23, 2022 - Glycemic Short BSG Results (Last 24 hours): 12/22/22 12/22/22 12/22/22 12:54 15:06 17:45 Glucose 121 H POC Glucose 129 H 155 H 12/22/22 12/22/22 12/23/22 20:15 21:01 00:24 Glucose 160 H POC Glucose 175 H 190 H 12/23/22 12/23/22 12/23/22 01:09 02:25 03:13 Glucose POC Glucose 214 H 189 H 244 H 12/23/22 12/23/22 12/23/22 04:21 04:26 05:31 Glucose 200 H POC Glucose 211 H 224 H 12/23/22 12/23/22 12/23/22 06:26 07:17 07:54 Glucose POC Glucose 251 H 217 H 219 H 12/23/22 12/23/22 12/23/22 09:16 09:57 11:01 Glucose POC Glucose 232 H 201 H 274 H OUTPATIENT ANTIDIABETIC REGIMEN: * metformin 2gm PO daily HbA1C: 8.4% ASSESSMENT: 12/23: * Patient remains mechanically ventilated. BSGs within goal range the last 48h with insulin infusion. * Continues on antibiotics. Novasource tube feeds are now running at goal. Steroids tapered and will be weaned off later today. * Will give a dose of basal insulin today to assist with transition to SQ. Insulin infusion running ~ 5 unit/hr this AM. Novolog carb coverage added yesterday to cover tube feeds. If insulin drip rate comes down to 2 unit/hr or less, may discontinue. 12/21: * Patient has remained intubated, sedated, and on low dose vasopressor support the last 48 hours. BSGs within goal range with insulin infusion. * Still with numerous stressors and critically ill - methylprednisolone 80mg IV q8h to transition to 40mg q8h starting tomorrow. Trickle feeds to begin today. * Continue insulin infusion per severe stress/hyperglycemia protocol. Consider adding Novolog for coverage of tube feeds if advanced beyond trickle tomorrow. 12/19: * Patient is a critically ill 87 year old female- presented with acute on chronic respiratory failure and septic shock requiring intubation, sedation, and vasopressor support. Pharmacy consulted to assist with glycemic management in this setting. * Currently intubated and requiring low dose norepinephrine, NPO, methylprednisolone 80mg IV q8h, and receiving IV antibiotics as well as a bicarb drip (in D5W) at 100mL/hr. * BSGs 155-->274 -->336mg/dL today. Given numerous stressors and current clinical status, will transition from SQ to IV insulin infusion per hyperglycemia protocol (severe stress). Goal BSG 110-180mg/dL. PLAN FOR INPATIENT GLYCEMIC CONTROL: * Hold outpatient oral diabetes medications * Basal insulin * Lantus 15 units SQ X 1 * Regular insulin infusion per hyperglycemia protocol (goal BSG 110-180mg/dL) * Bolus insulin * NovoLog q4: carb ratio = 15gm/unit for coverage of tube feeds
[2022-12-23 11:48] LABS: iSTAT Allen Test Pass; iSTAT Art Bld Gas pCO2 Correct 43 mmHg (35-46); iSTAT Art Bld Gas pH Corrected 7.351 (7.35-7.45); iSTAT Arterial Blood Gas HCO3 24 meg/L (19-24); iSTAT Arterial Blood Gas pCO2 43 mmHg (35-46); iSTAT Arterial Blood Gas pH 7.35 (7.35-7.45); iSTAT Arterial Blood Gas pO2 71 mmHg (80-95); iSTAT Arterial Blood Gas pO2 C 69; iSTAT Carbon Dioxide 25 mmol/L (24-31); iSTAT FiO2 50 %; iSTAT Hematocrit 37 % (37-47); iSTAT Hemoglobin 12.6 g/dl (12.0-16.0); iSTAT Potassium 4.4 mmol/L (3.3-5.0); iSTAT Site R Brachial; iSTAT Sodium 134 mmol/L (135-144)
[2022-12-23] MEDS: CALCIUM ACETATE 667 MG CAP/TAB PO SCH ×2 (13:11→16:16)
--- NOTE | 2022-12-23 13:18 | Billing Data ---
Date of Service December 23, 2022 Coding Level of Care Code 06694 CRITICAL CARE 1ST 30-74M Time Spent (min) 60
[2022-12-23 13:36] LABS: Hematocrit (blood only) 39.4 % (37.0-47.0); Hemoglobin 13.6 g/dl (12.0-16.0); Mean Corpuscular Hemoglobin 33.2 pg (25.0-34.0); Mean Corpuscular Hgb Conc 34.5 g/dL (32.0-36.0); Mean Corpuscular Volume 96.1 fL (80.0-100.0); Mean Platelet Volume 10.2 fL (9.4-12.4); Nucleated RBC # (auto) 0.06 K/uL (0-0.12); Nucleated RBC % (auto) 0.2 %; Platelet Count 319 K/uL (130-400); RDW Coefficient of Variation 12.6 % (11.5-14.5); RDW Standard Deviation 45.3 fL (36.4-46.3); White Blood Count 31.45 K/ul (4.8-10.8)
--- NOTE | 2022-12-23 13:41 | Neurology Consultation ---
Date of Consultation December 23, 2022 Assessment & Plan (1) Acute CVA (cerebrovascular accident): (2) Acute encephalopathy: (3) Septic shock: (4) ARDS (adult respiratory distress syndrome): (5) Acute on chronic respiratory failure with hypoxia and hypercapnia: Plan patient's has 2 small acute CVAs as noted on MRI. They likely do not alter her neurologic picture current. She has a severe acute encephalopathy secondary to acute on chronic respiratory failure / ARDS/sepsis. Currently on no sedation, her exam shows some brainstem function and movement in 1 limb. Her EEG showed a very poor prognosis rhythm ( "burst-suppression"). 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 it is reasonable to give her an 81 mg aspirin tablet daily. 2. I spoke with the patient's daughter and Dr. Whatley regarding the poor prognosis and we will be making decisions on a day-to-day basis. 3. for I will make additional recommendations depending on her clinical course Overall, I spent a total of 90 minutes with this case including review of records, review of MRI films, direct evaluation the patient at bedside, reports generation, and discussion of the case with the patient, RN and daughter at bedside as well as Dr. Whatley, including differential diagnosis treatment options. History of Present Illness Reason for Consultation: patient is an 87-year-old, who I was asked to see at the request of Dr. Whatley, for neurologic consultation regarding stroke. Requesting Physician: Dr. Whatley Attending Physician: Mercedez Ramos MD History of Present Illness this patient has a longstanding history of COPD, diabetes, hypertension, dyslipidemia, hypothyroidism, and QUISPE. her daughter is present in the room who helps add to the history. She has had admissions in the past for pulmonary issues. She was admitted December 18 with acute hypercapnic respiratory failure in the setting of urosepsis. she was confused on admission but had no focal findings. A CT scan of the head was unremarkable. She was on fentanyl and Versed drips for several days and then these were discontinued. On December 22, because of unresponsiveness an EEG was obtained. "burst-suppression" activity was seen throughout the entire recording and the times of activity were irregular, low amplitude, and very slow. No other focal abnormalities were noted and no potentially epileptogenic discharges were seen. This type of rhythm is indicative of severe generalized brain damage and carries a very poor prognosis. MRI of the brain was obtained on December 22 and showed a 7 mm left caudate and 4 mm right medial temporal lobe acute infarcts. There was moderate to extensive old small vessel ischemic disease noted and mild generalized atrophy. I reviewed these films. Echocardiogram showed no significant issues. Today the patient remains obtunded and ventilator dependent. Blood pressure is 154/60, she is afebrile, and pulse is in the 90s and regular. Laboratory studies revealed elevated CK after admission up to 13,900 ( the patient was apparently sitting for at least 24 hours in 1 position in a chair before family found her ). Today to see case down [place] 6800[place] [address] and her BUN is 74 and creatinine 4.2. She has high fives for some low calcium of the glucose of 200. Allergies Allergy/AdvReac Type Severity Reaction Status Date / Time Penicillins Allergy Intermediate HIVES Verified 12/19/22 00:08 Home Medications Medication Instructions Recorded Confirmed Type clopidogrel 75 mg tablet 75 mg PO DAILY 06/14/21 12/19/22 History levothyroxine 150 mcg tablet 150 mcg PO DAILY 06/14/21 12/19/22 History metoprolol tartrate 25 mg tablet 25 mg PO BID 06/14/21 12/19/22 History multivitamin 1 tab PO DAILY 06/14/21 12/19/22 History rosuvastatin 10 mg tablet 10 mg PO DAILY 06/14/21 12/19/22 History lancets 30 gauge and blood glucose #200 ea 06/24/21 08/17/22 Rx strips combo pack Portable Oxygen #1 ea 07/21/21 08/17/22 Rx hydrochlorothiazide 12.5 mg tablet 12.5 mg PO DAILY 07/21/21 12/19/22 History Flutter Valve #1 ea 08/24/22 08/24/22 Rx albuterol sulfate 90 mcg/actuation 2 inh inhalation Q6H PRN shortness 08/24/22 12/19/22 Rx aerosol inhaler of breath or wheezing #8.5 grams umeclidinium 62.5 mcg-vilanterol 1 ea inhalation DAILY #60 ea 08/24/22 12/19/22 Rx 25 mcg/actuation powdr for inhalation (Anoro Ellipta) azithromycin 250 mg tablet 250 mg PO DAILY 12/19/22 12/19/22 History calcium carbonate 200 mg-magnesium 1 tab PO BID 12/19/22 12/19/22 History oxide,carbonate 100 mg chew tablet (Jez-Mag) diclofenac sodium 1 % topical gel 4 g topical TID PRN Pain 12/19/22 12/19/22 History duloxetine 30 mg capsule,delayed 30 mg PO QAM 12/19/22 12/19/22 History release gabapentin 300 mg capsule 300 mg PO BID 12/19/22 12/19/22 History losartan 50 mg tablet 50 mg PO QAM 12/19/22 12/19/22 History metformin 500 mg tablet,extended 2,000 mg PO DAILY 12/19/22 12/19/22 History release 24 hr Patient History Medical History Pneumonia Social History Smoking Status: Current every day smoker Tobacco Type: Cigarettes Cigarettes Per Day: 2-3; Second Hand Exposure: No; Do You Dip or Chew Tobacco: No; Tobacco Cessation Education Requested by Patient: No Hx Alcohol Use: Yes Alcohol type: wine Hx Substance Use: No Preferred Language: Niuean Communication Ability: Unable Broomcorn Press Feeder Required: No Beliefs That Will Affect Care: None marital status: Unknown Current Living Situation: Alone Current Living Situation Comment: patient lives in an apartment Other Information That Helps Us Care for You: No Feels Safe at Home: Yes Safety Concerns: Feels Safe At This Time Assistive Devices: Scooter/Electric Scooter Review of Systems Review of Systems: Unobtainable due to endotracheal tube and Unobtainable due to reduced consciousness Exam (Neuro) Physical Exam: she is lying on her back with her eyes closed. She has regular respirations completely time to the ventilator. She has no spontaneous movement. Temp is 36.7, pulse is 90 and regular, blood pressure is 154/60. She is on no sedating meds and no warming/cooling blankets Upper eyelids open passively bilaterally. Eyes are front fixed and pupils are 3 mm bilaterally reactive to light. With passive movement of the head she has some doll's eye movements better with moving head to the right than to the left. She has no spontaneous nystagmus. There are positive corneal reflexes bilaterally. She has little cough to suctioning superficially. She has a slight gag right greater than left side. She does not wince with deep pain in the supraorbital notches bilaterally. Neck seems supple. All 4 limbs have decreased tone. She has no withdrawal or reaction to deep pain in the left upper extremity or both legs. With deep pain in the right upper ext remity, she lifts up her left arm and grimaces. Later on, she had some spontaneous movement of the left upper extremity. There is no reaction to pinprick Reflexes are absent in the biceps, triceps, brachioradialis, quadriceps, and Achilles tendons bilaterally. Toes are neutral to plantar stimulation bilaterally. Results & Data Vital Signs (Past 12 Hours) Vital Signs Temp Pulse Resp BP Pulse Ox O2 Del Method FiO2 12/23/22 11:00 36.7 C 92 H 11 L 94 12/23/22 11:00 154/60 H 12/23/22 10:00 36.7 C 91 H 13 94 12/23/22 10:00 136/58 L 12/23/22 09:52 36.8 C 94 H 12 94 12/23/22 09:52 142/57 H 12/23/22 09:17 101 H 18 12/23/22 11:36 90 12 95 50 12/23/22 10:00 Mechanical Vent 12/23/22 08:00 50 12/23/22 08:00 89 12/23/22 07:36 99 H 21 90 50 12/23/22 07:00 36.9 C 89 17 94 12/23/22 07:00 144/54 H 12/23/22 06:28 36.9 C 90 20 95 12/23/22 06:28 141/57 H 12/23/22 06:00 36.9 C 86 24 94 12/23/22 05:00 36.7 C 87 24 94 12/23/22 04:00 36.9 C 86 22 93 12/23/22 04:00 134/53 L 12/23/22 03:00 36.9 C 87 22 93 12/23/22 03:00 138/49 L 12/23/22 02:00 36.9 C 86 22 93 12/23/22 02:00 127/52 L 12/23/22 04:00 50 12/23/22 02:32 87 24 93 50 PG Care Time/CCT Total # of Minutes Spent Total Time Spent with Patient: Total time spent is greater than 50% in coordination of care (as documented) at patient's floor/unit and/or counseling patient: Coding Level of Care Code 20867 INT INP/OBS CARE MIN Diagnoses Acute CVA (cerebrovascular accident) I63.9 Acute encephalopathy G93.40 Septic shock A41.9; R65.21 ARDS (adult respiratory distress syndrome) J80 Acute on chronic respiratory failure with hypoxia and hypercapnia J96.21; J96.22 Time Spent (min) 90
[2022-12-23] MEDS: ASPIRIN 81 MG CHEW PO SCH (13:45)
[2022-12-23 13:57] LABS: Basophils # (auto) 0.14 K/uL (0-0.2); Basophils % (auto) 0.4 %; Immature Granulocytes # (auto) 0.44 K/uL (0.01-0.20); Immature Granulocytes % (auto) 1.4 %; Lymphocytes # (auto) 0.75 K/uL (1.2-3.4); Lymphocytes % (auto) 2.4 %; Monocytes % (auto) 5.1 %; Neutrophils # (auto) 28.52 K/uL (1.40-6.50); Neutrophils % (auto) 90.7 %; RBC Morphology Unremarkable
[2022-12-23 14:02] LABS: BUN Creatinine Ratio 19.5 (10-20); Creatinine Clr Calc Pharmacy 8.3 ml/min; Est GFR (Non-African American) 7.8 ml/min; Magnesium 2.4 mg/dl (1.7-2.4); Phosphorus 5.9 mg/dl (2.5-4.9); Potassium 4.5 mmol/L (3.5-5.1)
--- NOTE | 2022-12-23 14:33 | Hospitalist Progress Note ---
Date of Service December 23, 2022 Assessment & Plan (1) Acute on chronic respiratory failure with hypoxia and hypercapnia: (2) ARDS (adult respiratory distress syndrome): Plan: (1) Acute on chronic respiratory failure with hypoxia and hypercapnia: Plan: Multifactorial hx chronic respiratory failure secondary to COPD , bibasilar pneumonia, home O2 noncompliance as per records Status post intubation at the ER COPD exacerbation secondary to atypical pneumonia, recent outpatient Z-Santana course for pharyngitis Did not receive IV doxycycline and/or IV azithromycin in the hospital-was getting azithromycin as an outpatient Has been on intravenous cefepime and Flagyl added today 12/22/2022 Intravenous Solu-Medrol and nebs as prescribed Complicated UTI, possible sepsis-has been on intravenous cefepime Appreciate dowel machine operator input and recommendation Possible functional disability, concerns about patient ability to reside alone with multiple comorbidities. Remains critical but stable Rhabdomyolysis and transaminitis Likely secondary to sepsis, hypotension and hypoxia Supportive care Cannot provide enough IV fluid We will monitor LFTs and CPK CPK has been improving MRI showed 2 small acute CVAs Appreciate neurology input and recommendation Prognosis remains poor Daughter was updated by the neurologist (3) Septic shock: Plan: Transaminitis likely secondary to sepsis with hypotension and congestion to the liver We will monitor LFTs (4) Bilateral pneumonia: Plan: Continue with intravenous cefepime and Flagyl (5) RU (acute kidney injury): Plan: Severe oliguric acute kidney injury in the setting of sepsis and hypoxemia Received intravenous fluid with positive balance of 6 L so far Bumex has been added Appreciate nephrology input and recommendation Has been having dialysis from today No urine output and will need dialysis We will have dialysis tomorrow (6) COPD exacerbation: Plan: As above with bilateral pneumonia Plan Other medical conditions as below: Hypertensive urgency secondary to illness Received intravenous fluid due to sepsis Blood pressure is running low at 102/43 hyperlipidemia on statin Rx DM2 on oral medications, suboptimal control as of recent hemoglobin A1c of 8.20 Sep 2022 Basal bolus insulin adjusted for n.p.o. status, ISS BG goal 1 40-1 80 appropriate goal for ICU Hypothyroidism, euthyroid as of today's TSH Ongoing tobacco abuse DVT prophylaxis Subcu Lovenox CODE STATUS Full Discussed with the daughter in detail Admission and Anticipated Discharge Date Admission Date: December 19, 2022 Subjective 12/21/2022 The patient was seen and examined in ICU Remains on the vent and sedated 12/22/2022 The patient was seen and examined in ICU She remains sedated on vent Critical but stable 12/23/2022 The patient was seen and examined in ICU in presence of the daughter He remains stable but critical Remains on vent with sedation Review of Systems Review of Systems: Unobtainable due to endotracheal tube Physical Exam Physical Exam: Remains stable on mechanical ventilator and has not been requiring sedation Constitutional: well developed, well nourished and + ill appearing ENMT: external ear and nose normal, oropharynx normal Neck: trachea midline, no thyromegaly Respiratory: no respiratory distress Auscultation: + diminished lung sounds and + crackles (Minimal crackles at the bases) Cardiovascular: Rate/Rhythm: regular rate and regular rhythm; not tachycardic Heart Sounds: normal S1 and normal S2; no murmur Extremities: + edema Gastrointestinal (Abdomen): Inspection/Auscultation: normal bowel sounds; abdomen not distended Percussion/Palpation: abdomen soft Musculoskeletal: No acutely inflamed joint Neurologic: Remains on vent without sedation Results & Data Results & Data Vital Signs (Past 12 Hours) Vital Signs Temp Pulse Resp BP Pulse Ox O2 Del Method FiO2 12/23/22 14:00 36.7 C 87 9 L 95 Mechanical Vent 12/23/22 14:00 141/55 H 12/23/22 13:00 36.7 C 98 H 16 94 12/23/22 13:00 167/59 H 12/23/22 12:00 36.7 C 94 H 12 95 12/23/22 12:00 158/62 H 12/23/22 12:00 50 12/23/22 11:00 36.7 C 92 H 11 L 94 12/23/22 11:00 154/60 H 12/23/22 10:00 36.7 C 91 H 13 94 12/23/22 10:00 136/58 L 12/23/22 09:52 36.8 C 94 H 12 94 12/23/22 09:52 142/57 H 12/23/22 09:17 101 H 18 12/23/22 11:36 90 12 95 50 12/23/22 10:00 Mechanical Vent 12/23/22 08:00 50 12/23/22 08:00 89 12/23/22 07:36 99 H 21 90 50 12/23/22 07:00 36.9 C 89 17 94 12/23/22 07:00 144/54 H 12/23/22 06:28 36.9 C 90 20 95 12/23/22 06:28 141/57 H 12/23/22 06:00 36.9 C 86 24 94 12/23/22 05:00 36.7 C 87 24 94 12/23/22 04:00 36.9 C 86 22 93 12/23/22 04:00 134/53 L 12/23/22 03:00 36.9 C 87 22 93 12/23/22 03:00 138/49 L 12/23/22 04:00 50 12/23/22 02:32 87 24 93 50 Laboratory Results Short CBC 12/22/22 12/23/22 12/23/22 Range/Units 21:01 04:21 12:56 WBC 31.24 H* 32.01 H* 31.45 H* (4.8-10.8) K/ul Hgb 12.9 12.7 13.6 (12.0-16.0) g/dl Hct 37.2 37.2 39.4 (37.0-47.0) % Plt Count 311 309 319 (130-400) K/uL BMP 12/22/22 12/23/22 12/23/22 21:01 04:21 Unknown Sodium 135 L 134 L 135 L Potassium 4.5 4.6 4.5 Chloride 100 100 101 Carbon Dioxide 25 24 23 BUN 62 H 74 H 92 H Creatinine 3.80 H D 4.16 H D 4.72 H* D Glucose 160 H 200 H 158 H Calcium 7.2 L 7.2 L 8.0 L Cardiac Enzymes 12/23/22 Range/Units 04:21 Total Creatine Kinase 6849 H (26-192) U/L Medications Administered Current Inpatient Medications Albuterol (Albut/Ipratrop 3mg/0.5mg Neb 3 Ml Vial) 3 ml NEB Q6R PRN; Protocol PRN Reason: Shortness Of Breath Or Wheezing Stop: 01/18/23 06:59 Aspirin (Aspirin 81 Mg Chew) 81 mg PO DAILY COLT Stop: 01/22/23 13:14 Last Admin: 12/23/22 13:45 Dose: 81 mg Calcium Acetate (Calcium Acetate 667 Mg Cap/Tab) 667 mg PO TIDM COLT Stop: 01/22/23 11:59 Last Admin: 12/23/22 13:11 Dose: 667 mg Clopidogrel Bisulfate (Clopidogrel Bisulfate 75 Mg Tab) 75 mg PO DAILY [facility] Stop: 01/18/23 08:59 Last Admin: 12/23/22 09:52 Dose: 75 mg Dextrose (Dextrose 50% 50 Ml Syringe) 25 - 50 ml IV UD PRN; Protocol PRN Reason: Hypoglycemia Protocol Stop: 01/18/23 05:00 Last Admin: 12/19/22 09:27 Dose: 50 ml Enteral Nutritional Formula (Novasource Renal 2.0 Jez 1000ml Bag) 1,000 ml OG .SeeProtocol [facility]; Protocol Stop: 01/20/23 11:14 Last Admin: 12/21/22 17:27 Dose: 1,000 ml Fentanyl Citrate (Fentanyl Bolus From Bag) 50 mcg IV Q60M PRN PRN Reason: Pain or Agitation Stop: 01/02/23 04:42 Last Admin: 12/22/22 07:55 Dose: 50 mcg Formoterol Fumarate (Formoterol 20 Mcg/2 Ml Vial) 20 mcg NEB BIDR [facility] Stop: 01/20/23 18:59 Last Admin: 12/23/22 07:48 Dose: 20 mcg Glucagon (Glucagon For Inj 1 Mg Vial) 1 mg SQ UD PRN; Protocol PRN Reason: Hypoglycemia Protocol Stop: 01/18/23 05:00 Glucose (Glucose 10 Tab/Tube) 4 - 8 tab PO UD PRN; Protocol PRN Reason: Hypoglycemia Treatment Stop: 01/18/23 05:00 Glucose (Glucose 40% Gel 15 Gm Tube) 15 - 30 gm PO UD PRN; Protocol PRN Reason: Hypoglycemia Protocol Stop: 01/18/23 05:00 Heparin Sodium (Porcine) (Heparin Sod 5,000 Unit/0.5 Ml Vial) 5,000 units SQ Q12 [facility] Stop: 01/18/23 20:59 Last Admin: 12/23/22 09:52 Dose: 5,000 units Fentanyl Citrate (Fentanyl Citrate) 2,500 mcg in 250 mls @ 0 mls/hr IV .Q0M [facility]; Protocol Stop: 01/02/23 04:44 Last Admin: 12/23/22 06:32 Dose: Not Given Insulin Human Regular 250 (units/ Sodium Chloride) 250 mls @ 5.8 mls/hr IV .Q24H COLT; Protocol Stop: 01/18/23 12:59 Last Titration: 12/23/22 14:07 Dose: 5.8 unit/hr, 5.8 mls/hr Methylprednisolone 40 mg/ (Syringe) 0.64 mls @ 1.5 mls/min IV Q8H [facility] Stop: 12/23/22 16:01 Last Admin: 12/23/22 08:00 Dose: 1.5 mls/min Cefepime HCl 1,000 mg/ Syringe 10 mls @ 5 mls/min IV Q24H COLT; Protocol Stop: 12/29/22 13:59 Last Admin: 12/23/22 02:29 Dose: 5 mls/min Famotidine 20 mg/ Syringe 5 mls @ 2.5 mls/min IV DAILY@2100 COLT Stop: 01/19/23 08:59 Metronidazole (Flagyl) 500 mg in 100 mls @ 100 mls/hr IV Q8 COLT; Protocol Stop: 12/29/22 14:29 Last Admin: 12/23/22 13:47 Dose: 100 mls/hr Sodium Chloride (Nss 1000ml) 1,000 mls @ 0 mls/hr IV .Q0M PRN PRN Reason: For Hemodialysis Use ONLY Stop: 12/24/22 12:59 Insulin Aspart (Insulin Aspart Per Unit Charge) 0 units SC Q4 [facility] Stop: 01/21/23 11:59 Last Admin: 12/23/22 11:10 Dose: 2 units Levothyroxine Sodium (Levothyroxine Sodium 150 Mcg Tablet) [facility] Stop: 01/18/23 06:29 Last Admin: 12/23/22 07:24 Dose: 150 mcg Miscellaneous (Carbohydrates For Hypoglycemia ) 15 - 30 gm PO UD PRN PRN Reason: Hypoglycemia Protocol Stop: 01/18/23 05:00 Miscellaneous Information (Pharmacy Glycemic Mgmt Consult) 1 each N/A UD PRN PRN Reason: Consult Stop: 01/18/23 12:47 Multivitamins/Minerals (Multi Vit W/Minerals Liquid 15 Ml Udp) 15 ml GT DAILY COLT Stop: 01/19/23 09:59 Last Admin: 12/23/22 09:51 Dose: 15 ml Polyethylene Glycol (Polyethylene (Miralax) 17 Gm Pack) 17 gm GT DAILY [facility] Stop: 01/20/23 10:14 Last Admin: 12/23/22 09:52 Dose: 17 gm Sennosides (Sennosides 8.8 Mg/5 Ml Udc) 8.8 mg GT DAILY COLT Stop: 01/19/23 10:14 Last Admin: 12/23/22 09:20 Dose: 8.8 mg Sterile Water (Tube Feeding Water Flush) 30 ml OG Q4H COLT Stop: 01/20/23 11:14 Last Admin: 12/23/22 10:49 Dose: 30 ml
[2022-12-23] MEDS: INSULIN REGULAR 250 UNITS in SODIUM CHLORIDE 0.9% 247.5 ML IV SCH (14:57)
[2022-12-23] MEDS: FAMOTIDINE 20 MG in SYRINGE 3 ML IV SCH (20:33)
[2022-12-23 21:39] LABS: BUN Creatinine Ratio 21.2 (10-20); Calcium 7.8 mg/dl (8.6-10.3); Creatinine Clr Calc Pharmacy 7.9 ml/min; Est GFR (African American) 8.4 ml/min; Est GFR (Non-African American) 7.2 ml/min; Magnesium 2.4 mg/dl (1.7-2.4); Phosphorus 5.9 mg/dl (2.5-4.9); Potassium 4.6 mmol/L (3.5-5.1)
[2022-12-23 21:41] LABS: Hematocrit (blood only) 37.9 % (37.0-47.0); Hemoglobin 13.2 g/dl (12.0-16.0); Mean Corpuscular Hemoglobin 32.7 pg (25.0-34.0); Mean Corpuscular Hgb Conc 34.8 g/dL (32.0-36.0); Mean Corpuscular Volume 93.8 fL (80.0-100.0); Mean Platelet Volume 10.3 fL (9.4-12.4); Nucleated RBC # (auto) 0.03 K/uL (0-0.12); Nucleated RBC % (auto) 0.1 %; Platelet Count 332 K/uL (130-400); RDW Coefficient of Variation 12.6 % (11.5-14.5); RDW Standard Deviation 43.6 fL (36.4-46.3); Red Blood Count 4.04 M/uL (4.20-5.40)
[2022-12-23 22:29] LABS: Basophils # (auto) 0.14 K/uL (0-0.2); Basophils % (auto) 0.4 %; Eosinophils # (auto) 0.01 K/uL (0-0.50); Immature Granulocytes # (auto) 0.77 K/uL (0.01-0.20); Immature Granulocytes % (auto) 2.3 %; Lymphocytes # (auto) 0.91 K/uL (1.2-3.4); Lymphocytes % (auto) 2.7 %; Monocytes # (auto) 1.88 K/uL (0.11-0.59); Monocytes % (auto) 5.5 %; Neutrophils # (auto) 30.39 K/uL (1.40-6.50); Neutrophils % (auto) 89.1 %
[2022-12-24] MEDS: TUBE FEEDING WATER FLUSH OG SCH ×6 (00:09→20:49)
[2022-12-24] MEDS: INSULIN ASPART PER UNIT CHARGE SC SCH ×6 (00:09→20:48)
[2022-12-24] MEDS: CEFEPIME 1,000 MG in SYRINGE 0 ML IV SCH (02:13)
[2022-12-24] MEDS: NOVASOURCE RENAL 2.0 CAL 1000ML BAG OG SCH (04:22)
[2022-12-24 05:26] LABS: Hematocrit (blood only) 38.1 % (37.0-47.0); Hemoglobin 13.2 g/dl (12.0-16.0); Mean Corpuscular Hemoglobin 32.4 pg (25.0-34.0); Mean Corpuscular Hgb Conc 34.6 g/dL (32.0-36.0); Mean Corpuscular Volume 93.6 fL (80.0-100.0); Mean Platelet Volume 10.2 fL (9.4-12.4); Nucleated RBC # (auto) 0.02 K/uL (0-0.12); Nucleated RBC % (auto) 0.1 %; Platelet Count 342 K/uL (130-400); RDW Coefficient of Variation 12.5 % (11.5-14.5); RDW Standard Deviation 43.2 fL (36.4-46.3); Red Blood Count 4.07 M/uL (4.20-5.40); White Blood Count 36.16 K/ul (4.8-10.8)
[2022-12-24 05:42] LABS: Basophils # (auto) 0.19 K/uL (0-0.2); Basophils % (auto) 0.5 %; Immature Granulocytes # (auto) 1.27 K/uL (0.01-0.20); Immature Granulocytes % (auto) 3.5 %; Lymphocytes # (auto) 1.12 K/uL (1.2-3.4); Lymphocytes % (auto) 3.1 %; Monocytes # (auto) 2.66 K/uL (0.11-0.59); Monocytes % (auto) 7.4 %; Neutrophils # (auto) 30.92 K/uL (1.40-6.50); Neutrophils % (auto) 85.5 %
[2022-12-24] MEDS: LEVOTHYROXINE SODIUM 150 MCG TABLET GT SCH (06:02)
[2022-12-24 06:22] LABS: BUN Creatinine Ratio 22.8 (10-20); Calcium 7.8 mg/dl (8.6-10.3); Creatinine Clr Calc Pharmacy 7.5 ml/min; Est GFR (Non-African American) 6.9 ml/min; Magnesium 2.5 mg/dl (1.7-2.4); Potassium 4.7 mmol/L (3.5-5.1)
[2022-12-24] MEDS ORDERED: SODIUM CHLORIDE 0.9% 1000ML 1,000 ML IV PRN (07:00)
[2022-12-24] MEDS: FORMOTEROL 20 MCG/2 ML VIAL NEB SCH ×2 (07:21→19:27)
[2022-12-24] MEDS: metroNIDAZOLE 500 MG/100 ML BAG IV SCH ×2 (08:14→16:06)
[2022-12-24] MEDS: ASPIRIN 81 MG CHEW PO SCH (08:14)
[2022-12-24] MEDS: MULTI VIT W/MINERALS LIQUID 15 ML UDP GT SCH (08:15)
[2022-12-24] MEDS: CALCIUM ACETATE 667 MG CAP/TAB PO SCH ×3 (08:15→17:11)
[2022-12-24] MEDS: HEPARIN SOD 5,000 UNIT/0.5 ML VIAL SQ SCH ×2 (08:15→20:48)
[2022-12-24] MEDS: CLOPIDOGREL BISULFATE 75 MG TAB PO SCH (08:15)
[2022-12-24] MEDS: SENNOSIDES 8.8 MG/5 ML UDC GT SCH (08:16)
[2022-12-24] MEDS: POLYETHYLENE (MIRALAX) 17 GM PACK GT SCH (08:16)
[2022-12-24] MEDS: LANTUS PER UNIT CHARGE SC SCH (08:18)
--- NOTE | 2022-12-24 09:18 | Critical Care Progress Note ---
Date of Service December 24, 2022 Assessment & Plan (1) Acute on chronic respiratory failure with hypoxia and hypercapnia: Plan: NEURO 1. Intubated, off sedation since 12/22 2. Burst suppression on EEG 12/22 3. 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 Start ASA for secondary prevention. Due to transaminitis, will hold off on statin for now. No further imaging recommended at this time. CV 1. Distributive shock in setting of severe sepsis -- Off levophed RESP 1. Severe ARDS 2. COPD with exacerbation -- TV < 6cc/kg, Driving prssure < 14 -- Taper Solumedrol, nebs q4 hrs prn RENAL 1. Oliguric acute renal failure / RU. Likely septic ATN, also received IV contrast on admission and has had severe rhabdomyolysis 2. Hyperkalemia 3. Hyperphospahtemia 4. Metabolic acidosis 2/2 RTA from ATN 5. Rhabomyolysis w/ associated transaminitis -- Serial metabolic panel, abd US without hydronephrosis -- Continues HD ID 1. B/l basilar PNA, concern for chronic / silent aspiration 2. UTI, urine culture with E. coli, ruled out post renal obx --Continue Cefepime / flagyl, add caspofungin today, continue to wean steroids GI 1. Transaminitis, hepatocellular pattern, likely due to rhbado / possibly shock liver vs hepatic congestion -- Follow transaminitis, has been stable / improving -- Tube feeds at [facility] -- GI ppx ENDO 1. DM -- Blood glucose goal 140-180 -- On insulin gtt, managed by pharmacy GI ppx: pepcid DVT ppx: heparin subQ Will plan to for a family meeting tomorrow. I explained to Ms. Huertas's daughter that despite current aggressive live support measures, Ms. Gabriela nielsen continues to head in a poor trajectory. She is day 7 of mechanical ventilation and although his is tolerating pressure support ventilation, barrier to successful extubation in neurological status. Even in the best case, we would expect severe critical illness myopathy / weakness and extensive rehab needs at the age of 87 in someone with severe baseline lung disease. (2) Acute UTI: (3) COPD with emphysema: (4) Diabetes mellitus: (5) Pneumonia: (6) Hypothyroidism: Admission and Anticipated Discharge Date Admission Date: December 19, 2022 Subjective Summary: 87 year old female with advanced COPD, non compliant with home oxygen and active smoking and DM presenting with acute on chronic hypoxemic / hypercapnic respiratory failure requiring mechanical ventilation on 12/19/2022. CTA with dense basilar infiltates R>L with fibrotic changes, concerns for chronic / silent aspiration. Diagnosed with UTI as well. Treated for severe ARDS with proning from 12/19 to 12/21, oliguric ATN with severe rhabdo, a trial HD started on 12/22. Found to have acute CVA in right temporal and Lt caudate on MRI 12/23 with burst suppression pattern on EEG, has been on minimal sedation through her ICU course. Interval Events: 12/21/2022 The patient was seen and examined in ICU Remains on the vent and sedated 12/22/2022 The patient was seen and examined in ICU She remains sedated on vent Critical but stable 12/23/2022 The patient was seen and examined in ICU in presence of the daughter He remains stable but critical Remains on vent with sedation 12/24/2022. Off sedation since 12/22. Opens eyes spontaneously. Does not follow commands. Review of Systems Review of Systems: Unable to be obtained Physical Exam Physical Exam: GEN: Opens eyes, does not track, does not follow commands, intubated. Off sedation CV: Sinus tachycardia RESP: diminished breath sounds b/l ABD: Soft Ext: warm, dry, well perfused Results & Data Results & Data Vital Signs (Past 12 Hours) Vital Signs Temp Pulse Pulse Resp BP Pulse Ox FiO2 12/24/22 07:30 108 H 128/60 12/24/22 07:00 105 H 142/59 H 12/24/22 07:22 102 H 16 96 50 12/24/22 06:30 37.0 C 102 H 151/64 H 12/24/22 06:00 37.0 C 101 H 18 132/71 94 12/24/22 05:45 36.9 C 102 H 22 136/68 94 12/24/22 05:30 36.9 C 108 H 17 181/72 H 95 12/24/22 05:16 36.9 C 113 H 22 184/80 H 98 12/24/22 05:00 37.0 C 101 H 21 150/49 H 93 12/24/22 04:51 37.0 C 89 29 H 150/53 H 94 12/24/22 04:41 37.0 C 86 24 155/53 H 93 12/24/22 04:00 36.9 C 93 H 26 H 148/59 H 94 12/24/22 03:00 36.9 C 93 H 21 154/57 H 93 12/24/22 03:00 154/57 H 12/24/22 02:00 36.9 C 92 H 19 158/61 H 95 12/24/22 01:00 37.0 C 87 27 H 143/53 H 94 12/24/22 00:00 36.9 C 93 H 22 154/60 H 94 12/23/22 23:00 36.8 C 91 H 18 154/60 H 94 12/24/22 06:00 101 H 132/71 12/24/22 05:30 108 H 181/72 H 12/24/22 05:00 116 H 150/49 H 12/24/22 04:48 97 H 150/53 H 12/24/22 04:40 36.9 C 87 12/24/22 05:30 50 12/24/22 05:23 105 H 17 95 50 12/24/22 03:22 91 H 28 H 94 40 12/24/22 00:00 50 12/24/22 00:00 93 H 12/23/22 22:10 96 H 26 H 94 45 12/23/22 22:00 36.9 C 107 H 20 169/67 H 98 Coding Level of Care Code 25835 CRITICAL CARE 1ST 30-74M Diagnoses Acute on chronic respiratory failure with hypoxia and hypercapnia J96.21; J96.22 Acute UTI N39.0 COPD with emphysema J43.9 Diabetes mellitus E11.9 Pneumonia J18.9 Laterality: bilateral Lung location: lower lobe of lung Pneumonia type: due to unspecified organism Hypothyroidism E03.9 Time Spent (min) 60 (5) Pneumonia Laterality: bilateral Lung location: lower lobe of lung Pneumonia type: due to unspecified organism Qualified Code(s): J18.9 - Pneumonia, unspecified organism
--- NOTE | 2022-12-24 09:28 | Pharmacy Report ---
Pharmacy Glycemic Short Note 2 - Date of Service December 24, 2022 - Glycemic Short BSG Results (Last 24 hours): 12/23/22 12/23/22 12/23/22 09:57 11:01 11:58 Glucose POC Glucose 201 H 274 H 201 H 12/23/22 12/23/22 12/23/22 13:07 14:04 14:54 Glucose POC Glucose 167 H 151 H 146 H 12/23/22 12/23/22 12/23/22 16:05 18:04 20:09 Glucose POC Glucose 141 H 138 H 138 H 12/23/22 12/23/22 12/23/22 20:59 22:37 Unknown Glucose 127 H 158 H POC Glucose 110 H 12/23/22 12/24/22 12/24/22 23:59 04:00 04:45 Glucose 102 H POC Glucose 114 H 110 H 12/24/22 08:01 Glucose POC Glucose 93 OUTPATIENT ANTIDIABETIC REGIMEN: * metformin 2gm PO daily HbA1C: 8.4% ASSESSMENT: 12/24: * Patient remains mechanically ventilated. HD this morning, [employer] running at goal 40cc/hr - receiving 2 units NovoLog Q4H to cover CHO intake * Blood sugar 93mg/dl, insulin drip running at 5.8 units/hr overnight, steroids last dose at 1600 yesterday, stop insulin drip now to prevent hypoglycemia in the setting of steroid effects wearing off. * Continue basal. * May need to tighten CF/CR if blood sugars trend up off of insulin drip. 12/23: * Patient remains mechanically ventilated. BSGs within goal range the last 48h with insulin infusion. * Continues on antibiotics. Novasource tube feeds are now running at goal. Steroids tapered and will be weaned off later today. * Will give a dose of basal insulin today to assist with transition to SQ. Insulin infusion running ~ 5 unit/hr this AM. Novolog carb coverage added yesterday to cover tube feeds. If insulin drip rate comes down to 2 unit/hr or less, may discontinue. 12/21: * Patient has remained intubated, sedated, and on low dose vasopressor support the last 48 hours. BSGs within goal range with insulin infusion. * Still with numerous stressors and critically ill - methylprednisolone 80mg IV q8h to transition to 40mg q8h starting tomorrow. Trickle feeds to begin today. * Continue insulin infusion per severe stress/hyperglycemia protocol. Consider adding Novolog for coverage of tube feeds if advanced beyond trickle tomorrow. 12/19: * Patient is a critically ill 87 year old female- presented with acute on chronic respiratory failure and septic shock requiring intubation, sedation, and vasopressor support. Pharmacy consulted to assist with glycemic management in this setting. * Currently intubated and requiring low dose norepinephrine, NPO, methylprednisolone 80mg IV q8h, and receiving IV antibiotics as well as a bicarb drip (in D5W) at 100mL/hr. * BSGs 155-->274 -->336mg/dL today. Given numerous stressors and current clinical status, will transition from SQ to IV insulin infusion per hyperglycemia protocol (severe stress). Goal BSG 110-180mg/dL. PLAN FOR INPATIENT GLYCEMIC CONTROL: * Hold outpatient oral diabetes medications * DC - insulin infusion protocol * Basal insulin * Lantus 15 units SQ Daily * Bolus insulin * NovoLog q4: carb ratio = 15gm/unit for coverage of tube feeds (2 units SQ Q4H) * Goal range: 140-180mg/dl for critically ill patient in ICU * Correction factor: 30mg/dL/unit
[2022-12-24] MEDS ORDERED: CASPOFUNGIN 70 MG in SODIUM CHLORIDE 0.9% 250 ML IV ONE (09:30)
--- NOTE | 2022-12-24 10:11 | Neurology Progress Note ---
Date of Service December 24, 2022 Assessment & Plan (1) Acute CVA (cerebrovascular accident): (2) Acute encephalopathy: (3) Septic shock: (4) ARDS (adult respiratory distress syndrome): (5) Acute on chronic respiratory failure with hypoxia and hypercapnia: Plan Patient has 2 small acute CVAs as noted on MRI ( December 23). They likely do not alter her neurologic picture current. She has a severe acute encephalopathy secondary to acute on chronic respiratory failure / ARDS/sepsis. Currently on no sedation, her exam shows some brainstem function and Reactivity to deep pain with some movement of the left upper extremity. Her EEG December 22, showed a very poor prognosis rhythm ( "burst- suppression"). I suspect she has had severe global hypoxia to her [employer]PARTMENT OF [employer] CHAIR Therefore, her overall neurologic prognosis is very poor and I have discussed this with the patient's daughter and son at bedside , as well as Dr. Whatley. there is a big family meeting tomorrow at noon regarding case. Overall, I spent a total of 35 minutes with this case including review of records, , direct evaluation the patient at bedside, report generation, and discussion of the case with the RN , son, and daughter at bedside as well as Dr. Whatley, including differential diagnosis treatment options. Admission and Anticipated Discharge Date Admission Date: December 19, 2022 Subjective overnight, the patient had no new events according to nursing staff. This morning she will open her eyes some but is not following commands. There been no seizures. Blood pressure is 123/63 and she is afebrile. BUN and creatinine were elevated as were phosphorus and magnesium. Calcium was low. She underwent dialysis . CK is down to just over 4000. white count is elevated to 36,000. Results & Data Vital Signs (Past 12 Hours) Vital Signs Temp Pulse Pulse Resp BP BP Pulse Ox 12/24/22 07:57 37 C 98 H 123/63 12/24/22 07:30 108 H 128/60 12/24/22 07:00 105 H 142/59 H 12/24/22 07:22 102 H 16 96 12/24/22 06:30 37.0 C 102 H 151/64 H 12/24/22 06:00 37.0 C 101 H 18 132/71 94 12/24/22 05:45 36.9 C 102 H 22 136/68 94 12/24/22 05:30 36.9 C 108 H 17 181/72 H 95 08/05/23 05:16 36.9 C 113 H 22 184/80 H 98 12/24/22 05:00 37.0 C 101 H 21 150/49 H 93 12/24/22 04:51 37.0 C 89 29 H 150/53 H 94 12/24/22 04:41 37.0 C 86 24 155/53 H 93 12/24/22 04:00 36.9 C 93 H 26 H 148/59 H 94 12/24/22 03:00 36.9 C 93 H 21 154/57 H 93 12/24/22 03:00 154/57 H 12/24/22 02:00 36.9 C 92 H 19 158/61 H 95 12/24/22 01:00 37.0 C 87 27 H 143/53 H 94 12/24/22 00:00 36.9 C 93 H 22 154/60 H 94 12/23/22 23:00 36.8 C 91 H 18 154/60 H 94 12/24/22 06:00 101 H 132/71 12/24/22 05:30 108 H 181/72 H 12/24/22 05:00 116 H 150/49 H 12/24/22 04:48 97 H 150/53 H 12/24/22 04:40 36.9 C 87 12/24/22 05:30 12/24/22 05:23 105 H 17 95 12/24/22 03:22 91 H 28 H 94 12/24/22 00:00 12/24/22 00:00 93 H 12/23/22 22:10 96 H 26 H 94 FiO2 12/24/22 07:57 12/24/22 07:30 12/24/22 07:00 12/24/22 07:22 50 12/24/22 06:30 12/24/22 06:00 12/24/22 05:45 12/24/22 05:30 12/24/22 05:16 12/24/22 05:00 12/24/22 04:51 12/24/22 04:41 12/24/22 04:00 12/24/22 03:00 12/24/22 03:00 12/24/22 02:00 12/24/22 01:00 12/24/22 00:00 12/23/22 23:00 12/24/22 06:00 12/24/22 05:30 12/24/22 05:00 12/24/22 04:48 12/24/22 04:40 12/24/22 05:30 50 12/24/22 05:23 50 12/24/22 03:22 40 12/24/22 00:00 50 12/24/22 00:00 12/23/22 22:10 45 Exam (Neuro) Physical Exam: she is lying in bed with her eyes closed breathing a little bit over the ventilator without much spontaneous movement. Occasionally she will open her eyes senior care on her own. Eyelids open easily. She has dysconjugate gaze with the left eye being more abducting and the right eye being more front. Other times she is conjugate and will drift arise from midline to the left. She only goes a little past midline to the right with doll's eyes maneuver. She has no response to shout clap or sternal rub. She is very hard of hearing and I made sure I was very loud next to her ear. With the pain she grimaces and lifts her left arm stimulating either foot. There is no significant withdrawal of the legs. The pain in the upper extremities produces grimacing and movement of the left arm with some very slight withdrawal. PG Care Time/CCT Total # of Minutes Spent Total Time Spent with Patient: Total time spent is greater than 50% in coordination of care (as documented) at patient's floor/unit and/or counseling patient: Coding Level of Care Code 10079 SUB INP/OBS CARE 2/35MIN Diagnoses Acute CVA (cerebrovascular accident) I63.9 Acute encephalopathy G93.40 Septic shock A41.9; R65.21 ARDS (adult respiratory distress syndrome) J80 Acute on chronic respiratory failure with hypoxia and hypercapnia J96.21; J96.22 Time Spent (min) 35
[2022-12-24] MEDS ORDERED: STAT IV Infusion **Titration per Protocol STA (10:43)
[2022-12-24] MEDS ORDERED: fentaNYL citrate PF 100 MCG/2 ML VIAL IV PRN (10:44)
--- NOTE | 2022-12-24 10:55 | Nephrology Progress Note ---
Date of Service December 24, 2022 Assessment & Plan (1) RU (acute kidney injury): Plan: Severe oliguric acute kidney injury in the setting of sepsis respiratory failure hypotension hypoxia and elevated CK level. She remains anuric. He tolerated dialysis well today for 3 hours Discussion for goals of care ongoing Admission and Anticipated Discharge Date Admission Date: December 19, 2022 Subjective Seen for acute renal failure needing dialysis. Patient remains intubated and very responsive. Patient was seen and examined while on dialysis Review of Systems Review of Systems: Unable to obtain due to intubation Physical Exam Physical Exam: General exam: Intubated and minimally responsive HEENT: Pupils are equal and reactive to light Neck: No JVD, Respiratory system: Clear breath sounds bilaterally. Gastrointestinal: Abdomen is soft, non distended, non tender, bowel sounds are present CVS: Regular rate and rhythm. No murmurs, rubs or gallops Musculoskeletal: No joint or muscle tenderness Extremities: Non tender, 1+ edema, peripheral pulses are present Neuro: Intubated, no purposeful response Skin: No rashes Results & Data Vital Signs (Past 12 Hours) Vital Signs Temp Pulse Pulse Resp BP BP Pulse Ox 12/24/22 10:30 196/104 H 12/24/22 10:30 36.6 C 106 H 20 91 12/24/22 10:30 196/104 H 12/24/22 10:15 36.7 C 104 H 17 91 12/24/22 10:15 188/75 H 12/24/22 10:00 36.8 C 103 H 16 91 12/24/22 10:00 184/75 H 12/24/22 09:45 177/76 H 12/24/22 09:45 36.9 C 103 H 17 91 12/24/22 09:30 36.9 C 103 H 18 91 12/24/22 09:30 168/76 H 12/24/22 09:15 36.9 C 100 H 18 97 12/24/22 09:15 154/68 H 12/24/22 09:00 36.9 C 98 H 14 98 12/24/22 09:00 159/64 H 12/24/22 09:00 159/64 H 12/24/22 08:45 36.9 C 104 H 15 96 12/24/22 08:45 185/75 H 12/24/22 08:30 37.0 C 99 H 16 97 12/24/22 08:30 152/65 H 12/24/22 08:15 37.0 C 99 H 15 96 12/24/22 08:15 157/60 H 12/24/22 08:00 37.1 C 99 H 15 97 12/24/22 08:00 147/71 H 12/24/22 07:45 37.1 C 105 H 18 95 12/24/22 07:45 123/63 12/24/22 07:45 123/63 12/24/22 07:31 162/64 H 12/24/22 07:31 37.1 C 108 H 20 96 12/24/22 07:15 37.1 C 102 H 16 96 12/24/22 07:15 128/60 12/24/22 07:00 37.1 C 102 H 16 96 12/24/22 07:00 142/59 H 12/24/22 06:45 37.0 C 101 H 17 95 12/24/22 06:45 139/57 L 12/24/22 06:30 37.0 C 102 H 18 94 12/24/22 06:30 151/64 H 12/24/22 06:15 37.0 C 101 H 17 94 12/24/22 06:15 142/75 H 12/24/22 08:00 12/24/22 08:00 12/24/22 08:00 106 H 12/24/22 07:57 37 C 98 H 123/63 12/24/22 07:30 108 H 128/60 12/24/22 07:00 105 H 142/59 H 12/24/22 07:22 102 H 16 96 12/24/22 06:30 37.0 C 102 H 151/64 H 12/24/22 06:00 37.0 C 101 H 18 132/71 94 12/24/22 05:45 36.9 C 102 H 22 136/68 94 12/24/22 05:30 36.9 C 108 H 17 181/72 H 95 12/24/22 05:16 36.9 C 113 H 22 184/80 H 98 12/24/22 05:00 37.0 C 101 H 21 150/49 H 93 12/24/22 04:51 37.0 C 89 29 H 150/53 H 94 12/24/22 04:41 37.0 C 86 24 155/53 H 93 12/24/22 04:00 36.9 C 93 H 26 H 148/59 H 94 12/24/22 03:00 36.9 C 93 H 21 154/57 H 93 12/24/22 03:00 154/57 H 12/24/22 02:00 36.9 C 92 H 19 158/61 H 95 12/24/22 01:00 37.0 C 87 27 H 143/53 H 94 12/24/22 00:00 36.9 C 93 H 22 154/60 H 94 12/23/22 23:00 36.8 C 91 H 18 154/60 H 94 12/24/22 06:00 101 H 132/71 12/24/22 05:30 108 H 181/72 H 12/24/22 05:00 116 H 150/49 H 12/24/22 04:48 97 H 150/53 H 12/24/22 04:40 36.9 C 87 12/24/22 05:30 12/24/22 05:23 105 H 17 95 12/24/22 03:22 91 H 28 H 94 12/24/22 00:00 12/24/22 00:00 93 H O2 Del Method FiO2 12/24/22 10:30 12/24/22 10:30 12/24/22 10:30 12/24/22 10:15 12/24/22 10:15 12/24/22 10:00 12/24/22 10:00 12/24/22 09:45 12/24/22 09:45 12/24/22 09:30 12/24/22 09:30 12/24/22 09:15 12/24/22 09:15 12/24/22 09:00 12/24/22 09:00 12/24/22 09:00 12/24/22 08:45 12/24/22 08:45 12/24/22 08:30 12/24/22 08:30 12/24/22 08:15 12/24/22 08:15 12/24/22 08:00 12/24/22 08:00 12/24/22 07:45 12/24/22 07:45 12/24/22 07:45 12/24/22 07:31 12/24/22 07:31 12/24/22 07:15 12/24/22 07:15 12/24/22 07:00 12/24/22 07:00 12/24/22 06:45 12/24/22 06:45 12/24/22 06:30 12/24/22 06:30 12/24/22 06:15 12/24/22 06:15 12/24/22 08:00 CPAP, Mechanical Vent 50 12/24/22 08:00 50 12/24/22 08:00 12/24/22 07:57 12/24/22 07:30 12/24/22 07:00 12/24/22 07:22 50 12/24/22 06:30 12/24/22 06:00 12/24/22 05:45 12/24/22 05:30 12/24/22 05:16 12/24/22 05:00 12/24/22 04:51 12/24/22 04:41 12/24/22 04:00 12/24/22 03:00 12/24/22 03:00 12/24/22 02:00 12/24/22 01:00 12/24/22 00:00 12/23/22 23:00 12/24/22 06:00 12/24/22 05:30 12/24/22 05:00 12/24/22 04:48 12/24/22 04:40 12/24/22 05:30 50 12/24/22 05:23 50 12/24/22 03:22 40 12/24/22 00:00 50 12/24/22 00:00 Laboratory Results 12/24/22 04:45 12/23/22 12/23/22 12/23/22 12:56 20:59 20:59 WBC 31.45 H* 34.10 H* RBC 4.10 L 4.04 L MCV 96.1 93.8 MCH 33.2 32.7 MCHC 34.5 34.8 RDW Std Deviation 45.3 43.6 RDW Coeff of Terri 12.6 12.6 Plt Count 319 332 MPV 10.2 10.3 Phosphorus 5.9 H 12/23/22 12/24/22 12/24/22 Unknown 04:45 04:45 WBC 36.16 H* RBC 4.07 L MCV 93.6 MCH 32.4 MCHC 34.6 RDW Std Deviation 43.2 RDW Coeff of Terri 12.5 Plt Count 342 MPV 10.2 Phosphorus 5.9 H 6.0 H
[2022-12-24] MEDS: dexMEDEtomidine 200 MCG/50 ML BAG IV SCH ×4 (11:05→22:32)
--- NOTE | 2022-12-24 13:35 | Hospitalist Progress Note ---
Date of Service December 24, 2022 Assessment & Plan (1) Acute on chronic respiratory failure with hypoxia and hypercapnia: (2) ARDS (adult respiratory distress syndrome): Plan: (1) Acute on chronic respiratory failure with hypoxia and hypercapnia: Plan: Multifactorial hx chronic respiratory failure secondary to COPD , bibasilar pneumonia, home O2 noncompliance as per records Status post intubation at the ER COPD exacerbation secondary to atypical pneumonia, recent outpatient Z-Santana course for pharyngitis Did not receive IV doxycycline and/or IV azithromycin in the hospital-was getting azithromycin as an outpatient Has been on intravenous cefepime and Flagyl added today 12/22/2022 Intravenous Solu-Medrol and nebs as prescribed Complicated UTI, possible sepsis-has been on intravenous cefepime Appreciate surgical lead input and recommendation Possible functional disability, concerns about patient ability to reside alone with multiple comorbidities. Remains critical but stable-prognosis remains very poor Rhabdomyolysis and transaminitis Likely secondary to sepsis, hypotension and hypoxia Supportive care Cannot provide enough IV fluid We will monitor LFTs and CPK CPK has been improving MRI showed 2 small acute CVAs Appreciate neurology input and recommendation Prognosis remains poor Daughter was updated by the neurologist Discussed with the neurologist-prognosis remains poor (3) Septic shock: Plan: Transaminitis likely secondary to sepsis with hypotension and congestion to the liver We will monitor LFTs (4) Bilateral pneumonia: Plan: Continue with intravenous cefepime and Flagyl White count remains elevated Php Programmer is trying to put on antifungal as well (5) RU (acute kidney injury): Plan: Severe oliguric acute kidney injury in the setting of sepsis and hypoxemia Received intravenous fluid with positive balance of 6 L so far Bumex has been added Appreciate nephrology input and recommendation Has been having dialysis from today No urine output and will need dialysis We will have dialysis tomorrow-ongoing dialysis (6) COPD exacerbation: Plan: As above with bilateral pneumonia Plan Other medical conditions as below: Hypertensive urgency secondary to illness Received intravenous fluid due to sepsis Blood pressure is running low at 102/43 hyperlipidemia on statin Rx DM2 on oral medications, suboptimal control as of recent hemoglobin A1c of 8.20 Sep 2022 Basal bolus insulin adjusted for n.p.o. status, ISS BG goal 1 40-1 80 appropriate goal for ICU Hypothyroidism, euthyroid as of today's TSH Ongoing tobacco abuse DVT prophylaxis Subcu Lovenox CODE STATUS Full Discussed with the daughter in detail Prognosis is poor Admission and Anticipated Discharge Date Admission Date: December 19, 2022 Subjective 12/21/2022 The patient was seen and examined in ICU Remains on the vent and sedated 12/22/2022 The patient was seen and examined in ICU She remains sedated on vent Critical but stable 12/23/2022 The patient was seen and examined in ICU in presence of the daughter He remains stable but critical Remains on vent with sedation 12/24/2022 The patient was seen and examined in ICU in presence of the daughter She remains stable but critical Remains on vent without sedation Review of Systems Review of Systems: Unobtainable due to endotracheal tube Physical Exam Physical Exam: Remains stable on mechanical ventilator and has not been requiring sedation Constitutional: well developed, well nourished and + ill appearing ENMT: external ear and nose normal, oropharynx normal Neck: trachea midline, no thyromegaly Respiratory: no respiratory distress Auscultation: + diminished lung sounds and + crackles (Minimal crackles at the bases) Cardiovascular: Rate/Rhythm: regular rate and regular rhythm; not tachycardic Heart Sounds: normal S1 and normal S2; no murmur Extremities: + edema Gastrointestinal (Abdomen): Inspection/Auscultation: normal bowel sounds; ab domen not distended Percussion/Palpation: abdomen soft Musculoskeletal: No acutely inflamed joint Neurologic: Remains on vent without sedation and no agitation Lymphatic: no cervical or axillary lymphadenopathy Results & Data Results & Data Vital Signs (Past 12 Hours) Vital Signs Temp Pulse Pulse Resp BP BP Pulse Ox 12/24/22 12:00 37.2 C 93 H 19 91 12/24/22 12:00 171/73 H 12/24/22 11:30 37.0 C 100 H 17 91 12/24/22 11:30 190/81 H 12/24/22 11:09 37.0 C 105 H 16 90 12/24/22 11:09 197/90 H 12/24/22 11:00 36.9 C 105 H 19 91 12/24/22 11:00 H 12/24/22 11:00 H 12/24/22 10:45 180/125 H 12/24/22 10:45 36.9 C 109 H 19 90 12/24/22 12:00 12/24/22 11:21 104 H 20 91 12/24/22 10:30 196/104 H 12/24/22 10:30 36.6 C 106 H 20 91 12/24/22 10:30 196/104 H 12/24/22 10:15 36.7 C 104 H 17 91 12/24/22 10:15 188/75 H 12/24/22 10:00 36.8 C 103 H 16 91 12/24/22 10:00 184/75 H 12/24/22 09:45 177/76 H 12/24/22 09:45 36.9 C 103 H 17 91 12/24/22 09:30 36.9 C 103 H 18 91 12/24/22 09:30 168/76 H 12/24/22 09:15 36.9 C 100 H 18 97 12/24/22 09:15 154/68 H 12/24/22 09:00 36.9 C 98 H 14 98 12/24/22 09:00 159/64 H 12/24/22 09:00 159/64 H 12/24/22 08:45 36.9 C 104 H 15 96 12/24/22 08:45 185/75 H 12/24/22 08:30 37.0 C 99 H 16 97 12/24/22 08:30 152/65 H 12/24/22 08:15 37.0 C 99 H 15 96 12/24/22 08:15 157/60 H 12/24/22 08:00 37.1 C 99 H 15 97 12/24/22 08:00 147/71 H 12/24/22 07:45 37.1 C 105 H 18 95 12/24/22 07:45 123/63 12/24/22 07:45 123/63 12/24/22 07:31 162/64 H 12/24/22 07:31 37.1 C 108 H 20 96 12/24/22 07:15 37.1 C 102 H 16 96 12/24/22 07:15 128/60 12/24/22 07:00 37.1 C 102 H 16 96 12/24/22 07:00 142/59 H 12/24/22 06:45 37.0 C 101 H 17 95 12/24/22 06:45 139/57 L 12/24/22 06:30 37.0 C 102 H 18 94 12/24/22 06:30 151/64 H 12/24/22 06:15 37.0 C 101 H 17 94 12/24/22 06:15 142/75 H 12/24/22 08:00 12/24/22 08:00 12/24/22 08:00 106 H 12/24/22 07:57 37 C 98 H 123/63 12/24/22 07:30 108 H 128/60 12/24/22 07:00 105 H 142/59 H 12/24/22 07:22 102 H 16 96 12/24/22 06:30 37.0 C 102 H 151/64 H 12/24/22 06:00 37.0 C 101 H 18 132/71 94 12/24/22 05:45 36.9 C 102 H 22 136/68 94 12/24/22 05:30 36.9 C 108 H 17 181/72 H 95 12/24/22 05:16 36.9 C 113 H 22 184/80 H 98 12/24/22 05:00 37.0 C 101 H 21 150/49 H 93 12/24/22 04:51 37.0 C 89 29 H 150/53 H 94 12/24/22 04:41 37.0 C 86 24 155/53 H 93 12/24/22 04:00 36.9 C 93 H 26 H 148/59 H 94 12/24/22 03:00 36.9 C 93 H 21 154/57 H 93 12/24/22 03:00 154/57 H 12/24/22 02:00 36.9 C 92 H 19 158/61 H 95 12/24/22 06:00 101 H 132/71 12/24/22 05:30 108 H 181/72 H 12/24/22 05:00 116 H 150/49 H 12/24/22 04:48 97 H 150/53 H 12/24/22 04:40 36.9 C 87 12/24/22 05:30 12/24/22 05:23 105 H 17 95 12/24/22 03:22 91 H 28 H 94 O2 Del Method FiO2 12/24/22 12:00 12/24/22 12:00 12/24/22 11:30 12/24/22 11:30 12/24/22 11:09 12/24/22 11:09 12/24/22 11:00 08/05/23 11:00 12/24/22 11:00 12/24/22 10:45 12/24/22 10:45 12/24/22 12:00 50 12/24/22 11:21 50 12/24/22 10:30 12/24/22 10:30 12/24/22 10:30 12/24/22 10:15 12/24/22 10:15 12/24/22 10:00 12/24/22 10:00 12/24/22 09:45 12/24/22 09:45 12/24/22 09:30 12/24/22 09:30 12/24/22 09:15 12/24/22 09:15 12/24/22 09:00 12/24/22 09:00 12/24/22 09:00 12/24/22 08:45 12/24/22 08:45 12/24/22 08:30 12/24/22 08:30 12/24/22 08:15 12/24/22 08:15 12/24/22 08:00 12/24/22 08:00 12/24/22 07:45 12/24/22 07:45 12/24/22 07:45 12/24/22 07:31 12/24/22 07:31 12/24/22 07:15 12/24/22 07:15 12/24/22 07:00 12/24/22 07:00 12/24/22 06:45 12/24/22 06:45 12/24/22 06:30 12/24/22 06:30 12/24/22 06:15 12/24/22 06:15 12/24/22 08:00 CPAP, Mechanical Vent 50 12/24/22 08:00 50 12/24/22 08:00 12/24/22 07:57 12/24/22 07:30 12/24/22 07:00 12/24/22 07:22 50 12/24/22 06:30 12/24/22 06:00 12/24/22 05:45 12/24/22 05:30 12/24/22 05:16 12/24/22 05:00 12/24/22 04:51 12/24/22 04:41 12/24/22 04:00 12/24/22 03:00 12/24/22 03:00 12/24/22 02:00 12/24/22 06:00 12/24/22 05:30 12/24/22 05:00 12/24/22 04:48 12/24/22 04:40 12/24/22 05:30 50 12/24/22 05:23 50 12/24/22 03:22 40 Laboratory Results Short CBC 12/23/22 12/23/22 12/24/22 Range/Units 12:56 20:59 04:45 WBC 31.45 H* 34.10 H* 36.16 H* (4.8-10.8) K/ul Hgb 13.6 13.2 13.2 (12.0-16.0) g/dl Hct 39.4 37.9 38.1 (37.0-47.0) % Plt Count 319 332 342 (130-400) K/uL BMP 12/23/22 12/23/22 12/24/22 20:59 Unknown 04:45 Sodium 134 L 135 L 135 L Potassium 4.6 4.5 4.7 Chloride 100 101 100 Carbon Dioxide 23 23 BUN 106 H 92 H 119 H Creatinine 4.99 H* 4.72 H* D 5.22 H* Glucose 127 H 158 H 102 H Calcium 7.8 L 8.0 L 7.8 L Cardiac Enzymes 12/24/22 Range/Units 04:45 Total Creatine Kinase 4118 H (26-192) U/L Medications Administered Current Inpatient Medications Albuterol (Albut/Ipratrop 3mg/0.5mg Neb 3 Ml Vial) 3 ml NEB Q6R PRN; Protocol PRN Reason: Shortness Of Breath Or Wheezing Stop: 01/18/23 06:59 Aspirin (Aspirin 81 Mg Chew) 81 mg PO DAILY [facility] Stop: 01/22/23 13:14 Last Admin: 12/24/22 08:14 Dose: 81 mg Calcium Acetate (Calcium Acetate 667 Mg Cap/Tab) 667 mg PO TIDM [facility] Stop: 01/22/23 11:59 Last Admin: 12/24/22 11:43 Dose: 667 mg Clopidogrel Bisulfate (Clopidogrel Bisulfate 75 Mg Tab) 75 mg PO DAILY [facility] Stop: 01/18/23 08:59 Last Admin: 12/24/22 08:15 Dose: 75 mg Dextrose (Dextrose 50% 50 Ml Syringe) 25 - 50 ml IV UD PRN; Protocol PRN Reason: Hypoglycemia Protocol Stop: 01/18/23 05:00 Last Admin: 12/19/22 09:27 Dose: 50 ml Enteral Nutritional Formula (Novasource Renal 2.0 Jez 1000ml Bag) 1,000 ml OG .SeeProtocol [facility]; Protocol Stop: 01/20/23 11:14 Last Admin: 12/24/22 04:22 Dose: 1,000 ml Fentanyl Citrate (Fentanyl Citrate Pf 100 Mcg/2 Ml Vial) 25 mcg IV Q3R PRN PRN Reason: Agitation Stop: 01/07/23 10:43 Last Admin: 12/24/22 11:04 Dose: 25 mcg Formoterol Fumarate (Formoterol 20 Mcg/2 Ml Vial) 20 mcg NEB BIDR COLT Stop: 01/20/23 18:59 Last Admin: 12/24/22 07:21 Dose: 20 mcg Glucagon (Glucagon For Inj 1 Mg Vial) 1 mg SQ UD PRN; Protocol PRN Reason: Hypoglycemia Protocol Stop: 01/18/23 05:00 Glucose (Glucose 10 Tab/Tube) 4 - 8 tab PO UD PRN; Protocol PRN Reason: Hypoglycemia Treatment Stop: 01/18/23 05:00 Glucose (Glucose 40% Gel 15 Gm Tube) 15 - 30 gm PO UD PRN; Protocol PRN Reason: Hypoglycemia Protocol Stop: 01/18/23 05:00 Heparin Sodium (Porcine) (Heparin Sod 5,000 Unit/0.5 Ml Vial) 5,000 units SQ Q12 COLT Stop: 01/18/23 20:59 Last Admin: 12/24/22 08:15 Dose: 5,000 units Cefepime HCl 1,000 mg/ Syringe 10 mls @ 5 mls/min IV Q24H [facility]; Protocol Stop: 12/29/22 13:59 Last Admin: 12/24/22 02:13 Dose: 5 mls/min Famotidine 20 mg/ Syringe 5 mls @ 2.5 mls/min IV DAILY@2100 COLT Stop: 01/19/23 08:59 Last Admin: 12/23/22 20:33 Dose: 2.5 mls/min Metronidazole (Flagyl) 500 mg in 100 mls @ 100 mls/hr IV Q8H [facility]; Protocol Stop: 12/31/22 07:59 Last Infusion: 12/24/22 10:00 Dose: Infused Caspofungin 35 mg/ Sodium (Chloride) 257 mls @ 250 mls/hr IV Q24H [facility]; Protocol Stop: 01/03/23 05:59 Dexmedetomidine/Sodium Chloride (Precedex) 200 mcg in 50 mls @ 9.03 mls/hr IV .Q5H33M [facility]; Protocol Stop: 12/28/22 10:44 Last Admin: 12/24/22 11:05 Dose: 0.4 mcg/kg/hr, 9 mls/hr Insulin Aspart (Insulin Aspart Per Unit Charge) 0 units SC Q4 [facility] Stop: 01/21/23 11:59 Last Admin: 12/24/22 11:54 Dose: 4 units Insulin Aspart (Insulin Aspart Per Unit Charge) 0 units SC 1400 [facility] Stop: 12/24/22 14:01 Insulin Glargine (Lantus Per Unit Charge) 15 units SC DAILY [facility]; Protocol Stop: 01/23/23 08:59 Last Admin: 12/24/22 08:18 Dose: 15 units Levothyroxine Sodium (Levothyroxine Sodium 150 Mcg Tablet) [facility] Stop: 01/18/23 06:29 Last Admin: 12/24/22 06:02 Dose: 150 mcg Miscellaneous (Carbohydrates For Hypoglycemia ) 15 - 30 gm PO UD PRN PRN Reason: Hypoglycemia Protocol Stop: 01/18/23 05:00 Miscellaneous Information (Pharmacy Glycemic Mgmt Consult) 1 each N/A UD PRN PRN Reason: Consult Stop: 01/18/23 12:47 Multivitamins/Minerals (Multi Vit W/Minerals Liquid 15 Ml Udp) 15 ml GT DAILY [facility] Stop: 01/19/23 09:59 Last Admin: 12/24/22 08:15 Dose: 15 ml Polyethylene Glycol (Polyethylene (Miralax) 17 Gm Pack) 17 gm GT DAILY [facility] Stop: 01/20/23 10:14 Last Admin: 12/24/22 08:16 Dose: 17 gm Sennosides (Sennosides 8.8 Mg/5 Ml Udc) 8.8 mg GT DAILY [facility] Stop: 01/19/23 10:14 Last Admin: 12/24/22 08:16 Dose: 8.8 mg Sterile Water (Tube Feeding Water Flush) 30 ml OG Q4H [facility] Stop: 01/20/23 11:14 Last Admin: 12/24/22 11:17 Dose: 30 ml
[2022-12-24] MEDS ORDERED: INSULIN ASPART PER UNIT CHARGE SC SCH (14:00)
[2022-12-24] MEDS: FAMOTIDINE 20 MG in SYRINGE 3 ML IV SCH (20:49)
[2022-12-24] MEDS ORDERED: LANTUS PER UNIT CHARGE SC SCH (21:00)
[2022-12-25] MEDS: INSULIN ASPART PER UNIT CHARGE SC SCH ×5 (00:02→16:33)
[2022-12-25] MEDS: metroNIDAZOLE 500 MG/100 ML BAG IV SCH ×2 (00:02→08:26)
[2022-12-25] MEDS: TUBE FEEDING WATER FLUSH OG SCH ×6 (00:03→18:02)
[2022-12-25] MEDS: CEFEPIME 1,000 MG in SYRINGE 0 ML IV SCH (02:18)
[2022-12-25 05:18] LABS: Albumin Level 2.5 gm/dl (3.4-5.0); Bilirubin Direct 0.1 mg/dl (0-0.2); Bilirubin,Total 0.5 mg/dl (0.2-1.0); Total Protein 4.6 gm/dl (6.0-8.3)
[2022-12-25 05:45] LABS: Hematocrit (blood only) 36.2 % (37.0-47.0); Hemoglobin 12.4 g/dl (12.0-16.0); Mean Corpuscular Hemoglobin 33.3 pg (25.0-34.0); Mean Corpuscular Hgb Conc 34.3 g/dL (32.0-36.0); Mean Corpuscular Volume 97.3 fL (80.0-100.0); Mean Platelet Volume 10.7 fL (9.4-12.4); Platelet Count 251 K/uL (130-400); RDW Coefficient of Variation 13.1 % (11.5-14.5); Red Blood Count 3.72 M/uL (4.20-5.40); White Blood Count 27.07 K/ul (4.8-10.8)
[2022-12-25] MEDS ORDERED: CASPOFUNGIN 50 MG in SODIUM CHLORIDE 0.9% 250 ML IV SCH (06:00)
[2022-12-25 06:12] LABS: Basophils # (auto) 0.16 K/uL (0-0.2); Basophils % (auto) 0.6 %; Dohle Bodies 1+; Echinocytes 2+; Eosinophils % (auto) 0.4 %; Immature Granulocytes # (auto) 1.57 K/uL (0.01-0.20); Immature Granulocytes % (auto) 5.8 %; Lymphocytes # (auto) 1.94 K/uL (1.2-3.4); Lymphocytes % (auto) 7.2 %; Monocytes # (auto) 3.75 K/uL (0.11-0.59); Monocytes % (auto) 13.9 %; Neutrophils # (auto) 19.55 K/uL (1.40-6.50); Neutrophils % (auto) 72.1 %; Polychromasia 1+
[2022-12-25] MEDS: CASPOFUNGIN 35 MG in SODIUM CHLORIDE 0.9% 250 ML IV SCH (06:24)
[2022-12-25] MEDS: LEVOTHYROXINE SODIUM 150 MCG TABLET GT SCH (06:24)
[2022-12-25 06:26] LABS: Calcium 7.7 mg/dl (8.6-10.3); Magnesium 2.5 mg/dl (1.7-2.4); Potassium 4.7 mmol/L (3.5-5.1)
[2022-12-25 06:33] LABS: Creatinine Clr Calc Pharmacy 7.5 ml/min; Est GFR (African American) 7.9 ml/min; Est GFR (Non-African American) 6.8 ml/min; Phosphorus 5.3 mg/dl (2.5-4.9)
[2022-12-25] MEDS: dexMEDEtomidine 200 MCG/50 ML BAG IV SCH (07:15)
[2022-12-25] MEDS: FORMOTEROL 20 MCG/2 ML VIAL NEB SCH (07:55)
[2022-12-25] MEDS: CLOPIDOGREL BISULFATE 75 MG TAB PO SCH (08:08)
[2022-12-25] MEDS: ASPIRIN 81 MG CHEW PO SCH (08:08)
[2022-12-25] MEDS: CALCIUM ACETATE 667 MG CAP/TAB PO SCH ×3 (08:08→16:34)
[2022-12-25] MEDS: HEPARIN SOD 5,000 UNIT/0.5 ML VIAL SQ SCH (08:09)
[2022-12-25] MEDS: POLYETHYLENE (MIRALAX) 17 GM PACK GT SCH (08:09)
[2022-12-25] MEDS: SENNOSIDES 8.8 MG/5 ML UDC GT SCH (08:09)
[2022-12-25] MEDS: MULTI VIT W/MINERALS LIQUID 15 ML UDP GT SCH (08:10)
--- NOTE | 2022-12-25 08:12 | XRay Report ---
XR chest 1V portable HISTORY: 87 years-old Female eval ETT/OGT and lung gar acute respiratory failure COMPARISON: 12/21/2022 TECHNIQUE: AP view of the chest FINDINGS: Cardiac silhouette is enlarged. Endotracheal tube overlies the midline, 2.6 cm superior to the eileen . Enteric tube courses into the stomach with distal tip projected over the gastric body. Right IJ eitan l-lumen hemodialysis catheter distal tip is noted in the region of the brachiocephalic SVC confluence . No pneumothorax. Pulmonary vascular congestion with interstitial coarsening. Emphysema. Small pleural effusions, left greater than right. The right pleural effusion is mildly decreased in size. Bibasila r consolidation is mildly improved. Bones appear grossly intact. IMPRESSION: 1. Lines and tubes as above. 2. No pneumothorax. 3. Cardiomegaly with pulmonary edema. 4. Mildly decreased size of the pleural effusions with decreased bibasilar consolidation. ACT 112: Negative or not required by law. The above report was generated using voice recognition software. It may contain grammatical, syntax o r spelling errors. Electronically signed by: Chavez Muñiz M.D. 12/25/2022 8:11 AM
[2022-12-25] MEDS: LANTUS PER UNIT CHARGE SC SCH (08:35)
--- NOTE | 2022-12-25 10:31 | Critical Care Progress Note ---
Date of Service December 25, 2022 Assessment & Plan (1) Acute on chronic respiratory failure with hypoxia and hypercapnia: Plan: NEURO 1. Intubated, off sedation since 12/22 2. Burst suppression on EEG 12/22 3. 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 Neurological prognosis is poor -- ASA for secondary prevention. CV 1. Distributive shock in setting of severe sepsis -- Off levophed RESP 1. Severe ARDS 2. COPD with exacerbation -- TV < 6cc/kg, Driving prssure < 14 -- Taper Solumedrol, nebs q4 hrs prn RENAL 1. Oliguric acute renal failure / RU. Likely septic ATN, also received IV contrast on admission and has had severe rhabdomyolysis 2. Hyperkalemia 3. Hyperphospahtemia 4. Metabolic acidosis 2/2 RTA from ATN 5. Rhabomyolysis w/ associated transaminitis -- Serial metabolic panel, abd US without hydronephrosis -- Continues HD ID 1. B/l basilar PNA, concern for chronic / silent aspiration 2. UTI, urine culture with E. coli, ruled out post renal obx --D/C cefepime / flagyl, caspofungin started 12/24, continue to wean steroids GI 1. Transaminitis, hepatocellular pattern, likely due to rhbado / possibly shock liver vs hepatic congestion -- Follow transaminitis, has been stable / improving -- Tube feeds at [facility] -- GI ppx ENDO 1. DM -- Blood glucose goal 140-180 -- On insulin gtt, managed by pharmacy GI ppx: pepcid DVT ppx: heparin subQ Will plan to for a family meeting today for possible compassionate extubation. (2) Acute UTI: (3) COPD with emphysema: (4) Diabetes mellitus: (5) Pneumonia: (6) Hypothyroidism: Admission and Anticipated Discharge Date Admission Date: December 19, 2022 Subjective 12/21/2022 The patient was seen and examined in ICU Remains on the vent and sedated 12/22/2022 The patient was seen and examined in ICU She remains sedated on vent Critical but stable 12/23/2022 The patient was seen and examined in ICU in presence of the daughter He remains stable but critical Remains on vent with sedation 12/24/2022. Off sedation since 12/22. Opens eyes spontaneously. Does not follow commands. 12/25/2022. On 0.2 mcg of precedex. Somewhat opens eyes to command. Withdraws to painful stimuli. Review of Systems Review of Systems: Unable to be obtained Physical Exam Physical Exam: GEN: Opens eyes, does not track, does not follow commands, intubated. On low dose prededex. CV: Sinus tachycardia RESP: diminished breath sounds b/l ABD: Soft Ext: warm, dry, well perfused Results & Data Results & Data Vital Signs (Past 12 Hours) Vital Signs Temp Pulse Resp BP Pulse Ox O2 Del Method FiO2 12/25/22 09:30 145/53 H 12/25/22 09:30 37.0 C 81 20 95 12/25/22 09:00 37.0 C 77 19 94 12/25/22 09:00 139/63 12/25/22 08:30 153/54 H 12/25/22 08:30 37.0 C 82 26 H 94 12/25/22 09:00 Mechanical Vent 12/25/22 08:00 37.1 C 82 20 93 12/25/22 08:00 147/58 H 12/25/22 07:30 37.1 C 73 23 93 12/25/22 07:30 123/51 L 12/25/22 07:43 74 23 93 50 12/25/22 07:00 37.1 C 76 23 93 12/25/22 07:00 138/51 L 12/25/22 06:30 37.1 C 77 22 150/56 H 94 12/25/22 06:00 37.2 C 77 25 H 140/57 L 93 12/25/22 05:30 37.3 C 71 24 112/49 L 94 12/25/22 05:00 37.3 C 70 24 111/43 L 93 12/25/22 04:30 37.3 C 77 25 H 126/52 L 94 12/25/22 04:00 37.3 C 75 25 H 113/46 L 96 12/25/22 03:30 37.3 C 71 23 110/42 L 94 12/25/22 03:00 37.4 C 78 23 115/50 L 94 12/25/22 02:30 37.5 C 85 26 H 130/70 12/25/22 02:00 37.5 C 67 25 H 99/41 L 93 12/25/22 01:30 37.6 C H 69 25 H 97/39 L 93 12/25/22 01:00 37.6 C H 71 23 112/41 L 92 12/25/22 04:00 50 12/25/22 02:55 25 H 50 12/25/22 00:50 37.7 C H 75 23 128/50 L 99 12/25/22 00:00 37.8 C H 72 27 H 108/44 L 93 12/24/22 23:30 37.7 C H 74 25 H 118/46 L 93 12/24/22 23:00 37.7 C H 73 26 H 115/46 L 93 12/24/22 22:36 37.7 C H 79 23 128/50 L 98 12/24/22 22:30 37.6 C H 72 26 H 105/40 L 92 12/25/22 00:00 75 12/25/22 00:00 50 12/24/22 23:29 74 26 H 93 50 Coding Level of Care Code 10953 CRITICAL CARE 1ST 30-74M Diagnoses Acute on chronic respiratory failure with hypoxia and hypercapnia J96.21; J96.22 Acute UTI N39.0 COPD with emphysema J43.9 Diabetes mellitus E11.9 Pneumonia J18.9 Laterality: bilateral Lung location: lower lobe of lung Pneumonia type: due to unspecified organism Hypothyroidism E03.9 Time Spent (min) 55 (5) Pneumonia Laterality: bilateral Lung location: lower lobe of lung Pneumonia type: due to unspecified organism Qualified Code(s): J18.9 - Pneumonia, unspecified organism
--- NOTE | 2022-12-25 12:10 | Hospitalist Progress Note ---
Date of Service December 25, 2022 Assessment & Plan (1) Acute on chronic respiratory failure with hypoxia and hypercapnia: (2) ARDS (adult respiratory distress syndrome): Plan: (1) Acute on chronic respiratory failure with hypoxia and hypercapnia: Plan: Multifactorial hx chronic respiratory failure secondary to COPD , bibasilar pneumonia, home O2 noncompliance as per records Status post intubation at the ER COPD exacerbation secondary to atypical pneumonia, recent outpatient Z-Santana course for pharyngitis Did not receive IV doxycycline and/or IV azithromycin in the hospital-was getting azithromycin as an outpatient Has been on intravenous cefepime and Flagyl added today 12/22/2022 Intravenous Solu-Medrol and nebs as prescribed Complicated UTI, possible sepsis-has been on intravenous cefepime Appreciate machinist instructor input and recommendation Possible functional disability, concerns about patient ability to reside alone with multiple comorbidities. Remains critical but stable-prognosis remains very poor Remains critical with stable vitals but unresponsive Overall prognosis remains poor The family members will have a meeting with machinist instructor and myself this afternoon Likely going to have prolonged extubation sometime today Rhabdomyolysis and transaminitis Likely secondary to sepsis, hypotension and hypoxia Supportive care Cannot provide enough IV fluid We will monitor LFTs and CPK CPK has been improving and the LFTs are improving to MRI showed 2 small acute CVAs Appreciate neurology input and recommendation Prognosis remains poor Daughter was updated by the neurologist Discussed with the neurologist-prognosis remains poor Recent stroke is complicating her mental status (3) Septic shock: Plan: Transaminitis likely secondary to sepsis with hypotension and congestion to the liver We will monitor LFTs (4) Bilateral pneumonia: Plan: Continue with intravenous cefepime and Flagyl White count remains elevated Segmental Wall Installer is trying to put on antifungal as well (5) RU (acute kidney injury): Plan: Severe oliguric acute kidney injury in the setting of sepsis and hypoxemia Received intravenous fluid with positive balance of 6 L so far Bumex has been added Appreciate nephrology input and recommendation Has been having dialysis from today No urine output and will need dialysis We will have dialysis tomorrow-ongoing dialysis Will need dialysis to sustain vitals and labs (6) COPD exacerbation: Plan: As above with bilateral pneumonia Plan Other medical conditions as below: Hypertensive urgency secondary to illness Received intravenous fluid due to sepsis Blood pressure is running low at 102/43 hyperlipidemia on statin Rx DM2 on oral medications, suboptimal control as of recent hemoglobin A1c of 8.20 Sep 2022 Basal bolus insulin adjusted for n.p.o. status, ISS BG goal 1 40-1 80 appropriate goal for ICU Hypothyroidism, euthyroid as of today's TSH Ongoing tobacco abuse DVT prophylaxis Subcu Lovenox CODE STATUS Full Discussed with the daughter in detail Prognosis is poor Will a family meeting this afternoon for planned extubation Admission and Anticipated Discharge Date Admission Date: December 19, 2022 Subjective 12/21/2022 The patient was seen and examined in ICU Remains on the vent and sedated 12/22/2022 The patient was seen and examined in ICU She remains sedated on vent Critical but stable 12/23/2022 The patient was seen and examined in ICU in presence of the daughter He remains stable but critical Remains on vent with sedation 12/24/2022 The patient was seen and examined in ICU in presence of the daughter She remains stable but critical Remains on vent without sedation 12/25/2022 The patient was seen and examined in ICU in presence of the daughter She remains intubated and unconscious without any sedation Review of Systems Review of Systems: Unable to obtain Physical Exam Physical Exam: Remains stable on mechanical ventilator and has not been requiring sedation Constitutional: well developed, well nourished and + ill appearing ENMT: external ear and nose normal, oropharynx normal Neck: trachea midline, no thyromegaly Respiratory: no respiratory distress Auscultation: + diminished lung sounds and + crackles (Minimal crackles at the bases) Cardiovascular: Rate/Rhythm: regular rate and regular rhythm; not tachycardic Heart Sounds: normal S1 and normal S2; no murmur Extremities: + edema Gastrointestinal (Abdomen): Inspection/Auscultation: normal bowel sounds; abdomen not distended Percussion/Palpation: abdomen soft Musculoskeletal: No acutely inflamed joint Neurologic: Remains unresponsive without sedation on mechanical ventilator Lymphatic: no cervical or axillary lymphadenopathy Results & Data Results & Data Vital Signs (Past 12 Hours) Vital Signs Temp Pulse Resp BP Pulse Ox O2 Del Method FiO2 12/25/22 09:30 145/53 H 12/25/22 09:30 37.0 C 81 20 95 12/25/22 09:00 37.0 C 77 19 94 12/25/22 09:00 139/63 12/25/22 08:30 153/54 H 12/25/22 08:30 37.0 C 82 26 H 94 12/25/22 09:00 Mechanical Vent 12/25/22 08:00 37.1 C 82 20 93 12/25/22 08:00 147/58 H 12/25/22 07:30 37.1 C 73 23 93 12/25/22 07:30 123/51 L 12/25/22 07:43 74 23 93 50 12/25/22 07:00 37.1 C 76 23 93 12/25/22 07:00 138/51 L 12/25/22 06:30 37.1 C 77 22 150/56 H 94 12/25/22 06:00 37.2 C 77 25 H 140/57 L 93 12/25/22 05:30 37.3 C 71 24 112/49 L 94 12/25/22 05:00 37.3 C 70 24 111/43 L 93 12/25/22 04:30 37.3 C 77 25 H 126/52 L 94 12/25/22 04:00 37.3 C 75 25 H 113/46 L 96 12/25/22 03:30 37.3 C 71 23 110/42 L 94 12/25/22 03:00 37.4 C 78 23 115/50 L 94 12/25/22 02:30 37.5 C 85 26 H 130/70 12/25/22 02:00 37.5 C 67 25 H 99/41 L 93 12/25/22 01:30 37.6 C H 69 25 H 97/39 L 93 12/25/22 01:00 37.6 C H 71 23 112/41 L 92 12/25/22 04:00 50 12/25/22 02:55 25 H 50 12/25/22 00:50 37.7 C H 75 23 128/50 L 99 Laboratory Results Short CBC 12/25/22 Range/Units 04:19 WBC 27.07 H (4.8-10.8) K/ul Hgb 12.4 (12.0-16.0) g/dl Hct 36.2 L (37.0-47.0) % Plt Count 251 (130-400) K/uL BMP 12/25/22 04:19 Sodium 138 Potassium 4.7 Chloride 105 Carbon Dioxide 21 BUN 121 H Creatinine 5.26 H* Glucose 130 H Calcium 7.7 L Cardiac Enzymes 12/25/22 Range/Units 04:19 Total Creatine Kinase 3488 H (26-192) U/L Liver Function 12/25/22 Range/Units 04:19 Total Bilirubin 0.5 (0.2-1.0) mg/dl Direct Bilirubin 0.1 (0-0.2) mg/dl AST 155 H (13-39) U/L ALT 360 H (7-52) U/L Alkaline Phosphatase 78 (34-104) U/L Albumin 2.5 L (3.4-5.0) gm/dl Medications Administered Current Inpatient Medications Albuterol (Albut/Ipratrop 3mg/0.5mg Neb 3 Ml Vial) 3 ml NEB Q6R PRN; Protocol PRN Reason: Shortness Of Breath Or Wheezing Stop: 01/18/23 06:59 Aspirin (Aspirin 81 Mg Chew) 81 mg PO DAILY COLT Stop: 01/22/23 13:14 Last Admin: 12/25/22 08:08 Dose: 81 mg Calcium Acetate (Calcium Acetate 667 Mg Cap/Tab) 667 mg PO TIDM COLT Stop: 01/22/23 11:59 Last Admin: 12/25/22 12:07 Dose: Not Given Clopidogrel Bisulfate (Clopidogrel Bisulfate 75 Mg Tab) 75 mg PO DAILY COLT Stop: 01/18/23 08:59 Last Admin: 12/25/22 08:08 Dose: 75 mg Dextrose (Dextrose 50% 50 Ml Syringe) 25 - 50 ml IV UD PRN; Protocol PRN Reason: Hypoglycemia Protocol Stop: 01/18/23 05:00 Last Admin: 12/19/22 09:27 Dose: 50 ml Enteral Nutritional Formula (Novasource Renal 2.0 Jez 1000ml Bag) 1,000 ml OG .SeeProtocol COLT; Protocol Stop: 01/20/23 11:14 Last Admin: 12/24/22 04:22 Dose: 1,000 ml Fentanyl Citrate (Fentanyl Citrate Pf 100 Mcg/2 Ml Vial) 25 mcg IV Q3R PRN PRN Reason: Agitation Stop: 01/07/23 10:43 Last Admin: 12/24/22 11:04 Dose: 25 mcg Formoterol Fumarate (Formoterol 20 Mcg/2 Ml Vial) 20 mcg NEB BIDR COLT Stop: 01/20/23 18:59 Last Admin: 12/25/22 07:55 Dose: 20 mcg Glucagon (Glucagon For Inj 1 Mg Vial) 1 mg SQ UD PRN; Protocol PRN Reason: Hypoglycemia Protocol Stop: 01/18/23 05:00 Glucose (Glucose 10 Tab/Tube) 4 - 8 tab PO UD PRN; Protocol PRN Reason: Hypoglycemia Treatment Stop: 01/18/23 05:00 Glucose (Glucose 40% Gel 15 Gm Tube) 15 - 30 gm PO UD PRN; Protocol PRN Reason: Hypoglycemia Protocol Stop: 01/18/23 05:00 Heparin Sodium (Porcine) (Heparin Sod 5,000 Unit/0.5 Ml Vial) 5,000 units SQ Q12 COLT Stop: 01/18/23 20:59 Last Admin: 12/25/22 08:09 Dose: 5,000 units Famotidine 20 mg/ Syringe 5 mls @ 2.5 mls/min IV DAILY@2100 [facility] Stop: 01/19/23 08:59 Last Admin: 12/24/22 20:49 Dose: 2.5 mls/min Caspofungin 35 mg/ Sodium (Chloride) 257 mls @ 250 mls/hr IV Q24H [facility]; Protocol Stop: 01/03/23 05:59 Last Infusion: 12/25/22 07:45 Dose: Infused Dexmedetomidine/Sodium Chloride (Precedex) 200 mcg in 50 mls @ 4.515 mls/hr IV .Q11H5M [facility]; Protocol Stop: 12/28/22 10:44 Last Admin: 12/25/22 07:15 Dose: 0.2 mcg/kg/hr, 4.5 mls/hr Insulin Aspart (Insulin Aspart Per Unit Charge) 0 units SC Q4 [facility] Stop: 01/21/23 11:59 Last Admin: 12/25/22 08:26 Dose: Not Given Insulin Glargine (Lantus Per Unit Charge) 15 units SC DAILY [facility]; Protocol Stop: 01/23/23 08:59 Last Admin: 12/25/22 08:35 Dose: Not Given Insulin Glargine (Lantus Per Unit Charge) 0 units SC HS [facility]; Protocol Stop: 01/23/23 20:59 Last Admin: 12/24/22 20:48 Dose: 15 units Levothyroxine Sodium (Levothyroxine Sodium 150 Mcg Tablet) [facility]: 01/18/23 06:29 Last Admin: 12/25/22 06:24 Dose: Not Given Miscellaneous (Carbohydrates For Hypoglycemia ) 15 - 30 gm PO UD PRN PRN Reason: Hypoglycemia Protocol Stop: 01/18/23 05:00 Miscellaneous Information (Pharmacy Glycemic Mgmt Consult) 1 each N/A UD PRN PRN Reason: Consult Stop: 01/18/23 12:47 Multivitamins/Minerals (Multi Vit W/Minerals Liquid 15 Ml Udp) 15 ml GT DAILY COLT Stop: 01/19/23 09:59 Last Admin: 12/25/22 08:10 Dose: 15 ml Polyethylene Glycol (Polyethylene (Miralax) 17 Gm Pack) 17 gm GT DAILY COLT Stop: 01/20/23 10:14 Last Admin: 12/25/22 08:09 Dose: Not Given Sennosides (Sennosides 8.8 Mg/5 Ml Udc) 8.8 mg GT DAILY COLT Stop: 01/19/23 10:14 Last Admin: 12/25/22 08:09 Dose: Not Given Sterile Water (Tube Feeding Water Flush) 30 ml OG Q4H [facility] Stop: 01/20/23 11:14 Last Admin: 12/25/22 10:07 Dose: 30 ml
--- NOTE | 2022-12-25 15:08 | Nephrology Progress Note ---
Date of Service December 25, 2022 Assessment & Plan (1) RU (acute kidney injury): Plan: Severe oliguric acute kidney injury in the setting of sepsis respiratory failure hypotension hypoxia and elevated CK level. She remains anuric. He tolerated dialysis well yesterday for 3 hours -We will plan dialysis tomorrow for 3-1/2 hours to get UF 2 L. Discussion for goals of care ongoing Admission and Anticipated Discharge Date Admission Date: December 19, 2022 Subjective Seen for acute renal failure. Patient remains intubated and unable to give history. Blood pressure is stable. She is still anuric. Daughter was at the bedside Review of Systems Review of Systems: Unable to obtain due to intubation Physical Exam Physical Exam: General exam: Intubated and minimally responsive HEENT: Pupils are equal and reactive to light Neck: No JVD, Respiratory system: Clear breath sounds bilaterally. Gastrointestinal: Abdomen is soft, non distended, non tender, bowel sounds are present CVS: Regular rate and rhythm. No murmurs, rubs or gallops Musculoskeletal: No joint or muscle tenderness Extremities: Non tender, 1+ edema, peripheral pulses are present Neuro: Intubated, no purposeful response Skin: No rashes Results & Data Vital Signs (Past 12 Hours) Vital Signs Temp Pulse Resp BP Pulse Ox O2 Del Method FiO2 12/25/22 11:53 82 23 96 50 12/25/22 14:04 88 12/25/22 08:00 80 12/25/22 12:00 50 12/25/22 09:30 145/53 H 12/25/22 09:30 37.0 C 81 20 95 12/25/22 09:00 37.0 C 77 19 94 12/25/22 09:00 139/63 12/25/22 08:30 153/54 H 12/25/22 08:30 37.0 C 82 26 H 94 12/25/22 09:00 Mechanical Vent 12/25/22 08:00 37.1 C 82 20 93 12/25/22 08:00 147/58 H 12/25/22 07:30 37.1 C 73 23 93 12/25/22 07:30 123/51 L 12/25/22 07:43 74 23 93 50 12/25/22 07:00 37.1 C 76 23 93 12/25/22 07:00 138/51 L 12/25/22 06:30 37.1 C 77 22 150/56 H 94 12/25/22 06:00 37.2 C 77 25 H 140/57 L 93 12/25/22 05:30 37.3 C 71 24 112/49 L 94 12/25/22 05:00 37.3 C 70 24 111/43 L 93 12/25/22 04:30 37.3 C 77 25 H 126/52 L 94 12/25/22 04:00 37.3 C 75 25 H 113/46 L 96 12/25/22 03:30 37.3 C 71 23 110/42 L 94 12/25/22 04:00 50 Laboratory Results 12/25/22 04:19 12/25/22 12/25/22 12/25/22 04:19 04:19 04:19 WBC 27.07 H RBC 3.72 L MCV 97.3 MCH 33.3 MCHC 34.3 RDW Std Deviation 46.0 RDW Coeff of Terri 13.1 Plt Count 251 MPV 10.7 Phosphorus 5.3 H Albumin 2.5 L
[2022-12-25] MEDS: MoRPHine SULFATE 2 MG/ML CARP IV PRN ×2 (17:27→19:19)
[2022-12-25] MEDS: LORazepam 2 MG/1 ML VIAL IV PRN (17:27)
--- NOTE | 2022-12-25 17:27 | Communication Note ---
Date of Service: December 25, 2022 Met with family at bedside. After discussion with other extended family members, family decided for comfort care and compassionate extubation. All lab draws discontined and well as non-essential medications. Code status changed to comfort care. All questions and concerns addressed. Emotional support provided.
[2022-12-25] MEDS ORDERED: BACITRACIN OINT 0.9 GM PKT EXT PRN (18:36)
[2022-12-25] MEDS ORDERED: GLYCOPYRROLATE 0.2 MG/ML VIAL IV PRN (18:38)
[2022-12-25] MEDS: ATROPINE SULFATE 1% OP SOLN 5 ML BTL SL PRN (19:42)
[2022-12-25] MEDS: BACITRACIN OINT 0.9 GM PKT EXT SCH (21:07)
[2022-12-26] MEDS: MoRPHine SULFATE 2 MG/ML CARP IV PRN ×5 (01:21→23:36)
[2022-12-26] MEDS: LORazepam 2 MG/1 ML VIAL IV PRN ×3 (01:54→11:27)
[2022-12-26] MEDS: CASPOFUNGIN 35 MG in SODIUM CHLORIDE 0.9% 250 ML IV SCH (05:51)
[2022-12-26] MEDS ORDERED: SODIUM CHLORIDE 0.9% 1000ML 1,000 ML IV PRN (07:00)
[2022-12-26] MEDS ORDERED: HEPARIN SOD (PORCINE) 1000 UNIT/ML IV SCH (07:00)
--- NOTE | 2022-12-26 07:56 | Critical Care Progress Note ---
Date of Service December 26, 2022 Assessment & Plan (1) Acute on chronic respiratory failure with hypoxia and hypercapnia: Plan: Impression: 87-year-old female with multiple medical issues admitted with ARDS, pyelonephritis, severe septic shock, and strokes as well as acute renal failure requiring hemodialysis. Family has elected to pursue comfort care measures and the patient is currently comfortable. Recommendations: 1. Discussed with hospitalist. Will transfer to private room upstairs. Discontinue all ICU interventions. Focus on symptom management. Met with family at bedside. Questions were answered. We discussed supplemental oxygen as a palliative measure. Advised them that this may prolong her dying process. They have taken it under consideration and will discuss amongst themselves to decide whether or not supplemental oxygen will be continued as a comfort measure. Continue narcotics and benzodiazepines as needed. We discussed her hemodialysis line. We will keep in place at this point time to allow for IV access. Family is agreeable. The patient is appropriate for transition out of the intensive care unit to private room upstairs. Critical care services will sign off. Feel free to contact us if we can be of additional assistance. 35 minutes critical care time including end-of-life discussions with family. (2) Acute UTI: (3) COPD with emphysema: (4) Diabetes mellitus: (5) Pneumonia: (6) Hypothyroidism: Admission and Anticipated Discharge Date Admission Date: December 19, 2022 Subjective Seen and examined. Discussed with off going service advisor as well as with bedside critical care nurse. Family is elected to pursue comfort measures. No plans for additional hemodialysis. She is comfortable at this point in time. She is somnolent and minimally arousable. Review of Systems Review of Systems: Unobtainable due to reduced consciousness Physical Exam Physical Exam: Exam deferred Results & Data Results & Data Vital Signs (Past 12 Hours) Vital Signs O2 Del Method O2 Flow Rate 12/25/22 20:00 Nasal Cannula 4 Critical Care Results & Data Vital Signs (Past 12 Hours) Vital Signs O2 Del Method O2 Flow Rate 12/25/22 20:00 Nasal Cannula 4 Lab & Micro Results (Past 24 Hours) No Data to Display No Data to Display No Data to Display Diagnostic Findings (Past 24 Hours) Chest X-Ray 12/25/22 06:24 XR chest 1V portable HISTORY: 87 years-old Female eval ETT/OGT and lung gar acute respiratory failure COMPARISON: 12/21/2022 TECHNIQUE: AP view of the chest FINDINGS: Cardiac silhouette is enlarged. Endotracheal tube overlies the midline, 2.6 cm superior to the eileen. Enteric tube courses into the stomach with distal tip projected over the gastric body. Right IJ dual-lumen hemodialysis catheter distal tip is noted in the region of the brachiocephalic SVC confluence. No pneumothorax. Pulmonary vascular congestion with interstitial coarsening. Emphysema. Small pleural effusions, left greater than right. The right pleural effusion is mildly decreased in size. Bibasilar consolidation is mildly improved. Bones appear grossly intact. IMPRESSION: 1. Lines and tubes as above. 2. No pneumothorax. 3. Cardiomegaly with pulmonary edema. 4. Mildly decreased size of the pleural effusions with decreased bibasilar consolidation. ACT 112: Negative or not required by law. The above report was generated using voice recognition software. It may contain grammatical, syntax or spelling errors. Electronically signed by: Chavez Muñiz M.D. 12/25/2022 8:11 AM I & O Totals 24 Hours 12/25/22 12/26/22 12/27/22 06:59 06:59 06:59 Intake Total 2758.020 / 2758.020 405.225 / 405.225 Output Total 136 / 136 327 / 327 Balance 2622.020 / 2622.020 78.225 / 78.225 Cumulative 12/18/22 22:42 thru 12/26/22 06:00 Intake Total 58140.655 Output Total 2244 Balance 09325.655 RT Ventilator Mngmt (Last Documented) Ventilator Ordered Settings Ventilator Support Mode CPAP 12/25/22 15:38 Respiratory Rate 24 12/25/22 18:01 Ventilator Tidal Volume 330 12/24/22 03:22 Setting Minute Ventilation 9.8 12/25/22 15:38 Ventilator Positive Pressure 10 12/25/22 15:38 Support Setting Positive End Expiratory 10 12/25/22 15:38 Pressure Fraction of Inspired Oxygen 50 12/25/22 15:38 Peak Inspiratory Flow 31 12/22/22 20:07 Machine Comment Placed on SBT per Dr. Whatley 12/23/22 07:36 Ventilator - PT Measurements Respiratory Rate 24 Exhaled Tidal Volume 387 Minute Ventilation 9.8 Peak Inspiratory Airway 23 Pressure Plateau Pressure 26.4 Respiratory Cycle Inspiratory: 10 Expiratory Ratio Inspiratory Phase Time 0.79 End-Tidal CO2 22 Static Lung Compliance 31.95 Dynamic Lung Compliance 29.77 Normal Static Lung Compliance 47.00 Patient Measurements Comment rn called due to change in pts breathing, pt desatting, and vent alarming, upeed fio2 to 60%, pt had no MAP, checked tube placedment, upped peep, with no change then switched her back over to CPAP, pts overall vent numbers improved as well as breathing, decreased fio2 to 50% Coding Level of Care Code 93216 CRITICAL CARE 1ST 30-74M Diagnoses Acute on chronic respiratory failure with hypoxia and hypercapnia J96.21; J96.22 Acute UTI N39.0 COPD with emphysema J43.9 Diabetes mellitus E11.9 Pneumonia J18.9 Laterality: bilateral Lung location: lower lobe of lung Pneumonia type: due to unspecified organism Hypothyroidism E03.9 (5) Pneumonia Laterality: bilateral Lung location: lower lobe of lung Pneumonia type: due to unspecified organism Qualified Code(s): J18.9 - Pneumonia, unspecified organism
[2022-12-26] MEDS: dexMEDEtomidine 200 MCG/50 ML BAG IV SCH (08:15)
[2022-12-26] MEDS: BACITRACIN OINT 0.9 GM PKT EXT SCH (11:26)
--- NOTE | 2022-12-26 11:35 | Hospitalist Progress Note ---
Date of Service December 26, 2022 Assessment & Plan (1) Acute on chronic respiratory failure with hypoxia and hypercapnia: (2) ARDS (adult respiratory distress syndrome): Plan: Comfort measures status No acute distress at rest We will continue medications to give her comfortable Discussed with the daughter She will be transferred to a quiet room upstairs when available (1) Acute on chronic respiratory failure with hypoxia and hypercapnia: Plan: Multifactorial hx chronic respiratory failure secondary to COPD , bibasilar pneumonia, home O2 noncompliance as per records Status post intubation at the ER COPD exacerbation secondary to atypical pneumonia, recent outpatient Z-Santana course for pharyngitis Did not receive IV doxycycline and/or IV azithromycin in the hospital-was getting azithromycin as an outpatient Has been on intravenous cefepime and Flagyl added today 12/22/2022 Intravenous Solu-Medrol and nebs as prescribed Complicated UTI, possible sepsis-has been on intravenous cefepime Appreciate commercial sales representative input and recommendation Possible functional disability, concerns about patient ability to reside alone with multiple comorbidities. Remains critical but stable-prognosis remains very poor Remains critical with stable vitals but unresponsive Overall prognosis remains poor The family members will have a meeting with commercial sales representative and myself this afternoon Likely going to have prolonged extubation sometime today Rhabdomyolysis and transaminitis Likely secondary to sepsis, hypotension and hypoxia Supportive care Cannot provide enough IV fluid We will monitor LFTs and CPK CPK has been improving and the LFTs are improving to MRI showed 2 small acute CVAs Appreciate neurology input and recommendation Prognosis remains poor Daughter was updated by the neurologist Discussed with the neurologist-prognosis remains poor Recent stroke is complicating her mental status (3) Septic shock: Plan: Transaminitis likely secondary to sepsis with hypotension and congestion to the liver We will monitor LFTs (4) Bilateral pneumonia: Plan: Continue with intravenous cefepime and Flagyl White count remains elevated Wind Site Manager is trying to put on antifungal as well (5) RU (acute kidney injury): Plan: Severe oliguric acute kidney injury in the setting of sepsis and hypoxemia Received intravenous fluid with positive balance of 6 L so far Bumex has been added Appreciate nephrology input and recommendation Has been having dialysis from today No urine output and will need dialysis We will have dialysis tomorrow-ongoing dialysis Will need dialysis to sustain vitals and labs (6) COPD exacerbation: Plan: As above with bilateral pneumonia Plan Other medical conditions as below: Hypertensive urgency secondary to illness Received intravenous fluid due to sepsis Blood pressure is running low at 102/43 hyperlipidemia on statin Rx DM2 on oral medications, suboptimal control as of recent hemoglobin A1c of 8.20 Sep 2022 Basal bolus insulin adjusted for n.p.o. status, ISS BG goal 1 40-1 80 appropriate goal for ICU Hypothyroidism, euthyroid as of today's TSH Ongoing tobacco abuse DVT prophylaxis Subcu Lovenox CODE STATUS Full Discussed with the daughter in detail Prognosis is poor Will a family meeting this afternoon for planned extubation Admission and Anticipated Discharge Date Admission Date: December 19, 2022 Subjective 12/21/2022 The patient was seen and examined in ICU Remains on the vent and sedated 12/22/2022 The patient was seen and examined in ICU She remains sedated on vent Critical but stable 12/23/2022 The patient was seen and examined in ICU in presence of the daughter He remains stable but critical Remains on vent with sedation 12/24/2022 The patient was seen and examined in ICU in presence of the daughter She remains stable but critical Remains on vent without sedation 12/25/2022 The patient was seen and examined in ICU in presence of the daughter She remains intubated and unconscious without any sedation 12/26/2022 The patient was seen and examined in ICU in presence of the daughter After a long discussion with the family members planned extubation was done yesterday by the commercial sales representative the patient has been on comfort care since then Pain is stable this morning Required only 1 dose of Ativan last night Physical Exam Physical Exam: Remains stable without any distress on comfort measure Constitutional: well developed, well nourished and + ill appearing ENMT: external ear and nose normal, oropharynx normal Neck: trachea midline, no thyromegaly Respiratory: no respiratory distress Auscultation: + diminished lung sounds and + crackles (Minimal crackles at the bases) Cardiovascular: Rate/Rhythm: regular rate and regular rhythm; not tachycardic Heart Sounds: normal S1 and normal S2; no murmur Extremities: + edema Gastrointestinal (Abdomen): Inspection/Auscultation: normal bowel sounds; abdomen not distended Percussion/Palpation: abdomen soft
[2022-12-26] MEDS: ATROPINE SULFATE 1% OP SOLN 5 ML BTL SL PRN (23:36)
[2022-12-27] MEDS: MoRPHine SULFATE 2 MG/ML CARP IV PRN ×3 (06:51→12:26)
[2022-12-27] MEDS: LORazepam 2 MG/1 ML VIAL IV PRN ×2 (07:44→13:30)
[2022-12-27] MEDS: ATROPINE SULFATE 1% OP SOLN 5 ML BTL SL PRN ×2 (12:25→18:44)
[2022-12-27] MEDS: BACITRACIN OINT 0.9 GM PKT EXT SCH (12:26)
--- NOTE | 2022-12-27 16:18 | Hospitalist Progress Note ---
Date of Service December 27, 2022 Assessment & Plan (1) Acute on chronic respiratory failure with hypoxia and hypercapnia: (2) ARDS (adult respiratory distress syndrome): Plan: Comfort measures status No acute distress at rest We will continue medications to give her comfortable Discussed with the daughter She will be transferred to a quiet room upstairs when available Remains stable and has been getting occasional morphine and/or Ativan for agitation and shortness of breath Below are the other significant medical conditions that she has been suffering from: (1) Acute on chronic respiratory failure with hypoxia and hypercapnia: Plan: Multifactorial hx chronic respiratory failure secondary to COPD , bibasilar pneumonia, home O2 noncompliance as per records Status post intubation at the ER COPD exacerbation secondary to atypical pneumonia, recent outpatient Z-Santana course for pharyngitis Did not receive IV doxycycline and/or IV azithromycin in the hospital-was getting azithromycin as an outpatient Has been on intravenous cefepime and Flagyl added today 12/22/2022 Intravenous Solu-Medrol and nebs as prescribed Complicated UTI, possible sepsis-has been on intravenous cefepime Appreciate conference interpreter input and recommendation Possible functional disability, concerns about patient ability to reside alone with multiple comorbidities. Remains critical but stable-prognosis remains very poor Remains critical with stable vitals but unresponsive Overall prognosis remains poor The family members will have a meeting with conference interpreter and myself this afternoon Likely going to have prolonged extubation sometime today Rhabdomyolysis and transaminitis Likely secondary to sepsis, hypotension and hypoxia Supportive care Cannot provide enough IV fluid We will monitor LFTs and CPK CPK has been improving and the LFTs are improving to MRI showed 2 small acute CVAs Appreciate neurology input and recommendation Prognosis remains poor Daughter was updated by the neurologist Discussed with the neurologist-prognosis remains poor Recent stroke is complicating her mental status (3) Septic shock: Plan: Transaminitis likely secondary to sepsis with hypotension and congestion to the liver We will monitor LFTs (4) Bilateral pneumonia: Plan: Continue with intravenous cefepime and Flagyl White count remains elevated Mems Integration Engineer is trying to put on antifungal as well (5) RU (acute kidney injury): Plan: Severe oliguric acute kidney injury in the setting of sepsis and hypoxemia Received intravenous fluid with positive balance of 6 L so far Bumex has been added Appreciate nephrology input and recommendation Has been having dialysis from today No urine output and will need dialysis We will have dialysis tomorrow-ongoing dialysis Will need dialysis to sustain vitals and labs (6) COPD exacerbation: Plan: As above with bilateral pneumonia Plan Other medical conditions as below: Hypertensive urgency secondary to illness Received intravenous fluid due to sepsis Blood pressure is running low at 102/43 hyperlipidemia on statin Rx DM2 on oral medications, suboptimal control as of recent hemoglobin A1c of 8.20 Sep 2022 Basal bolus insulin adjusted for n.p.o. status, ISS BG goal 1 40-1 80 appropriate goal for ICU Hypothyroidism, euthyroid as of today's TSH Ongoing tobacco abuse DVT prophylaxis Subcu Lovenox CODE STATUS Full Discussed with the daughter in detail Prognosis is poor Will a family meeting this afternoon for planned extubation Admission and Anticipated Discharge Date Admission Date: December 19, 2022 Subjective 12/21/2022 The patient was seen and examined in ICU Remains on the vent and sedated 12/22/2022 The patient was seen and examined in ICU She remains sedated on vent Critical but stable 12/23/2022 The patient was seen and examined in ICU in presence of the daughter He remains stable but critical Remains on vent with sedation 12/24/2022 The patient was seen and examined in ICU in presence of the daughter She remains stable but critical Remains on vent without sedation 12/25/2022 The patient was seen and examined in ICU in presence of the daughter She remains intubated and unconscious without any sedation 12/26/2022 The patient was seen and examined in ICU in presence of the daughter After a long discussion with the family members planned extubation was done yesterday by the conference interpreter the patient has been on comfort care since then Pain is stable this morning Required only 1 dose of Ativan last night 12/27/2022 The patient was seen and examined in medical floor in the presence of the daughters Remains stable with occasional agitation on comfort care Physical Exam Physical Exam: Remains stable without any distress on comfort measure Constitutional: well developed, well nourished and + ill appearing ENMT: external ear and nose normal, oropharynx normal Neck: trachea midline, no thyromegaly Respiratory: no respiratory distress Auscultation: + diminished lung sounds and + crackles (Minimal crackles at the bases) Cardiovascular: Rate/Rhythm: regular rate and regular rhythm; not tachycardic Heart Sounds: normal S1 and normal S2; no murmur Extremities: + edema Gastrointestinal (Abdomen): Inspection/Auscultation: normal bowel sounds; abdomen not distended Percussion/Palpation: abdomen soft Lymphatic: no cervical or axillary lymphadenopathy Results & Data Results & Data Vital Signs (Past 12 Hours) Vital Signs O2 Del Method 12/27/22 07:35 Nasal Cannula
[2022-12-28] MEDS: ATROPINE SULFATE 1% OP SOLN 5 ML BTL SL PRN ×6 (01:02→16:38)
[2022-12-28] MEDS: LORazepam 2 MG/1 ML VIAL IV PRN ×2 (01:06→15:30)
[2022-12-28] MEDS: MoRPHine SULFATE 2 MG/ML CARP IV PRN ×3 (07:32→16:47)
[2022-12-28] MEDS: BACITRACIN OINT 0.9 GM PKT EXT SCH (13:21)
--- NOTE | 2022-12-28 16:51 | Hospitalist Progress Note ---
Date of Service December 28, 2022 Assessment & Plan (1) Acute on chronic respiratory failure with hypoxia and hypercapnia: (2) ARDS (adult respiratory distress syndrome): Plan: Comfort measures status No acute distress at rest We will continue medications to give her comfortable Discussed with the daughter She will be transferred to a quiet room upstairs when available Remains stable and has been getting occasional morphine and/or Ativan for agitation and shortness of breath Remains stable without any acute distress Discussed with the daughters and comfort measures will be continued Below are the other significant medical conditions that she has been suffering from: (1) Acute on chronic respiratory failure with hypoxia and hypercapnia: Plan: Multifactorial hx chronic respiratory failure secondary to COPD , bibasilar pneumonia, home O2 noncompliance as per records Status post intubation at the ER COPD exacerbation secondary to atypical pneumonia, recent outpatient Z-Santana course for pharyngitis Did not receive IV doxycycline and/or IV azithromycin in the hospital-was getting azithromycin as an outpatient Has been on intravenous cefepime and Flagyl added today 12/22/2022 Intravenous Solu-Medrol and nebs as prescribed Complicated UTI, possible sepsis-has been on intravenous cefepime Appreciate interface developer input and recommendation Possible functional disability, concerns about patient ability to reside alone with multiple comorbidities. Remains critical but stable-prognosis remains very poor Remains critical with stable vitals but unresponsive Overall prognosis remains poor The family members will have a meeting with interface developer and myself this afternoon Likely going to have prolonged extubation sometime today Rhabdomyolysis and transaminitis Likely secondary to sepsis, hypotension and hypoxia Supportive care Cannot provide enough IV fluid We will monitor LFTs and CPK CPK has been improving and the LFTs are improving to MRI showed 2 small acute CVAs Appreciate neurology input and recommendation Prognosis remains poor Daughter was updated by the neurologist Discussed with the neurologist-prognosis remains poor Recent stroke is complicating her mental status (3) Septic shock: Plan: Transaminitis likely secondary to sepsis with hypotension and congestion to the liver We will monitor LFTs (4) Bilateral pneumonia: Plan: Continue with intravenous cefepime and Flagyl White count remains elevated Spread Cutter is trying to put on antifungal as well (5) RU (acute kidney injury): Plan: Severe oliguric acute kidney injury in the setting of sepsis and hypoxemia Received intravenous fluid with positive balance of 6 L so far Bumex has been added Appreciate nephrology input and recommendation Has been having dialysis from today No urine output and will need dialysis We will have dialysis tomorrow-ongoing dialysis Will need dialysis to sustain vitals and labs (6) COPD exacerbation: Plan: As above with bilateral pneumonia Plan Other medical conditions as below: Hypertensive urgency secondary to illness Received intravenous fluid due to sepsis Blood pressure is running low at 102/43 hyperlipidemia on statin Rx DM2 on oral medications, suboptimal control as of recent hemoglobin A1c of 8.20 Sep 2022 Basal bolus insulin adjusted for n.p.o. status, ISS BG goal 1 40-1 80 appropriate goal for ICU Hypothyroidism, euthyroid as of today's TSH Ongoing tobacco abuse DVT prophylaxis Subcu Lovenox CODE STATUS Full Discussed with the daughter in detail Prognosis is poor Will a family meeting this afternoon for planned extubation Admission and Anticipated Discharge Date Admission Date: December 19, 2022 Subjective 12/21/2022 The patient was seen and examined in ICU Remains on the vent and sedated 12/22/2022 The patient was seen and examined in ICU She remains sedated on vent Critical but stable 12/23/2022 The patient was seen and examined in ICU in presence of the daughter He remains stable but critical Remains on vent with sedation 12/24/2022 The patient was seen and examined in ICU in presence of the daughter She remains stable but critical Remains on vent without sedation 12/25/2022 The patient was seen and examined in ICU in presence of the daughter She remains intubated and unconscious without any sedation 12/26/2022 The patient was seen and examined in ICU in presence of the daughter After a long discussion with the family members planned extubation was done yesterday by the interface developer the patient has been on comfort care since then Pain is stable this morning Required only 1 dose of Ativan last night 12/27/2022 The patient was seen and examined in medical floor in the presence of the daughters Remains stable with occasional agitation on comfort care 12/28/2022 The patient was seen and examined in presence of the daughters Remained stable on comfort care Physical Exam Physical Exam: Remains stable without any distress on comfort measure Constitutional: well developed, well nourished and + ill appearing ENMT: external ear and nose normal, oropharynx normal Neck: trachea midline, no thyromegaly Respiratory: + respiratory distress (Minimal distress with tracheal sound) Auscultation: + diminished lung sounds and + crackles (Minimal crackles at the bases) Cardiovascular: Rate/Rhythm: regular rate and regular rhythm; not tachycardic Heart Sounds: normal S1 and normal S2; no murmur Extremities: + edema Gastrointestinal (Abdomen): Inspection/Auscultation: normal bowel sounds; abdomen not distended Percussion/Palpation: abdomen soft Neurologic: Unresponsive. Lymphatic: no cervical or axillary lymphadenopathy Results & Data Results & Data Vital Signs (Past 12 Hours) Vital Signs O2 Del Method 12/28/22 09:54 Nasal Cannula
[2022-12-28] MEDS ORDERED: ACETAMINOPHEN 650 MG SUPP PR STA (17:00)
--- NOTE | 2022-12-28 19:51 | Death Pronouncement Note ---
Date of Service December 28, 2022 Pronouncement Note Admission Date December 19, 2022 Date and Time of Date of : 12/28/22 Time of : 19:43 Summary Discharge summary to be completed by Dr. Ramos. Additional Data Confirmation of : no pulse, no respirations, no heart sounds and pupils fixed and dilated Family: at bedside Attending physician: Mercedez Ramos MD
--- NOTE | 2022-12-29 08:21 | Discharge Summary ---
Date of Service December 28, 2022 Admission HPI Per Admitting Provider History obtained from patient, family, and records. Limited history from patient secondary to respiratory distress and subsequent intubation. Medical history significant for chronic respiratory failure secondary to COPD supposedly, home O2 noncompliance as per records on home O2, hypertension, hyperlipidemia, DM2 on oral medications, hypothyroidism, PMR, NAFLD, ongoing tobacco abuse. Last confinement June 2021 for COPD exacerbation. Patient with sore throat symptoms since last week, no chest pain, no SOB. Outpatient strep test negative. PCP prescribed Z-Santana course for sore throat. Worsening weakness over the last few days. Cough productive of clear sputum. Patient not sure about weight gain. Patient denies abdominal/flank pain. Patient denies headache. Patient unable to move as much at home where she resides by herself. Patient found by family to be covered in excrement and urine. O2 sats upon EMS arrival 80s on room air. NSS and ceftriaxone administered at the ER for possible sepsis. Patient later noted SOB symptoms. Denies aspiration. Denies chest pain. Progressive respiratory distress despite BiPAP initiation. Patient subsequently intubated at the ER. 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 Exam Per Admitting Provider Physical Exam: GENERAL: comfortable, obese, sedated SKIN: Normal color, warm HEENT: [place] palpebral conjunctivae, no ptosis, dry buccal mucosa, ET in place NECK : Supple, short neck, no tenderness CHEST : Decreased breath sounds, diffuse expiratory wheezes, no tenderness HEART : Tachycardic, no obvious murmurs ABDOMEN: Some distention, nontender EXTREMITIES : No LE swelling, no LE tenderness, no other conspicuous deformities noted NEUROLOGIC : Sedated, no facial asymmetry, gait and stance not assessed Principal Diagnosis - Septic shock,ARDS,RU,CVA Discharge Data Allergies Allergy/AdvReac Type Severity Reaction Status Date / Time Penicillins Allergy Intermediate HIVES Verified 12/19/22 00:08 Consultations 12/19/22 01:49 ED Decision to Admit Stat 12/19/22 05:01 Consult Skidway Worker Routine 12/21/22 12:23 Consult Nephrology Routine 12/23/22 10:21 Consult Neurology Routine Ordered Studies 12/18/22 23:18 CT Brain [CT head/brain wo con] Stat 12/19/22 04:45 CT for pulmonary embolism PE [CT angio chest PE protocol] Stat 12/19/22 07:24 sono, invasive monitoring [US point of care ultrasound] Urgent 12/21/22 09:00 US renal/blad retro comp Urgent 12/21/22 10:29 US portal veins duplex [US duplex portal hepatic veins] Urgent 12/21/22 12:10 sono, invasive monitoring [US point of care ultrasound] Urgent 12/21/22 15:03 CT Abd and Pelvis [CT abd pelvis wo con] Routine CT chest without contrast [CT chest diagnostic wo con] Routine 12/21/22 22:19 US venous doppler UE RT Stat 12/23/22 06:01 MRI Brain [MR brain wo con] Routine Hospital Course (1) Acute on chronic respiratory failure with hypoxia and hypercapnia: (2) ARDS (adult respiratory distress syndrome): Comfort measures status No acute distress at rest We will continue medications to give her comfortable Discussed with the daughter She will be transferred to a quiet room upstairs when available Remains stable and has been getting occasional morphine and/or Ativan for agitation and shortness of breath Remains stable without any acute distress Discussed with the daughters and comfort measures will be continued Below are the other significant medical conditions that she has been suffering from: (1) Acute on chronic respiratory failure with hypoxia and hypercapnia: Plan: Multifactorial hx chronic respiratory failure secondary to COPD , bibasilar pneumonia, home O2 noncompliance as per records Status post intubation at the ER COPD exacerbation secondary to atypical pneumonia, recent outpatient Z-Santana course for pharyngitis Did not receive IV doxycycline and/or IV azithromycin in the hospital-was getting azithromycin as an outpatient Has been on intravenous cefepime and Flagyl added today 12/22/2022 Intravenous Solu-Medrol and nebs as prescribed Complicated UTI, possible sepsis-has been on intravenous cefepime Appreciate placing judge input and recommendation Possible functional disability, concerns about patient ability to reside alone with multiple comorbidities. Remains critical but stable-prognosis remains very poor Remains critical with stable vitals but unresponsive Overall prognosis remains poor The family members will have a meeting with placing judge and myself this afternoon Likely going to have prolonged extubation sometime today Rhabdomyolysis and transaminitis Likely secondary to sepsis, hypotension and hypoxia Supportive care Cannot provide enough IV fluid We will monitor LFTs and CPK CPK has been improving and the LFTs are improving to MRI showed 2 small acute CVAs Appreciate neurology input and recommendation Prognosis remains poor Daughter was updated by the neurologist Discussed with the neurologist-prognosis remains poor Recent stroke is complicating her mental status (3) Septic shock: Transaminitis likely secondary to sepsis with hypotension and congestion to the liver We will monitor LFTs (4) Bilateral pneumonia: Continue with intravenous cefepime and Flagyl White count remains elevated Skidway Worker is trying to put on antifungal as well (5) RU (acute kidney injury): Severe oliguric acute kidney injury in the setting of sepsis and hypoxemia Received intravenous fluid with positive balance of 6 L so far Bumex has been added Appreciate nephrology input and recommendation Has been having dialysis from today No urine output and will need dialysis We will have dialysis tomorrow-ongoing dialysis Will need dialysis to sustain vitals and labs (6) COPD exacerbation: As above with bilateral pneumonia Plan Other medical conditions as below: Hypertensive urgency secondary to illness Received intravenous fluid due to sepsis Blood pressure is running low at 102/43 hyperlipidemia on statin Rx DM2 on oral medications, suboptimal control as of recent hemoglobin A1c of 8.20 Sep 2022 Basal bolus insulin adjusted for n.p.o. status, ISS BG goal 1 40-1 80 appropriate goal for ICU Hypothyroidism, euthyroid as of today's TSH Ongoing tobacco abuse DVT prophylaxis Subcu Lovenox CODE STATUS Full Discussed with the daughter in detail Prognosis is poor Will a family meeting this afternoon for planned extubation Total Time Total Time Spent Total Time Spent (In Minutes): 20 minutes Discharge Plan Discharge Items Patient Disposition: Other Date/Time: 12/28/22 18:05
[2023-01-02 11:33] LABS: Legionella Culture Source BW RLL; Source LUNG BIOPSY RLL
== END 2022-12-28 20:58 | disposition expired | DRG 870 ==
LOC: ED 22:53 → SUATTDRO 12-19 03:39 → 1E 12-19 03:39 → 3E 12-26 17:11
DX: J44.9 Chronic obstructive pulmonary disease, unspecified; K72.00 Acute and subacute hepatic failure without coma; E78.5 Hyperlipidemia, unspecified; J69.0 Pneumonitis due to inhalation of food and vomit; Z79.899 Other long term (current) drug therapy; N39.0 Urinary tract infection, site not specified; A41.9 Sepsis, unspecified organism; J44.1 Chronic obstructive pulmonary disease with (acute) exacerbation; J96.22 Acute and chronic respiratory failure with hypercapnia; Z79.890 Hormone replacement therapy; B96.20 Unspecified Escherichia coli [E. coli] as the cause of diseases classified elsewhere; N17.9 Acute kidney failure, unspecified; J18.9 Pneumonia, unspecified organism; J96.21 Acute and chronic respiratory failure with hypoxia; J80 Acute respiratory distress syndrome; R57.8 Other shock; E03.9 Hypothyroidism, unspecified; B37.9 Candidiasis, unspecified; K75.81 Nonalcoholic steatohepatitis (NASH); Z88.0 Allergy status to penicillin; M62.82 Rhabdomyolysis; Z51.5 Encounter for palliative care; Z79.02 Long term (current) use of antithrombotics/antiplatelets; I16.0 Hypertensive urgency; F17.210 Nicotine dependence, cigarettes, uncomplicated; E11.9 Type 2 diabetes mellitus without complications